=== PATIENT | male | born 1945 | race Two or more races ===

== ENCOUNTER 2019-02-18 21:07 | Emergency (ER) | payer SELFPAY ==
[~2019-02-18] VITALS: Ht 154.9 cm; Wt 66.7 kg
[2019-02-18 21:37] VITALS: BP 146/98
[2019-02-18] MEDS ORDERED: predniSONE 20 MG TABLET ONE (21:54)
[2019-02-18] MEDS ORDERED: IPRATRPIUM/ALBUTEROL 0.5/2.5MG 3 ML NEBU. NEB ONE (22:00)
[2019-02-18] MEDS ORDERED: predniSONE 20 MG TABLET PO ONE (22:00)
--- NOTE | 2019-02-18 22:01 | PHYS DOC ---
Past Medical History Past Medical History: COPD Past Surgical History: Other Additional Past Surgical Histo: AORTIC VALVE REPLACEMENT Alcohol Use: None Drug Use: None Adult General Chief Complaint Chief Complaint: SORE THROAT HPI HPI Patient is a 74 year old male with history of COPD stopped smoking over 20 years ago who presents to the ED today complaining of productive cough, sore throat, shortness of breath, symptoms began today. Patient states he has tried using his inhaler with no relief. Family state patient typically has to get steroids to reduce symptoms. Family also state they recently moved from [place] and do not have a PCP in town. Patient is Persian speaking and interpretation is provided by family. Review of Systems Review of Systems Constitutional: Denies fever or chills [] Eyes: Denies change in visual acuity, redness, or eye pain [] HENT: Reports sore throat. Denies nasal congestion Respiratory: Reports cough and shortness of breath [] Cardiovascular: No additional information not addressed in HPI [] GI: Denies abdominal pain, nausea, vomiting, bloody stools or diarrhea [] : Denies dysuria or hematuria [] Musculoskeletal: Denies back pain or joint pain [] Integument: Denies rash or skin lesions [] Neurologic: Denies headache, focal weakness or sensory changes [] All other systems were reviewed and found to be within normal limits, except as documented in this note. Current Medications Current Medications Current Medications Medications (Trade) Dose Ordered Sig/Marino Start Time Stop Time Status Last Admin Dose Admin Albuterol/ Ipratropium (Duoneb) 3 ml 1X ONCE 02/18/19 22:00 02/18/19 22:02 DC 02/18/19 22:46 3 ML Prednisone (Prednisone) 20 mg STK-MED ONCE 02/18/19 21:54 02/18/19 21:55 DC Allergies Allergies Allergies Coded Allergies Type Severity Reaction Last Updated Verified No Known Drug Allergies 02/18/19 No Physical Exam Physical Exam Constitutional: Well developed, well nourished, no acute distress, non-toxic appearance. [] HENT: Normocephalic, atraumatic, bilateral external ears normal, oropharynx moist, no oral exudates, nose normal. [] Eyes: PERRLA, EOMI, conjunctiva normal, no discharge. [] Neck: Normal range of motion, no tenderness, supple, no stridor. [] Cardiovascular:Heart rate regular rhythm, no murmur [] Lungs & Thorax: Diffuse wheezing noted throughout the lung bases. Abdomen: Bowel sounds normal, soft, no tenderness, no masses, no pulsatile masses. [] Skin: Warm, dry, no erythema, no rash. [] Back: No tenderness, no CVA tenderness. [] Extremities: No tenderness, no cyanosis, no clubbing, ROM intact, no edema. [] Neurologic: Alert and oriented X 3, normal motor function, normal sensory function, no focal deficits noted. [] Psychologic: Affect normal, judgement normal, mood normal. [] Current Patient Data Vital Signs Vital Signs Date Time Temp Pulse Resp B/P (MAP) Pulse Ox O2 Delivery O2 Flow Rate FiO2 02/18/19 22:46 Room Air 02/18/19 21:37 98.4 109 16 146/98 (114) 94 98.4 EKG EKG [] Radiology/Procedures Radiology/Procedures []PROCEDURE: CHEST PA & LATERAL PA and lateral chest. HISTORY: Cough, short of breath, chest sore throat PA and lateral views were taken of the chest. The heart is normal in size without evidence of prior aortic valve surgery. There is no effusion. There is a possible pulmonary nodule or granuloma on the right correlation with an old study would be of benefit. There are no confluent infiltrates. IMPRESSION: 1. Nodule or granuloma on the right correlation with old studies of be of benefit. 2. Previous aortic valve surgery. 3. No confluent infiltrates. Electronically signed by: Ramón Varela MD (02/18/2019 10:26 PM) [facility] DICTATED and SIGNED BY: RAMÓN VARELA MD DATE: 02/18/192225 Course & Med Decision Making Course & Med Decision Making Pertinent Labs and Imaging studies reviewed. (See chart for details) This is a 74-year-old male patient presented to the ED today with cough, shortness of breath and a sore throat, symptoms began today. History of COPD. Patient wheezing on arrival to the ED. vitals on arrival temperature 98.4 heart rate 109, respiration 16 and O2 sats 94% on room air blood pressure 146/98. Negative rapid strep. Chest x-ray interpreted by radiologist was negative for any acute findings. Patient was given a DuoNeb treatment and prednisone. Feeling better, breathing back to baseline. Patient was discharged to home. Provided in his as well as prednisone. Provided a primary care doctor's list for follow-up. Antwon Disclaimer Dragon Disclaimer This electronic medical record was generated, in whole or in part, using a voice recognition dictation system. Departure Departure Impression: Primary Impression: COPD exacerbation Additional Impression: Acute viral pharyngitis Disposition: HOME, SELF-CARE Condition: STABLE Referrals: NO PCP (PCP) Follow-up with a doctor from the list with provided you Patient Instructions: Chronic Obstructive Pulmonary Disease Exacerbation, Viral Pharyngitis Additional Instructions: You were seen in the emergency room for pharyngitis and COPD exacerbation. Use the prescribed medications as ordered. Establish care with a primary care doctor from the list provided and follow-up. Scripts Prednisone (PREDNISONE) 50 Mg Tablet 1 TAB PO DAILY, #4 TAB Prov: RODRIGUEZ DICKERSON APRN 02/18/19 Albuterol Sulfate (VENTOLIN HFA INHALER) 18 Gm Hfa.aer.ad 2 PUFF INH Q4HRS for FOR ASTHMA, #1 INHALER 0 Refills Prov: RODRIGUEZ DICKERSON APRN 02/18/19 Problem Qualifiers RODRIGUEZ DICKERSON APRN Feb 18, 2019 22:01
--- NOTE | 2019-02-18 22:29 | RAD ---
PA and lateral chest. HISTORY: Cough, short of breath, chest sore throat PA and lateral views were taken of the chest. The heart is normal in size without evidence of prior aortic valve surgery. There is no effusion. There is a possible pulmonary nodule or granuloma on the right correlation with an old study would be of benefit. There are no confluent infiltrates. IMPRESSION: 1. Nodule or granuloma on the right correlation with old studies of be of benefit. 2. Previous aortic valve surgery. 3. No confluent infiltrates. Electronically signed by: Ramón Martins MD (02/18/2019 10:26 PM) [facility]
[2019-02-18] MEDS ORDERED: PRED50TA PO (23:14)
[2019-02-18] MEDS ORDERED: VENTOLIN HFA18 GM INH (23:14)
== END 2019-02-18 23:20 | disposition home or self-care (01) ==
LOC: ER 21:07
DX: J44.1 Chronic obstructive pulmonary disease with (acute) exacerbation (principal); J02.8 Acute pharyngitis due to other specified organisms; B97.89 Other viral agents as the cause of diseases classified elsewhere
CPT/HCPCS: 71046; 87070; 87880; 94640; 99285; J7512; J7620

== ENCOUNTER 2019-06-06 13:13 | Inpatient (IN) | payer OTHER ==
[~2019-06-06] VITALS: Ht 147.3 cm; Wt 64.9 kg
[~2019-06-06 13:13] MED LIST: PRED50TA PO; VENTOLIN HFA18 GM INH
--- NOTE | 2019-06-06 13:50 | PHYS DOC ---
Past Medical History Past Medical History: COPD Past Surgical History: Other Additional Past Surgical Histo: AORTIC VALVE REPLACEMENT Alcohol Use: None Drug Use: None Adult General Chief Complaint Chief Complaint: CHEST PAIN HPI HPI Patient is a 74-year-old male who presents with complaint of shortness of breath over the last several days and some ongoing chest discomfort that is intermittent for over a month now. Patient states that pain presents with he is exerting himself. He also indicates that shortness of breath is worsened with exertion. Patient reportedly has had no vomiting or diarrhea. Currently patient denies any chest pain.[] Review of Systems Review of Systems Constitutional: Denies fever or chills [] Respiratory: Complains of shortness of breath [] Cardiovascular: No additional information not addressed in HPI [] GI: Denies abdominal pain, nausea, vomiting or diarrhea [] Integument: Denies rash or skin lesions [] Neurologic: Denies headache, focal weakness or sensory changes [] All other systems were reviewed and found to be within normal limits, except as documented in this note. Current Medications Current Medications Current Medications Medications (Trade) Dose Ordered Sig/Marino Start Time Stop Time Status Last Admin Dose Admin Aspirin (Children'S Aspirin) 324 mg 1X ONCE 06/06/19 14:00 06/06/19 14:01 DC 06/06/19 13:58 324 MG Allergies Allergies Allergies Coded Allergies Type Severity Reaction Last Updated Verified No Known Drug Allergies 02/18/19 No Physical Exam Physical Exam Constitutional: Well developed, well nourished, no acute distress, non-toxic appearance. [] HENT: Normocephalic, atraumatic, bilateral external ears normal, oropharynx moist, no oral exudates, nose normal. [] Eyes: PERRLA, EOMI, conjunctiva normal, no discharge. [] Neck: Normal range of motion, no tenderness, supple, no stridor. [] Cardiovascular: Regular rate and rhythm. 4/6 systolic ejection murmur is noted greatest over tricuspid region[] Lungs & Thorax: Fine rhonchi are noted in bilateral lung bases to auscultation [] Abdomen: Bowel sounds normal, soft, no tenderness. [] Skin: Warm, dry, no erythema, no rash. [] Extremities: No tenderness, no cyanosis, no clubbing, ROM intact. [] Neurologic: Alert and oriented X 3, no focal deficits noted. [] Current Patient Data Vital Signs Vital Signs Date Time Temp Pulse Resp B/P (MAP) Pulse Ox O2 Delivery O2 Flow Rate FiO2 06/06/19 13:15 98.1 98 26 148/97 (114) 90 Room Air 98.1 Lab Values Laboratory Tests Test 06/06/19 13:35 White Blood Count 3.5 x10^3/uL (4.0-11.0) L Red Blood Count 4.84 x10^6/uL (4.30-5.70) Hemoglobin 13.7 g/dL (13.0-17.5) Hematocrit 41.0 % (39.0-53.0) Mean Corpuscular Volume 85 fL (79-100) Mean Corpuscular Hemoglobin 28 pg (25-35) Mean Corpuscular Hemoglobin Concent 33 g/dL (31-37) Red Cell Distribution Width 18.5 % (11.5-14.5) H Platelet Count 158 x10^3/uL (140-400) Neutrophils (%) (Auto) 63 % (31-73) Lymphocytes (%) (Auto) 23 % (24-48) L Monocytes (%) (Auto) 8 % (0-9) Eosinophils (%) (Auto) 5 % (0-3) H Basophils (%) (Auto) 1 % (0-3) Neutrophils # (Auto) 2.2 x10^3/uL (1.8-7.7) Lymphocytes # (Auto) 0.8 x10^3/uL (1.0-4.8) L Monocytes # (Auto) 0.3 x10^3/uL (0.0-1.1) Eosinophils # (Auto) 0.2 x10^3/uL (0.0-0.7) Basophils # (Auto) 0.0 x10^3/uL (0.0-0.2) Prothrombin Time 13.4 SEC (11.7-14.0) Prothrombin Time INR 1.1 (0.8-1.1) D-Dimer (Carmella) 0.56 ug/mlFEU (0.00-0.50) H Sodium Level 144 mmol/L (136-145) Potassium Level 3.6 mmol/L (3.5-5.1) Chloride Level 106 mmol/L (98-107) Carbon Dioxide Level 32 mmol/L (21-32) Anion Gap 6 (6-14) Blood Urea Nitrogen 21 mg/dL (8-26) Creatinine 1.4 mg/dL (0.7-1.3) H Estimated GFR (Cockcroft-Gault) 49.3 BUN/Creatinine Ratio 15 (6-20) Glucose Level 154 mg/dL (70-99) H Calcium Level 8.9 mg/dL (8.5-10.1) Magnesium Level 2.3 mg/dL (1.8-2.4) Total Bilirubin 0.7 mg/dL (0.2-1.0) Aspartate Amino Transferase (AST) 23 U/L (15-37) Alanine Aminotransferase (ALT) 18 U/L (16-63) Alkaline Phosphatase 77 U/L (46-116) Troponin I Quantitative < 0.017 ng/mL (0.000-0.055) JC-Ocf-B-Type Natriuretic Peptide 326 pg/mL (0-449) Total Protein 8.4 g/dL (6.4-8.2) H Albumin 4.0 g/dL (3.4-5.0) Albumin/Globulin Ratio 0.9 (1.0-1.7) L Lipase 344 U/L (73-393) Laboratory Tests 06/06/19 13:35 Laboratory Tests 06/06/19 13:35 EKG EKG [] Interpretation Time: EKG demonstrates normal sinus rhythm with rate of 96. Radiology/Procedures Radiology/Procedures [] Impressions: PROCEDURE: PORTABLE CHEST 1V EXAM: Chest, single view. HISTORY: Dyspnea on exertion. COMPARISON: None. FINDINGS: A frontal view of the chest is obtained. There is no infiltrate, pleural effusion or pneumothorax. There is stable elevation of the right hemidiaphragm. There is a stable prominent cardiac silhouette. IMPRESSION: No acute pulmonary finding. Electronically signed by: Ani Gabriel MD (06/06/2019 2:46 PM) [facility] Course & Med Decision Making Course & Med Decision Making Pertinent Labs and Imaging studies reviewed. (See chart for details) [] Dragon Disclaimer Dragon Disclaimer This electronic medical record was generated, in whole or in part, using a voice recognition dictation system. Departure Departure Impression: Primary Impression: Community acquired pneumonia Additional Impression: Chest pain Disposition: 09 ADMITTED INPATIENT Admitting Physician: RUPERTO (Dr. Thurston) Condition: GOOD Referrals: NO PCP (PCP) Problem Qualifiers Primary Impression: Community acquired pneumonia Laterality: unspecified laterality Qualified Codes: J18.9 - Pneumonia, unspecified organism Additional Impression: Chest pain Chest pain type: unspecified Qualified Codes: R07.9 - Chest pain, unspecified CHET PRICE Jr. DO Jun 06, 2019 13:50
[2019-06-06 13:51] LABS: BASO % 1 % (0-3); EOS # 0.2 x10^3/uL (0.0-0.7); EOS % 5 % (0-3); HEMOGLOBIN 13.7 g/dL (13.0-17.5); LYMPH # 0.8 x10^3/uL (1.0-4.8); LYMPH % 23 % (24-48); MEAN CORPUSCULAR HEMOGLOBIN 28 pg (25-35); MEAN CORPUSCULAR HGB CONC 33 g/dL (31-37); MEAN CORPUSCULAR VOLUME 85 fL (79-100); MONO # 0.3 x10^3/uL (0.0-1.1); MONO % 8 % (0-9); NEUT # 2.2 x10^3/uL (1.8-7.7); NEUT % 63 % (31-73); PLATELET COUNT 158 x10^3/uL (140-400); RED BLOOD COUNT 4.84 x10^6/uL (4.30-5.70); RED CELL DISTRIBUTION WIDTH 18.5 % (11.5-14.5); WHITE BLOOD COUNT 3.5 x10^3/uL (4.0-11.0)
--- NOTE | 2019-06-06 13:51 | RAD ---
EXAM: Chest, single view. HISTORY: Shortness of breath. Chest pain. COMPARISON: 02/18/2019. FINDINGS: A frontal view of the chest obtained. There has been interval increase in diffuse interstitial opacity. There is superimposed focal opacity overlying the right lower lobe which may artifactual or due to consolidated infiltrate. There is no consolidation, pleural effusion or pneumothorax. There is a stable cardiac silhouette and evidence of prior mediastinal surgery. IMPRESSION: Mild increased opacity suggesting interstitial infiltrate. There is superimposed lateral right lower lobe opacity which may be due to artifact or consolidated infiltrate. Follow-up to confirm resolution. Electronically signed by: Ani Gabriel MD (06/06/2019 1:48 PM) [facility]
[2019-06-06 13:57] LABS: CALCIUM 8.9 mg/dL (8.5-10.1); CREATININE 1.4 mg/dL (0.7-1.3); GFR 49.3; POTASSIUM 3.6 mmol/L (3.5-5.1)
[2019-06-06] MEDS ORDERED: ASPIRIN CHEWABLE 81 MG TABLET. PO ONE (14:00)
[2019-06-06 14:03] LABS: ALBUMIN/GLOBULIN RATIO 0.9 (1.0-1.7); MAGNESIUM 2.3 mg/dL (1.8-2.4); TOTAL BILIRUBIN 0.7 mg/dL (0.2-1.0); TOTAL PROTEIN 8.4 g/dL (6.4-8.2)
[2019-06-06 14:04] LABS: PROTHROMBIN TIME PATIENT 13.4 SEC (11.7-14.0)
[2019-06-06 14:08] LABS: D-DIMER 0.56 ug/mlFEU (0.00-0.50)
--- NOTE | 2019-06-06 15:21 | PDOC1 ---
History and Physical Date of Admission Date of Admission DATE: 06/06/19 TIME: 13:21 Identification/Chief Complaint Chief Complaint presented to er with SOB, COUGH, CXR C/W PNEUMONIA 74-year-old male /// complaint of shortness of breath over the last several days and some ongoing chest discomfort that is intermittent for over a month Patient states that pain presents with he is exerting himself. He also indicates that shortness of breath is worsened with exertion. reportedly has had no vomiting or diarrhea. Currently patient denies any chest pain. SEEN WITH SON IN ER V/Q PENDING Past Medical History Past Medical History Past Medical History Past Medical History Past Medical History: COPD Past Surgical History: Other Additional Past Surgical Histo: AORTIC VALVE REPLACEMENT Alcohol Use: None Drug Use: None fhx copd Pulmonary: COPD Musculoskeletal: Osteoarthritis Family History Family History: Hypertension Social History Smoke: Quit ALCOHOL: occassional Drugs: None Current Problem List Problem List Problems Medical Problems: (1) Chest pain Status: Acute (2) Community acquired pneumonia Status: Acute Current Medications Current Medications Current Medications Aspirin (Children'S Aspirin) 324 mg 1X ONCE PO Last administered on 06/06/19at 13:58; Start 06/06/19 at 14:00; Stop 06/06/19 at 14:01; Status DC Ceftriaxone Sodium (Rocephin) 1 gm 1X ONCE IVP ; Start 06/06/19 at 15:45; Stop 06/06/19 at 15:46 Azithromycin (Zithromax) 500 mg 1X ONCE PO ; Start 06/06/19 at 15:45; Stop 06/06/19 at 15:46 Active Scripts Active Prednisone 50 Mg Tablet 1 Tab PO DAILY Ventolin Hfa Inhaler (Albuterol Sulfate) 18 Gm Hfa.aer.ad 2 Puff INH Q4HRS Allergies Allergies: Coded Allergies: No Known Drug Allergies (Unverified , 02/18/19) ROS Review of System Review of Systems Review of Systems Constitutional: Denies fever or chills [] Respiratory: Complains of shortness of breath [] Cardiovascular: No additional information not addressed in HPI [] GI: Denies abdominal pain, nausea, vomiting or diarrhea [] Integument: Denies rash or skin lesions [] Neurologic: Denies headache, focal weakness or sensory changes [] 14 PT systems were reviewed and found to be within normal limits, except as documented General: YES: Fatigue PSYCHOLOGICAL ROS: No: Anxiety, Behavioral Disorder, Concentration difficultie, Decreased libido, Depression, Disorientation, Hallucinations, Hostility, Irritablity, Memory difficulties, Mood Swings, Obsessive thoughts, Physical abuse, Sexual abuse, Sleep disturbances, Suicidal ideation, Other HEENT: No: Heacaches, Visual Changes, Hearing change, Nasal congestion, Nasal discharge, Oral lesions, Sinus pain, Sore Throat, Epistaxis, Sneezing, Snoring, Tinnitus, Vertigo, Vocal changes, Other ALLERGY AND IMMUNOLOGY: No: Hives, Insect Bite Sensitivity, Itchy/Watery Eyes, Nasal Congestion, Post Nasal Drip, Seasonal Allergies, Other Hematological and Lymphatic: No: Bleeding Problems, Blood Clots, Blood Transfusions, Brusing, Night Sweats, Pallor, Swollen Lymph Nodes, Other Respiratory: YES: Cough, Shortness of breath, SOB with excertion Gastrointestinal: Yes Nausea Musculoskeletal: No Gait Disturbance, No Joint Pain, No Joint Stiffness, No Joint Swelling, No Muscle Pain, No Muscular Weakness, No Pain In:, No Swelling I n:, No Other Neurological: No Behavorial Changes, No Bowel/Bladder ControlChng, No Confusion, No Dizziness, No Gait Disturbance, No Headaches, No Impaired Coord/balance, No Memory Loss, No Numbness/Tingling, No Seizures, No Speech Pro blems, No Tremors, No Visual Changes, No Weakness, No Other Physical Exam Physical Exam Physical Exam Physical Exam Constitutional: Well developed, well nourished, no acute distress, non-toxic appearance. [] HENT: Normocephalic, atraumatic, bilateral external ears normal, oropharynx moist, no oral exudates, nose normal. [] Eyes: PERRLA, EOMI, conjunctiva normal, no discharge. [] Neck: Normal range of motion, no tenderness, supple, no stridor. [] Cardiovascular: Regular rate and rhythm. 4/6 systolic ejection murmur is noted greatest over tricuspid region[] Lungs & Thorax: Fine rhonchi are noted in bilateral lung bases to auscultation [] Abdomen: Bowel sounds normal, soft, no tenderness. [] Skin: Warm, dry, no erythema, no rash. [] Extremities: No tenderness, no cyanosis, no clubbing, ROM intact. [] Neurologic: Alert and oriented X 3, no focal deficits noted. [] General: Alert, Oriented X3, Cooperative, No acute distress HEENT: Mucous membr. moist/pink Heart: RRR, other (GR 2/ 6 LASHON) Abdomen: Normal bowel sounds, Soft Rectal Exam: not examined PELVIC: Examination not indicated Extremities: No cyanosis Neuro: Normal speech, Cranial nerves 3-12 NL Psych/Mental Status: Mental status NL, Mood NL Vitals Vitals Vital Signs Date Time Temp Pulse Resp B/P (MAP) Pulse Ox O2 Delivery O2 Flow Rate FiO2 06/06/19 13:15 98.1 98 26 148/97 (114) 90 Room Air 98.1 Labs Labs Laboratory Tests Test 06/06/19 13:35 White Blood Count 3.5 x10^3/uL (4.0-11.0) Red Blood Count 4.84 x10^6/uL (4.30-5.70) Hemoglobin 13.7 g/dL (13.0-17.5) Hematocrit 41.0 % (39.0-53.0) Mean Corpuscular Volume 85 fL (79-100) Mean Corpuscular Hemoglobin 28 pg (25-35) Mean Corpuscular Hemoglobin Concent 33 g/dL (31-37) Red Cell Distribution Width 18.5 % (11.5-14.5) Platelet Count 158 x10^3/uL (140-400) Neutrophils (%) (Auto) 63 % (31-73) Lymphocytes (%) (Auto) 23 % (24-48) Monocytes (%) (Auto) 8 % (0-9) Eosinophils (%) (Auto) 5 % (0-3) Basophils (%) (Auto) 1 % (0-3) Neutrophils # (Auto) 2.2 x10^3/uL (1.8-7.7) Lymphocytes # (Auto) 0.8 x10^3/uL (1.0-4.8) Monocytes # (Auto) 0.3 x10^3/uL (0.0-1.1) Eosinophils # (Auto) 0.2 x10^3/uL (0.0-0.7) Basophils # (Auto) 0.0 x10^3/uL (0.0-0.2) Prothrombin Time 13.4 SEC (11.7-14.0) Prothromb Time International Ratio 1.1 (0.8-1.1) D-Dimer (Carmella) 0.56 ug/mlFEU (0.00-0.50) Sodium Level 144 mmol/L (136-145) Potassium Level 3.6 mmol/L (3.5-5.1) Chloride Level 106 mmol/L (98-107) Carbon Dioxide Level 32 mmol/L (21-32) Anion Gap 6 (6-14) Blood Urea Nitrogen 21 mg/dL (8-26) Creatinine 1.4 mg/dL (0.7-1.3) Estimated GFR (Cockcroft-Gault) 49.3 BUN/Creatinine Ratio 15 (6-20) Glucose Level 154 mg/dL (70-99) Calcium Level 8.9 mg/dL (8.5-10.1) Magnesium Level 2.3 mg/dL (1.8-2.4) Total Bilirubin 0.7 mg/dL (0.2-1.0) Aspartate Amino Transf (AST/SGOT) 23 U/L (15-37) Alanine Aminotransferase (ALT/SGPT) 18 U/L (16-63) Alkaline Phosphatase 77 U/L (46-116) Troponin I Quantitative < 0.017 ng/mL (0.000-0.055) RS-Fki-N-Type Natriuretic Peptide 326 pg/mL (0-449) Total Protein 8.4 g/dL (6.4-8.2) Albumin 4.0 g/dL (3.4-5.0) Albumin/Globulin Ratio 0.9 (1.0-1.7) Lipase 344 U/L (73-393) Laboratory Tests Test 06/06/19 13:35 White Blood Count 3.5 x10^3/uL (4.0-11.0) Red Blood Count 4.84 x10^6/uL (4.30-5.70) Hemoglobin 13.7 g/dL (13.0-17.5) Hematocrit 41.0 % (39.0-53.0) Mean Corpuscular Volume 85 fL (79-100) Mean Corpuscular Hemoglobin 28 pg (25-35) Mean Corpuscular Hemoglobin Concent 33 g/dL (31-37) Red Cell Distribution Width 18.5 % (11.5-14.5) Platelet Count 158 x10^3/uL (140-400) Neutrophils (%) (Auto) 63 % (31-73) Lymphocytes (%) (Auto) 23 % (24-48) Monocytes (%) (Auto) 8 % (0-9) Eosinophils (%) (Auto) 5 % (0-3) Basophils (%) (Auto) 1 % (0-3) Neutrophils # (Auto) 2.2 x10^3/uL (1.8-7.7) Lymphocytes # (Auto) 0.8 x10^3/uL (1.0-4.8) Monocytes # (Auto) 0.3 x10^3/uL (0.0-1.1) Eosinophils # (Auto) 0.2 x10^3/uL (0.0-0.7) Basophils # (Auto) 0.0 x10^3/uL (0.0-0.2) Prothrombin Time 13.4 SEC (11.7-14.0) Prothromb Time International Ratio 1.1 (0.8-1.1) D-Dimer (Carmella) 0.56 ug/mlFEU (0.00-0.50) Sodium Level 144 mmol/L (136-145) Potassium Level 3.6 mmol/L (3.5-5.1) Chloride Level 106 mmol/L (98-107) Carbon Dioxide Level 32 mmol/L (21-32) Anion Gap 6 (6-14) Blood Urea Nitrogen 21 mg/dL (8-26) Creatinine 1.4 mg/dL (0.7-1.3) Estimated GFR (Cockcroft-Gault) 49.3 BUN/Creatinine Ratio 15 (6-20) Glucose Level 154 mg/dL (70-99) Calcium Level 8.9 mg/dL (8.5-10.1) Magnesium Level 2.3 mg/dL (1.8-2.4) Total Bilirubin 0.7 mg/dL (0.2-1.0) Aspartate Amino Transf (AST/SGOT) 23 U/L (15-37) Alanine Aminotransferase (ALT/SGPT) 18 U/L (16-63) Alkaline Phosphatase 77 U/L (46-116) Troponin I Quantitative < 0.017 ng/mL (0.000-0.055) YG-Qpt-R-Type Natriuretic Peptide 326 pg/mL (0-449) Total Protein 8.4 g/dL (6.4-8.2) Albumin 4.0 g/dL (3.4-5.0) Albumin/Globulin Ratio 0.9 (1.0-1.7) Lipase 344 U/L (73-393) Images Images EXAM: Chest, single view. HISTORY: Shortness of breath. Chest pain. COMPARISON: 02/18/2019. FINDINGS: A frontal view of the chest obtained. There has been interval increase in diffuse interstitial opacity. There is superimposed focal opacity overlying the right lower lobe which may artifactual or due to consolidated infiltrate. There is no consolidation, pleural effusion or pneumothorax. There is a stable cardiac silhouette and evidence of prior mediastinal surgery. IMPRESSION: Mild increased opacity suggesting interstitial infiltrate. There is superimposed lateral right lower lobe opacity which may be due to artifact or consolidated infiltrate. Follow-up to confirm resolution. Electronically signed by: Ani Gabriel MD (06/06/2019 1:48 PM) [place] [id number] DICTATED and SIGNED BY: ANI GABRIEL MD DATE: 06/06/19 1348 VTE Prophylaxis Ordered VTE Prophylaxis Devices: Yes VTE Pharmacological Prophylaxi: Yes Assessment/Plan Assessment/Plan IMPRESSION CHEST DISCOMFORT DYSPNEA Increased opacity suggesting interstitial infiltrate. superimposed lateral right lower lobe opacity which may be due to artifact or consolidated infiltrate REMOTE TOBACCO ABUSE 20 YRS AGO ELEVATED D-DIMER PLAN ADMIT IV ANTIBIOTICS DUONEBS ID CONSULT SPUTUM CULTURE DVT PROPHYLAXIS V/Q SCAN PING 54 MIN PT EXAM, CHART REVIEW, > 50% OF TIME SPENT WITH EXAM, CHART REVIEW, PT CARE COORDINATION RADHA PINA MD Jun 06, 2019 15:21
--- NOTE | 2019-06-06 15:23 | EKG ---
[facility] [address] [place] [address] Test Date: 2019-06-06 Test Time: 13:31:39 Pat Name: CAROLIN COLES Department: Room: Gender: M Public Information Coordinator: : 1945 Requested By: CHET PRICE Order Number: [id number] Reading MD: Jason Roman MD Measurements Intervals [place] Rate: 95 P: 48 ND: 146 QRS: 26 QRSD: 96 T: 62 QT: 366 QTc: 463 Interpretive Statements SINUS RHYTHM Electronically Signed On 06-24-2019 8:18:38 KELLY MACHINE OPERATOR by Jason Roman MD
[2019-06-06] MEDS ORDERED: ONDANSETRON PF 4 MG/2 ML VIAL. IV PRN ×2 (15:30→16:00)
[2019-06-06] MEDS ORDERED: ACETAMINOPHEN 325 MG TABLET. PO PRN (15:30)
[2019-06-06] MEDS ORDERED: MORPHINE SULFATE 2 MG/ML VIAL. IV PRN (15:30)
[2019-06-06] MEDS ORDERED: cefTRIAXone IV Push 1 GM VIAL. IVP ONE (15:45)
[2019-06-06] MEDS ORDERED: AZITHROMYCIN 250 MG TABLET. PO ONE (15:45)
[2019-06-06] MEDS: IPRATRPIUM/ALBUTEROL 0.5/2.5MG 3 ML NEBU. NEB SCH ×2 (15:47→20:00)
[2019-06-06] MEDS ORDERED: DOCUSATE SODIUM 100 MG CAPSULE. PO PRN (16:00)
[2019-06-06] MEDS ORDERED: cloNIDine HCL 0.1 MG TABLET PO PRN (16:00)
[2019-06-06] MEDS ORDERED: 0.9 % SODIUM CHLORIDE 10 ML DISP.SYRIN. IV PRN (16:00)
[2019-06-06] MEDS ORDERED: PIPERACILLIN/TAZOBACTAM 3.375 GM in IV NORMAL SALINE 50ML 50 ML IV ONE (16:30)
--- NOTE | 2019-06-06 19:24 | RAD ---
Lung scan 06/06/2019 CLINICAL HISTORY: Shortness of breath for 3 days. Elevated d-dimer. TECHNIQUE: After the administration of 7 mCi of Xenon-133 gas, ventilation images of both lungs were obtained using the gamma camera. After the intravenous administration of 5.8 mCi Technetium 99m MAA, perfusion images of both lungs were obtained using the gamma camera. FINDINGS: Comparison is made to a portable chest radiograph performed earlier the same day. This demonstrates mild cardiomegaly. No acute pulmonary infiltrate is seen. Slightly heterogeneous ventilation and perfusion to both lungs is seen. No unmatched perfusion defect is noted. These findings consistent with a low probability study for pulmonary embolism. IMPRESSION: Low probability study. Electronically signed by: Terrence Funez MD (06/06/2019 7:21 PM) [facility]
[2019-06-06 19:52] VITALS: BP 131/75
[2019-06-06] MEDS ORDERED: FURO-68 PO (19:57)
[2019-06-06] MEDS ORDERED: PANT20TA2 PO (19:57)
[2019-06-06] MEDS ORDERED: SENN-37 PO (19:57)
[2019-06-06] MEDS ORDERED: ASPI81TA50 PO (19:57)
[2019-06-06] MEDS ORDERED: FINA5TAB4 PO (19:57)
[2019-06-06] MEDS ORDERED: BUDE10.22 IH (19:57)
[2019-06-06] MEDS ORDERED: FURO-69 PO (19:57)
[2019-06-06] MEDS ORDERED: METO-239 PO (19:57)
[2019-06-06] MEDS ORDERED: HYDR12.575 PO (19:57)
[2019-06-06] MEDS ORDERED: CETI10TA16 PO (20:39)
[2019-06-06] MEDS ORDERED: POTA20TA4 PO (20:39)
[2019-06-06] MEDS ORDERED: FERR325T14 PO (20:39)
[2019-06-06] MEDS: SENNOSIDES/DOCUSATE 8.6/50MG TABLET. PO SCH (21:22)
[2019-06-06] MEDS: METOPROLOL SUCC 24HR ER 25 MG TAB.ER.24H. PO SCH (21:22)
[2019-06-06] MEDS ORDERED: IPRATRPIUM/ALBUTEROL 0.5/2.5MG 3 ML NEBU. NEB SCH (22:00)
[2019-06-06 23:00] VITALS: BP 112/66
[2019-06-06] MEDS ORDERED: ALBUTEROL SULFATE 2.5 MG/3 ML NEBU. NEB PRN (23:15)
[2019-06-06] MEDS: PIPERACILLIN/TAZOBACTAM 3.375 GM in IV NORMAL SALINE 50ML 50 ML IV SCH (23:59)
[2019-06-07] MEDS ORDERED: ALBUTEROL SULFATE 2.5 MG/3 ML NEBU. NEB SCH
[2019-06-07 03:22] VITALS: BP 134/81
[2019-06-07] MEDS: PIPERACILLIN/TAZOBACTAM 3.375 GM in IV NORMAL SALINE 50ML 50 ML IV SCH (05:20)
--- NOTE | 2019-06-07 06:35 | NUR ---
Patient arrived at 1850 via wheelchair. Patient is alert and orientated x4 and only speaks Aubree but understands Venezuelan. Medications reviewed and restarted per Dr. Thurston.
--- NOTE | 2019-06-07 06:36 | NUR ---
Reviewed Admit orders and patient transferred to room 670. Report given to nurse and reviewed orders.
[2019-06-07 07:00] VITALS: BP 120/77
[2019-06-07] MEDS: BUDESONIDE 0.5 MG/2 ML NEBU. NEB SCH ×2 (07:31→19:54)
[2019-06-07] MEDS: IPRATRPIUM/ALBUTEROL 0.5/2.5MG 3 ML NEBU. NEB SCH ×4 (07:32→19:54)
[2019-06-07] MEDS ORDERED: FUROSEMIDE 20 MG TABLET PO SCH (09:00)
[2019-06-07] MEDS ORDERED: FUROSEMIDE 40 MG TABLET. PO SCH (09:00)
[2019-06-07] MEDS: SENNOSIDES/DOCUSATE 8.6/50MG TABLET. PO SCH ×3 (10:09→21:24)
[2019-06-07] MEDS: ASPIRIN ENTERIC COATED 81 MG TABLET.DR. PO SCH (10:09)
[2019-06-07] MEDS: METOPROLOL SUCC 24HR ER 25 MG TAB.ER.24H. PO SCH (10:09)
[2019-06-07] MEDS: hydroCHLOROthiazide 12.5 MG CAPSULE PO SCH (10:09)
[2019-06-07] MEDS: FERROUS SULFATE 325 MG TABLET. PO SCH (10:09)
[2019-06-07] MEDS: FINASTERIDE 5 MG TABLET. PO SCH (10:09)
[2019-06-07] MEDS: POTASSIUM CHLORIDE 20 MEQ TABLET.ER. PO SCH (10:10)
[2019-06-07] MEDS: ENOXAPARIN 40 MG/0.4 ML SYRINGE. SQ SCH (10:10)
[2019-06-07] MEDS: CETIRIZINE HCL 10 MG TABLET. PO SCH (10:10)
[2019-06-07] MEDS: PANTOPRAZOLE 40 MG TABLET.DR. PO SCH (10:18)
--- NOTE | 2019-06-07 10:30 | PDOC2 ---
CONSULT Date of Consult Date of Consult DATE: 06/07/19 TIME: 10:24 Reason for Consult Reason for Consult: Chest pain Referring Physician Referring Physician: Dr. Thurston Identification/Chief Complaint Chief Complaint Chest pain and shortness of breath Source Source: Chart review, Patient History of Present Illness Reason for Visit: 74-year-old [place] male presented complaining of shortness of breath, cough and retrosternal chest pain not related to exertion or food intake since few days. He was diagnosed with pneumonia and admitted for further management. Cardiology has been consulted for his chest pain. He denied any orthopnea/PND, palpitations or syncope. He has history of bioprosthetic aortic valve replacement in 2013 and mitral valve clip procedure in 2018, both the procedures were apparently done in [place]. Past Medical History Past Medical History s/p bioprosthetic AVR Mitral valve clip procedure COPD Hypertension Pulmonary: COPD Musculoskeletal: Osteoarthritis Past Surgical History Past Surgical History Bioprosthetic AVR Family History Family History not contributory Family History: Hypertension Social History Quit ALCOHOL: occassional Drugs: None Current Problem List Problem List Problems Medical Problems: (1) Chest pain Status: Acute (2) Community acquired pneumonia Status: Acute Current Medications Current Medications Current Medications Aspirin (Children'S Aspirin) 324 mg 1X ONCE PO Last administered on 06/06/19at 13:58; Start 06/06/19 at 14:00; Stop 06/06/19 at 14:01; Status DC Ceftriaxone Sodium (Rocephin) 1 gm 1X ONCE IVP Last administered on 06/06/19at 15:54; Start 06/06/19 at 15:45; Stop 06/06/19 at 15:46; Status DC Azithromycin (Zithromax) 500 mg 1X ONCE PO Last administered on 06/06/19at 15:53; Start 06/06/19 at 15:45; Stop 06/06/19 at 15:46; Status DC Ondansetron HCl (Zofran) 4 mg PRN Q8HRS PRN IV NAUSEA/VOMITING; Start 06/06/19 at 15:30; Stop 06/06/19 at 20:55; Status DC Morphine Sulfate (Morphine Sulfate) 2 mg PRN Q2HR PRN IV PAIN; Start 06/06/19 at 15:30; Stop 06/07/19 at 15:29 Acetaminophen (Tylenol) 650 mg PRN Q4HRS PRN PO FEVER; Start 06/06/19 at 15:30; Stop 06/06/19 at 20:54; Status DC Albuterol/ Ipratropium (Duoneb) 3 ml RTQID NEB Last administered on 06/06/19at 15:47; Start 06/06/19 at 16:00; Stop 06/06/19 at 23:13; Status DC Piperacillin Sod/ Tazobactam Sod 3.375 gm/Sodium Chloride 50 ml @ 100 mls/hr Q6HRS IV Last administered on 06/07/19at 05:20; Start 06/07/19 at 00:00 Sodium Chloride (Normal Saline Flush) 3 ml QSHIFT PRN IV AFTER MEDS AND BLOOD DRAWS; Start 06/06/19 at 16:00 Ondansetron HCl (Zofran) 4 mg PRN Q4HRS PRN IV NAUSEA/VOMITING; Start 06/06/19 at 16:00 Acetaminophen (Tylenol) 650 mg PRN Q4HRS PRN PO TEMP OVER 100.4F OR MILD PAIN; Start 06/06/19 at 16:00 Clonidine HCl (Catapres) 0.1 mg PRN Q6HRS PRN PO SBP>160 OR DBP>90; Start 06/06/19 at 16:00 Docusate Sodium (Colace) 100 mg PRN BID PRN PO CONSTIPATION; Start 06/06/19 at 16:00 Enoxaparin Sodium (Lovenox 40mg Syringe) 40 mg DAILY SQ Last administered on 06/07/19at 10:10; Start 06/07/19 at 09:00 Piperacillin Sod/ Tazobactam Sod 3.375 gm/Sodium Chloride 50 ml @ 100 mls/hr 1X ONCE IV Last administered on 06/06/19at 16:40; Start 06/06/19 at 16:30; Stop 06/06/19 at 16:59; Status DC Aspirin (Ecotrin) 81 mg DAILY PO Last administered on 06/07/19at 10:09; Start 06/07/19 at 09:00 Cetirizine HCl (ZyrTEC) 10 mg DAILY PO Last administered on 06/07/19at 10:10; Start 06/07/19 at 09:00 Ferrous Sulfate (Feosol) 325 mg DAILY PO Last administered on 06/07/19 10:09; Start 06/07/19 at 09:00 Finasteride (Proscar) 5 mg DAILY PO Last administered on 06/07/19 10:09; Start 06/07/19 at 09:00 Furosemide (Lasix) 20 mg DAILY PO Last administered on 06/07/19at 10:09; Start 06/07/19 at 09:00 Furosemide (Lasix) 40 mg DAILY PO ; Start 06/07/19 at 09:00; Status UNV Hydrochlorothiazide (Microzide) 12.5 mg DAILY PO Last administered on 06/07/19 10:09; Start 06/07/19 at 09:00 Metoprolol Succinate (Toprol Xl) 25 mg BID PO Last administered on 06/07/19 10:09; Start 06/06/19 at 21:00 Potassium Chloride (Klor-Con) 20 meq DAILY PO Last administered on 06/07/19 10:10; Start 06/07/19 at 09:00 Senna/Docusate Sodium (Senna Plus) 2 tab BID PO Last administered on 06/07/19at 10:09; Start 06/06/19 at 21:00 Albuterol Sulfate (Ventolin Neb Soln) 2.5 mg Q4HRS NEB ; Start 06/07/19 at 00:00; Stop 06/06/19 at 23:13; Status DC Budesonide (Pulmicort) 0.5 mg RTBID NEB Last administered on 06/07/19at 07:31; Start 06/06/19 at 22:00 Pantoprazole Sodium (Protonix) 40 mg DAILYAC PO Last administered on 06/07/19at 10:18; Start 06/07/19 at 07:30 Albuterol/ Ipratropium (Duoneb) 3 ml RTQID NEB ; Start 06/06/19 at 22:00; Stop 06/06/19 at 23:13; Status DC Albuterol Sulfate (Ventolin Neb Soln) 2.5 mg PRN Q4HRS PRN NEB SOA; Start 06/06/19 at 23:15 Albuterol/ Ipratropium (Duoneb) 3 ml RTQID NEB Last administered on 06/07/19at 07:32; Start 06/07/19 at 08:00 Active Scripts Active Prednisone 50 Mg Tablet 1 Tab PO DAILY Ventolin Hfa Inhaler (Albuterol Sulfate) 18 Gm Hfa.aer.ad 2 Puff INH Q4HRS Reported Klor-Con M20 (Potassium Chloride) 20 Meq Tab.er.prt 20 Meq PO DAILY Cetirizine Hcl 10 Mg Tablet 10 Mg PO DAILY Ferrous Sulfate 325 Mg Tablet 325 Mg PO DAILY Symbicort 80-4.5 Mcg Inhaler (Budesonide/Formoterol Fumarate) 10.2 Gm Hfa.aer.ad 2 Puff IH BID Protonix (Pantoprazole Sodium) 20 Mg Tablet.dr 1 Tab PO DAILY Hydrochlorothiazide Capsule (Hydrochlorothiazide) 12.5 Mg Capsule 12.5 Mg PO DAILY Senokot-S Tablet (Sennosides/Docusate Sodium) 1 Each Tablet 2 Tab PO BID 30 Days Finasteride 5 Mg Tablet 1 Tab PO DAILY Metoprolol Succinate ( Xl ) (Metoprolol Succinate) 25 Mg Tab.er.24h 1 Tab PO BID Aspir-Low (Aspirin) 81 Mg Tablet.dr 1 Tab PO DAILY Lasix (Furosemide) 20 Mg Tablet 1 Tab PO DAILY 30 Days Allergies Allergies: Coded Allergies: No Known Drug Allergies (Unverified , 02/18/19) ROS PSYCHOLOGICAL ROS: No: Hallucinations Eyes: No Loss of vision Respiratory: YES: Cough, Shortness of breath Cardiovascular: yes Chest Pain Gastrointestinal: No Vomiting Genitourinary: No Hematuria Neurological: No Seizures Skin: No Rash Physical Exam General: Alert, No acute distress HEENT: Atraumatic Lungs: Other (scattered crepitations bilaterally) Heart: Regular rate, Other (ejection systolic murmur 2/6 aortic area) Abdomen: Soft, No tenderness Extremities: No edema Psych/Mental Status: Mood NL Vitals VITALS Vital Signs Date Time Temp Pulse Resp B/P (MAP) Pulse Ox O2 Delivery O2 Flow Rate FiO2 06/07/19 10:09 82 120/77 06/07/19 07:32 Room Air 06/07/19 07:00 98.2 16 91 98.2 06/07/19 03:22 2.0 Labs Labs Laboratory Tests Test 06/06/19 13:35 06/06/19 19:30 06/06/19 22:30 White Blood Count 3.5 x10^3/uL (4.0-11.0) Red Blood Count 4.84 x10^6/uL (4.30-5.70) Hemoglobin 13.7 g/dL (13.0-17.5) Hematocrit 41.0 % (39.0-53.0) Mean Corpuscular Volume 85 fL (79-100) Mean Corpuscular Hemoglobin 28 pg (25-35) Mean Corpuscular Hemoglobin Concent 33 g/dL (31-37) Red Cell Distribution Width 18.5 % (11.5-14.5) Platelet Count 158 x10^3/uL (140-400) Neutrophils (%) (Auto) 63 % (31-73) Lymphocytes (%) (Auto) 23 % (24-48) Monocytes (%) (Auto) 8 % (0-9) Eosinophils (%) (Auto) 5 % (0-3) Basophils (%) (Auto) 1 % (0-3) Neutrophils # (Auto) 2.2 x10^3/uL (1.8-7.7) Lymphocytes # (Auto) 0.8 x10^3/uL (1.0-4.8) Monocytes # (Auto) 0.3 x10^3/uL (0.0-1.1) Eosinophils # (Auto) 0.2 x10^3/uL (0.0-0.7) Basophils # (Auto) 0.0 x10^3/uL (0.0-0.2) Prothrombin Time 13.4 SEC (11.7-14.0) Prothromb Time International Ratio 1.1 (0.8-1.1) D-Dimer (Carmella) 0.56 ug/mlFEU (0.00-0.50) Sodium Level 144 mmol/L (136-145) Potassium Level 3.6 mmol/L (3.5-5.1) Chloride Level 106 mmol/L (98-107) Carbon Dioxide Level 32 mmol/L (21-32) Anion Gap 6 (6-14) Blood Urea Nitrogen 21 mg/dL (8-26) Creatinine 1.4 mg/dL (0.7-1.3) Estimated GFR (Cockcroft-Gault) 49.3 BUN/Creatinine Ratio 15 (6-20) Glucose Level 154 mg/dL (70-99) Calcium Level 8.9 mg/dL (8.5-10.1) Magnesium Level 2.3 mg/dL (1.8-2.4) Total Bilirubin 0.7 mg/dL (0.2-1.0) Aspartate Amino Transf (AST/SGOT) 23 U/L (15-37) Alanine Aminotransferase (ALT/SGPT) 18 U/L (16-63) Alkaline Phosphatase 77 U/L (46-116) Troponin I Quantitative < 0.017 ng/mL (0.000-0.055) < 0.017 ng/mL (0.000-0.055) < 0.017 ng/mL (0.000-0.055) CD-Pqp-Y-Type Natriuretic Peptide 326 pg/mL (0-449) Total Protein 8.4 g/dL (6.4-8.2) Albumin 4.0 g/dL (3.4-5.0) Albumin/Globulin Ratio 0.9 (1.0-1.7) Lipase 344 U/L (73-393) Laboratory Tests Test 06/06/19 13:35 06/06/19 19:30 06/06/19 22:30 White Blood Count 3.5 x10^3/uL (4.0-11.0) Red Blood Count 4.84 x10^6/uL (4.30-5.70) Hemoglobin 13.7 g/dL (13.0-17.5) Hematocrit 41.0 % (39.0-53.0) Mean Corpuscular Volume 85 fL (79-100) Mean Corpuscular Hemoglobin 28 pg (25-35) Mean Corpuscular Hemoglobin Concent 33 g/dL (31-37) Red Cell Distribution Width 18.5 % (11.5-14.5) Platelet Count 158 x10^3/uL (140-400) Neutrophils (%) (Auto) 63 % (31-73) Lymphocytes (%) (Auto) 23 % (24-48) Monocytes (%) (Auto) 8 % (0-9) Eosinophils (%) (Auto) 5 % (0-3) Basophils (%) (Auto) 1 % (0-3) Neutrophils # (Auto) 2.2 x10^3/uL (1.8-7.7) Lymphocytes # (Auto) 0.8 x10^3/uL (1.0-4.8) Monocytes # (Auto) 0.3 x10^3/uL (0.0-1.1) Eosinophils # (Auto) 0.2 x10^3/uL (0.0-0.7) Basophils # (Auto) 0.0 x10^3/uL (0.0-0.2) Prothrombin Time 13.4 SEC (11.7-14.0) Prothromb Time International Ratio 1.1 (0.8-1.1) D-Dimer (Carmella) 0.56 ug/mlFEU (0.00-0.50) Sodium Level 144 mmol/L (136-145) Potassium Level 3.6 mmol/L (3.5-5.1) Chloride Level 106 mmol/L (98-107) Carbon Dioxide Level 32 mmol/L (21-32) Anion Gap 6 (6-14) Blood Urea Nitrogen 21 mg/dL (8-26) Creatinine 1.4 mg/dL (0.7-1.3) Estimated GFR (Cockcroft-Gault) 49.3 BUN/Creatinine Ratio 15 (6-20) Glucose Level 154 mg/dL (70-99) Calcium Level 8.9 mg/dL (8.5-10.1) Magnesium Level 2.3 mg/dL (1.8-2.4) Total Bilirubin 0.7 mg/dL (0.2-1.0) Aspartate Amino Transf (AST/SGOT) 23 U/L (15-37) Alanine Aminotransferase (ALT/SGPT) 18 U/L (16-63) Alkaline Phosphatase 77 U/L (46-116) Troponin I Quantitative < 0.017 ng/mL (0.000-0.055) < 0.017 ng/mL (0.000-0.055) < 0.017 ng/mL (0.000-0.055) CL-Vwl-I-Type Natriuretic Peptide 326 pg/mL (0-449) Total Protein 8.4 g/dL (6.4-8.2) Albumin 4.0 g/dL (3.4-5.0) Albumin/Globulin Ratio 0.9 (1.0-1.7) Lipase 344 U/L (73-393) Assessment/Plan Assessment/Plan 1. Chest pain with atypical features and most probably musculoskeletal secondary to his cough. Myocardial infarction has been ruled out. Check 2-D echo to assess LV function and rule out wall motion abnormalities. Ischemic workup in the formal stress test could be considered as an outpatient. 2. Pneumonia, COPD: Treat per IM 3. 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 Check echo for AV/MV function. We will obtain prior records 4. Hypertension: Controlled Thank you for your consultation JAVIER HUGHES MD Jun 07, 2019 10:30
--- NOTE | 2019-06-07 10:33 | NUR ---
SS following for discharge planning. SS reviewed pt chart. Pt is from home with spouse and is currently on room air. SS will continue to follow for discharge planning.
--- NOTE | 2019-06-07 10:34 | PDOC ---
[employer] PROGRESS NOTE Chief Complaint Chief Complaint Chest discomfort Dyspnea Possible pneumonia Elevated D-Dimer History of Present Illness History of Present Illness 06/07/2019 Pt was seen an examined. Has difficulty speaking Algerian but continues to report chest discomfort. Nurse reports the pt told her he has a past valve replacement and clip. Vitals/I&O Vitals/I&O: Vital Signs Date Time Temp Pulse Resp B/P (MAP) Pulse Ox O2 Delivery O2 Flow Rate FiO2 06/07/19 10:09 82 120/77 06/07/19 07:32 Room Air 06/07/19 07:00 98.2 16 91 98.2 06/07/19 03:22 2.0 I & O 06/06/19 06/06/19 06/07/19 15:00 23:00 07:00 Intake Total 400 ml Output Total 175 ml Balance 225 ml Physical Exam General: Alert, No acute distress Heart: Regular rate, Other (ejection systolic murmur 2/6 aortic area) Lungs: Clear Abdomen: Soft, No tenderness Extremities: No edema Skin: No rashes Labs Labs: Laboratory Tests Test 06/06/19 13:35 06/06/19 19:30 06/06/19 22:30 White Blood Count 3.5 x10^3/uL (4.0-11.0) Red Blood Count 4.84 x10^6/uL (4.30-5.70) Hemoglobin 13.7 g/dL (13.0-17.5) Hematocrit 41.0 % (39.0-53.0) Mean Corpuscular Volume 85 fL (79-100) Mean Corpuscular Hemoglobin 28 pg (25-35) Mean Corpuscular Hemoglobin Concent 33 g/dL (31-37) Red Cell Distribution Width 18.5 % (11.5-14.5) Platelet Count 158 x10^3/uL (140-400) Neutrophils (%) (Auto) 63 % (31-73) Lymphocytes (%) (Auto) 23 % (24-48) Monocytes (%) (Auto) 8 % (0-9) Eosinophils (%) (Auto) 5 % (0-3) Basophils (%) (Auto) 1 % (0-3) Neutrophils # (Auto) 2.2 x10^3/uL (1.8-7.7) Lymphocytes # (Auto) 0.8 x10^3/uL (1.0-4.8) Monocytes # (Auto) 0.3 x10^3/uL (0.0-1.1) Eosinophils # (Auto) 0.2 x10^3/uL (0.0-0.7) Basophils # (Auto) 0.0 x10^3/uL (0.0-0.2) Prothrombin Time 13.4 SEC (11.7-14.0) Prothromb Time International Ratio 1.1 (0.8-1.1) D-Dimer (Carmella) 0.56 ug/mlFEU (0.00-0.50) Sodium Level 144 mmol/L (136-145) Potassium Level 3.6 mmol/L (3.5-5.1) Chloride Level 106 mmol/L (98-107) Carbon Dioxide Level 32 mmol/L (21-32) Anion Gap 6 (6-14) Blood Urea Nitrogen 21 mg/dL (8-26) Creatinine 1.4 mg/dL (0.7-1.3) Estimated GFR (Cockcroft-Gault) 49.3 BUN/Creatinine Ratio 15 (6-20) Glucose Level 154 mg/dL (70-99) Calcium Level 8.9 mg/dL (8.5-10.1) Magnesium Level 2.3 mg/dL (1.8-2.4) Total Bilirubin 0.7 mg/dL (0.2-1.0) Aspartate Amino Transf (AST/SGOT) 23 U/L (15-37) Alanine Aminotransferase (ALT/SGPT) 18 U/L (16-63) Alkaline Phosphatase 77 U/L (46-116) Troponin I Quantitative < 0.017 ng/mL (0.000-0.055) < 0.017 ng/mL (0.000-0.055) < 0.017 ng/mL (0.000-0.055) MD-Muo-I-Type Natriuretic Peptide 326 pg/mL (0-449) Total Protein 8.4 g/dL (6.4-8.2) Albumin 4.0 g/dL (3.4-5.0) Albumin/Globulin Ratio 0.9 (1.0-1.7) Lipase 344 U/L (73-393) Review of Systems Review of Systems: Admits Chest pain No reported N/V/D No reported SOB Assessment and Plan Assessmemt and Plan Problems Medical Problems: (1) Chest pain Status: Acute (2) Community acquired pneumonia Status: Acute Chest discomfort Dyspnea Possible pneumonia Elevated D-Dimer Plan: 1) Continue abx 2) Continue Duoneb treatments prn 3) Prn O2 4) Consult Pulmonary 5) Full code 6) DVT prophylaxis 7) PT/OT 8) Restart home meds 9) Possible D/C tomorrow depending on patient disposition. Comment Review of Relevant I have reviewed the following items luis (where applicable) has been applied. Medications: Current Medications Medications (Trade) Dose Ordered Sig/Marino Route PRN Reason Start Time Stop Time Status Last Admin Dose Admin Aspirin (Children'S Aspirin) 324 mg 1X ONCE PO 06/06/19 14:00 06/06/19 14:01 DC 06/06/19 13:58 Ceftriaxone Sodium (Rocephin) 1 gm 1X ONCE IVP 06/06/19 15:45 06/06/19 15:46 DC 06/06/19 15:54 Azithromycin (Zithromax) 500 mg 1X ONCE PO 06/06/19 15:45 06/06/19 15:46 DC 06/06/19 15:53 Albuterol/ Ipratropium (Duoneb) 3 ml RTQID NEB 06/06/19 16:00 06/06/19 23:13 DC 06/06/19 15:47 Piperacillin Sod/ Tazobactam Sod 3.375 gm/Sodium Chloride 50 ml @ 100 mls/hr Q6HRS IV 06/07/19 00:00 06/07/19 05:20 Enoxaparin Sodium (Lovenox 40mg Syringe) 40 mg DAILY SQ 06/07/19 09:00 06/07/19 10:10 Piperacillin Sod/ Tazobactam Sod 3.375 gm/Sodium Chloride 50 ml @ 100 mls/hr 1X ONCE IV 06/06/19 16:30 06/06/19 16:59 DC 06/06/19 16:40 Aspirin (Ecotrin) 81 mg DAILY PO 06/07/19 09:00 06/07/19 10:09 Cetirizine HCl (ZyrTEC) 10 mg DAILY PO 06/07/19 09:00 06/07/19 10:10 Ferrous Sulfate (Feosol) 325 mg DAILY PO 06/07/19 09:00 06/07/19 10:09 Finasteride (Proscar) 5 mg DAILY PO 06/07/19 09:00 06/07/19 10:09 Furosemide (Lasix) 20 mg DAILY PO 06/07/19 09:00 06/07/19 10:09 Hydrochlorothiazide (Microzide) 12.5 mg DAILY PO 06/07/19 09:00 06/07/19 10:09 Metoprolol Succinate (Toprol Xl) 25 mg BID PO 06/06/19 21:00 06/07/19 10:09 Potassium Chloride (Klor-Con) 20 meq DAILY PO 06/07/19 09:00 06/07/19 10:10 Senna/Docusate Sodium (Senna Plus) 2 tab BID PO 06/06/19 21:00 06/07/19 10:09 Budesonide (Pulmicort) 0.5 mg RTBID NEB 06/06/19 22:00 06/07/19 07:31 Pantoprazole Sodium (Protonix) 40 mg DAILYAC PO 06/07/19 07:30 06/07/19 10:18 Albuterol/ Ipratropium (Duoneb) 3 ml RTQID NEB 06/07/19 08:00 06/07/19 07:32 MONICA OTERO III DO Jun 07, 2019 10:34
[2019-06-07] MEDS ORDERED: METO25TA4 PO (10:54)
[2019-06-07 11:00] VITALS: BP 155/80
--- NOTE | 2019-06-07 11:27 | PDOC ---
Infectious Disease Note Vital Signs: Vital Signs Vital Signs Date Time Temp Pulse Resp B/P (MAP) Pulse Ox O2 Delivery O2 Flow Rate FiO2 06/07/19 10:09 82 120/77 06/07/19 08:00 Nasal Cannula 2.0 06/07/19 07:00 98.2 16 91 98.2 Medications: Inpatient Meds: Current Medications Medications (Trade) Dose Ordered Sig/Marino Start Time Stop Time Status Last Admin Dose Admin Acetaminophen (Tylenol) 650 mg PRN Q4HRS PRN 06/06/19 16:00 Albuterol Sulfate (Ventolin Neb Soln) 2.5 mg PRN Q4HRS PRN 06/06/19 23:15 Albuterol/ Ipratropium (Duoneb) 3 ml RTQID 06/07/19 08:00 06/07/19 11:11 3 ML Aspirin (Children'S Aspirin) 324 mg 1X ONCE 06/06/19 14:00 06/06/19 14:01 DC 06/06/19 13:58 324 MG Aspirin (Ecotrin) 81 mg DAILY 06/07/19 09:00 06/07/19 10:09 81 MG Azithromycin (Zithromax) 500 mg 1X ONCE 06/06/19 15:45 06/06/19 15:46 DC 06/06/19 15:53 500 MG Budesonide (Pulmicort) 0.5 mg RTBID 06/06/19 22:00 06/07/19 07:31 0.5 MG Ceftriaxone Sodium (Rocephin) 1 gm 1X ONCE 06/06/19 15:45 06/06/19 15:46 DC 06/06/19 15:54 1 GM Cetirizine HCl (ZyrTEC) 10 mg DAILY 06/07/19 09:00 06/07/19 10:10 10 MG Clonidine HCl (Catapres) 0.1 mg PRN Q6HRS PRN 06/06/19 16:00 Docusate Sodium (Colace) 100 mg PRN BID PRN 06/06/19 16:00 Enoxaparin Sodium (Lovenox 40mg Syringe) 40 mg DAILY 06/07/19 09:00 06/07/19 10:10 40 MG Ferrous Sulfate (Feosol) 325 mg DAILY 06/07/19 09:00 06/07/19 10:09 325 MG Finasteride (Proscar) 5 mg DAILY 06/07/19 09:00 06/07/19 10:09 5 MG Furosemide (Lasix) 40 mg DAILY 06/07/19 09:00 UNV Hydrochlorothiazide (Microzide) 12.5 mg DAILY 06/07/19 09:00 06/07/19 10:09 12.5 MG Metoprolol Succinate (Toprol Xl) 25 mg BID 06/06/19 21:00 06/07/19 10:55 DC 06/07/19 10:09 25 MG Metoprolol Tartrate (Lopressor) 25 mg BID 06/07/19 21:00 Morphine Sulfate (Morphine Sulfate) 2 mg PRN Q2HR PRN 06/06/19 15:30 06/07/19 15:29 Ondansetron HCl (Zofran) 4 mg PRN Q4HRS PRN 06/06/19 16:00 Pantoprazole Sodium (Protonix) 40 mg DAILYAC 06/07/19 07:30 06/07/19 10:18 40 MG Piperacillin Sod/ Tazobactam Sod 3.375 gm/Sodium Chloride 50 ml @ 100 mls/hr 1X ONCE 06/06/19 16:30 06/06/19 16:59 DC 06/06/19 16:40 100 MLS/HR Potassium Chloride (Klor-Con) 20 meq DAILY 06/07/19 09:00 06/07/19 10:10 20 MEQ Senna/Docusate Sodium (Senna Plus) 2 tab BID 06/06/19 21:00 06/07/19 10:09 2 TAB Sodium Chloride (Normal Saline Flush) 3 ml QSHIFT PRN 06/06/19 16:00 Labs: Lab Laboratory Tests Test 06/06/19 13:35 06/06/19 19:30 06/06/19 22:30 White Blood Count 3.5 x10^3/uL (4.0-11.0) Red Blood Count 4.84 x10^6/uL (4.30-5.70) Hemoglobin 13.7 g/dL (13.0-17.5) Hematocrit 41.0 % (39.0-53.0) Mean Corpuscular Volume 85 fL (79-100) Mean Corpuscular Hemoglobin 28 pg (25-35) Mean Corpuscular Hemoglobin Concent 33 g/dL (31-37) Red Cell Distribution Width 18.5 % (11.5-14.5) Platelet Count 158 x10^3/uL (140-400) Neutrophils (%) (Auto) 63 % (31-73) Lymphocytes (%) (Auto) 23 % (24-48) Monocytes (%) (Auto) 8 % (0-9) Eosinophils (%) (Auto) 5 % (0-3) Basophils (%) (Auto) 1 % (0-3) Neutrophils # (Auto) 2.2 x10^3/uL (1.8-7.7) Lymphocytes # (Auto) 0.8 x10^3/uL (1.0-4.8) Monocytes # (Auto) 0.3 x10^3/uL (0.0-1.1) Eosinophils # (Auto) 0.2 x10^3/uL (0.0-0.7) Basophils # (Auto) 0.0 x10^3/uL (0.0-0.2) Prothrombin Time 13.4 SEC (11.7-14.0) Prothromb Time International Ratio 1.1 (0.8-1.1) D-Dimer (Carmella) 0.56 ug/mlFEU (0.00-0.50) Sodium Level 144 mmol/L (136-145) Potassium Level 3.6 mmol/L (3.5-5.1) Chloride Level 106 mmol/L (98-107) Carbon Dioxide Level 32 mmol/L (21-32) Anion Gap 6 (6-14) Blood Urea Nitrogen 21 mg/dL (8-26) Creatinine 1.4 mg/dL (0.7-1.3) Estimated GFR (Cockcroft-Gault) 49.3 BUN/Creatinine Ratio 15 (6-20) Glucose Level 154 mg/dL (70-99) Calcium Level 8.9 mg/dL (8.5-10.1) Magnesium Level 2.3 mg/dL (1.8-2.4) Total Bilirubin 0.7 mg/dL (0.2-1.0) Aspartate Amino Transf (AST/SGOT) 23 U/L (15-37) Alanine Aminotransferase (ALT/SGPT) 18 U/L (16-63) Alkaline Phosphatase 77 U/L (46-116) Troponin I Quantitative < 0.017 ng/mL (0.000-0.055) < 0.017 ng/mL (0.000-0.055) < 0.017 ng/mL (0.000-0.055) LJ-Gjz-F-Type Natriuretic Peptide 326 pg/mL (0-449) Total Protein 8.4 g/dL (6.4-8.2) Albumin 4.0 g/dL (3.4-5.0) Albumin/Globulin Ratio 0.9 (1.0-1.7) Lipase 344 U/L (73-393) Objective: Assessment: Pt seen and examined IMP: Febrile illness Pneumonia possible secondary infection with likely viral pneumonitis Chestpain NV ruled out S/P AVR/MV surgery COPD Plan: Plan of Care DC Zosyn ceftriaxone and doxycycline influenza screen mycoplasma igm f/u labs and cults KIERSTEN GARZA MD Jun 07, 2019 11:27
--- NOTE | 2019-06-07 11:51 | CARD ---
MR#: [id number] Date of Study: 06/07/2019 Ordering Physician: RADHA PINA, Referring Physician: RADHA PINA Tech: Latasha Rice RAVEN APPROVED REPORT EXAM: Two-dimensional and M-mode echocardiogram with Doppler and color Doppler. Other Information Quality : Technically LimitedHR: 75bpm Rhythm : NSRTechnically limited study due to COPD. INDICATION Chest Pain 2D DIMENSIONS RVDd2.8 (2.9-3.5cm)Left Atrium(2D)4.2 (1.6-4.0cm) IVSd1.5 (0.7-1.1cm)Aortic Root(2D)2.8 (2.0-3.7cm) LVDd3.4 (3.9-5.9cm)LVOT Diameter1.8 (1.8-2.4cm) PWd1.2 (0.7-1.1cm)LVDs2.3 (2.5-4.0cm) FS (%) 30.3 %SV26.9 ml LVEF(%)58.8 (>50%) Aortic Valve AoV Peak Shoaib.299.2cm/sAoV VTI50.6cm AO Peak GR.35.8mmHgLVOT Peak Shoaib.85.0cm/s AO Mean GR.20mmHgAVA (VMAX)0.71cm2 SHELIA (VTI)0.80cm2 Mitral Valve MV E Ojbyrywo554.8cm/sMV E Peak Gr.120mmHg MV DECEL [id number] A Tytbzunj633.7cm/s MV E Mean Gr.5mmHgE/A Ratio1.2 Pulmonary Valve PV Peak Sfvailst63.9cm/s Tricuspid Valve TR P. Spxjjczz111uo/sRAP [id number] TR Peak Gr.59acVwNKDH22yzWh LEFT VENTRICLE The left ventricle is normal size. There is mild concentric left ventricular hypertrophy. The left ve ntricular systolic function is normal and the ejection fraction is within normal range. The Ejection Fraction is 55-60%. There is normal LV segmental wall motion. Transmitral Doppler flow pattern is abn ormal. RIGHT VENTRICLE The right ventricle is normal size. There is normal right ventricular wall thickness. The right ventr icular systolic function is normal. ATRIA The left atrium is mildly dilated. The right atrium is mildly dilated. The interatrial septum is inta ct with no evidence for an atrial septal defect or patent foramen ovale as noted on 2-D or Doppler im aging. AORTIC VALVE Doppler and Color Flow revealed trace to mild aortic regurgitation. There is a bioprosthetic aortic v alve prosthesis with a maximum pressure gradient of 36 mmHg and mean pressure gradient of 20 mmHg. Th ere is a bioprosthetic aortic valve prosthesis that appears well seated. Bioprosthesis leaflets are n ot well visualized. MITRAL VALVE History of MV clip surgery. The mitral valve is calcified and displays decreased opening. There is no evidence of mitral valve prolapse. There is mild mitral valve stenosis. Calculated mitral valve area is 1.2 cm2 with maximum pressure gradient of 11 mmHg and mean pressure gradient of 5 mmHg. Doppler a nd Color-flow revealed eccentric moderate to moderately severe mitral regurgitation. TRICUSPID VALVE The tricuspid valve is normal in structure and function. Doppler and Color Flow revealed mild tricusp id regurgitation. The PA pressure was estimated at 33 mmHg. There is no tricuspid valve prolapse or v egetation. There is no tricuspid valve stenosis. PULMONIC VALVE The pulmonic valve is not well visualized. GREAT VESSELS The aortic root is normal in size. The ascending aorta is normal in size. The IVC is normal in size a nd collapses >50% with inspiration. PERICARDIAL EFFUSION There is no evidence of significant pericardial effusion. Critical Notification Critical Value: No <Conclusion> The left ventricle is normal size. The left ventricular systolic function is normal and the ejection fraction is within normal range. The Ejection Fraction is 55-60%. There is mild concentric left ventricular hypertrophy. There is a bioprosthetic aortic valve prosthesis that appears well seated. The bioprosthetic aortic valve prosthesis has a maximum pressure gradient of 36 mmHg and mean pressur e gradient of 20 mmHg. Doppler and Color Flow revealed trace to mild aortic regurgitation. History of MV clip surgery. There is mild mitral valve stenosis. Calculated mitral valve area is 1.2 cm2 with maximum pressure gradient of 11 mmHg and mean pressure g radient of 5 mmHg. Doppler and Color-flow revealed eccentric moderate to moderately severe mitral regurgitation. Doppler and Color Flow revealed mild tricuspid regurgitation. The PA pressure was estimated at 33 mmHg. Signed by : Juan Steward MD Electronically Approved : 06/07/2019 11:50:43
[2019-06-07] MEDS: DOXYCYCLINE HYCLATE 100 MG TABLET PO SCH ×2 (13:05→21:23)
[2019-06-07] MEDS: cefTRIAXone IV Push 2 GM VIAL. IVP SCH (13:05)
[2019-06-07 13:52] LABS: MYCOPLASMA PATIENT POSITIVE (NEGATIVE)
--- NOTE | 2019-06-07 13:59 | PDOC ---
PULMONARY PROGRESS NOTES Vitals Vital Signs Date Time Temp Pulse Resp B/P (MAP) Pulse Ox O2 Delivery O2 Flow Rate FiO2 06/07/19 11:00 98.2 92 16 155/80 (105) 94 Room Air 98.2 06/07/19 08:00 2.0 Lungs: Clear Labs Laboratory Tests Test 06/06/19 13:35 06/06/19 19:30 06/06/19 22:30 06/07/19 11:45 White Blood Count 3.5 x10^3/uL (4.0-11.0) Red Blood Count 4.84 x10^6/uL (4.30-5.70) Hemoglobin 13.7 g/dL (13.0-17.5) Hematocrit 41.0 % (39.0-53.0) Mean Corpuscular Volume 85 fL (79-100) Mean Corpuscular Hemoglobin 28 pg (25-35) Mean Corpuscular Hemoglobin Concent 33 g/dL (31-37) Red Cell Distribution Width 18.5 % (11.5-14.5) Platelet Count 158 x10^3/uL (140-400) Neutrophils (%) (Auto) 63 % (31-73) Lymphocytes (%) (Auto) 23 % (24-48) Monocytes (%) (Auto) 8 % (0-9) Eosinophils (%) (Auto) 5 % (0-3) Basophils (%) (Auto) 1 % (0-3) Neutrophils # (Auto) 2.2 x10^3/uL (1.8-7.7) Lymphocytes # (Auto) 0.8 x10^3/uL (1.0-4.8) Monocytes # (Auto) 0.3 x10^3/uL (0.0-1.1) Eosinophils # (Auto) 0.2 x10^3/uL (0.0-0.7) Basophils # (Auto) 0.0 x10^3/uL (0.0-0.2) Prothrombin Time 13.4 SEC (11.7-14.0) Prothromb Time International Ratio 1.1 (0.8-1.1) D-Dimer (Carmella) 0.56 ug/mlFEU (0.00-0.50) Sodium Level 144 mmol/L (136-145) Potassium Level 3.6 mmol/L (3.5-5.1) Chloride Level 106 mmol/L (98-107) Carbon Dioxide Level 32 mmol/L (21-32) Anion Gap 6 (6-14) Blood Urea Nitrogen 21 mg/dL (8-26) Creatinine 1.4 mg/dL (0.7-1.3) Estimated GFR (Cockcroft-Gault) 49.3 BUN/Creatinine Ratio 15 (6-20) Glucose Level 154 mg/dL (70-99) Calcium Level 8.9 mg/dL (8.5-10.1) Magnesium Level 2.3 mg/dL (1.8-2.4) Total Bilirubin 0.7 mg/dL (0.2-1.0) Aspartate Amino Transf (AST/SGOT) 23 U/L (15-37) Alanine Aminotransferase (ALT/SGPT) 18 U/L (16-63) Alkaline Phosphatase 77 U/L (46-116) Troponin I Quantitative < 0.017 ng/mL (0.000-0.055) < 0.017 ng/mL (0.000-0.055) < 0.017 ng/mL (0.000-0.055) AY-Hvo-W-Type Natriuretic Peptide 326 pg/mL (0-449) Total Protein 8.4 g/dL (6.4-8.2) Albumin 4.0 g/dL (3.4-5.0) Albumin/Globulin Ratio 0.9 (1.0-1.7) Lipase 344 U/L (73-393) Mycoplasma Serology (LAB) Positive (NEGATIVE) Laboratory Tests Test 06/06/19 19:30 06/06/19 22:30 06/07/19 11:45 Troponin I Quantitative < 0.017 ng/mL (0.000-0.055) < 0.017 ng/mL (0.000-0.055) Mycoplasma Serology (LAB) Positive (NEGATIVE) Medications Active Scripts Medications Dose Route/Sig Max Daily Dose Days Date Category Metoprolol Tartrate 25 Mg Tablet 25 Mg PO BID 06/07/19 Reported Klor-Con M20 (Potassium Chloride) 20 Meq Tab.er.prt 20 Meq PO DAILY 06/06/19 Reported Cetirizine Hcl 10 Mg Tablet 10 Mg PO DAILY 06/06/19 Reported Ferrous Sulfate 325 Mg Tablet 325 Mg PO DAILY 06/06/19 Reported Symbicort 80-4.5 Mcg Inhaler (Budesonide/Formoterol Fumarate) 10.2 Gm Hfa.aer.ad 2 Puff IH BID 06/06/19 Reported Protonix (Pantoprazole Sodium) 20 Mg Tablet.dr 1 Tab PO DAILY 06/06/19 Reported Hydrochlorothiazide Capsule (Hydrochlorothiazide) 12.5 Mg Capsule 12.5 Mg PO DAILY 06/06/19 Reported Senokot-S Tablet (Sennosides/Docusate Sodium) 1 Each Tablet 2 Tab PO BID 30 06/06/19 Reported Finasteride 5 Mg Tablet 1 Tab PO DAILY 06/06/19 Reported Aspir-Low (Aspirin) 81 Mg Tablet.dr 1 Tab PO DAILY 06/06/19 Reported Lasix (Furosemide) 20 Mg Tablet 1 Tab PO DAILY 30 06/06/19 Reported Prednisone 50 Mg Tablet 1 Tab PO DAILY 02/18/19 Rx Ventolin Hfa Inhaler (Albuterol Sulfate) 18 Gm Hfa.aer.ad 2 Puff INH Q4HRS 02/18/19 Rx Impression . note dictated see orders agree with current tx resp failure sec to pneumonia/chf and aecopd RYAN CHANG MD Jun 07, 2019 13:59
[2019-06-07] MEDS: methylPREDNISolone SOD SUCC PF 125 MG/2 ML VIAL. IV SCH ×2 (14:00→21:23)
[2019-06-07 15:00] VITALS: BP 111/77
[2019-06-07] MEDS: LACTOBACILLUS RHAMNOSUS GG 1 CAPSULE. PO SCH (21:24)
[2019-06-07] MEDS: METOPROLOL TART IMMED RELEASE 25 MG TABLET. PO SCH (21:25)
--- NOTE | 2019-06-07 22:16 | CONS ---
DATE OF CONSULTATION: 06/07/2019 REFERRING PHYSICIAN: Dr. Lavelle Thurston. REASON FOR CONSULTATION: Pneumonia. HISTORY OF PRESENT ILLNESS: A 74-year-old [place] male presented to the ER on 06/06/2019 with complaints of worsening shortness of breath, which started last Monday. He initially had fever, which was high-grade. His son thought that he may have seasonal allergies with viral illness as little kids at home were sick with URI. He was given Tylenol. The fever subsided, but then came back with him having worsening cough, shortness of breath. He also had a mucopurulent sputum production along with chest pain. He went to see his primary care physician yesterday who directed him to the ER for further evaluation and treatment of the chest pain. The patient upon arrival, his temperature was 98.1. He was hypoxic, requiring 2 liters of O2. White count was 3.5, creatinine of 1.4. He underwent x-ray, which showed mild increased opacities suggesting interstitial infiltrate and superimposed lateral right lower lobe opacity, which may be due to artifact or consolidated infiltrate. He underwent a perfusion scan, which showed low probability study. He was started on Zosyn. He received one-time dose of azithromycin and ceftriaxone in the ER. Today, the patient feels a little better, still has a lot of wheezing, chest pain has improved. AR has been ruled out. He has been evaluated by Cardiology. Echo is done, which is pending at this time. Blood cultures were done, which are pending. The patient denies any headache, soreness in mouth, oral lesions, nausea, vomiting, diarrhea, abdominal pain, symptoms. He does have a lot of pain from coughing. Son at bedside who was a information assurance manager. PAST MEDICAL HISTORY: Aortic valve replacement in 2013, mitral valve, TIPS procedure in 2018 at [place], COPD, history of chronic bronchitis, pneumonia a couple of times a year, seasonal allergies and DJD. SOCIAL HISTORY: Quit smoking. EtOH occasional. No drugs. Lives with son and they moved from [place] about 3 months ago. FAMILY HISTORY: As per HPI. CURRENT MEDICATION: IV Zosyn, also received a dose of ceftriaxone and azithromycin yesterday. Other medication as per chart. ALLERGIES: No known drug allergies. REVIEW OF SYSTEMS: Negative except for above in HPI. PHYSICAL EXAMINATION: VITAL SIGNS: Temperature 98.2, pulse 82, respiratory rate 120/77, oxygen saturation 91% on 2 liters by nasal cannula. GENERAL: Alert and oriented x 3 male lying in bed comfortably, in no acute distress, pleasant, cooperative. HEENT: Normocephalic, atraumatic. Poor dentition. No oropharyngeal exudate, no thrush. LUNGS: Decreased breath sounds at the bases, right greater than the left with scattered rhonchi. HEART: S1, S2. Systolic murmur at the aortic area. Midline sternal scar well healed. ABDOMEN: Soft, nontender. No hepatomegaly, nontender, nondistended. EXTREMITIES: No edema, no cyanosis. DERMATOLOGIC: Warm and dry. No generalized rash. PSYCHIATRIC: Cooperative, appropriate mood and affect. LABORATORY DATA: WBC 3.5, hemoglobin 13.7, hematocrit 41.0 and platelets 158. Sodium 144, potassium 3.6, chloride 106, bicarbonate 32, BUN 21, creatinine 1.4, glucose 154, calcium 8.9, total bilirubin 0.7, AST 23, ALT 18, alkaline phosphatase 77, total protein 8.4, albumin 4.0 and lipase 344. Troponin negative and proBNP 326. IMAGING: Chest x-ray as above. Pulmonary perfusion imaging as above. IMPRESSION: 1. Febrile illness present before admission, likely viral with superimposed right lower lobe pneumonia. 2. Pulmonary infiltrate with right lower lobe pneumonia. 3. Chest pain, myocardial infarction ruled out. 4. Leukopenia, unknown baseline. 5. History of chronic obstructive pulmonary disease. 6. History of aortic valve replacement and mitral valve clipping. 7. Degenerative joint disease. RECOMMENDATIONS: 1. Discontinue Zosyn. 2. Start empiric ceftriaxone. 3. We will add empiric doxycycline. 4. Obtain sputum for cultures. 5. Follow up cultures and lab. 6. Send mycoplasma serologies. 7. RVP is not available at this center at this time. 8. Continue supportive care. 9. Discussed with son at bedside. 10. Discussed with RN. Thank you, Dr. Thurston, for consulting Infectious Disease to participate in this patient's care. If you have any questions, do not hesitate to contact us. KIERSTEN GARZA MD DR: DONNY/nts JOB#: [id number] / [id number]
[2019-06-07 23:59] VITALS: BP 138/83
--- NOTE | 2019-06-08 00:34 | CONS ---
DATE OF CONSULTATION: 06/07/2019 ATTENDING PHYSICIAN: Lavelle Thurston MD REASON FOR CONSULTATION: The patient seen in pulmonary consultation at the request of Dr. Thurston for abnormal chest x-ray, abnormal V/Q scan, increasing shortness of air. HISTORY OF PRESENT ILLNESS: The patient is a 74-year-old who has been running a fever over a 100 at home for the past 2-3 days. He became increasingly more short of breath, coughing up some mucus intermittent chest pain. He was seen in the Emergency Room, I was asked to see him in consultation for further evaluation and management. He underwent a chest x-ray, which reveals bilateral pulmonary infiltrates interstitial in nature with the right lower lobe opacity. The patient also had a V/Q scan, which I reviewed there was no significant matched perfusion defects. The patient denies any acute onset of shortness of breath associated with syncope or near syncopal episodes. His mycoplasma serology was positive. Electrolytes were noted. White count was low. He has been seen in consultation by the Infectious Disease Services currently on ceftriaxone and doxycycline. PAST MEDICAL HISTORY: Remarkable for previous history of aortic valve replacement in 2012. He also had a mitral valve clip procedure. He is underlying tobacco dependence in remission with underlying COPD, hypertension and osteoarthritis. PAST SURGICAL HISTORY: Bioprosthetic AVR. FAMILY HISTORY: No family history of early lung disorders. SOCIAL HISTORY: He quit tobacco several years ago. Occasional use of alcohol. REVIEW OF SYSTEMS: As indicated above, otherwise, a 10-point system was reviewed and negative. CONSTITUTIONAL: Fever. EYES: No change in visual acuity. HEENT: No nasal congestion, no sore throat. PULMONARY: As indicated above. CARDIOVASCULAR: As indicated above. GASTROINTESTINAL: No nausea, vomiting, diarrhea. GENITOURINARY: No dysuria or frequency. MUSCULOSKELETAL: No localized muscle aches or joint pains. SKIN: No new skin rashes. PHYSICAL EXAMINATION: GENERAL: The patient was currently on 2 liters of oxygen supplementation, in no respiratory distress. VITAL SIGNS: Stable. O2 saturation greater than 92%. HEENT: Eyes, the sclerae were nonicteric. NECK: Jugular venous distention was not elevated. No lymphadenopathy. CHEST: Full expansion. LUNGS: Crackles bilaterally with expiratory wheeze. CARDIOVASCULAR: Regular rate and rhythm with S1, S2, no S3. ABDOMEN: Soft, nontender, nondistended. EXTREMITIES: No clubbing, cyanosis or pitting edema. LABORATORY DATA: Reviewed. IMPRESSION: 1. Acute hypoxemic respiratory failure. 2. Acute pneumonia, positive serology for mycoplasma. 3. Abnormal x-ray compatible with pneumonia as indicated above. 4. Acute exacerbation with chronic obstructive pulmonary disease. 5. Acute on chronic diastolic heart failure. 6. Significant comorbidities, status post aortic valve replacement and mitral valve replacement. 7. Chest pain secondary to all of the above. 8. Hypertension. PLAN: The patient required inpatient as a consequence of his multiple comorbidities, abnormal chest x-ray and increasing shortness of air and hypoxemia. Initially, he was significantly dyspneic and O2 sat was low. He is now adequately being treated for both pneumonia, I think his x-rays compatible with both pneumonitis and cardiogenic pulmonary edema. For now, we will continue antibiotics. Nebulized treatment. DVT and GI prophylaxis. IV Lasix. I do appreciate the privilege in sharing in the patient's care. RYAN CHANG MD DR: EDUARDO/antolin JOB#: [id number] / [id number]
[2019-06-08 05:18] VITALS: BP 140/89
[2019-06-08 07:00] VITALS: BP 140/94
[2019-06-08] MEDS: IPRATRPIUM/ALBUTEROL 0.5/2.5MG 3 ML NEBU. NEB SCH ×4 (07:37→20:31)
[2019-06-08] MEDS: BUDESONIDE 0.5 MG/2 ML NEBU. NEB SCH ×2 (07:37→20:31)
--- NOTE | 2019-06-08 08:18 | PDOC ---
PULMONARY PROGRESS NOTES Subjective sob cough better, no pain Vitals Vital Signs Date Time Temp Pulse Resp B/P (MAP) Pulse Ox O2 Delivery O2 Flow Rate FiO2 06/08/19 07:39 90 Room Air 06/08/19 05:18 97.6 87 20 140/89 (106) 97.6 06/07/19 08:00 2.0 ROS: No Nausea General: Alert HEENT: Other (nc at perrl) Lungs: Wheezing Cardiovascular: S1, S2 Abdomen: Soft, Non-tender Neuro Exam: Alert Skin: Warm Labs Laboratory Tests Test 06/06/19 13:35 06/06/19 19:30 06/06/19 22:30 06/07/19 11:45 White Blood Count 3.5 x10^3/uL (4.0-11.0) Red Blood Count 4.84 x10^6/uL (4.30-5.70) Hemoglobin 13.7 g/dL (13.0-17.5) Hematocrit 41.0 % (39.0-53.0) Mean Corpuscular Volume 85 fL (79-100) Mean Corpuscular Hemoglobin 28 pg (25-35) Mean Corpuscular Hemoglobin Concent 33 g/dL (31-37) Red Cell Distribution Width 18.5 % (11.5-14.5) Platelet Count 158 x10^3/uL (140-400) Neutrophils (%) (Auto) 63 % (31-73) Lymphocytes (%) (Auto) 23 % (24-48) Monocytes (%) (Auto) 8 % (0-9) Eosinophils (%) (Auto) 5 % (0-3) Basophils (%) (Auto) 1 % (0-3) Neutrophils # (Auto) 2.2 x10^3/uL (1.8-7.7) Lymphocytes # (Auto) 0.8 x10^3/uL (1.0-4.8) Monocytes # (Auto) 0.3 x10^3/uL (0.0-1.1) Eosinophils # (Auto) 0.2 x10^3/uL (0.0-0.7) Basophils # (Auto) 0.0 x10^3/uL (0.0-0.2) Prothrombin Time 13.4 SEC (11.7-14.0) Prothromb Time International Ratio 1.1 (0.8-1.1) D-Dimer (Carmella) 0.56 ug/mlFEU (0.00-0.50) Sodium Level 144 mmol/L (136-145) Potassium Level 3.6 mmol/L (3.5-5.1) Chloride Level 106 mmol/L (98-107) Carbon Dioxide Level 32 mmol/L (21-32) Anion Gap 6 (6-14) Blood Urea Nitrogen 21 mg/dL (8-26) Creatinine 1.4 mg/dL (0.7-1.3) Estimated GFR (Cockcroft-Gault) 49.3 BUN/Creatinine Ratio 15 (6-20) Glucose Level 154 mg/dL (70-99) Calcium Level 8.9 mg/dL (8.5-10.1) Magnesium Level 2.3 mg/dL (1.8-2.4) Total Bilirubin 0.7 mg/dL (0.2-1.0) Aspartate Amino Transf (AST/SGOT) 23 U/L (15-37) Alanine Aminotransferase (ALT/SGPT) 18 U/L (16-63) Alkaline Phosphatase 77 U/L (46-116) Troponin I Quantitative < 0.017 ng/mL (0.000-0.055) < 0.017 ng/mL (0.000-0.055) < 0.017 ng/mL (0.000-0.055) JE-Aqn-J-Type Natriuretic Peptide 326 pg/mL (0-449) Total Protein 8.4 g/dL (6.4-8.2) Albumin 4.0 g/dL (3.4-5.0) Albumin/Globulin Ratio 0.9 (1.0-1.7) Lipase 344 U/L (73-393) Mycoplasma Serology (LAB) Positive (NEGATIVE) Laboratory Tests Test 06/07/19 11:45 Mycoplasma Serology (LAB) Positive (NEGATIVE) Medications Active Scripts Medications Dose Route/Sig Max Daily Dose Days Date Category Metoprolol Tartrate 25 Mg Tablet 25 Mg PO BID 06/07/19 Reported Klor-Con M20 (Potassium Chloride) 20 Meq Tab.er.prt 20 Meq PO DAILY 06/06/19 Reported Cetirizine Hcl 10 Mg Tablet 10 Mg PO DAILY 06/06/19 Reported Ferrous Sulfate 325 Mg Tablet 325 Mg PO DAILY 06/06/19 Reported Symbicort 80-4.5 Mcg Inhaler (Budesonide/Formoterol Fumarate) 10.2 Gm Hfa.aer.ad 2 Puff IH BID 06/06/19 Reported Protonix (Pantoprazole Sodium) 20 Mg Tablet.dr 1 Tab PO DAILY 06/06/19 Reported Hydrochlorothiazide Capsule (Hydrochlorothiazide) 12.5 Mg Capsule 12.5 Mg PO DAILY 06/06/19 Reported Senokot-S Tablet (Sennosides/Docusate Sodium) 1 Each Tablet 2 Tab PO BID 30 06/06/19 Reported Finasteride 5 Mg Tablet 1 Tab PO DAILY 06/06/19 Reported Aspir-Low (Aspirin) 81 Mg Tablet.dr 1 Tab PO DAILY 06/06/19 Reported Lasix (Furosemide) 20 Mg Tablet 1 Tab PO DAILY 30 06/06/19 Reported Prednisone 50 Mg Tablet 1 Tab PO DAILY 02/18/19 Rx Ventolin Hfa Inhaler (Albuterol Sulfate) 18 Gm Hfa.aer.ad 2 Puff INH Q4HRS 02/18/19 Rx Impression . IMPRESSION: 1. Acute hypoxemic respiratory failure. 2. Acute pneumonia, positive serology for mycoplasma. 3. Abnormal x-ray compatible with pneumonia as indicated above. 4. Acute exacerbation with chronic obstructive pulmonary disease. 5. Acute on chronic diastolic heart failure. 6. Significant comorbidities, status post aortic valve replacement and mitral valve replacement. 7. Chest pain secondary to all of the above. 8. Hypertension. Plan . PLAN: 02 titration x-rays compatible with both pneumonitis and cardiogenic pulmonary edema. continue antibiotics. cont Nebulized treatment. cont ICS DVT and GI prophylaxis. Lasix. monitor k, cr cont solumedrol 60 bid, no dose change, still wheezing. discussed w pt LLUVIA RODRIGES MD Jun 08, 2019 08:18
[2019-06-08 08:26] LABS: BASO % 0 % (0-3); EOS % 0 % (0-3); HEMATOCRIT 41.2 % (39.0-53.0); HEMOGLOBIN 13.6 g/dL (13.0-17.5); LYMPH # 0.5 x10^3/uL (1.0-4.8); LYMPH % 14 % (24-48); MEAN CORPUSCULAR HEMOGLOBIN 28 pg (25-35); MEAN CORPUSCULAR HGB CONC 33 g/dL (31-37); MEAN CORPUSCULAR VOLUME 84 fL (79-100); MONO % 1 % (0-9); NEUT # 2.9 x10^3/uL (1.8-7.7); NEUT % 85 % (31-73); PLATELET COUNT 169 x10^3/uL (140-400); RED BLOOD COUNT 4.89 x10^6/uL (4.30-5.70); RED CELL DISTRIBUTION WIDTH 18.5 % (11.5-14.5); WHITE BLOOD COUNT 3.4 x10^3/uL (4.0-11.0)
[2019-06-08] MEDS: LACTOBACILLUS RHAMNOSUS GG 1 CAPSULE. PO SCH ×2 (08:56→20:22)
[2019-06-08 08:58] LABS: ALBUMIN 3.8 g/dL (3.4-5.0); ALBUMIN/GLOBULIN RATIO 0.7 (1.0-1.7); CALCIUM 9.2 mg/dL (8.5-10.1); CREATININE 1.4 mg/dL (0.7-1.3); GFR 49.3; POTASSIUM 4.6 mmol/L (3.5-5.1); TOTAL BILIRUBIN 0.4 mg/dL (0.2-1.0); TOTAL PROTEIN 9.3 g/dL (6.4-8.2)
[2019-06-08] MEDS: POTASSIUM CHLORIDE 20 MEQ TABLET.ER. PO SCH (08:58)
[2019-06-08] MEDS: PANTOPRAZOLE 40 MG TABLET.DR. PO SCH (08:59)
[2019-06-08] MEDS: CETIRIZINE HCL 10 MG TABLET. PO SCH (08:59)
[2019-06-08] MEDS: SENNOSIDES/DOCUSATE 8.6/50MG TABLET. PO SCH ×2 (09:00→20:22)
[2019-06-08] MEDS: DOXYCYCLINE HYCLATE 100 MG TABLET PO SCH ×2 (09:00→20:22)
[2019-06-08] MEDS: FERROUS SULFATE 325 MG TABLET. PO SCH (09:01)
[2019-06-08] MEDS: ASPIRIN ENTERIC COATED 81 MG TABLET.DR. PO SCH (09:03)
[2019-06-08] MEDS: hydroCHLOROthiazide 12.5 MG CAPSULE PO SCH (09:04)
[2019-06-08] MEDS: METOPROLOL TART IMMED RELEASE 25 MG TABLET. PO SCH ×2 (09:05→20:23)
[2019-06-08] MEDS: methylPREDNISolone SOD SUCC PF 125 MG/2 ML VIAL. IV SCH ×2 (09:07→20:22)
[2019-06-08] MEDS: ENOXAPARIN 40 MG/0.4 ML SYRINGE. SQ SCH (09:08)
[2019-06-08] MEDS: FUROSEMIDE 20 MG/2 ML VIAL. IVP SCH (09:12)
[2019-06-08] MEDS: FINASTERIDE 5 MG TABLET. PO SCH (09:22)
--- NOTE | 2019-06-08 10:34 | PDOC ---
[facility] PROGRESS NOTE Chief Complaint Chief Complaint Chest discomfort Dyspnea Possible pneumonia Elevated D-Dimer History of Present Illness History of Present Illness 06/08/19 Pt seen and examined DW RN VSShawna Still SOA and weak 06/07/2019 Pt was seen an examined. Has difficulty speaking Maori but continues to report chest discomfort. Nurse reports the pt told her he has a past valve replacement and clip. Vitals/I&O Vitals/I&O: Vital Signs Date Time Temp Pulse Resp B/P (MAP) Pulse Ox O2 Delivery O2 Flow Rate FiO2 06/08/19 09:05 90 140/94 06/08/19 08:00 Room Air 2.0 06/08/19 07:39 90 06/08/19 07:00 97.9 20 97.9 Physical Exam General: Alert, No acute distress Heart: Regular rate, Other (ejection systolic murmur 2/6 aortic area) Lungs: Wheezing Abdomen: Soft, No tenderness Extremities: No edema Skin: No rashes Labs Labs: Laboratory Tests Test 06/07/19 11:45 06/08/19 07:45 Mycoplasma Serology (LAB) Positive (NEGATIVE) White Blood Count 3.4 x10^3/uL (4.0-11.0) Red Blood Count 4.89 x10^6/uL (4.30-5.70) Hemoglobin 13.6 g/dL (13.0-17.5) Hematocrit 41.2 % (39.0-53.0) Mean Corpuscular Volume 84 fL (79-100) Mean Corpuscular Hemoglobin 28 pg (25-35) Mean Corpuscular Hemoglobin Concent 33 g/dL (31-37) Red Cell Distribution Width 18.5 % (11.5-14.5) Platelet Count 169 x10^3/uL (140-400) Neutrophils (%) (Auto) 85 % (31-73) Lymphocytes (%) (Auto) 14 % (24-48) Monocytes (%) (Auto) 1 % (0-9) Eosinophils (%) (Auto) 0 % (0-3) Basophils (%) (Auto) 0 % (0-3) Neutrophils # (Auto) 2.9 x10^3/uL (1.8-7.7) Lymphocytes # (Auto) 0.5 x10^3/uL (1.0-4.8) Monocytes # (Auto) 0.0 x10^3/uL (0.0-1.1) Eosinophils # (Auto) 0.0 x10^3/uL (0.0-0.7) Basophils # (Auto) 0.0 x10^3/uL (0.0-0.2) Sodium Level 141 mmol/L (136-145) Potassium Level 4.6 mmol/L (3.5-5.1) Chloride Level 105 mmol/L (98-107) Carbon Dioxide Level 25 mmol/L (21-32) Anion Gap 11 (6-14) Blood Urea Nitrogen 14 mg/dL (8-26) Creatinine 1.4 mg/dL (0.7-1.3) Estimated GFR (Cockcroft-Gault) 49.3 BUN/Creatinine Ratio 10 (6-20) Glucose Level 140 mg/dL (70-99) Calcium Level 9.2 mg/dL (8.5-10.1) Total Bilirubin 0.4 mg/dL (0.2-1.0) Aspartate Amino Transf (AST/SGOT) 20 U/L (15-37) Alanine Aminotransferase (ALT/SGPT) 18 U/L (16-63) Alkaline Phosphatase 73 U/L (46-116) Total Protein 9.3 g/dL (6.4-8.2) Albumin 3.8 g/dL (3.4-5.0) Albumin/Globulin Ratio 0.7 (1.0-1.7) Review of Systems Review of Systems: Complains of cough and weakness Assessment and Plan Assessmemt and Plan Problems Medical Problems: (1) Chest pain Status: Acute (2) Community acquired pneumonia Status: Acute Pneumonia Chest discomfort Dyspnea Elevated D-Dimer Plan: 1) IV antibiotics per infectious disease and pulmonary 2) Continue Duoneb treatments prn 3) Prn O2 4) Consult Pulmonary 5) Full code 6) DVT prophylaxis 7) PT/OT 8) Restart home meds 9) Possible D/C tomorrow depending on patient disposition. Comment Review of Relevant I have reviewed the following items luis (where applicable) has been applied. Medications: Current Medications Medications (Trade) Dose Ordered Sig/Marino Route PRN Reason Start Time Stop Time Status Last Admin Dose Admin Metoprolol Tartrate (Lopressor) 25 mg BID PO 06/07/19 21:00 06/08/19 09:05 Ceftriaxone Sodium (Rocephin) 2 gm Q24H IVP 06/07/19 12:00 06/07/19 13:05 Doxycycline Hyclate (Vibra-Tab) 100 mg BID PO 06/07/19 12:00 06/08/19 09:00 Lactobacillus Rhamnosus (Culturelle) 1 cap BID PO 06/07/19 21:00 06/08/19 08:56 Furosemide (Lasix) 20 mg DAILY IVP 06/08/19 09:00 06/08/19 09:12 Methylprednisolone Sodium Succinate (SOLU-Medrol 125MG VIAL) 60 mg Q12HR IV 06/07/19 14:00 06/08/19 09:07 MONICA OTERO III DO Jun 08, 2019 10:34
[2019-06-08 11:00] VITALS: BP 130/85
--- NOTE | 2019-06-08 11:49 | PDOC ---
PROGRESS NOTES Subjective Subjective Feeling better today. Objective Objective Vital Signs Date Time Temp Pulse Resp B/P (MAP) Pulse Ox O2 Delivery O2 Flow Rate FiO2 06/08/19 11:03 96 Room Air 06/08/19 11:00 97.8 99 18 130/85 (100) 97.8 06/08/19 08:00 2.0 Intake and Output 06/08/19 07:00 # Voids 6 Physical Exam Abdomen: Soft, No tenderness Heart: Regular rate, Other (ejection systolic murmur 2/6 aortic area) Extremities: No edema General: Alert, No acute distress HEENT: Atraumatic Lungs: Other (scattered crepitations bilaterally) Neuro: Normal speech, Cranial nerves 3-12 NL Psych/Mental Status: Mood NL Skin: No rashes Assessment Assessment 1. Chest pain with atypical features and most probably musculoskeletal secondary to his cough. Myocardial infarction has been ruled out. 2-D echo showed normal LV function without any wall motion abnormalities. Ischemic workup in the form of stress test could be considered as an outpatient. 2. Pneumonia, COPD: Treat per IM 3. 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 2-D echo showed well-seated and normally functioning bioprosthetic aortic valve. Mitral valve clip noted with mean gradient 5 mmHg and moderate to severe mitral regurgitation. He is clinically well compensated. We will follow-up as outpatient. 4. Hypertension: Controlled Plan Plan of Care Problems Medical Problems: (1) Chest pain Status: Acute (2) Community acquired pneumonia Status: Acute Comment Review of Relevant I have reviewed the following items luis (where applicable) has been applied. Labs Laboratory Tests Test 06/08/19 07:45 White Blood Count 3.4 x10^3/uL (4.0-11.0) Red Blood Count 4.89 x10^6/uL (4.30-5.70) Hemoglobin 13.6 g/dL (13.0-17.5) Hematocrit 41.2 % (39.0-53.0) Mean Corpuscular Volume 84 fL (79-100) Mean Corpuscular Hemoglobin 28 pg (25-35) Mean Corpuscular Hemoglobin Concent 33 g/dL (31-37) Red Cell Distribution Width 18.5 % (11.5-14.5) Platelet Count 169 x10^3/uL (140-400) Neutrophils (%) (Auto) 85 % (31-73) Lymphocytes (%) (Auto) 14 % (24-48) Monocytes (%) (Auto) 1 % (0-9) Eosinophils (%) (Auto) 0 % (0-3) Basophils (%) (Auto) 0 % (0-3) Neutrophils # (Auto) 2.9 x10^3/uL (1.8-7.7) Lymphocytes # (Auto) 0.5 x10^3/uL (1.0-4.8) Monocytes # (Auto) 0.0 x10^3/uL (0.0-1.1) Eosinophils # (Auto) 0.0 x10^3/uL (0.0-0.7) Basophils # (Auto) 0.0 x10^3/uL (0.0-0.2) Sodium Level 141 mmol/L (136-145) Potassium Level 4.6 mmol/L (3.5-5.1) Chloride Level 105 mmol/L (98-107) Carbon Dioxide Level 25 mmol/L (21-32) Anion Gap 11 (6-14) Blood Urea Nitrogen 14 mg/dL (8-26) Creatinine 1.4 mg/dL (0.7-1.3) Estimated GFR (Cockcroft-Gault) 49.3 BUN/Creatinine Ratio 10 (6-20) Glucose Level 140 mg/dL (70-99) Calcium Level 9.2 mg/dL (8.5-10.1) Total Bilirubin 0.4 mg/dL (0.2-1.0) Aspartate Amino Transf (AST/SGOT) 20 U/L (15-37) Alanine Aminotransferase (ALT/SGPT) 18 U/L (16-63) Alkaline Phosphatase 73 U/L (46-116) Total Protein 9.3 g/dL (6.4-8.2) Albumin 3.8 g/dL (3.4-5.0) Albumin/Globulin Ratio 0.7 (1.0-1.7) Microbiology 06/06/19 Blood Culture - Preliminary, Resulted NO GROWTH AFTER 1 DAY Medications Current Medications Ceftriaxone Sodium (Rocephin) 2 gm Q24H IVP Last administered on 06/07/19at 13:05; Start 06/07/19 at 12:00 Doxycycline Hyclate (Vibra-Tab) 100 mg BID PO Last administered on 06/08/19 09:00; Start 06/07/19 at 12:00 Furosemide (Lasix) 20 mg DAILY IVP Last administered on 06/08/19at 09:12; Start 06/08/19 at 09:00 Lactobacillus Rhamnosus (Culturelle) 1 cap BID PO Last administered on 06/08/19at 08:56; Start 06/07/19 at 21:00 Methylprednisolone Sodium Succinate (SOLU-Medrol 125MG VIAL) 60 mg Q12HR IV Last administered on 06/08/19at 09:07; Start 06/07/19 at 14:00 Metoprolol Tartrate (Lopressor) 25 mg BID PO Last administered on 06/08/19 09:05; Start 06/07/19 at 21:00 Vitals/I & O Vital Sign - Last 24 Hours 06/07/19 06/07/19 06/07/19 06/07/19 15:00 15:35 19:55 20:00 Temp 98.2 98.2 Pulse 98 Resp 16 B/P (MAP) 111/77 (88) Pulse Ox 92 94 O2 Delivery Room Air Room Air Room Air 06/07/19 06/07/19 06/08/19 06/08/19 21:25 23:59 05:18 07:00 Temp 97.6 97.6 97.9 97.6 97.6 97.9 Pulse 98 90 87 90 Resp 20 20 20 B/P (MAP) 111/77 138/83 (101) 140/89 (106) 140/94 (109) Pulse Ox 93 90 O2 Delivery Room Air Room Air Room Air 06/08/19 06/08/19 06/08/19 06/08/19 07:39 08:00 09:05 11:00 Temp 97.8 97.8 Pulse 90 99 Resp 18 B/P (MAP) 140/94 130/85 (100) Pulse Ox 90 100 O2 Delivery Room Air Room Air Room Air O2 Flow Rate 2.0 06/08/19 11:03 Pulse Ox 96 O2 Delivery Room Air JAVIER HUGHES MD Jun 08, 2019 11:49
[2019-06-08] MEDS: cefTRIAXone IV Push 2 GM VIAL. IVP SCH (12:02)
[2019-06-08 15:00] VITALS: BP 129/89
--- NOTE | 2019-06-08 15:53 | PDOC ---
Infectious Disease Note Subjective Subjective Doing alright No fevers last 24 hours Denies SOA/N/V ROS ROS per HPI Vital Sign Vital Signs Vital Signs Date Time Temp Pulse Resp B/P (MAP) Pulse Ox O2 Delivery O2 Flow Rate FiO2 06/08/19 11:03 96 Room Air 06/08/19 11:00 97.8 99 18 130/85 (100) 97.8 06/08/19 08:00 2.0 Physical Exam PHYSICAL EXAM GENERAL: Sitting upright in bed, alert, smiling HEENT: Oropharynx pink, moist LUNGS: Decreased breath sounds at the bases HEART: S1, S2. Systolic murmur at the aortic area. ABDOMEN: Soft, nontender. EXTREMITIES: No edema, no cyanosis. DERMATOLOGIC: Warm and dry. No generalized rash. Labs Lab Laboratory Tests Test 06/08/19 07:45 White Blood Count 3.4 x10^3/uL (4.0-11.0) Red Blood Count 4.89 x10^6/uL (4.30-5.70) Hemoglobin 13.6 g/dL (13.0-17.5) Hematocrit 41.2 % (39.0-53.0) Mean Corpuscular Volume 84 fL (79-100) Mean Corpuscular Hemoglobin 28 pg (25-35) Mean Corpuscular Hemoglobin Concent 33 g/dL (31-37) Red Cell Distribution Width 18.5 % (11.5-14.5) Platelet Count 169 x10^3/uL (140-400) Neutrophils (%) (Auto) 85 % (31-73) Lymphocytes (%) (Auto) 14 % (24-48) Monocytes (%) (Auto) 1 % (0-9) Eosinophils (%) (Auto) 0 % (0-3) Basophils (%) (Auto) 0 % (0-3) Neutrophils # (Auto) 2.9 x10^3/uL (1.8-7.7) Lymphocytes # (Auto) 0.5 x10^3/uL (1.0-4.8) Monocytes # (Auto) 0.0 x10^3/uL (0.0-1.1) Eosinophils # (Auto) 0.0 x10^3/uL (0.0-0.7) Basophils # (Auto) 0.0 x10^3/uL (0.0-0.2) Sodium Level 141 mmol/L (136-145) Potassium Level 4.6 mmol/L (3.5-5.1) Chloride Level 105 mmol/L (98-107) Carbon Dioxide Level 25 mmol/L (21-32) Anion Gap 11 (6-14) Blood Urea Nitrogen 14 mg/dL (8-26) Creatinine 1.4 mg/dL (0.7-1.3) Estimated GFR (Cockcroft-Gault) 49.3 BUN/Creatinine Ratio 10 (6-20) Glucose Level 140 mg/dL (70-99) Calcium Level 9.2 mg/dL (8.5-10.1) Total Bilirubin 0.4 mg/dL (0.2-1.0) Aspartate Amino Transf (AST/SGOT) 20 U/L (15-37) Alanine Aminotransferase (ALT/SGPT) 18 U/L (16-63) Alkaline Phosphatase 73 U/L (46-116) Total Protein 9.3 g/dL (6.4-8.2) Albumin 3.8 g/dL (3.4-5.0) Albumin/Globulin Ratio 0.7 (1.0-1.7) Micro Microbiology 06/06/19 Blood Culture - Preliminary, Resulted NO GROWTH AFTER 1 DAY Objective Assessment Febrile illness - improving Pneumonia possible secondary infection with likely viral pneumonitis.+ mycoplasma Chest pain CO ruled out h/o bioprosthetic AVR in 2012; and MV surgery COPD Plan Plan of Care ceftriaxone and doxycycline Influenza screen pending Sputum cx pending HUSSAIN FERNANDES APRN Jun 08, 2019 15:53
[2019-06-08] MEDS: BENZOCAINE/MENTHOL LOZENGE. PO PRN ×2 (17:30→20:23)
[2019-06-08 19:58] VITALS: BP 134/78
[2019-06-08 23:15] VITALS: BP 115/71
[2019-06-09] VITALS (7 sets, daily range): BP systolic 115–145; BP diastolic 64–93
[2019-06-09 05:19] LABS: BASO % 0 % (0-3); EOS % 0 % (0-3); HEMATOCRIT 40.3 % (39.0-53.0); HEMOGLOBIN 13.4 g/dL (13.0-17.5); LYMPH # 0.4 x10^3/uL (1.0-4.8); LYMPH % 4 % (24-48); MEAN CORPUSCULAR HEMOGLOBIN 28 pg (25-35); MEAN CORPUSCULAR HGB CONC 33 g/dL (31-37); MEAN CORPUSCULAR VOLUME 85 fL (79-100); MONO # 0.3 x10^3/uL (0.0-1.1); MONO % 3 % (0-9); NEUT % 94 % (31-73); PLATELET COUNT 189 x10^3/uL (140-400); RED BLOOD COUNT 4.75 x10^6/uL (4.30-5.70); RED CELL DISTRIBUTION WIDTH 18.8 % (11.5-14.5); WHITE BLOOD COUNT 12.8 x10^3/uL (4.0-11.0)
[2019-06-09 05:53] LABS: ALBUMIN 3.9 g/dL (3.4-5.0); ALBUMIN/GLOBULIN RATIO 0.7 (1.0-1.7); CALCIUM 9.4 mg/dL (8.5-10.1); CREATININE 1.5 mg/dL (0.7-1.3); GFR 45.5; POTASSIUM 4.1 mmol/L (3.5-5.1); TOTAL BILIRUBIN 0.3 mg/dL (0.2-1.0); TOTAL PROTEIN 9.3 g/dL (6.4-8.2)
[2019-06-09] MEDS: BUDESONIDE 0.5 MG/2 ML NEBU. NEB SCH ×2 (06:56→19:43)
[2019-06-09] MEDS: IPRATRPIUM/ALBUTEROL 0.5/2.5MG 3 ML NEBU. NEB SCH ×4 (06:57→19:43)
[2019-06-09 07:21] LABS: % BANDS 1 % (0-9); % LYMPHS 4 % (24-48); % MONOS 4 % (0-10); % SEGS 91 % (35-66); PLT ESTIMATE ADEQUATE (ADEQUATE)
[2019-06-09] MEDS: BENZOCAINE/MENTHOL LOZENGE. PO PRN (07:40)
[2019-06-09] MEDS: ACETAMINOPHEN 325 MG TABLET. PO PRN ×2 (07:41→22:49)
--- NOTE | 2019-06-09 08:30 | PDOC ---
PULMONARY PROGRESS NOTES Subjective sob cough better, no pain Vitals Vital Signs Date Time Temp Pulse Resp B/P (MAP) Pulse Ox O2 Delivery O2 Flow Rate FiO2 06/09/19 07:00 98.0 117 18 145/93 (110) 93 Room Air 98.0 06/08/19 08:00 2.0 ROS: No Nausea General: Alert HEENT: Other (nc at perrl) Lungs: Clear Cardiovascular: S1, S2 Abdomen: Soft, Non-tender Neuro Exam: Alert Skin: Warm Labs Laboratory Tests Test 06/07/19 11:45 06/08/19 07:45 06/09/19 04:10 06/09/19 04:45 Mycoplasma Serology (LAB) Positive (NEGATIVE) White Blood Count 3.4 x10^3/uL (4.0-11.0) 12.8 x10^3/uL (4.0-11.0) Red Blood Count 4.89 x10^6/uL (4.30-5.70) 4.75 x10^6/uL (4.30-5.70) Hemoglobin 13.6 g/dL (13.0-17.5) 13.4 g/dL (13.0-17.5) Hematocrit 41.2 % (39.0-53.0) 40.3 % (39.0-53.0) Mean Corpuscular Volume 84 fL (79-100) 85 fL (79-100) Mean Corpuscular Hemoglobin 28 pg (25-35) 28 pg (25-35) Mean Corpuscular Hemoglobin Concent 33 g/dL (31-37) 33 g/dL (31-37) Red Cell Distribution Width 18.5 % (11.5-14.5) 18.8 % (11.5-14.5) Platelet Count 169 x10^3/uL (140-400) 189 x10^3/uL (140-400) Neutrophils (%) (Auto) 85 % (31-73) 94 % (31-73) Lymphocytes (%) (Auto) 14 % (24-48) 4 % (24-48) Monocytes (%) (Auto) 1 % (0-9) 3 % (0-9) Eosinophils (%) (Auto) 0 % (0-3) 0 % (0-3) Basophils (%) (Auto) 0 % (0-3) 0 % (0-3) Neutrophils # (Auto) 2.9 x10^3/uL (1.8-7.7) 12.0 x10^3/uL (1.8-7.7) Lymphocytes # (Auto) 0.5 x10^3/uL (1.0-4.8) 0.4 x10^3/uL (1.0-4.8) Monocytes # (Auto) 0.0 x10^3/uL (0.0-1.1) 0.3 x10^3/uL (0.0-1.1) Eosinophils # (Auto) 0.0 x10^3/uL (0.0-0.7) 0.0 x10^3/uL (0.0-0.7) Basophils # (Auto) 0.0 x10^3/uL (0.0-0.2) 0.0 x10^3/uL (0.0-0.2) Sodium Level 141 mmol/L (136-145) 144 mmol/L (136-145) Potassium Level 4.6 mmol/L (3.5-5.1) 4.1 mmol/L (3.5-5.1) Chloride Level 105 mmol/L (98-107) 107 mmol/L (98-107) Carbon Dioxide Level 25 mmol/L (21-32) 25 mmol/L (21-32) Anion Gap 11 (6-14) 12 (6-14) Blood Urea Nitrogen 14 mg/dL (8-26) 19 mg/dL (8-26) Creatinine 1.4 mg/dL (0.7-1.3) 1.5 mg/dL (0.7-1.3) Estimated GFR (Cockcroft-Gault) 49.3 45.5 BUN/Creatinine Ratio 10 (6-20) 13 (6-20) Glucose Level 140 mg/dL (70-99) 153 mg/dL (70-99) Calcium Level 9.2 mg/dL (8.5-10.1) 9.4 mg/dL (8.5-10.1) Total Bilirubin 0.4 mg/dL (0.2-1.0) 0.3 mg/dL (0.2-1.0) Aspartate Amino Transf (AST/SGOT) 20 U/L (15-37) 21 U/L (15-37) Alanine Aminotransferase (ALT/SGPT) 18 U/L (16-63) 17 U/L (16-63) Alkaline Phosphatase 73 U/L (46-116) 80 U/L (46-116) Total Protein 9.3 g/dL (6.4-8.2) 9.3 g/dL (6.4-8.2) Albumin 3.8 g/dL (3.4-5.0) 3.9 g/dL (3.4-5.0) Albumin/Globulin Ratio 0.7 (1.0-1.7) 0.7 (1.0-1.7) Segmented Neutrophils % 91 % (35-66) Band Neutrophils % 1 % (0-9) Lymphocytes % 4 % (24-48) Monocytes % 4 % (0-10) Platelet Estimate Adequate (ADEQUATE) Laboratory Tests Test 06/09/19 04:10 06/09/19 04:45 White Blood Count 12.8 x10^3/uL (4.0-11.0) Red Blood Count 4.75 x10^6/uL (4.30-5.70) Hemoglobin 13.4 g/dL (13.0-17.5) Hematocrit 40.3 % (39.0-53.0) Mean Corpuscular Volume 85 fL (79-100) Mean Corpuscular Hemoglobin 28 pg (25-35) Mean Corpuscular Hemoglobin Concent 33 g/dL (31-37) Red Cell Distribution Width 18.8 % (11.5-14.5) Platelet Count 189 x10^3/uL (140-400) Neutrophils (%) (Auto) 94 % (31-73) Lymphocytes (%) (Auto) 4 % (24-48) Monocytes (%) (Auto) 3 % (0-9) Eosinophils (%) (Auto) 0 % (0-3) Basophils (%) (Auto) 0 % (0-3) Neutrophils # (Auto) 12.0 x10^3/uL (1.8-7.7) Lymphocytes # (Auto) 0.4 x10^3/uL (1.0-4.8) Monocytes # (Auto) 0.3 x10^3/uL (0.0-1.1) Eosinophils # (Auto) 0.0 x10^3/uL (0.0-0.7) Basophils # (Auto) 0.0 x10^3/uL (0.0-0.2) Segmented Neutrophils % 91 % (35-66) Band Neutrophils % 1 % (0-9) Lymphocytes % 4 % (24-48) Monocytes % 4 % (0-10) Platelet Estimate Adequate (ADEQUATE) Sodium Level 144 mmol/L (136-145) Potassium Level 4.1 mmol/L (3.5-5.1) Chloride Level 107 mmol/L (98-107) Carbon Dioxide Level 25 mmol/L (21-32) Anion Gap 12 (6-14) Blood Urea Nitrogen 19 mg/dL (8-26) Creatinine 1.5 mg/dL (0.7-1.3) Estimated GFR (Cockcroft-Gault) 45.5 BUN/Creatinine Ratio 13 (6-20) Glucose Level 153 mg/dL (70-99) Calcium Level 9.4 mg/dL (8.5-10.1) Total Bilirubin 0.3 mg/dL (0.2-1.0) Aspartate Amino Transf (AST/SGOT) 21 U/L (15-37) Alanine Aminotransferase (ALT/SGPT) 17 U/L (16-63) Alkaline Phosphatase 80 U/L (46-116) Total Protein 9.3 g/dL (6.4-8.2) Albumin 3.9 g/dL (3.4-5.0) Albumin/Globulin Ratio 0.7 (1.0-1.7) Medications Active Scripts Medications Dose Route/Sig Max Daily Dose Days Date Category Metoprolol Tartrate 25 Mg Tablet 25 Mg PO BID 06/07/19 Reported Klor-Con M20 (Potassium Chloride) 20 Meq Tab.er.prt 20 Meq PO DAILY 06/06/19 Reported Cetirizine Hcl 10 Mg Tablet 10 Mg PO DAILY 06/06/19 Reported Ferrous Sulfate 325 Mg Tablet 325 Mg PO DAILY 06/06/19 Reported Symbicort 80-4.5 Mcg Inhaler (Budesonide/Formoterol Fumarate) 10.2 Gm Hfa.aer.ad 2 Puff IH BID 06/06/19 Reported Protonix (Pantoprazole Sodium) 20 Mg Tablet.dr 1 Tab PO DAILY 06/06/19 Reported Hydrochlorothiazide Capsule (Hydrochlorothiazide) 12.5 Mg Capsule 12.5 Mg PO DAILY 06/06/19 Reported Senokot-S Tablet (Sennosides/Docusate Sodium) 1 Each Tablet 2 Tab PO BID 30 06/06/19 Reported Finasteride 5 Mg Tablet 1 Tab PO DAILY 06/06/19 Reported Aspir-Low (Aspirin) 81 Mg Tablet.dr 1 Tab PO DAILY 06/06/19 Reported Lasix (Furosemide) 20 Mg Tablet 1 Tab PO DAILY 30 06/06/19 Reported Prednisone 50 Mg Tablet 1 Tab PO DAILY 02/18/19 Rx Ventolin Hfa Inhaler (Albuterol Sulfate) 18 Gm Hfa.aer.ad 2 Puff INH Q4HRS 02/18/19 Rx Impression . IMPRESSION: 1. Acute hypoxemic respiratory failure. 2. Acute pneumonia, positive serology for mycoplasma. 3. Abnormal x-ray compatible with pneumonia as indicated above. 4. Acute exacerbation with chronic obstructive pulmonary disease. 5. Acute on chronic diastolic heart failure. 6. Significant comorbidities, s/p bioprosthetic aVR in 2012 and mitral valve clip procedure in 2018. 7. Chest pain secondary to all of the above. 8. Hypertension. Plan . PLAN: 02 titration, on RA antibiotics, per id cont Nebulized treatment. cont ICS DVT and GI prophylaxis. Lasix. monitor k, cr. . will change solumedrol to prednisone 40 mg daily w taper by 10 mg q 3d discussed w pt LLUVIA RODRIGES MD Jun 09, 2019 08:30
[2019-06-09] MEDS: FUROSEMIDE 20 MG/2 ML VIAL. IVP SCH (09:54)
[2019-06-09] MEDS: predniSONE 20 MG TABLET PO SCH (09:54)
[2019-06-09] MEDS: ASPIRIN ENTERIC COATED 81 MG TABLET.DR. PO SCH (09:55)
[2019-06-09] MEDS: METOPROLOL TART IMMED RELEASE 25 MG TABLET. PO SCH ×2 (09:55→20:28)
[2019-06-09] MEDS: FINASTERIDE 5 MG TABLET. PO SCH (09:56)
[2019-06-09] MEDS: FERROUS SULFATE 325 MG TABLET. PO SCH (09:56)
[2019-06-09] MEDS: SENNOSIDES/DOCUSATE 8.6/50MG TABLET. PO SCH ×2 (09:56→20:29)
[2019-06-09] MEDS: PANTOPRAZOLE 40 MG TABLET.DR. PO SCH (09:56)
[2019-06-09] MEDS: CETIRIZINE HCL 10 MG TABLET. PO SCH (09:56)
[2019-06-09] MEDS: POTASSIUM CHLORIDE 20 MEQ TABLET.ER. PO SCH (09:56)
[2019-06-09] MEDS: LACTOBACILLUS RHAMNOSUS GG 1 CAPSULE. PO SCH ×2 (09:56→20:28)
[2019-06-09] MEDS: hydroCHLOROthiazide 12.5 MG CAPSULE PO SCH (09:57)
[2019-06-09] MEDS: ENOXAPARIN 40 MG/0.4 ML SYRINGE. SQ SCH (09:57)
[2019-06-09] MEDS: DOXYCYCLINE HYCLATE 100 MG TABLET PO SCH ×2 (10:07→20:28)
--- NOTE | 2019-06-09 10:31 | PDOC ---
Infectious Disease Note Subjective Subjective Comfortable Hoping to go home soon No fevers last 24 hours + cough Denies SOA/N/V/D ROS ROS per HPI Vital Sign Vital Signs Vital Signs Date Time Temp Pulse Resp B/P (MAP) Pulse Ox O2 Delivery O2 Flow Rate FiO2 06/09/19 09:55 117 145/93 06/09/19 07:00 98.0 18 93 Room Air 98.0 06/08/19 08:00 2.0 Physical Exam PHYSICAL EXAM GENERAL: Sitting upright in bed, alert, smiling HEENT: Oropharynx pink, moist LUNGS: Decreased breath sounds at the bases HEART: S1, S2. Systolic murmur at the aortic area. ABDOMEN: Soft, nontender. EXTREMITIES: No edema, no cyanosis. DERMATOLOGIC: Warm and dry. No generalized rash. Labs Lab Laboratory Tests Test 06/09/19 04:10 06/09/19 04:45 White Blood Count 12.8 x10^3/uL (4.0-11.0) Red Blood Count 4.75 x10^6/uL (4.30-5.70) Hemoglobin 13.4 g/dL (13.0-17.5) Hematocrit 40.3 % (39.0-53.0) Mean Corpuscular Volume 85 fL (79-100) Mean Corpuscular Hemoglobin 28 pg (25-35) Mean Corpuscular Hemoglobin Concent 33 g/dL (31-37) Red Cell Distribution Width 18.8 % (11.5-14.5) Platelet Count 189 x10^3/uL (140-400) Neutrophils (%) (Auto) 94 % (31-73) Lymphocytes (%) (Auto) 4 % (24-48) Monocytes (%) (Auto) 3 % (0-9) Eosinophils (%) (Auto) 0 % (0-3) Basophils (%) (Auto) 0 % (0-3) Neutrophils # (Auto) 12.0 x10^3/uL (1.8-7.7) Lymphocytes # (Auto) 0.4 x10^3/uL (1.0-4.8) Monocytes # (Auto) 0.3 x10^3/uL (0.0-1.1) Eosinophils # (Auto) 0.0 x10^3/uL (0.0-0.7) Basophils # (Auto) 0.0 x10^3/uL (0.0-0.2) Segmented Neutrophils % 91 % (35-66) Band Neutrophils % 1 % (0-9) Lymphocytes % 4 % (24-48) Monocytes % 4 % (0-10) Platelet Estimate Adequate (ADEQUATE) Sodium Level 144 mmol/L (136-145) Potassium Level 4.1 mmol/L (3.5-5.1) Chloride Level 107 mmol/L (98-107) Carbon Dioxide Level 25 mmol/L (21-32) Anion Gap 12 (6-14) Blood Urea Nitrogen 19 mg/dL (8-26) Creatinine 1.5 mg/dL (0.7-1.3) Estimated GFR (Cockcroft-Gault) 45.5 BUN/Creatinine Ratio 13 (6-20) Glucose Level 153 mg/dL (70-99) Calcium Level 9.4 mg/dL (8.5-10.1) Total Bilirubin 0.3 mg/dL (0.2-1.0) Aspartate Amino Transf (AST/SGOT) 21 U/L (15-37) Alanine Aminotransferase (ALT/SGPT) 17 U/L (16-63) Alkaline Phosphatase 80 U/L (46-116) Total Protein 9.3 g/dL (6.4-8.2) Albumin 3.9 g/dL (3.4-5.0) Albumin/Globulin Ratio 0.7 (1.0-1.7) Micro Microbiology 06/06/19 Blood Culture - Preliminary, Resulted NO GROWTH AFTER 2 DAY Objective Assessment Febrile illness - improving Pneumonia possible secondary infection with likely viral pneumonitis.+ mycoplasma Chest pain NM ruled out h/o bioprosthetic AVR in 2012; and MV surgery COPD Leukocytosis, likely reactive steriods Plan Plan of Care ceftriaxone and doxycycline Influenza screen pending Sputum cx pending Patient seen and examined. Chart reviewed in detail. Case discussed with MA[employer]. Agree with above plan HUSSAIN FERNANDES APRN Jun 09, 2019 10:31 DEBBIE EVANGELISTA MD Jun 09, 2019 19:08
--- NOTE | 2019-06-09 11:34 | PDOC ---
[employer] PROGRESS NOTE Chief Complaint Chief Complaint Chest discomfort Dyspnea Possible pneumonia Elevated D-Dimer History of Present Illness History of Present Illness 06/09/2019 Pt was seen and examined. On exam pt was eating food brought from home and appeared to be comfortable. No complaints of chest pain today, family was asking about possible D/C today. 06/08/19 Pt seen and examined DW VIELKA CARR Still SOA and weak 06/07/2019 Pt was seen an examined. Has difficulty speaking Latvian but continues to report chest discomfort. Nurse reports the pt told her he has a past valve replacement and clip. Vitals/I&O Vitals/I&O: Vital Signs Date Time Temp Pulse Resp B/P (MAP) Pulse Ox O2 Delivery O2 Flow Rate FiO2 06/09/19 09:55 117 145/93 06/09/19 07:00 98.0 18 93 Room Air 98.0 06/08/19 08:00 2.0 I & O 06/08/19 06/08/19 06/09/19 15:00 23:00 07:00 Intake Total 250 ml 100 ml Balance 250 ml 100 ml Physical Exam Physical Exam: GENERAL: Sitting upright in bed, alert, smiling HEENT: Oropharynx pink, moist LUNGS: Decreased breath sounds at the bases HEART: S1, S2. Systolic murmur at the aortic area. ABDOMEN: Soft, nontender. EXTREMITIES: No edema, no cyanosis. DERMATOLOGIC: Warm and dry. No generalized rash. General: Alert, No acute distress Heart: Regular rate, Other (ejection systolic murmur 2/6 aortic area) Lungs: Clear Abdomen: Normal bowel sounds, Soft, No tenderness Extremities: No clubbing, No edema Skin: No rashes Labs Labs: Laboratory Tests Test 06/09/19 04:10 06/09/19 04:45 White Blood Count 12.8 x10^3/uL (4.0-11.0) Red Blood Count 4.75 x10^6/uL (4.30-5.70) Hemoglobin 13.4 g/dL (13.0-17.5) Hematocrit 40.3 % (39.0-53.0) Mean Corpuscular Volume 85 fL (79-100) Mean Corpuscular Hemoglobin 28 pg (25-35) Mean Corpuscular Hemoglobin Concent 33 g/dL (31-37) Red Cell Distribution Width 18.8 % (11.5-14.5) Platelet Count 189 x10^3/uL (140-400) Neutrophils (%) (Auto) 94 % (31-73) Lymphocytes (%) (Auto) 4 % (24-48) Monocytes (%) (Auto) 3 % (0-9) Eosinophils (%) (Auto) 0 % (0-3) Basophils (%) (Auto) 0 % (0-3) Neutrophils # (Auto) 12.0 x10^3/uL (1.8-7.7) Lymphocytes # (Auto) 0.4 x10^3/uL (1.0-4.8) Monocytes # (Auto) 0.3 x10^3/uL (0.0-1.1) Eosinophils # (Auto) 0.0 x10^3/uL (0.0-0.7) Basophils # (Auto) 0.0 x10^3/uL (0.0-0.2) Segmented Neutrophils % 91 % (35-66) Band Neutrophils % 1 % (0-9) Lymphocytes % 4 % (24-48) Monocytes % 4 % (0-10) Platelet Estimate Adequate (ADEQUATE) Sodium Level 144 mmol/L (136-145) Potassium Level 4.1 mmol/L (3.5-5.1) Chloride Level 107 mmol/L (98-107) Carbon Dioxide Level 25 mmol/L (21-32) Anion Gap 12 (6-14) Blood Urea Nitrogen 19 mg/dL (8-26) Creatinine 1.5 mg/dL (0.7-1.3) Estimated GFR (Cockcroft-Gault) 45.5 BUN/Creatinine Ratio 13 (6-20) Glucose Level 153 mg/dL (70-99) Calcium Level 9.4 mg/dL (8.5-10.1) Total Bilirubin 0.3 mg/dL (0.2-1.0) Aspartate Amino Transf (AST/SGOT) 21 U/L (15-37) Alanine Aminotransferase (ALT/SGPT) 17 U/L (16-63) Alkaline Phosphatase 80 U/L (46-116) Total Protein 9.3 g/dL (6.4-8.2) Albumin 3.9 g/dL (3.4-5.0) Albumin/Globulin Ratio 0.7 (1.0-1.7) Review of Systems Review of Systems: Denies CP, SOB, N/V/D Assessment and Plan Assessmemt and Plan Problems Medical Problems: (1) Chest pain Status: Acute (2) Community acquired pneumonia Status: Acute Chest discomfort Dyspnea Possible pneumonia Elevated D-Dimer Plan: 1) Continue current ABX (Doxycycline and Ceftriaxone) 2) Nebulizer treatments prn 3) Continue Pulmonology, Cardiology, and Infectious Disease recommendations. Appreciate input to care. 4) D/C disposition pending recommendations from Pulmonology, infectious disease, and cardiology. 5) Cardiac monitoring 6) Full code 7) DVT prophylaxis 8) PT/OT Comment Review of Relevant I have reviewed the following items luis (where applicable) has been applied. Medications: Current Medications Medications (Trade) Dose Ordered Sig/Marino Route PRN Reason Start Time Stop Time Status Last Admin Dose Admin Throat Lozenges (Cepacol Sore Throat Lozenge) 1 carmencita PRN Q2HRS PRN PO SORE THROAT 06/08/19 17:15 06/09/19 07:40 Prednisone (Prednisone) 40 mg DAILY PO 06/09/19 09:00 06/09/19 09:54 MONICA OTERO III DO Jun 09, 2019 11:34
--- NOTE | 2019-06-09 12:23 | PDOC ---
PROGRESS NOTES Subjective Subjective dyspnea improved Objective Objective Vital Signs Date Time Temp Pulse Resp B/P (MAP) Pulse Ox O2 Delivery O2 Flow Rate FiO2 06/09/19 11:53 96 Nasal Cannula 1.0 06/09/19 09:55 117 145/93 06/09/19 07:00 98.0 18 98.0 Intake and Output 06/09/19 07:00 Intake Total 350 ml Balance 350 ml Intake Oral 350 ml Physical Exam Abdomen: Normal bowel sounds, Soft, No tenderness Heart: Regular rate, Other (ejection systolic murmur 2/6 aortic area) Extremities: No clubbing, No edema General: Alert, No acute distress HEENT: Atraumatic Lungs: Other (scattered crepitations bilaterally) Neuro: Normal speech, Cranial nerves 3-12 NL Psych/Mental Status: Mood NL Skin: No rashes Assessment Assessment 1. Chest pain with atypical features and most probably musculoskeletal secondary to his cough. Myocardial infarction has been ruled out. 2-D echo showed normal LV function without any wall motion abnormalities. Ischemic workup in the form of stress test could be considered as an outpatient. 2. Pneumonia, COPD: Treat per IM 3. 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 2-D echo showed well-seated and normally functioning bioprosthetic aortic valve. Mitral valve clip noted with mean gradient 5 mmHg and moderate to severe mitral regurgitation. He is clinically well compensated. We will follow-up as outpatient. 4. Hypertension: Controlled Plan Plan of Care Problems Medical Problems: (1) Chest pain Status: Acute (2) Community acquired pneumonia Status: Acute Comment Review of Relevant I have reviewed the following items luis (where applicable) has been applied. Labs Laboratory Tests Test 06/09/19 04:10 06/09/19 04:45 White Blood Count 12.8 x10^3/uL (4.0-11.0) Red Blood Count 4.75 x10^6/uL (4.30-5.70) Hemoglobin 13.4 g/dL (13.0-17.5) Hematocrit 40.3 % (39.0-53.0) Mean Corpuscular Volume 85 fL (79-100) Mean Corpuscular Hemoglobin 28 pg (25-35) Mean Corpuscular Hemoglobin Concent 33 g/dL (31-37) Red Cell Distribution Width 18.8 % (11.5-14.5) Platelet Count 189 x10^3/uL (140-400) Neutrophils (%) (Auto) 94 % (31-73) Lymphocytes (%) (Auto) 4 % (24-48) Monocytes (%) (Auto) 3 % (0-9) Eosinophils (%) (Auto) 0 % (0-3) Basophils (%) (Auto) 0 % (0-3) Neutrophils # (Auto) 12.0 x10^3/uL (1.8-7.7) Lymphocytes # (Auto) 0.4 x10^3/uL (1.0-4.8) Monocytes # (Auto) 0.3 x10^3/uL (0.0-1.1) Eosinophils # (Auto) 0.0 x10^3/uL (0.0-0.7) Basophils # (Auto) 0.0 x10^3/uL (0.0-0.2) Segmented Neutrophils % 91 % (35-66) Band Neutrophils % 1 % (0-9) Lymphocytes % 4 % (24-48) Monocytes % 4 % (0-10) Platelet Estimate Adequate (ADEQUATE) Sodium Level 144 mmol/L (136-145) Potassium Level 4.1 mmol/L (3.5-5.1) Chloride Level 107 mmol/L (98-107) Carbon Dioxide Level 25 mmol/L (21-32) Anion Gap 12 (6-14) Blood Urea Nitrogen 19 mg/dL (8-26) Creatinine 1.5 mg/dL (0.7-1.3) Estimated GFR (Cockcroft-Gault) 45.5 BUN/Creatinine Ratio 13 (6-20) Glucose Level 153 mg/dL (70-99) Calcium Level 9.4 mg/dL (8.5-10.1) Total Bilirubin 0.3 mg/dL (0.2-1.0) Aspartate Amino Transf (AST/SGOT) 21 U/L (15-37) Alanine Aminotransferase (ALT/SGPT) 17 U/L (16-63) Alkaline Phosphatase 80 U/L (46-116) Total Protein 9.3 g/dL (6.4-8.2) Albumin 3.9 g/dL (3.4-5.0) Albumin/Globulin Ratio 0.7 (1.0-1.7) Microbiology 06/06/19 Blood Culture - Preliminary, Resulted NO GROWTH AFTER 2 DAYS Medications Current Medications Prednisone (Prednisone) 40 mg DAILY PO Last administered on 06/09/19at 09:54; Start 06/09/19 at 09:00 Throat Lozenges (Cepacol Sore Throat Lozenge) 1 carmencita PRN Q2HRS PRN PO SORE THROAT Last administered on 06/09/19at 07:40; Start 06/08/19 at 17:15 Vitals/I & O Vital Sign - Last 24 Hours 06/08/19 06/08/19 06/08/19 06/08/19 15:00 16:49 19:58 20:00 Temp 98.1 97.7 98.1 97.7 Pulse 99 111 Resp 20 20 B/P (MAP) 129/89 (102) 134/78 (96) Pulse Ox 90 93 93 O2 Delivery Room Air Room Air Room Air Room Air 06/08/19 06/08/19 06/08/19 06/09/19 20:20 20:23 23:15 03:21 Temp 98.1 98.4 98.1 98.4 Pulse 111 120 105 Resp 20 18 B/P (MAP) 134/78 115/71 (86) 118/64 (82) Pulse Ox 96 93 93 O2 Delivery Room Air Room Air Room Air 06/09/19 06/09/19 06/09/19 06/09/19 06:58 07:00 09:55 11:53 Temp 98.0 98.0 Pulse 117 117 Resp 18 B/P (MAP) 145/93 (110) 145/93 Pulse Ox 98 93 96 O2 Delivery Room Air Room Air Nasal Cannula O2 Flow Rate 1.0 Intake and Output 06/08/19 06/08/19 06/09/19 15:00 23:00 07:00 Intake Total 250 ml 100 ml Balance 250 ml 100 ml JAVIER HUGHES MD Jun 09, 2019 12:23
[2019-06-09] MEDS: cefTRIAXone IV Push 2 GM VIAL. IVP SCH (13:07)
[2019-06-10] MEDS ORDERED: HYDROcodone/APAP 5/325MG 1 TAB TABLET PO PRN (00:15)
[2019-06-10 03:30] VITALS: BP 142/87
[2019-06-10 06:31] LABS: BASO % 0 % (0-3); EOS % 0 % (0-3); HEMATOCRIT 39.8 % (39.0-53.0); HEMOGLOBIN 12.9 g/dL (13.0-17.5); LYMPH # 0.9 x10^3/uL (1.0-4.8); LYMPH % 8 % (24-48); MEAN CORPUSCULAR HEMOGLOBIN 27 pg (25-35); MEAN CORPUSCULAR HGB CONC 32 g/dL (31-37); MEAN CORPUSCULAR VOLUME 85 fL (79-100); MONO # 0.5 x10^3/uL (0.0-1.1); MONO % 4 % (0-9); NEUT # 9.8 x10^3/uL (1.8-7.7); NEUT % 87 % (31-73); PLATELET COUNT 162 x10^3/uL (140-400); RED BLOOD COUNT 4.69 x10^6/uL (4.30-5.70); RED CELL DISTRIBUTION WIDTH 19.4 % (11.5-14.5); WHITE BLOOD COUNT 11.2 x10^3/uL (4.0-11.0)
[2019-06-10 06:55] LABS: ALBUMIN 3.6 g/dL (3.4-5.0); ALBUMIN/GLOBULIN RATIO 0.7 (1.0-1.7); CALCIUM 9.4 mg/dL (8.5-10.1); CREATININE 1.5 mg/dL (0.7-1.3); GFR 45.5; POTASSIUM 3.6 mmol/L (3.5-5.1); TOTAL BILIRUBIN 0.3 mg/dL (0.2-1.0); TOTAL PROTEIN 8.5 g/dL (6.4-8.2)
[2019-06-10] MEDS: BUDESONIDE 0.5 MG/2 ML NEBU. NEB SCH (07:22)
[2019-06-10] MEDS: IPRATRPIUM/ALBUTEROL 0.5/2.5MG 3 ML NEBU. NEB SCH ×2 (07:23→11:20)
[2019-06-10 07:33] VITALS: BP 143/85
--- NOTE | 2019-06-10 09:24 | PDOC ---
PULMONARY PROGRESS NOTES Subjective sob cough better, no pain Vitals Vital Signs Date Time Temp Pulse Resp B/P (MAP) Pulse Ox O2 Delivery O2 Flow Rate FiO2 06/10/19 07:33 98.2 84 20 143/85 (104) 96 Room Air 98.2 06/09/19 15:00 1.0 ROS: No Nausea General: Alert HEENT: Other (nc at perrl) Lungs: Clear Cardiovascular: S1, S2 Abdomen: Soft, Non-tender Neuro Exam: Alert Skin: Warm Labs Laboratory Tests Test 06/09/19 04:10 06/09/19 04:45 06/10/19 06:07 White Blood Count 12.8 x10^3/uL (4.0-11.0) 11.2 x10^3/uL (4.0-11.0) Red Blood Count 4.75 x10^6/uL (4.30-5.70) 4.69 x10^6/uL (4.30-5.70) Hemoglobin 13.4 g/dL (13.0-17.5) 12.9 g/dL (13.0-17.5) Hematocrit 40.3 % (39.0-53.0) 39.8 % (39.0-53.0) Mean Corpuscular Volume 85 fL (79-100) 85 fL (79-100) Mean Corpuscular Hemoglobin 28 pg (25-35) 27 pg (25-35) Mean Corpuscular Hemoglobin Concent 33 g/dL (31-37) 32 g/dL (31-37) Red Cell Distribution Width 18.8 % (11.5-14.5) 19.4 % (11.5-14.5) Platelet Count 189 x10^3/uL (140-400) 162 x10^3/uL (140-400) Neutrophils (%) (Auto) 94 % (31-73) 87 % (31-73) Lymphocytes (%) (Auto) 4 % (24-48) 8 % (24-48) Monocytes (%) (Auto) 3 % (0-9) 4 % (0-9) Eosinophils (%) (Auto) 0 % (0-3) 0 % (0-3) Basophils (%) (Auto) 0 % (0-3) 0 % (0-3) Neutrophils # (Auto) 12.0 x10^3/uL (1.8-7.7) 9.8 x10^3/uL (1.8-7.7) Lymphocytes # (Auto) 0.4 x10^3/uL (1.0-4.8) 0.9 x10^3/uL (1.0-4.8) Monocytes # (Auto) 0.3 x10^3/uL (0.0-1.1) 0.5 x10^3/uL (0.0-1.1) Eosinophils # (Auto) 0.0 x10^3/uL (0.0-0.7) 0.0 x10^3/uL (0.0-0.7) Basophils # (Auto) 0.0 x10^3/uL (0.0-0.2) 0.0 x10^3/uL (0.0-0.2) Segmented Neutrophils % 91 % (35-66) Band Neutrophils % 1 % (0-9) Lymphocytes % 4 % (24-48) Monocytes % 4 % (0-10) Platelet Estimate Adequate (ADEQUATE) Sodium Level 144 mmol/L (136-145) 145 mmol/L (136-145) Potassium Level 4.1 mmol/L (3.5-5.1) 3.6 mmol/L (3.5-5.1) Chloride Level 107 mmol/L (98-107) 107 mmol/L (98-107) Carbon Dioxide Level 25 mmol/L (21-32) 27 mmol/L (21-32) Anion Gap 12 (6-14) 11 (6-14) Blood Urea Nitrogen 19 mg/dL (8-26) 28 mg/dL (8-26) Creatinine 1.5 mg/dL (0.7-1.3) 1.5 mg/dL (0.7-1.3) Estimated GFR (Cockcroft-Gault) 45.5 45.5 BUN/Creatinine Ratio 13 (6-20) 19 (6-20) Glucose Level 153 mg/dL (70-99) 89 mg/dL (70-99) Calcium Level 9.4 mg/dL (8.5-10.1) 9.4 mg/dL (8.5-10.1) Total Bilirubin 0.3 mg/dL (0.2-1.0) 0.3 mg/dL (0.2-1.0) Aspartate Amino Transf (AST/SGOT) 21 U/L (15-37) 25 U/L (15-37) Alanine Aminotransferase (ALT/SGPT) 17 U/L (16-63) 23 U/L (16-63) Alkaline Phosphatase 80 U/L (46-116) 69 U/L (46-116) Total Protein 9.3 g/dL (6.4-8.2) 8.5 g/dL (6.4-8.2) Albumin 3.9 g/dL (3.4-5.0) 3.6 g/dL (3.4-5.0) Albumin/Globulin Ratio 0.7 (1.0-1.7) 0.7 (1.0-1.7) Laboratory Tests Test 06/10/19 06:07 White Blood Count 11.2 x10^3/uL (4.0-11.0) Red Blood Count 4.69 x10^6/uL (4.30-5.70) Hemoglobin 12.9 g/dL (13.0-17.5) Hematocrit 39.8 % (39.0-53.0) Mean Corpuscular Volume 85 fL (79-100) Mean Corpuscular Hemoglobin 27 pg (25-35) Mean Corpuscular Hemoglobin Concent 32 g/dL (31-37) Red Cell Distribution Width 19.4 % (11.5-14.5) Platelet Count 162 x10^3/uL (140-400) Neutrophils (%) (Auto) 87 % (31-73) Lymphocytes (%) (Auto) 8 % (24-48) Monocytes (%) (Auto) 4 % (0-9) Eosinophils (%) (Auto) 0 % (0-3) Basophils (%) (Auto) 0 % (0-3) Neutrophils # (Auto) 9.8 x10^3/uL (1.8-7.7) Lymphocytes # (Auto) 0.9 x10^3/uL (1.0-4.8) Monocytes # (Auto) 0.5 x10^3/uL (0.0-1.1) Eosinophils # (Auto) 0.0 x10^3/uL (0.0-0.7) Basophils # (Auto) 0.0 x10^3/uL (0.0-0.2) Sodium Level 145 mmol/L (136-145) Potassium Level 3.6 mmol/L (3.5-5.1) Chloride Level 107 mmol/L (98-107) Carbon Dioxide Level 27 mmol/L (21-32) Anion Gap 11 (6-14) Blood Urea Nitrogen 28 mg/dL (8-26) Creatinine 1.5 mg/dL (0.7-1.3) Estimated GFR (Cockcroft-Gault) 45.5 BUN/Creatinine Ratio 19 (6-20) Glucose Level 89 mg/dL (70-99) Calcium Level 9.4 mg/dL (8.5-10.1) Total Bilirubin 0.3 mg/dL (0.2-1.0) Aspartate Amino Transf (AST/SGOT) 25 U/L (15-37) Alanine Aminotransferase (ALT/SGPT) 23 U/L (16-63) Alkaline Phosphatase 69 U/L (46-116) Total Protein 8.5 g/dL (6.4-8.2) Albumin 3.6 g/dL (3.4-5.0) Albumin/Globulin Ratio 0.7 (1.0-1.7) Medications Active Scripts Medications Dose Route/Sig Max Daily Dose Days Date Category Metoprolol Tartrate 25 Mg Tablet 25 Mg PO BID 06/07/19 Reported Klor-Con M20 (Potassium Chloride) 20 Meq Tab.er.prt 20 Meq PO DAILY 06/06/19 Reported Cetirizine Hcl 10 Mg Tablet 10 Mg PO DAILY 06/06/19 Reported Ferrous Sulfate 325 Mg Tablet 325 Mg PO DAILY 06/06/19 Reported Symbicort 80-4.5 Mcg Inhaler (Budesonide/Formoterol Fumarate) 10.2 Gm Hfa.aer.ad 2 Puff IH BID 06/06/19 Reported Protonix (Pantoprazole Sodium) 20 Mg Tablet.dr 1 Tab PO DAILY 06/06/19 Reported Hydrochlorothiazide Capsule (Hydrochlorothiazide) 12.5 Mg Capsule 12.5 Mg PO DAILY 06/06/19 Reported Senokot-S Tablet (Sennosides/Docusate Sodium) 1 Each Tablet 2 Tab PO BID 30 06/06/19 Reported Finasteride 5 Mg Tablet 1 Tab PO DAILY 06/06/19 Reported Aspir-Low (Aspirin) 81 Mg Tablet.dr 1 Tab PO DAILY 06/06/19 Reported Lasix (Furosemide) 20 Mg Tablet 1 Tab PO DAILY 30 06/06/19 Reported Prednisone 50 Mg Tablet 1 Tab PO DAILY 02/18/19 Rx Ventolin Hfa Inhaler (Albuterol Sulfate) 18 Gm Hfa.aer.ad 2 Puff INH Q4HRS 02/18/19 Rx Impression . IMPRESSION: 1. Acute hypoxemic respiratory failure. 2. Acute pneumonia, positive serology for mycoplasma. 3. Abnormal x-ray compatible with pneumonia as indicated above. 4. Acute exacerbation with chronic obstructive pulmonary disease. 5. Acute on chronic diastolic heart failure. 6. Significant comorbidities, s/p bioprosthetic aVR in 2012 and mitral valve clip procedure in 2018. 7. Chest pain secondary to all of the above. 8. Hypertension. Plan . PLAN: 02 titration, on RA antibiotics, per id cont Nebulized treatment. cont ICS DVT and GI prophylaxis. Lasix. monitor k, cr. . will change solumedrol to prednisone 40 mg daily w taper by 10 mg q 3d discussed w pt RYAN CHANG MD Jun 10, 2019 09:24
[2019-06-10] MEDS: DOXYCYCLINE HYCLATE 100 MG TABLET PO SCH (09:33)
[2019-06-10] MEDS: predniSONE 20 MG TABLET PO SCH (09:33)
[2019-06-10] MEDS: PANTOPRAZOLE 40 MG TABLET.DR. PO SCH (09:33)
[2019-06-10] MEDS: FERROUS SULFATE 325 MG TABLET. PO SCH (09:33)
[2019-06-10] MEDS: CETIRIZINE HCL 10 MG TABLET. PO SCH (09:33)
[2019-06-10] MEDS: LACTOBACILLUS RHAMNOSUS GG 1 CAPSULE. PO SCH (09:33)
[2019-06-10] MEDS: ASPIRIN ENTERIC COATED 81 MG TABLET.DR. PO SCH (09:33)
[2019-06-10] MEDS: SENNOSIDES/DOCUSATE 8.6/50MG TABLET. PO SCH (09:34)
[2019-06-10] MEDS: hydroCHLOROthiazide 12.5 MG CAPSULE PO SCH (09:34)
[2019-06-10] MEDS: FINASTERIDE 5 MG TABLET. PO SCH (09:34)
[2019-06-10] MEDS: FUROSEMIDE 20 MG/2 ML VIAL. IVP SCH (09:35)
[2019-06-10] MEDS: POTASSIUM CHLORIDE 20 MEQ TABLET.ER. PO SCH (09:35)
[2019-06-10] MEDS: METOPROLOL TART IMMED RELEASE 25 MG TABLET. PO SCH (09:36)
[2019-06-10] MEDS: ENOXAPARIN 40 MG/0.4 ML SYRINGE. SQ SCH (09:38)
[2019-06-10] MEDS ORDERED: IV NORMAL SALINE 1000ML BAG 1,000 ML IV SCH (10:15)
--- NOTE | 2019-06-10 10:16 | PDOC ---
[employer] PROGRESS NOTE Chief Complaint Chief Complaint Chest discomfort Dyspnea Possible pneumonia Elevated D-Dimer Pre-Renal Azotemia History of Present Illness History of Present Illness 06/10/2019 Pt was seen and examined. On examination he was resting comfortably with no acute complaints. Today he has no complaints of pain, reports symptomatic improvement and is asking for discharge. 06/09/2019 Pt was seen and examined. On exam pt was eating food brought from home and appeared to be comfortable. No complaints of chest pain today, family was asking about possible D/C today. 06/08/19 Pt seen and examined DW RN VSS Still SOA and weak 06/07/2019 Pt was seen an examined. Has difficulty speaking [place] but continues to report chest discomfort. Nurse reports the pt told her he has a past valve replacement and clip. Vitals/I&O Vitals/I&O: Vital Signs Date Time Temp Pulse Resp B/P (MAP) Pulse Ox O2 Delivery O2 Flow Rate FiO2 06/10/19 09:36 84 143/85 06/10/19 07:33 98.2 20 96 Room Air 98.2 06/09/19 15:00 1.0 I & O 06/09/19 06/09/19 06/10/19 15:00 23:00 07:00 Intake Total 720 ml 630 ml 650 ml Output Total 400 ml Balance 720 ml 230 ml 650 ml Physical Exam Physical Exam: GENERAL: Sitting upright in bed, alert, smiling HEENT: Oropharynx pink, moist LUNGS: Decreased breath sounds at the bases HEART: S1, S2. Systolic murmur at the aortic area. ABDOMEN: Soft, nontender. EXTREMITIES: No edema, no cyanosis. DERMATOLOGIC: Warm and dry. No generalized rash. General: Alert, Oriented X3, Cooperative, No acute distress Heart: Regular rate, Other (ejection systolic murmur 2/6 aortic area) Lungs: Clear Abdomen: Normal bowel sounds, Soft, No tenderness Extremities: No clubbing, No edema Skin: No rashes Labs Labs: Laboratory Tests Test 06/10/19 06:07 White Blood Count 11.2 x10^3/uL (4.0-11.0) Red Blood Count 4.69 x10^6/uL (4.30-5.70) Hemoglobin 12.9 g/dL (13.0-17.5) Hematocrit 39.8 % (39.0-53.0) Mean Corpuscular Volume 85 fL (79-100) Mean Corpuscular Hemoglobin 27 pg (25-35) Mean Corpuscular Hemoglobin Concent 32 g/dL (31-37) Red Cell Distribution Width 19.4 % (11.5-14.5) Platelet Count 162 x10^3/uL (140-400) Neutrophils (%) (Auto) 87 % (31-73) Lymphocytes (%) (Auto) 8 % (24-48) Monocytes (%) (Auto) 4 % (0-9) Eosinophils (%) (Auto) 0 % (0-3) Basophils (%) (Auto) 0 % (0-3) Neutrophils # (Auto) 9.8 x10^3/uL (1.8-7.7) Lymphocytes # (Auto) 0.9 x10^3/uL (1.0-4.8) Monocytes # (Auto) 0.5 x10^3/uL (0.0-1.1) Eosinophils # (Auto) 0.0 x10^3/uL (0.0-0.7) Basophils # (Auto) 0.0 x10^3/uL (0.0-0.2) Sodium Level 145 mmol/L (136-145) Potassium Level 3.6 mmol/L (3.5-5.1) Chloride Level 107 mmol/L (98-107) Carbon Dioxide Level 27 mmol/L (21-32) Anion Gap 11 (6-14) Blood Urea Nitrogen 28 mg/dL (8-26) Creatinine 1.5 mg/dL (0.7-1.3) Estimated GFR (Cockcroft-Gault) 45.5 BUN/Creatinine Ratio 19 (6-20) Glucose Level 89 mg/dL (70-99) Calcium Level 9.4 mg/dL (8.5-10.1) Total Bilirubin 0.3 mg/dL (0.2-1.0) Aspartate Amino Transf (AST/SGOT) 25 U/L (15-37) Alanine Aminotransferase (ALT/SGPT) 23 U/L (16-63) Alkaline Phosphatase 69 U/L (46-116) Total Protein 8.5 g/dL (6.4-8.2) Albumin 3.6 g/dL (3.4-5.0) Albumin/Globulin Ratio 0.7 (1.0-1.7) Review of Systems Review of Systems: No SOB No CP No N/V/D Assessment and Plan Assessmemt and Plan Problems Medical Problems: (1) Chest pain Status: Acute (2) Community acquired pneumonia Status: Acute Chest discomfort Dyspnea Possible pneumonia Elevated D-Dimer Pre-Renal Azotemia Plan: 1) Plan for D/C today if consults are agreeable 2) IVFs run at 75/hr 3) Continue Pulm, ID, and Cardiology recommendations 4) Continue IV Abx 5) DVT prophylaxis 6) PT/OT 7) Full Code Comment Review of Relevant I have reviewed the following items luis (where applicable) has been applied. Medications: Current Medications Medications (Trade) Dose Ordered Sig/Marino Route PRN Reason Start Time Stop Time Status Last Admin Dose Admin Acetaminophen/ Hydrocodone Bitart (Lortab 5/325) 1 tab PRN Q6HRS PRN PO MODERATE PAIN 4-6 06/10/19 00:15 06/10/19 00:31 MONICA OTERO III DO Jun 10, 2019 10:15
[2019-06-10 11:06] VITALS: BP 138/88
[2019-06-10 12:12] LABS: INFLUENZA A PATIENT NEGATIVE (NEGATIVE); INFLUENZA B PATIENT NEGATIVE (NEGATIVE)
--- NOTE | 2019-06-10 12:14 | PDOC ---
Infectious Disease Note Subjective Subjective Hoping to go home No fevers last 24 hours + cough occ Denies SOA/N/V/D ROS ROS o/w neg Vital Sign Vital Signs Vital Signs Date Time Temp Pulse Resp B/P (MAP) Pulse Ox O2 Delivery O2 Flow Rate FiO2 06/10/19 11:20 94 Room Air 06/10/19 11:06 98.2 88 18 138/88 (105) 98.2 06/09/19 15:00 1.0 Physical Exam PHYSICAL EXAM GENERAL: Sitting upright in bed, alert -smiling HEENT: Oropharynx pink, moist LUNGS: Decreased breath sounds at the bases HEART: S1, S2. Systolic murmur at the aortic area. ABDOMEN: Soft, nontender. EXTREMITIES: No edema, no cyanosis.Fistula - clean DERMATOLOGIC: Warm and dry. No generalized rash. Labs Lab Laboratory Tests Test 06/10/19 06:07 White Blood Count 11.2 x10^3/uL (4.0-11.0) Red Blood Count 4.69 x10^6/uL (4.30-5.70) Hemoglobin 12.9 g/dL (13.0-17.5) Hematocrit 39.8 % (39.0-53.0) Mean Corpuscular Volume 85 fL (79-100) Mean Corpuscular Hemoglobin 27 pg (25-35) Mean Corpuscular Hemoglobin Concent 32 g/dL (31-37) Red Cell Distribution Width 19.4 % (11.5-14.5) Platelet Count 162 x10^3/uL (140-400) Neutrophils (%) (Auto) 87 % (31-73) Lymphocytes (%) (Auto) 8 % (24-48) Monocytes (%) (Auto) 4 % (0-9) Eosinophils (%) (Auto) 0 % (0-3) Basophils (%) (Auto) 0 % (0-3) Neutrophils # (Auto) 9.8 x10^3/uL (1.8-7.7) Lymphocytes # (Auto) 0.9 x10^3/uL (1.0-4.8) Monocytes # (Auto) 0.5 x10^3/uL (0.0-1.1) Eosinophils # (Auto) 0.0 x10^3/uL (0.0-0.7) Basophils # (Auto) 0.0 x10^3/uL (0.0-0.2) Sodium Level 145 mmol/L (136-145) Potassium Level 3.6 mmol/L (3.5-5.1) Chloride Level 107 mmol/L (98-107) Carbon Dioxide Level 27 mmol/L (21-32) Anion Gap 11 (6-14) Blood Urea Nitrogen 28 mg/dL (8-26) Creatinine 1.5 mg/dL (0.7-1.3) Estimated GFR (Cockcroft-Gault) 45.5 BUN/Creatinine Ratio 19 (6-20) Glucose Level 89 mg/dL (70-99) Calcium Level 9.4 mg/dL (8.5-10.1) Total Bilirubin 0.3 mg/dL (0.2-1.0) Aspartate Amino Transf (AST/SGOT) 25 U/L (15-37) Alanine Aminotransferase (ALT/SGPT) 23 U/L (16-63) Alkaline Phosphatase 69 U/L (46-116) Total Protein 8.5 g/dL (6.4-8.2) Albumin 3.6 g/dL (3.4-5.0) Albumin/Globulin Ratio 0.7 (1.0-1.7) Micro Microbiology 06/08/19 - Final, Resulted 06/08/19 - Final, Resulted 06/08/19 - Final, Resulted 06/08/19 - Final, Resulted 06/08/19 - Preliminary, Resulted 06/08/19 - Preliminary, Resulted 06/08/19 Gram Stain Evaluation - Final, Resulted 06/08/19 Sputum Culture, Resulted Pending 06/06/19 Blood Culture - Preliminary, Resulted NO GROWTH AFTER 3 DAYS Objective Assessment Febrile illness - improving Pneumonia possible secondary infection with likely viral pneumonitis.+ mycoplasma 06/07 - Chest pain WA ruled out h/o bioprosthetic AVR in 2012; and MV surgery COPD Leukocytosis, likely reactive steriods -better Plan Plan of Care ceftriaxone and doxycycline home with doxy and cefdinir fro 5 days Sputum cx pending - GNR on gram stain d/w micro - nothing new. Likely be nml daphne with + mycoplasma Can f/u one week with primary or in ID office if necessary D/w nursing ERLINDA CURRAN MD Jun 10, 2019 12:14
[2019-06-10] MEDS: cefTRIAXone IV Push 2 GM VIAL. IVP SCH (12:50)
--- NOTE | 2019-06-10 13:03 | PDOC ---
AMY VILLANUEVA LASER SYSTEMS ENGINEER 06/10/19 1303: CARDIO Progress Notes Date and Time Date of Service 06/10/19 Time of Evaluation 1302 Subjective Subjective: No Chest Pain, No shortness of breath Vitals Vitals Vital Signs Date Time Temp Pulse Resp B/P (MAP) Pulse Ox O2 Delivery O2 Flow Rate FiO2 06/10/19 11:20 94 Room Air 06/10/19 11:06 98.2 88 18 138/88 (105) 98.2 06/09/19 15:00 1.0 Weight Weight [ ] Input and Output Intake and Output Intake and Output 06/10/19 07:00 Intake Total 2000 ml Output Total 400 ml Balance 1600 ml Intake Oral 2000 ml Output Urine Total 400 ml # Voids 2 Laboratory Labs Laboratory Tests Test 06/10/19 06:07 06/10/19 09:45 White Blood Count 11.2 x10^3/uL (4.0-11.0) Red Blood Count 4.69 x10^6/uL (4.30-5.70) Hemoglobin 12.9 g/dL (13.0-17.5) Hematocrit 39.8 % (39.0-53.0) Mean Corpuscular Volume 85 fL (79-100) Mean Corpuscular Hemoglobin 27 pg (25-35) Mean Corpuscular Hemoglobin Concent 32 g/dL (31-37) Red Cell Distribution Width 19.4 % (11.5-14.5) Platelet Count 162 x10^3/uL (140-400) Neutrophils (%) (Auto) 87 % (31-73) Lymphocytes (%) (Auto) 8 % (24-48) Monocytes (%) (Auto) 4 % (0-9) Eosinophils (%) (Auto) 0 % (0-3) Basophils (%) (Auto) 0 % (0-3) Neutrophils # (Auto) 9.8 x10^3/uL (1.8-7.7) Lymphocytes # (Auto) 0.9 x10^3/uL (1.0-4.8) Monocytes # (Auto) 0.5 x10^3/uL (0.0-1.1) Eosinophils # (Auto) 0.0 x10^3/uL (0.0-0.7) Basophils # (Auto) 0.0 x10^3/uL (0.0-0.2) Sodium Level 145 mmol/L (136-145) Potassium Level 3.6 mmol/L (3.5-5.1) Chloride Level 107 mmol/L (98-107) Carbon Dioxide Level 27 mmol/L (21-32) Anion Gap 11 (6-14) Blood Urea Nitrogen 28 mg/dL (8-26) Creatinine 1.5 mg/dL (0.7-1.3) Estimated GFR (Cockcroft-Gault) 45.5 BUN/Creatinine Ratio 19 (6-20) Glucose Level 89 mg/dL (70-99) Calcium Level 9.4 mg/dL (8.5-10.1) Total Bilirubin 0.3 mg/dL (0.2-1.0) Aspartate Amino Transf (AST/SGOT) 25 U/L (15-37) Alanine Aminotransferase (ALT/SGPT) 23 U/L (16-63) Alkaline Phosphatase 69 U/L (46-116) Total Protein 8.5 g/dL (6.4-8.2) Albumin 3.6 g/dL (3.4-5.0) Albumin/Globulin Ratio 0.7 (1.0-1.7) Influenza Type A Antigen Negative (NEGATIVE) Influenza Type B Antigen Negative (NEGATIVE) Microbiology Micro Microbiology 06/08/19 - Final, Resulted 06/08/19 - Final, Resulted 06/08/19 - Final, Resulted 06/08/19 - Final, Resulted 06/08/19 - Preliminary, Resulted 06/08/19 - Preliminary, Resulted 06/08/19 Gram Stain Evaluation - Final, Resulted 06/08/19 Sputum Culture, Resulted Pending 06/06/19 Blood Culture - Preliminary, Resulted NO GROWTH AFTER 3 DAYS Physical Exam HEENT: Neck Supple W Full Motion Chest: Symmetric LUNGS: Clear to Auscultation Heart: RRR, other (GR 2/ 6 LASHON) Abdomen: Soft N/T Extremities: No Edema Neurology: alert, oriented, follow commands Assessment Assessment 1. Chest pain with atypical features and most probably musculoskeletal secondary to his cough. Myocardial infarction has been ruled out. 2-D echo showed normal LV function without any wall motion abnormalities. Ischemic workup in the form of stress test could be considered as an outpatient. 2. Pneumonia, COPD: Treat per IM 3. 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 2-D echo showed well-seated and normally functioning bioprosthetic aortic valve. Mitral valve clip noted with mean gradient 5 mmHg and moderate to severe mitral regurgitation. He is clinically well compensated. We will follow-up as o utpatient. 4. Hypertension: Controlled JAVIER HUGHES MD 06/10/19 1521: CARDIO Progress Notes Assessment Assessment Patient seen and examined. Agree with DRY TRANSFER WORKER's assessment and plan. Pneumonia improving. 2-D echo results noted above. Plan ischemic evaluation as an outpatient. AMY VILLANUEVA APRN Jun 10, 2019 13:03 JAVIER HUGHES MD Jun 10, 2019 15:21
--- NOTE | 2019-06-10 13:08 | NUR ---
SS following up with discharge planning. PT recommending home with assistance at discharge. SS will continue to follow for discharge planning.
--- NOTE | 2019-06-10 15:58 | NUR ---
Discharge Note: [facility] Discharge instructions and discharge home medications reviewed the patient's son and a copy given. All questions have been answered and understanding verbalized. The following instructions and handouts were given: Take Doxycycline 100 mg tab, 1 tablet 2 x a day for 5 days, Cefdinir 300 mg tab, 1 tab 2 x a day for 5 days and Prednisone 20mg/tab, 1 tablet daily for 5 days and discontinue. Prescriptions called to [facility] To ff up with PCP in a week. Watch out for worsening of symptoms. Discontinued lines and drains: peripheral IV intact, patient tolerated removal, no complications noted. Patient discharged to home via wheelchair accompanied by the patient's son at 1440.
[2019-06-10] MEDS ORDERED: CEFDINIR 300 MG CAPSULE PO SCH (21:00)
--- NOTE | 2019-06-11 13:11 | DS ---
DATE OF DISCHARGE: 06/10/2019 ADMISSION DIAGNOSIS: Pneumonia. DISCHARGE DIAGNOSES: Resolving pneumonia, prerenal azotemia, history of chronic obstructive pulmonary disease, aortic valve replacement. CONSULTS: Cardiology, Infectious Disease, and Pulmonary. PROCEDURES: None. HOSPITAL COURSE: The patient is a pleasant middle-aged male from [facility]. He basically presented with pneumonia. We gave the patient IV antibiotics. His serology came back positive for mycoplasma. We gave him breathing treatments and oxygen, physical therapy, occupational therapy, and p.r.n. O2. Chest x-ray also showed some pulmonary edema, so we did consult Cardiology. I believe he got some IV Lasix. Basically over the next few days, he returned to his baseline, will be discharged home with close outpatient followup. DISPOSITION: Home. ACTIVITY: As tolerated. DIET: Low sodium. MEDICATIONS: Please see MRAD. TOTAL TIME: 31 minutes. KRISTINEL Shar OTERO DO DR: LATANYA/antolin JOB#: [id number] / [id number]
== END 2019-06-10 14:40 | disposition home or self-care (01) | DRG 871 ==
LOC: ER 13:13 → ED HOLD 15:19 → 2 SOUTH 19:00 → 6 SOUTH 06-07 06:20
PROVIDERS: ADMIT Family Medicine; ATTEND Family Medicine
DX: A41.9 Sepsis, unspecified organism (principal); J15.7 Pneumonia due to Mycoplasma pneumoniae; I50.33 Acute on chronic diastolic (congestive) heart failure; J96.01 Acute respiratory failure with hypoxia; J44.1 Chronic obstructive pulmonary disease with (acute) exacerbation; J44.0 Chronic obstructive pulmonary disease with (acute) lower respiratory infection; M19.90 Unspecified osteoarthritis, unspecified site; I34.0 Nonrheumatic mitral (valve) insufficiency; D72.819 Decreased white blood cell count, unspecified; I11.0 Hypertensive heart disease with heart failure; Z87.891 Personal history of nicotine dependence; Z95.3 Presence of xenogenic heart valve; Z82.5 Family history of asthma and other chronic lower respiratory diseases; Z82.49 Family history of ischemic heart disease and other diseases of the circulatory system; B96.0 Mycoplasma pneumoniae [M. pneumoniae] as the cause of diseases classified elsewhere
CPT/HCPCS: 36415; 71045; 78582; 80053; 83690; 83735; 83880; 84484; 85007; 85025; 85379; 85610; 86738; 87040; 87070; 87205; 87804; 93005; 93306; 94640; 94760; 96365; 96374; 96375; A9540; A9558; J0696; J1650; J1940; J2543; J2930; J7512; J7620; J7626; Q0144; 97110; 97116; 97530; 99285-25; G0378

== ENCOUNTER 2019-10-14 09:54 | Emergency (ER) | payer OTHER ==
[~2019-10-14] VITALS: Ht 147.3 cm; Wt 64.5 kg
[~2019-10-14 09:54] MED LIST changes: +ASPI81TA50 PO; +BUDE10.22 IH; +CETI10TA16 PO; +FERR325T14 PO; +FINA5TAB4 PO; +FURO-68 PO; +FURO-69 PO; +HYDR12.575 PO; +METO-239 PO; +METO25TA4 PO; +PANT20TA2 PO; +POTA20TA4 PO; +SENN-37 PO
[2019-10-14] MEDS ORDERED: IV NORMAL SALINE 1000ML BAG 1,000 ML IV SCH (10:49)
--- NOTE | 2019-10-14 10:52 | PHYS DOC ---
Past Medical History Past Medical History: CHF, COPD, Hypertension Additional Past Medical Histor: prostatism Past Surgical History: Other Additional Past Surgical Histo: AORTIC VALVE REPLACEMENT Smoking Status: Former Smoker Alcohol Use: None Drug Use: None Adult General Chief Complaint Chief Complaint: PAIN ON URINATION HPI HPI patient is a 74 old male who presents to the emergency department for evaluation. He states that about 3 AM, he developed flank pain, bilaterally, along with hematuria, dysuria, urinary frequency and urgency. He also reports a pressure in his suprapubic area. He has passed some blood clots. He has not had any chest pain, shortness of breath, nausea, vomiting, or diarrhea. There are no alleviating or exacerbating factors to his symptoms. Review of Systems Review of Systems Constitutional: Denies fever or chills [] Eyes: Denies change in visual acuity, redness, or eye pain [] HENT: Denies nasal congestion or sore throat [] Respiratory: Denies cough or shortness of breath [] Cardiovascular: The patient denies any shortness of breath, chest pain, palpitations, or orthopnea[] GI: Denies nausea, vomiting, bloody stools or diarrhea [] : Reports dysuria, hematuria, urinary frequency and hesitancy[] Musculoskeletal: Denies back pain or joint pain [] Integument: Denies rash or skin lesions [] Neurologic: Denies headache, focal weakness or sensory changes [] Endocrine: Denies polyuria or polydipsia [] All other systems were reviewed and found to be within normal limits, except as documented in this note. Current Medications Current Medications Current Medications Medications (Trade) Dose Ordered Sig/Marion Start Time Stop Time Status Last Admin Dose Admin Sodium Chloride 1,000 ml @ 1,000 mls/hr Q1H 10/14/19 10:49 10/14/19 11:48 DC 10/14/19 11:52 1,000 MLS/HR Allergies Allergies Allergies Coded Allergies Type Severity Reaction Last Updated Verified No Known Drug Allergies 02/18/19 No Physical Exam Physical Exam PHYSICAL EXAM: CONSTITUTIONAL: Well developed, well nourished HEAD: normocephalic, atraumatic EENT: PERRL, EOMI. Conjunctivae normal color, sclerae non-icteric; moist mucous membranes. NECK: Supple, non-tender; no meningismus. LUNGS: Lungs CTA, breathing even and unlabored. Normal air movement. HEART: Regular rate and rhythm, no murmur CHEST: No deformity; non-tender ABDOMEN: The abdomen is soft, there isdiffuse tenderness to palpation of the lower abdomen, without rebound or guarding, the remainder of the upper abdomen is relatively soft and non-tender, no masses or bruits. EXTREM: Normal ROM; no deformity, no calf tenderness. Normal pulses palpable in all extremities. There is no pedal edema. SKIN: No rash; no diaphoresis NEURO: Alert; normal speech and cognition; CN's grossly intact; strength grossly intact without focal deficit. BACK: There is mild bilateral CVA TTP. Current Patient Data Vital Signs Vital Signs Date Time Temp Pulse Resp B/P (MAP) Pulse Ox O2 Delivery O2 Flow Rate FiO2 10/14/19 10:26 96.7 77 20 130/95 (107) 94 Room Air 96.7 Lab Values Laboratory Tests Test 10/14/19 10:03 10/14/19 11:15 Urine Collection Type Unknown Urine Color Yellow Urine Clarity Clear Urine pH 5.0 Urine Specific [place] 1.010 Urine Protein Negative mg/dL (NEG-TRACE) Urine Glucose (UA) Negative mg/dL (NEG) Urine Ketones (Stick) Negative mg/dL (NEG) Urine Blood Small (NEG) Urine Nitrite Negative (NEG) Urine Bilirubin Negative (NEG) Urine Urobilinogen Dipstick 0.2 mg/dL (0.2 mg/dL) Urine Leukocyte Esterase Negative (NEG) Urine RBC 1-2 /HPF (0-2) Urine WBC 0 /HPF (0-4) Urine Squamous Epithelial Cells Few /LPF Urine Bacteria 0 /HPF (0-FEW) White Blood Count 5.1 x10^3/uL (4.0-11.0) Red Blood Count 4.74 x10^6/uL (4.30-5.70) Hemoglobin 14.8 g/dL (13.0-17.5) Hematocrit 42.9 % (39.0-53.0) Mean Corpuscular Volume 90 fL (79-100) Mean Corpuscular Hemoglobin 31 pg (25-35) Mean Corpuscular Hemoglobin Concent 35 g/dL (31-37) Red Cell Distribution Width 13.3 % (11.5-14.5) Platelet Count 116 x10^3/uL (140-400) L Neutrophils (%) (Auto) 64 % (31-73) Lymphocytes (%) (Auto) 26 % (24-48) Monocytes (%) (Auto) 7 % (0-9) Eosinophils (%) (Auto) 3 % (0-3) Basophils (%) (Auto) 1 % (0-3) Neutrophils # (Auto) 3.3 x10^3/uL (1.8-7.7) Lymphocytes # (Auto) 1.3 x10^3/uL (1.0-4.8) Monocytes # (Auto) 0.3 x10^3/uL (0.0-1.1) Eosinophils # (Auto) 0.2 x10^3/uL (0.0-0.7) Basophils # (Auto) 0.0 x10^3/uL (0.0-0.2) Prothrombin Time 13.1 SEC (11.7-14.0) Prothrombin Time INR 1.0 (0.8-1.1) Activated Partial Thromboplast Time 34 SEC (24-38) Sodium Level 142 mmol/L (136-145) Potassium Level 3.7 mmol/L (3.5-5.1) Chloride Level 105 mmol/L (98-107) Carbon Dioxide Level 28 mmol/L (21-32) Anion Gap 9 (6-14) Blood Urea Nitrogen 24 mg/dL (8-26) Creatinine 1.4 mg/dL (0.7-1.3) H Estimated GFR (Cockcroft-Gault) 49.3 BUN/Creatinine Ratio 17 (6-20) Glucose Level 117 mg/dL (70-99) H Calcium Level 9.1 mg/dL (8.5-10.1) Total Bilirubin 1.2 mg/dL (0.2-1.0) H Aspartate Amino Transferase (AST) 21 U/L (15-37) Alanine Aminotransferase (ALT) 17 U/L (16-63) Alkaline Phosphatase 71 U/L (46-116) Total Protein 8.1 g/dL (6.4-8.2) Albumin 3.8 g/dL (3.4-5.0) Albumin/Globulin Ratio 0.9 (1.0-1.7) L Lipase 388 U/L (73-393) Laboratory Tests 10/14/19 11:15 Laboratory Tests 10/14/19 11:15 EKG EKG [] Radiology/Procedures Radiology/Procedures PROCEDURE: CT ABDOMEN PELVIS WO CONTRAST EXAM: CT Abdomen and Pelvis without IV contrast INDICATION: Flank pain and hematuria. TECHNIQUE: Multi-detector row CT images were acquired from the lung bases through the abdomen and pelvis without the use of IV contrast. Sagittal and coronal images were acquired from the transaxial data. All CT scans performed at this facility utilize dose optimization techniques as appropriate to the exam, including the following: Automated exposure control and adjustment of the mA and/or KV according to patient size (this includes techniques or standardized protocols for targeted exams where dose is indication/reason for exam). ORAL CONTRAST: None COMPARISON: None FINDINGS: The absence of IV contrast limits evaluation of soft tissue pathology. LOWER CHEST: Prosthetic aortic and mitral valves. Hypoventilatory lungs. LIVER: Unremarkable BILIARY SYSTEM: Gallbladder is unremarkable. Bile ducts are not dilated. PANCREAS: Unremarkable SPLEEN: Unremarkable ADRENALS: Unremarkable KIDNEYS & URETERS: Unremarkable BLADDER: Unremarkable REPRODUCTIVE ORGANS: Mildly enlarged prostate measuring 4.5 cm transverse diameter. GASTROINTESTINAL: The stomach, small bowel, and colon are unremarkable. The appendix is normal. MESENTERY/PERITONEUM/RETROPERITONEUM: Unremarkable VASCULAR: Unremarkable LYMPH NODES: No adenopathy OSSEOUS & SOFT TISSUES: Unremarkable IMPRESSION: Unremarkable noncontrast CT of the abdomen and pelvis. No evidence of urinary tract stones or obstructive uropathy and no masses identified without IV contrast.. [] Course & Med Decision Making Course & Med Decision Making Pertinent Labs and Imaging studies reviewed. (See chart for details) []1:20 PM: The patient's condition remains stable. His urinalysis results are somewhat questionable, as his urine is grossly bloody. His renal function is at baseline. I did review his CT scan and there is some higher density material at the base of his bladder, in the dependent portion, possibly consistent with layering blood products. I did discuss with the patient and his son the importance of close outpatient urology follow-up and return precautions in detail. The patient will be placed on empiric antibiotics at this time. Dragon Disclaimer Dragon Disclaimer This electronic medical record was generated, in whole or in part, using a voice recognition dictation system. Departure Departure Impression: Primary Impression: Hematuria Disposition: 01 HOME, SELF-CARE Condition: STABLE Referrals: NO PCP (PCP) Patient Instructions: Dysuria, Hematuria, Adult Additional Instructions: Follow-up with [facility], for further evaluation. Please call to schedule an appointment. Scripts Sulfamethoxazole/Trimethoprim (BACTRIM DS TABLET) 1 Each Tablet 1 TAB PO BID, #14 TAB Prov: TEJAL VALLECILLO MD 10/14/19 TEJAL VALLECILLO MD Oct 14, 2019 10:52
--- NOTE | 2019-10-14 11:29 | RAD ---
EXAM: CT Abdomen and Pelvis without IV contrast INDICATION: Flank pain and hematuria. TECHNIQUE: Multi-detector row CT images were acquired from the lung bases through the abdomen and pelvis without the use of IV contrast. Sagittal and coronal images were acquired from the transaxial data. All CT scans performed at this facility utilize dose optimization techniques as appropriate to the exam, including the following: Automated exposure control and adjustment of the mA and/or KV according to patient size (this includes techniques or standardized protocols for targeted exams where dose is indication/reason for exam). ORAL CONTRAST: None COMPARISON: None FINDINGS: The absence of IV contrast limits evaluation of soft tissue pathology. LOWER CHEST: Prosthetic aortic and mitral valves. Hypoventilatory lungs. LIVER: Unremarkable BILIARY SYSTEM: Gallbladder is unremarkable. Bile ducts are not dilated. PANCREAS: Unremarkable SPLEEN: Unremarkable ADRENALS: Unremarkable KIDNEYS & URETERS: Unremarkable BLADDER: Unremarkable REPRODUCTIVE ORGANS: Mildly enlarged prostate measuring 4.5 cm transverse diameter. GASTROINTESTINAL: The stomach, small bowel, and colon are unremarkable. The appendix is normal. MESENTERY/PERITONEUM/RETROPERITONEUM: Unremarkable VASCULAR: Unremarkable LYMPH NODES: No adenopathy OSSEOUS & SOFT TISSUES: Unremarkable IMPRESSION: Unremarkable noncontrast CT of the abdomen and pelvis. No evidence of urinary tract stones or obstructive uropathy and no masses identified without IV contrast.. Electronically signed by: Marisa Diallo MD (10/14/2019 11:26 AM) [facility]
[2019-10-14 11:43] LABS: ALBUMIN 3.8 g/dL (3.4-5.0); ALBUMIN/GLOBULIN RATIO 0.9 (1.0-1.7); CALCIUM 9.1 mg/dL (8.5-10.1); CREATININE 1.4 mg/dL (0.7-1.3); GFR 49.3; POTASSIUM 3.7 mmol/L (3.5-5.1); TOTAL BILIRUBIN 1.2 mg/dL (0.2-1.0); TOTAL PROTEIN 8.1 g/dL (6.4-8.2)
[2019-10-14 11:45] LABS: BASO % 1 % (0-3); EOS # 0.2 x10^3/uL (0.0-0.7); EOS % 3 % (0-3); HEMATOCRIT 42.9 % (39.0-53.0); HEMOGLOBIN 14.8 g/dL (13.0-17.5); LYMPH # 1.3 x10^3/uL (1.0-4.8); LYMPH % 26 % (24-48); MEAN CORPUSCULAR HEMOGLOBIN 31 pg (25-35); MEAN CORPUSCULAR HGB CONC 35 g/dL (31-37); MEAN CORPUSCULAR VOLUME 90 fL (79-100); MONO # 0.3 x10^3/uL (0.0-1.1); MONO % 7 % (0-9); NEUT # 3.3 x10^3/uL (1.8-7.7); NEUT % 64 % (31-73); PLATELET COUNT 116 x10^3/uL (140-400); RED BLOOD COUNT 4.74 x10^6/uL (4.30-5.70); RED CELL DISTRIBUTION WIDTH 13.3 % (11.5-14.5); WHITE BLOOD COUNT 5.1 x10^3/uL (4.0-11.0)
[2019-10-14 11:54] LABS: BILIRUBIN,URINE NEGATIVE (NEG); CLARITY,URINE CLEAR; COLOR,URINE YELLOW; NITRITE,URINE NEGATIVE (NEG); PROTEIN,URINE NEGATIVE (NEG-TRACE); UROBILINOGEN,URINE 0.2 mg/dL (0.2 mg/dL)
[2019-10-14 11:56] LABS: PROTHROMBIN TIME PATIENT 13.1 SEC (11.7-14.0)
[2019-10-14 12:07] LABS: BACTERIA,URINE 0 /HPF (0-FEW); SQUAMOUS EPITHELIAL CELL,UR FEW /LPF; WBC,URINE 0 /HPF (0-4)
[2019-10-14 13:14] VITALS: BP 131/84
[2019-10-14] MEDS ORDERED: SULF1TAB24 PO (13:29)
[2019-10-14] MEDS ORDERED: OXYB5TAB33 PO (13:31)
== END 2019-10-14 13:40 | disposition home or self-care (01) ==
LOC: ER 09:54
DX: R31.9 Hematuria, unspecified (principal); R30.0 Dysuria; R35.0 Frequency of micturition; R39.15 Urgency of urination; R39.11 Hesitancy of micturition; R10.30 Lower abdominal pain, unspecified; I11.0 Hypertensive heart disease with heart failure; I50.9 Heart failure, unspecified; J44.9 Chronic obstructive pulmonary disease, unspecified; Z87.891 Personal history of nicotine dependence
CPT/HCPCS: 36415; 74176; 80053; 81001; 83690; 85025; 85610; 85730; 99285; J7030

== ENCOUNTER 2020-06-05 10:12 | Emergency (ER) | payer OTHER ==
[~2020-06-05] VITALS: Ht 142.2 cm; Wt 65.4 kg
[~2020-06-05 10:12] MED LIST changes: +OXYB5TAB33 PO; +SULF1TAB24 PO
[2020-06-05 10:24] VITALS: BP 150/95
--- NOTE | 2020-06-05 10:51 | PHYS DOC ---
Past Medical History Past Medical History: CHF, COPD, GERD, Hypertension Additional Past Medical Histor: prostatism Past Surgical History: Other Additional Past Surgical Histo: AORTIC VALVE REPLACEMENT Smoking Status: Former Smoker Alcohol Use: None Drug Use: None General Adult EDM: Chief Complaint: OTHER COMPLAINTS HPI: HPI: 75 yo M presenting to the ED after feeling that something is stuck in his throat for the past 2 days. He has been able to swallow water but is having trouble eating solids. He ends up vomiting if he tries to swallow solids. He denies any slurred speech or facial drooping. He denies any numbness or weakness in his arms or legs. Review of systems is negative for chest pain shortness of breath vomiting fevers chills. He denies abdominal pain diarrhea. All other review of systems negative. ED course: 75-year-old male having trouble swallowing. Patient is well-appearin g here in the emergency department. He was able to drink water and was able to swallow food in the emergency department without any difficulty. We will discharge the patient to follow-up with outpatient GI in 3 to 5 days. The patient has been examined and was not found to have an emergency medical condition. The patient was then discharged home in stable condition to follow up with their primary care physician over the next 1-2 days. They were to return if their symptoms worsened or if they were concerned for any reason. They were also instructed to return to the emergency department if they were unable to get the recommended and appropriate follow-up. [id number] discharge instructions and return precautions were given. Patient's questions were answered to their satisfaction. Patient is comfortable with plan. Heart Score: Risk Factors: Risk Factors: DM, Current or recent (<one month) smoker, HTN, HLP, family history of CAD, obesity. Risk Scores: Score 0 - 3: 2.5% MACE over next 6 weeks - Discharge Home Score 4 - 6: 20.3% MACE over next 6 weeks - Admit for Clinical Observation Score 7 - 10: 72.7% MACE over next 6 weeks - Early Invasive Strategies Allergies: Allergies: Allergies Coded Allergies Type Severity Reaction Last Updated Verified Iodinated Contrast Media Allergy Unknown 06/05/20 Yes Physical Exam: PE: Constitutional: Well developed, well nourished, no acute distress, non-toxic appearance. [] HENT: Normocephalic, atraumatic, bilateral external ears normal, oropharynx moist, no oral exudates, nose normal. [] Oropharyngeal exam shows a clear pharynx without any swelling. Patient is able to swallow his secretions without difficulty. Tongue is not swollen. His anterior cervical lymph nodes are normal to palpation. Trachea is midline. No palpable crepitus to palpation. Eyes: PERRLA, EOMI, conjunctiva normal, no discharge. [] Neck: Normal range of motion, no tenderness, supple, no stridor. [] Cardiovascular:Heart rate regular rhythm, no murmur [] Lungs & Thorax: Bilateral breath sounds clear to auscultation [] Abdomen: Bowel sounds normal, soft, no tenderness, no masses, no pulsatile masses. [] Skin: Warm, dry, no erythema, no rash. [] Back: No tenderness, no CVA tenderness. [] Extremities: No tenderness, no cyanosis, no clubbing, ROM intact, no edema. [] Neurologic: Alert and oriented X 3, normal motor function, normal sensory function, no focal deficits noted. [] Psychologic: Affect normal, judgement normal, mood normal. [] Current Patient Data: Vital Signs: Vital Signs Date Time Temp Pulse Resp B/P (MAP) Pulse Ox O2 Delivery O2 Flow Rate FiO2 06/05/20 10:24 97.3 82 18 150/95 (113) 94 Room Air 97.3 EKG: EKG: [] Radiology/Procedures: Radiology/Procedures: [] Course & Med Decision Making: Course & Med Decision Making Pertinent Labs and Imaging studies reviewed. (See chart for details) [] Dragon Disclaimer: Dragon Disclaimer: This electronic medical record was generated, in whole or in part, using a voice recognition dictation system. Departure Departure Impression: Primary Impression: Encounter for medical screening examination Disposition: 01 DC HOME SELF CARE/HOMELESS Condition: STABLE Referrals: NO PCP (PCP) SHELLEY TOSCANO MD in 1-2 days Additional Instructions: follow up with your primary physician in 1 to 2 days and GI in 1-2 days. Return to the emergency department if you have any new or concerning findings. JOE RUFFIN MD Jun 05, 2020 10:51
== END 2020-06-05 12:48 | disposition home or self-care (01) ==
LOC: ER 10:12
DX: R11.10 Vomiting, unspecified (principal); I11.0 Hypertensive heart disease with heart failure; I50.9 Heart failure, unspecified; J44.9 Chronic obstructive pulmonary disease, unspecified; K21.9 Gastro-esophageal reflux disease without esophagitis; Z98.890 Other specified postprocedural states; Z87.891 Personal history of nicotine dependence; Z91.041 Radiographic dye allergy status
CPT/HCPCS: 99281

== ENCOUNTER 2020-09-08 13:44 | Inpatient (IN) | payer OTHER ==
[~2020-09-08] VITALS: Ht 162.6 cm; Wt 67.0 kg
[2020-09-08] MEDS ORDERED: IV NORMAL SALINE 1000ML BAG 1,000 ML IV SCH (14:00)
[2020-09-08] MEDS ORDERED: MORPHINE SULFATE 4 MG/ML VIAL. IV/SQ PRN (14:00)
--- NOTE | 2020-09-08 14:05 | ED.ADGEN ---
Past Medical History Past Medical History: Cancer, CHF, COPD, GERD, Hypertension Additional Past Medical Histor: prostatism Past Surgical History: Other Additional Past Surgical Histo: AORTIC VALVE REPLACEMENT Smoking Status: Former Smoker Alcohol Use: None Drug Use: None General Adult EDM: Chief Complaint: SHORTNESS OF BREATH HPI: HPI: Patient is a 75 year old male who arrives with his son to the emergency department complaining of a seizure this morning as well as progressive shortness of air. The patient was reportedly discharged from yesterday whereby he was evaluated for ongoing pain of his lower extremity. The patient's son does speak Armenian however the patient himself speaks only Yoruba. The patient son alludes to the patient likely having multiple myeloma however he is not had any follow-up. Patient also reports the patient does have a seizure history however he is not taking medication for his seizures. The patient does wear supplemental oxygen and had oxygen saturations in the mid to high 80s at home and has saturations in the high 80s and low 90s here. Despite this, the patient is not had any fevers. He further denies any chest pain according to his son. Additionally he is following commands however he does appear to be uncomfortable. He is awake, alert and nontoxic-appearing. Review of Systems: Review of Systems: Constitutional: Denies fever or chills. [] Eyes: Denies change in visual acuity. [] HENT: Denies nasal congestion or sore throat. [] Respiratory: Reports to shortness of breath. [] Cardiovascular: Denies chest pain or edema. [] GI: Denies abdominal pain, nausea, vomiting, bloody stools or diarrhea. [] : Denies dysuria. [] Musculoskeletal: Reports lower extremity pain. Denies back pain or joint pain. [] Integument: Denies rash. [] Neurologic: Reports seizure. Denies headache, focal weakness or sensory changes. [] Endocrine: Denies polyuria or polydipsia. [] Lymphatic: Denies swollen glands. [] Psychiatric: Denies depression or anxiety. [] Current Medications: Current Medications Medications (Trade) Dose Ordered Sig/Marino Start Time Stop Time Status Last Admin Dose Admin Levofloxacin/ Dextrose 150 ml @ 100 mls/hr 1X ONCE 09/08/20 15:00 09/08/20 16:29 09/08/20 15:12 100 MLS/HR Morphine Sulfate (Morphine Sulfate) 4 mg PRN Q15MIN PRN 09/08/20 14:00 09/09/20 13:59 Sodium Chloride 1,000 ml @ 1,000 mls/hr 1X ONCE 09/08/20 15:45 09/08/20 16:44 Allergies: Allergies: Allergies Coded Allergies Type Severity Reaction Last Updated Verified Iodinated Contrast Media Allergy Unknown 06/05/20 Yes Physical Exam: PE: Constitutional: Uncomfortable appearing. Well developed, well nourished, non- toxic appearance. [] HENT: Normocephalic, atraumatic, bilateral external ears normal, oropharynx moist, no oral exudates, nose normal. [] Eyes: PERRLA, EOMI, conjunctiva normal, no discharge. [] Neck: Normal range of motion, no tenderness, supple, no stridor. [] Cardiovascular: Tachycardia. no murmur [] Lungs & Thorax: Diminished breath sounds bilaterally. [] Abdomen: Bowel sounds normal, soft, no tenderness, no masses, no pulsatile masses. [] Skin: Warm, dry, no erythema, no rash. [] Back: No tenderness, no CVA tenderness. [] Extremities: Patient has tenderness to his left posterior thigh. No tenderness, no cyanosis, no clubbing, ROM intact, no edema. [] Neurologic: Alert and oriented X 3, normal motor function, normal sensory function, no focal deficits noted. [] Psychologic: Affect normal, judgement normal, mood normal. [] Current Patient Data: Labs: Laboratory Tests Test 09/08/20 14:05 09/08/20 15:00 White Blood Count 10.4 x10^3/uL (4.0-11.0) Red Blood Count 4.50 x10^6/uL (4.30-5.70) Hemoglobin 11.3 g/dL (13.0-17.5) L Hematocrit 35.3 % (39.0-53.0) L Mean Corpuscular Volume 78 fL (79-100) L Mean Corpuscular Hemoglobin 25 pg (25-35) Mean Corpuscular Hemoglobin Concent 32 g/dL (31-37) Red Cell Distribution Width 15.4 % (11.5-14.5) H Platelet Count 125 x10^3/uL (140-400) L Neutrophils (%) (Auto) 93 % (31-73) H Lymphocytes (%) (Auto) 4 % (24-48) L Monocytes (%) (Auto) 3 % (0-9) Eosinophils (%) (Auto) 0 % (0-3) Basophils (%) (Auto) 0 % (0-3) Neutrophils # (Auto) 9.6 x10^3/uL (1.8-7.7) H Lymphocytes # (Auto) 0.4 x10^3/uL (1.0-4.8) L Monocytes # (Auto) 0.3 x10^3/uL (0.0-1.1) Eosinophils # (Auto) 0.0 x10^3/uL (0.0-0.7) Basophils # (Auto) 0.0 x10^3/uL (0.0-0.2) Segmented Neutrophils % 69 % (35-66) H Band Neutrophils % 23 % (0-9) H Lymphocytes % 5 % (24-48) L Monocytes % 3 % (0-10) Platelet Estimate Adequate (ADEQUATE) Large Platelets Present Sodium Level 136 mmol/L (136-145) Potassium Level 4.5 mmol/L (3.5-5.1) Chloride Level 101 mmol/L (98-107) Carbon Dioxide Level 25 mmol/L (21-32) Anion Gap 10 (6-14) Blood Urea Nitrogen 23 mg/dL (8-26) Creatinine 1.9 mg/dL (0.7-1.3) H Estimated GFR (Cockcroft-Gault) 34.5 BUN/Creatinine Ratio 12 (6-20) Glucose Level 159 mg/dL (70-99) H Lactic Acid Level 2.6 mmol/L (0.4-2.0) H Calcium Level 8.9 mg/dL (8.5-10.1) Total Bilirubin 1.3 mg/dL (0.2-1.0) H Aspartate Amino Transferase (AST) 61 U/L (15-37) H Alanine Aminotransferase (ALT) 50 U/L (16-63) Alkaline Phosphatase 74 U/L (46-116) Troponin I Quantitative < 0.017 ng/mL (0.000-0.055) RY-Xyz-A-Type Natriuretic Peptide 673 pg/mL (0-449) H Total Protein 8.0 g/dL (6.4-8.2) Albumin 3.7 g/dL (3.4-5.0) Albumin/Globulin Ratio 0.9 (1.0-1.7) L Influenza Type A Antigen Negative (NEGATIVE) Influenza Type B Antigen Negative (NEGATIVE) Laboratory Tests 09/08/20 14:05 Laboratory Tests 09/08/20 14:05 Vital Signs: Vital Signs Date Time Temp Pulse Resp B/P (MAP) Pulse Ox O2 Delivery O2 Flow Rate FiO2 09/08/20 14:24 98.1 110 24 83/51 (62) 95 Nasal Cannula 3.0 98.1 EKG: EKG: EKG was obtained at 1407 hrs. and revealed a sinus tachycardia with a ventricular rate of 104 bpm. There are no acute ST/T wave changes to denote isc hemia. Intervals do appear to be normal. There is no ectopy present. [] Heart Score: Risk Factors: Risk Factors: DM, Current or recent (<one month) smoker, HTN, HLP, family history of CAD, obesity. Risk Scores: Score 0 - 3: 2.5% MACE over next 6 weeks - Discharge Home Score 4 - 6: 20.3% MACE over next 6 weeks - Admit for Clinical Observation Score 7 - 10: 72.7% MACE over next 6 weeks - Early Invasive Strategies Radiology/Procedures: Radiology/Procedures: [] Impression: [facility] [address] [place] [address] IMAGING REPORT Signed PATIENT: CAROLIN COLES ACCOUNT: [id number] : 1945 LOCATION: ER AGE: 75 SEX: M EXAM STATUS: REG ER ORD. PHYSICIAN: EVE CROOKS DO REASON: Shortness of air PROCEDURE: PORTABLE CHEST 1V XR CHEST 1V History: Reason: Shortness of air / Spl. Instructions: / History: Comparison: June 06, 2019 Findings: Multifocal ill-defined opacities bilaterally predominantly within the right lower lung. No pleural effusion. No pneumothorax. Normal heart size. Prior median sternotomy. Impression: 1. Focal ill-defined opacities, may represent infection including viral pneumonia. Electronically signed by: Meng Herman DO (09/08/2020 2:52 PM) [id number] DICTATED and SIGNED BY: MENG HERMAN DO DATE: 09/08/20 [id number] Course & Med Decision Making: Course & Med Decision Making Pertinent Labs and Imaging studies reviewed. (See chart for details) The patient remains awake and alert and at rest he does not demonstrate any kind of outward respiratory distress. Nonetheless the patient brings with him multiple comorbidities with the newest diagnosis being multiple myeloma. Given his presentation, I do believe he warrants admission to the hospital and has been admitted to Dr. Thurston service. I have ordered a VQ scan to assess for the potential of a pulmonary embolus given the patient is allergic to contrast media. I spoke with his son with respect to the need for admission and he has agreed to this course of action as well. The patient is awaiting transport to the floor and is without pain at this time. Dragon Disclaimer: Dragon Disclaimer: This electronic medical record was generated, in whole or in part, using a voice recognition dictation system. Departure Departure Impression: Primary Impression: Healthcare-associated pneumonia Additional Impressions: Hypoxemia Renal insufficiency History of seizure History of multiple myeloma Sepsis Disposition: ADMITTED INPT THIS HOSP Admitting Physician: HIMShawna Condition: GUARDED Referrals: FLORENCIA SIMON (PCP) Problem Qualifiers EVE CROOKS DO Sep 08, 2020 14:05
[2020-09-08 14:19] LABS: BASO % 0 % (0-3); EOS % 0 % (0-3); HEMATOCRIT 35.3 % (39.0-53.0); HEMOGLOBIN 11.3 g/dL (13.0-17.5); LYMPH # 0.4 x10^3/uL (1.0-4.8); LYMPH % 4 % (24-48); MEAN CORPUSCULAR HEMOGLOBIN 25 pg (25-35); MEAN CORPUSCULAR HGB CONC 32 g/dL (31-37); MEAN CORPUSCULAR VOLUME 78 fL (79-100); MONO # 0.3 x10^3/uL (0.0-1.1); MONO % 3 % (0-9); NEUT # 9.6 x10^3/uL (1.8-7.7); NEUT % 93 % (31-73); PLATELET COUNT 125 x10^3/uL (140-400); RED CELL DISTRIBUTION WIDTH 15.4 % (11.5-14.5); WHITE BLOOD COUNT 10.4 x10^3/uL (4.0-11.0)
--- NOTE | 2020-09-08 14:55 | RAD ---
XR CHEST 1V History: Reason: Shortness of air / Spl. Instructions: / History: Comparison: June 06, 2019 Findings: Multifocal ill-defined opacities bilaterally predominantly within the right lower lung. No pleural ef fusion. No pneumothorax. Normal heart size. Prior median sternotomy. Impression: 1. Focal ill-defined opacities, may represent infection including viral pneumonia. Electronically signed by: Meng Herman DO (09/08/2020 2:52 PM) [id number]
[2020-09-08 15:03] LABS: % BANDS 23 % (0-9); % LYMPHS 5 % (24-48); % MONOS 3 % (0-10); % SEGS 69 % (35-66)
[2020-09-08 15:04] LABS: PLT ESTIMATE ADEQUATE (ADEQUATE)
[2020-09-08 15:07] LABS: CALCIUM 8.9 mg/dL (8.5-10.1); CREATININE 1.9 mg/dL (0.7-1.3); GFR 34.5; POTASSIUM 4.5 mmol/L (3.5-5.1)
[2020-09-08 15:13] LABS: ALBUMIN 3.7 g/dL (3.4-5.0); ALBUMIN/GLOBULIN RATIO 0.9 (1.0-1.7); TOTAL BILIRUBIN 1.3 mg/dL (0.2-1.0)
--- NOTE | 2020-09-08 15:15 | PDOC1 ---
History and Physical Date of Admission Date of Admission DATE: 09/08/20 TIME: 15:15 Past Medical History Past Medical History Past Medical History Past Medical History Past Medical History: CHF, COPD, GERD, Hypertension Additional Past Medical Histor: prostatism Past Surgical History: Other Additional Past Surgical Histo: AORTIC VALVE REPLACEMENT Smoking Status: Former Smoker Alcohol Use: None Drug Use: None FHX COPD Pulmonary: COPD Musculoskeletal: Osteoarthritis Family History Family History: Hypertension Social History ALCOHOL: occassional Drugs: None Current Problem List Problem List Problems Medical Problems: (1) Healthcare-associated pneumonia Status: Acute (2) History of multiple myeloma Status: Acute (3) History of seizure Status: Acute (4) Hypoxemia Status: Acute (5) Renal insufficiency Status: Acute Current Medications Current Medications Current Medications Sodium Chloride 1,000 ml @ 1,000 mls/hr Q1H IV Last administered on 09/08/20at 14:20; Start 09/08/20 at 14:00; Stop 09/08/20 at 14:59; Status DC Morphine Sulfate (Morphine Sulfate) 4 mg PRN Q15MIN PRN IV/SQ PAIN GREATER THAN 3/10; Start 09/08/20 at 14:00; Stop 09/09/20 at 13:59 Levofloxacin/ Dextrose 150 ml @ 100 mls/hr 1X ONCE IV Last administered on 09/08/20at 15:12; Start 09/08/20 at 15:00; Stop 09/08/20 at 16:29 Active Scripts Active Ditropan Xl (Oxybutynin Chloride) 5 Mg Tab.er.24 1 Tab PO DAILY Bactrim Ds Tablet (Sulfamethoxazole/Trimethoprim) 1 Each Tablet 1 Tab PO BID Prednisone 50 Mg Tablet 1 Tab PO DAILY Ventolin Hfa Inhaler (Albuterol Sulfate) 18 Gm Hfa.aer.ad 2 Puff INH Q4HRS Reported Metoprolol Tartrate 25 Mg Tablet 25 Mg PO BID Klor-Con M20 (Potassium Chloride) 20 Meq Tab.er.prt 20 Meq PO DAILY Cetirizine Hcl 10 Mg Tablet 10 Mg PO DAILY Ferrous Sulfate 325 Mg Tablet 325 Mg PO DAILY Symbicort 80-4.5 Mcg Inhaler (Budesonide/Formoterol Fumarate) 10.2 Gm Hfa.aer.ad 2 Puff IH BID Protonix (Pantoprazole Sodium) 20 Mg Tablet.dr 1 Tab PO DAILY Hydrochlorothiazide Capsule (Hydrochlorothiazide) 12.5 Mg Capsule 12.5 Mg PO DAILY Senokot-S Tablet (Sennosides/Docusate Sodium) 1 Each Tablet 2 Tab PO BID 30 Days Finasteride 5 Mg Tablet 1 Tab PO DAILY Aspir-Low (Aspirin) 81 Mg Tablet.dr 1 Tab PO DAILY Lasix (Furosemide) 20 Mg Tablet 1 Tab PO DAILY 30 Days Allergies Allergies: Coded Allergies: Iodinated Contrast Media (Verified Allergy, Unknown, 06/05/20) Vitals Vitals Vital Signs Date Time Temp Pulse Resp B/P (MAP) Pulse Ox O2 Delivery O2 Flow Rate FiO2 09/08/20 14:24 98.1 110 24 83/51 (62) 95 Nasal Cannula 3.0 98.1 Labs Labs Laboratory Tests Test 09/08/20 14:05 White Blood Count 10.4 x10^3/uL (4.0-11.0) Red Blood Count 4.50 x10^6/uL (4.30-5.70) Hemoglobin 11.3 g/dL (13.0-17.5) Hematocrit 35.3 % (39.0-53.0) Mean Corpuscular Volume 78 fL (79-100) Mean Corpuscular Hemoglobin 25 pg (25-35) Mean Corpuscular Hemoglobin Concent 32 g/dL (31-37) Red Cell Distribution Width 15.4 % (11.5-14.5) Platelet Count 125 x10^3/uL (140-400) Neutrophils (%) (Auto) 93 % (31-73) Lymphocytes (%) (Auto) 4 % (24-48) Monocytes (%) (Auto) 3 % (0-9) Eosinophils (%) (Auto) 0 % (0-3) Basophils (%) (Auto) 0 % (0-3) Neutrophils # (Auto) 9.6 x10^3/uL (1.8-7.7) Lymphocytes # (Auto) 0.4 x10^3/uL (1.0-4.8) Monocytes # (Auto) 0.3 x10^3/uL (0.0-1.1) Eosinophils # (Auto) 0.0 x10^3/uL (0.0-0.7) Basophils # (Auto) 0.0 x10^3/uL (0.0-0.2) Segmented Neutrophils % 69 % (35-66) Band Neutrophils % 23 % (0-9) Lymphocytes % 5 % (24-48) Monocytes % 3 % (0-10) Platelet Estimate Adequate (ADEQUATE) Large Platelets Present Sodium Level 136 mmol/L (136-145) Potassium Level 4.5 mmol/L (3.5-5.1) Chloride Level 101 mmol/L (98-107) Carbon Dioxide Level 25 mmol/L (21-32) Anion Gap 10 (6-14) Blood Urea Nitrogen 23 mg/dL (8-26) Creatinine 1.9 mg/dL (0.7-1.3) Estimated GFR (Cockcroft-Gault) 34.5 BUN/Creatinine Ratio 12 (6-20) Glucose Level 159 mg/dL (70-99) Calcium Level 8.9 mg/dL (8.5-10.1) Total Bilirubin 1.3 mg/dL (0.2-1.0) Aspartate Amino Transf (AST/SGOT) 61 U/L (15-37) Alanine Aminotransferase (ALT/SGPT) 50 U/L (16-63) Alkaline Phosphatase 74 U/L (46-116) Total Protein 8.0 g/dL (6.4-8.2) Albumin 3.7 g/dL (3.4-5.0) Albumin/Globulin Ratio 0.9 (1.0-1.7) Laboratory Tests Test 09/08/20 14:05 White Blood Count 10.4 x10^3/uL (4.0-11.0) Red Blood Count 4.50 x10^6/uL (4.30-5.70) Hemoglobin 11.3 g/dL (13.0-17.5) Hematocrit 35.3 % (39.0-53.0) Mean Corpuscular Volume 78 fL (79-100) Mean Corpuscular Hemoglobin 25 pg (25-35) Mean Corpuscular Hemoglobin Concent 32 g/dL (31-37) Red Cell Distribution Width 15.4 % (11.5-14.5) Platelet Count 125 x10^3/uL (140-400) Neutrophils (%) (Auto) 93 % (31-73) Lymphocytes (%) (Auto) 4 % (24-48) Monocytes (%) (Auto) 3 % (0-9) Eosinophils (%) (Auto) 0 % (0-3) Basophils (%) (Auto) 0 % (0-3) Neutrophils # (Auto) 9.6 x10^3/uL (1.8-7.7) Lymphocytes # (Auto) 0.4 x10^3/uL (1.0-4.8) Monocytes # (Auto) 0.3 x10^3/uL (0.0-1.1) Eosinophils # (Auto) 0.0 x10^3/uL (0.0-0.7) Basophils # (Auto) 0.0 x10^3/uL (0.0-0.2) Segmented Neutrophils % 69 % (35-66) Band Neutrophils % 23 % (0-9) Lymphocytes % 5 % (24-48) Monocytes % 3 % (0-10) Platelet Estimate Adequate (ADEQUATE) Large Platelets Present Sodium Level 136 mmol/L (136-145) Potassium Level 4.5 mmol/L (3.5-5.1) Chloride Level 101 mmol/L (98-107) Carbon Dioxide Level 25 mmol/L (21-32) Anion Gap 10 (6-14) Blood Urea Nitrogen 23 mg/dL (8-26) Creatinine 1.9 mg/dL (0.7-1.3) Estimated GFR (Cockcroft-Gault) 34.5 BUN/Creatinine Ratio 12 (6-20) Glucose Level 159 mg/dL (70-99) Calcium Level 8.9 mg/dL (8.5-10.1) Total Bilirubin 1.3 mg/dL (0.2-1.0) Aspartate Amino Transf (AST/SGOT) 61 U/L (15-37) Alanine Aminotransferase (ALT/SGPT) 50 U/L (16-63) Alkaline Phosphatase 74 U/L (46-116) Total Protein 8.0 g/dL (6.4-8.2) Albumin 3.7 g/dL (3.4-5.0) Albumin/Globulin Ratio 0.9 (1.0-1.7) Images Images XR CHEST 1V History: Reason: Shortness of air / Spl. Instructions: / History: Comparison: June 06, 2019 Findings: Multifocal ill-defined opacities bilaterally predominantly within the right lower lung. No pleural effusion. No pneumothorax. Normal heart size. Prior median sternotomy. Impression: 1. Focal ill-defined opacities, may represent infection including viral pneumonia. Electronically signed by: Aviva Quiros DO (09/08/2020 2:52 PM) [id number] DICTATED and SIGNED BY: AVIVA QUIROS DO DATE: 09/08/20 [id number] VTE Prophylaxis Ordered VTE Prophylaxis Devices: Yes VTE Pharmacological Prophylaxi: Yes Assessment/Plan Assessment/Plan DICTATED Justifications for Admission Other Justification RADHA PINA MD Sep 08, 2020 15:15
[2020-09-08 15:40] LABS: INFLUENZA A PATIENT NEGATIVE (NEGATIVE); INFLUENZA B PATIENT NEGATIVE (NEGATIVE)
[2020-09-08] MEDS ORDERED: IV NORMAL SALINE 1000ML BAG 1,000 ML IV ONE ×2 (15:45→16:30)
[2020-09-08] MEDS ORDERED: HYDROmorphone 2 MG/ML VIAL IVP PRN (16:15)
[2020-09-08] MEDS ORDERED: guaiFENesin ORAL 200 MG/10 ML LIQUID. PO PRN (16:15)
[2020-09-08] MEDS ORDERED: 0.9 % SODIUM CHLORIDE 10 ML DISP.SYRIN. IV PRN (16:15)
[2020-09-08] MEDS ORDERED: DOCUSATE SODIUM 100 MG CAPSULE. PO PRN (16:15)
[2020-09-08] MEDS ORDERED: MAG HYDROX/ALUMINUM HYD/SIMETH 30 ML ORAL.SUSP PO PRN (16:15)
[2020-09-08] MEDS ORDERED: ACETAMINOPHEN 325 MG TABLET. PO PRN ×2 (16:15→21:00)
[2020-09-08] MEDS ORDERED: ALBUTEROL SULFATE 2.5 MG/3 ML NEBU. NEB PRN (16:15)
[2020-09-08] MEDS ORDERED: SODIUM PHOSPHATES 19/7GM 133 ML ENEMA. PR PRN (16:15)
[2020-09-08] MEDS ORDERED: ONDANSETRON PF 4 MG/2 ML VIAL. IV PRN (16:15)
[2020-09-08] MEDS ORDERED: ACETAMINOPHEN 650 MG SUPP.RECT. PR PRN (16:15)
[2020-09-08] MEDS ORDERED: ENOXAPARIN 40 MG/0.4 ML SYRINGE. SQ SCH (16:15)
--- NOTE | 2020-09-08 16:17 | EKG ---
[facility] [address] [place] [address] Test Date: 2020-09-08 Test Time: 14:07:47 Pat Name: CAROLIN COLES Department: Room: Gender: M Olive [employer]ine Tester: : 1945 Requested By: EVE CROOKS Order Number: [id number] Reading MD: Measurements Intervals [place] Rate: 104 P: 41 TN: 152 QRS: 41 QRSD: 94 T: 33 QT: 332 QTc: 437 Interpretive Statements SINUS TACHYCARDIA QRS(T) CONTOUR ABNORMALITY CONSIDER ANTEROLATERAL MYOCARDIAL DAMAGE POSSIBLY ABNORMAL ECG RI6.01 No previous ECG available for comparison
--- NOTE | 2020-09-08 16:56 | RAD ---
Nuclear medicine perfusion scan: Reason for examination: Short of breath. Comparison is made to chest x-ray dated 09/08/2020 at 1412. 5.5 mCi of technetium 99m MAA was administered intravenously and standard 8 projections were obtained for the perfusion scan. The activity is somewhat heterogeneous throughout the lung george bilaterally especially in the right lower lobe. This corresponds with areas of patchy infiltrate seen on chest x-ray. A definite focal p erfusion defect is not identified. IMPRESSION: Heterogeneous activity in the lung george bilaterally however chest x-ray shows diffuse patchy infilt rates. Definite perfusion defect is not identified. The appearance would suggest intermediate probabi lity of pulmonary embolus. Electronically signed by: Kecia Edwards MD (09/08/2020 4:53 PM) MANUEL
--- NOTE | 2020-09-08 17:46 | RAD ---
Bilateral femur AP and lateral views: Reason for examination: Severe pain. No acute site of fracture is seen. The bone density is normal. No abnormal periosteal reaction is see n. The hip and knee joints bilaterally appear to be maintained. IMPRESSION: No acute bony abnormalities evident in the right or left femur. Electronically signed by: Kecia Edwards MD (09/08/2020 5:44 PM) MANUEL
--- NOTE | 2020-09-08 19:25 | RAD ---
Bilateral Lower Extremity Venous Doppler Ultrasound History: Reason: LEG PAIN / Spl. Instructions: / History: Comparison: None Procedure: Color flow, duplex, spectral analysis and 2D images are obtained with and without compress ion in the area of the common femoral vein, superficial femoral vein - femoral vein junction, main fe moral vein (superficial femoral vein) and popliteal vein. Veins of the proximal calf are also imaged. Findings: There is normal duplex flow, color flow and compressibility of all visualized vein segments. No evide nce of deep venous thrombus is present. Interrogation of the area of pain posterior left hip and proximal thigh was performed and shows no fo hanny abnormality. Impression: No evidence of DVT. Electronically signed by: Tan Lawson III, MD (09/08/2020 7:22 PM) OLGA
[2020-09-08] MEDS: IV NORMAL SALINE 1000ML BAG 1,000 ML IV SCH (19:28)
[2020-09-08] MEDS: CEFEPIME HCL IV Push 2 GM VIAL. IVP SCH (19:29)
--- NOTE | 2020-09-08 19:33 | HP ---
ADMIT DATE: 09/08/2020 CHIEF COMPLAINT: 1. Intractable left leg pain. 2. Shortness of air. 3. New onset seizure. 4. Gait instability. 5. Possible COVID. HISTORY OF PRESENT ILLNESS: This 75-year-old male presented with complaints of a seizure this morning and shortness of air. He was recently discharged from on the and was having on going pain issues with his left upper leg. The patient is seen with his son in the ER, he speaks French. The son states the patient is having workup for multiple myeloma, has not had followup, was dissatisfied with his care at [facility]. He presented with a seizure history, having a seizure today. Does not take any medications for the seizure and was found to be hypoxic in the Emergency Room and at home with high 80s and O2 saturation in low 90s here in the ER. The patient denies any fever or chest pain. He complains mainly of severe left upper intractable femur pain, unable to ambulate, unable to sit on the commode.he has failed out patient management PAST MEDICAL HISTORY: Significant for cancer, heart failure, COPD, esophageal reflux disease, hypertension and benign prostatic hypertrophy. He has had a previous aortic valve replacement. SOCIAL HISTORY: He is a former smoker, stopping 9 years ago, but was a heavy smoker prior to this. Denies alcohol or drug use. REVIEW OF SYSTEMS: A 14-point review of systems reveals shortness of breath, no chest pain. Denies abdominal pain or vomiting. No melena or hematochezia. Complains of left upper and lower extremity pain, but denies back pain. The pain is severe and unrelieved with outpatient narcotics. Denies rash. Reports a seizure. Denies focal weakness or sensory changes. No polyuria. Denies depression or anxiety. No fever or chills. Denies hearing or vision loss. Denies insomnia. Denies shortness of breath. A 14-point review of systems otherwise negative. PHYSICAL EXAMINATION: GENERAL: This is a pleasant male, reclining in bed in the ER. He is uncomfortable in [id number] distress, well-developed, well-nourished. HEENT: Throat and pharynx clear. External ears are normal. Uvula is midline. Tongue deviates to the left and right. Nose is normal. Muscles of mastication are symmetric bilaterally. Extraocular muscles intact. Conjunctivae are normal. No discharge. NECK: Shows normal range of motion. CARDIAC: The patient was tachycardic without murmur. LUNGS: Lung sounds are diminished bilaterally. ABDOMEN: Soft. No mass on palpation. No rebound tenderness. SKIN: Warm and dry without rashes. EXTREMITIES: There is no CVA tenderness. He has tenderness to light palpation of the left upper thigh without cyanosis or edema. Has normal range of motion. NEUROLOGIC: He is alert and oriented. Normal sensory function to touch and proprioception. No focal deficits. He has a normal mood. Cranial nerves 2-12 are grossly intact. VITAL SIGNS: Blood pressure 83/51, pulse 110, temperature 98.1 degrees Fahrenheit, he is on 3 liters of O2 nasal cannula with O2 sat 95%. CURRENT MEDICATIONS: Please see medication reconciliation. LABORATORY DATA: X-ray of the left upper and right upper femur pending. Laboratory value shows a white count 10.4, hemoglobin 11.3, hematocrit 35.3 and platelets 125,000. Sodium is 136, potassium 4.5, BUN 23, creatinine 1.9 and glucose 159. EKG shows a ventricular rate of 104 with sinus tachycardia, no evidence of ischemia. No ectopy. Chest x-ray shows possible viral pneumonitis changes with ill-defined opacities, no pneumothorax, normal heart size. Prior median sternotomy. ASSESSMENT: 1. Healthcare-associated pneumonia. 2. Acute hypoxic respiratory failure. 3. Acute kidney injury. 4. Seizure disorder with acute seizure versus pseudoseizure. 5. History of multiple myeloma. by hx 6. Sepsis. 7. Hypotension., suspect volume depleted 8. hyperglycemia PLAN: We will bolus with IV fluids. Blood and urine cultures. ID consult. HEME/ Oncology consult. Pulmonary consult. We will x-ray of both femurs and obtain records from [facility]. D-dimer is elevated, we will schedule a V/Q scan as well., neurology consult, seizure precautions emperic iv antibiotics, nephrology consult admit for observation, IV PAIN CONTROL RADHA PINA MD DR: ELA/antolin JOB#: [id number] / [id number] MTDD
[2020-09-08 19:45] VITALS: BP 93/57
[2020-09-08] MEDS ORDERED: DICL100G28 TP (20:51)
[2020-09-08] MEDS ORDERED: TAMS0.4C97 PO (20:51)
[2020-09-08] MEDS ORDERED: ACET325T21 PO (20:51)
[2020-09-08] MEDS ORDERED: HYDR453.3 TP (20:51)
[2020-09-08] MEDS ORDERED: FLUT1DIS IH (20:51)
[2020-09-08] MEDS ORDERED: HYDR-2759 PO (20:51)
[2020-09-08] MEDS ORDERED: CEFEPIME HCL IV Push 1 GM VIAL. IVP SCH (21:00)
[2020-09-08] MEDS ORDERED: ENOXAPARIN 30 MG/0.3 ML SYRINGE. SQ SCH (21:00)
[2020-09-08] MEDS ORDERED: NON FORMULARY ITEM (Budesonide/Formoterol Fumarate (Symbicort 80-4.5 Mcg Inhaler) 2 PUFF) IH SCH (21:00)
[2020-09-08] MEDS ORDERED: NON FORMULARY ITEM (Fluticasone/Salmeterol (Advair 100-50 Diskus) 1 PUFF) IH SCH (21:00)
[2020-09-08] MEDS: HYDROCORTISONE SOD SUCC/PF 100 MG/2 ML VIAL. IVP SCH (21:23)
[2020-09-08] MEDS: METOPROLOL TART IMMED RELEASE 25 MG TABLET. PO SCH (21:26)
[2020-09-08] MEDS: SENNOSIDES/DOCUSATE 8.6/50MG TABLET. PO SCH (21:29)
[2020-09-08] MEDS: HYDROCORTISONE 1% TOPICAL CREAM 30GM TUBE. TP SCH (21:30)
[2020-09-08] MEDS: DICLOFENAC SODIUM 1% TOPICAL GEL 100GM TUBE. TP PRN (21:34)
[2020-09-08 23:30] VITALS: BP 102/64
[2020-09-09] MEDS ORDERED: NON FORMULARY ITEM (Albuterol Sulfate (Ventolin Hfa Inhaler) 2 PUFF) INH SCH
[2020-09-09] MEDS: ALBUTEROL SULFATE 8GM INHALER. INH PRN ×3 (01:25→10:05)
[2020-09-09] MEDS: IV NORMAL SALINE 1000ML BAG 1,000 ML IV SCH ×2 (02:53→15:30)
[2020-09-09 03:05] VITALS: BP 106/70
[2020-09-09 05:31] LABS: BASO % 0 % (0-3); EOS % 0 % (0-3); HEMATOCRIT 31.3 % (39.0-53.0); HEMOGLOBIN 9.7 g/dL (13.0-17.5); LYMPH # 0.3 x10^3/uL (1.0-4.8); LYMPH % 3 % (24-48); MEAN CORPUSCULAR HEMOGLOBIN 25 pg (25-35); MEAN CORPUSCULAR HGB CONC 31 g/dL (31-37); MEAN CORPUSCULAR VOLUME 79 fL (79-100); MONO # 0.1 x10^3/uL (0.0-1.1); MONO % 1 % (0-9); NEUT # 11.9 x10^3/uL (1.8-7.7); NEUT % 97 % (31-73); PLATELET COUNT 110 x10^3/uL (140-400); RED BLOOD COUNT 3.95 x10^6/uL (4.30-5.70); RED CELL DISTRIBUTION WIDTH 15.7 % (11.5-14.5); WHITE BLOOD COUNT 12.3 x10^3/uL (4.0-11.0)
[2020-09-09 06:06] LABS: ALBUMIN/GLOBULIN RATIO 0.7 (1.0-1.7); CALCIUM 8.1 mg/dL (8.5-10.1); CREATININE 1.5 mg/dL (0.7-1.3); GFR 45.4; POTASSIUM 5.2 mmol/L (3.5-5.1); TOTAL BILIRUBIN 0.8 mg/dL (0.2-1.0); TOTAL PROTEIN 7.5 g/dL (6.4-8.2)
[2020-09-09 07:00] VITALS: BP 104/62
[2020-09-09] MEDS ORDERED: IPRATRPIUM/ALBUTEROL 0.5/2.5MG 3 ML NEBU. NEB SCH (08:00)
[2020-09-09] MEDS: BUDESONIDE 0.5 MG/2 ML NEBU. NEB SCH ×2 (08:00→19:06)
--- NOTE | 2020-09-09 08:37 | PDOC ---
Infectious Disease Note Vital Sign Vital Signs Vital Signs Date Time Temp Pulse Resp B/P (MAP) Pulse Ox O2 Delivery O2 Flow Rate FiO2 09/09/20 03:05 97.2 83 24 106/70 (82) 97 Nasal Cannula 3.0 97.2 Labs Lab Laboratory Tests Test 09/08/20 14:05 09/08/20 15:00 09/08/20 18:44 09/09/20 05:05 White Blood Count 10.4 x10^3/uL (4.0-11.0) 12.3 x10^3/uL (4.0-11.0) Red Blood Count 4.50 x10^6/uL (4.30-5.70) 3.95 x10^6/uL (4.30-5.70) Hemoglobin 11.3 g/dL (13.0-17.5) 9.7 g/dL (13.0-17.5) Hematocrit 35.3 % (39.0-53.0) 31.3 % (39.0-53.0) Mean Corpuscular Volume 78 fL (79-100) 79 fL (79-100) Mean Corpuscular Hemoglobin 25 pg (25-35) 25 pg (25-35) Mean Corpuscular Hemoglobin Concent 32 g/dL (31-37) 31 g/dL (31-37) Red Cell Distribution Width 15.4 % (11.5-14.5) 15.7 % (11.5-14.5) Platelet Count 125 x10^3/uL (140-400) 110 x10^3/uL (140-400) Neutrophils (%) (Auto) 93 % (31-73) 97 % (31-73) Lymphocytes (%) (Auto) 4 % (24-48) 3 % (24-48) Monocytes (%) (Auto) 3 % (0-9) 1 % (0-9) Eosinophils (%) (Auto) 0 % (0-3) 0 % (0-3) Basophils (%) (Auto) 0 % (0-3) 0 % (0-3) Neutrophils # (Auto) 9.6 x10^3/uL (1.8-7.7) 11.9 x10^3/uL (1.8-7.7) Lymphocytes # (Auto) 0.4 x10^3/uL (1.0-4.8) 0.3 x10^3/uL (1.0-4.8) Monocytes # (Auto) 0.3 x10^3/uL (0.0-1.1) 0.1 x10^3/uL (0.0-1.1) Eosinophils # (Auto) 0.0 x10^3/uL (0.0-0.7) 0.0 x10^3/uL (0.0-0.7) Basophils # (Auto) 0.0 x10^3/uL (0.0-0.2) 0.0 x10^3/uL (0.0-0.2) Segmented Neutrophils % 69 % (35-66) Band Neutrophils % 23 % (0-9) Lymphocytes % 5 % (24-48) Monocytes % 3 % (0-10) Platelet Estimate Adequate (ADEQUATE) Large Platelets Present Sodium Level 136 mmol/L (136-145) 138 mmol/L (136-145) Potassium Level 4.5 mmol/L (3.5-5.1) 5.2 mmol/L (3.5-5.1) Chloride Level 101 mmol/L (98-107) 106 mmol/L (98-107) Carbon Dioxide Level 25 mmol/L (21-32) 24 mmol/L (21-32) Anion Gap 10 (6-14) 8 (6-14) Blood Urea Nitrogen 23 mg/dL (8-26) 21 mg/dL (8-26) Creatinine 1.9 mg/dL (0.7-1.3) 1.5 mg/dL (0.7-1.3) Estimated GFR (Cockcroft-Gault) 34.5 45.4 BUN/Creatinine Ratio 12 (6-20) 14 (6-20) Glucose Level 159 mg/dL (70-99) 183 mg/dL (70-99) Lactic Acid Level 2.6 mmol/L (0.4-2.0) 0.8 mmol/L (0.4-2.0) Calcium Level 8.9 mg/dL (8.5-10.1) 8.1 mg/dL (8.5-10.1) Total Bilirubin 1.3 mg/dL (0.2-1.0) 0.8 mg/dL (0.2-1.0) Aspartate Amino Transf (AST/SGOT) 61 U/L (15-37) 35 U/L (15-37) Alanine Aminotransferase (ALT/SGPT) 50 U/L (16-63) 38 U/L (16-63) Alkaline Phosphatase 74 U/L (46-116) 65 U/L (46-116) Troponin I Quantitative < 0.017 ng/mL (0.000-0.055) C-Reactive Protein, Quantitative 28.0 mg/L (0-3.3) BV-Wik-C-Type Natriuretic Peptide 673 pg/mL (0-449) Total Protein 8.0 g/dL (6.4-8.2) 7.5 g/dL (6.4-8.2) Albumin 3.7 g/dL (3.4-5.0) 3.0 g/dL (3.4-5.0) Albumin/Globulin Ratio 0.9 (1.0-1.7) 0.7 (1.0-1.7) Procalcitonin 1.12 ng/mL (0.00-0.10) Influenza Type A Antigen Negative (NEGATIVE) Influenza Type B Antigen Negative (NEGATIVE) Objective Assessment pt seen, consult dictated Plan Plan of Care / RAHEL GARZA MD Sep 09, 2020 08:37
[2020-09-09] MEDS ORDERED: ANTI-COAG MONITOR BY PHARMACY. MC PRN (09:00)
--- NOTE | 2020-09-09 09:12 | CONS ---
DATE OF CONSULTATION: 09/09/2020 REQUESTING PHYSICIAN: Lavelle Thurston MD REASON FOR CONSULTATION: Pulmonary infiltrate, rule out COVID. HISTORY OF PRESENT ILLNESS: This is a 75-year-old Armenian gentleman who was discharged from this last 2 days ago on Monday for being in the hospital for 1 week for having a left leg and left hip pain. The patient had extensive investigation done and the patient was discharged to have followup, also is to working up for multiple myeloma. The patient started having shortness of breath, hence they went back to and where he is awaiting. It was too long, hence he decided to come in here. The patient has focal pulmonary infiltrate. Apparently, he had fever at home, but no fever here. He is on home oxygen from his COPD. His white cell count is 10,000, it went up to 12,000 and the patient is on antibiotics. He also had acute renal injury, which is improving. The patient denies any new complaints. Denies any nausea, vomiting, diarrhea, abdominal pain, urinary symptoms or bowel symptoms. PAST MEDICAL HISTORY: Positive for COPD, asthma, gastroesophageal reflux disease, aortic valve replacement, coronary artery bypass grafting, benign prostatic hypertrophy and workup is going on for multiple myeloma. SOCIAL HISTORY: Negative for smoking, alcohol, or illicit drug use. ALLERGIES: LISTED IODINATED CONTRAST MEDIA. REVIEW OF SYSTEMS: As in HPI. All other systems reviewed are negative. PHYSICAL EXAMINATION: GENERAL: Alert, oriented gentleman, not in distress. VITAL SIGNS: Stable, afebrile. HEENT: NAD. NECK: Supple, no JVP, no lymphadenopathy. LUNGS: Clear. HEART: S1, S2 regular. ABDOMEN: Benign. EXTREMITIES: No edema, cyanosis. SKIN: Unremarkable. NEUROLOGIC: The patient is alert, awake and appropriate. No focal neurologic deficit. LABORATORY DATA: White count is 12,000. BUN and creatinine is 21 and 1.5. His COVID-19 is pending. Chest x-ray, multifocal infiltrate. X-ray of the femur negative. Ultrasound of the lower extremity negative. Pulmonary perfusion scan was negative. IMPRESSION: 1. Pulmonary infiltrate, rule out COVID-19. 2. Chronic obstructive pulmonary disease. 3. Hypoxic respiratory failure. 4. Acute kidney injury. 5. History of seizure disorder. 6. Recent workup going on for multiple myeloma. 7. Left leg and hip pain. RECOMMENDATIONS: Continue cefepime, steroids. Check for the COVID, supportive care and hopefully soon to be able to scale down and discharge the patient and should have followup with [facility]. Thank you very much, Dr. Thurston, for giving me the opportunity to participate in this patient's care. RAHEL GARZA MD DR: JUDY/antolin JOB#: [id number] / [id number]
--- NOTE | 2020-09-09 09:21 | PDOC ---
[employer] PROGRESS NOTE Date of Service DOS: DATE: 09/09/20 TIME: 09:15 Chief Complaint Chief Complaint Intractable left leg pain Shortness of breath Possible Covid Healthcare-associated pneumonia Hypoxemia Multiple myeloma Seizure Renal insufficiency History of Present Illness History of Present Illness This 75-year-old male presented with complaints of a seizure this morning and shortness of air. He was recently discharged from on the and was having on going pain issues with his left upper leg. The patient is seen with his son in the ER, he speaks Belarusian. The son states the patient is having workup for multiple myeloma, has not had followup, was dissatisfied with his care at [facility]. He presented with a seizure history, having a seizure today. Does not take any medications for the seizure and was found to be hypoxic in the Emergency Room and at home with high 80s and O2 saturation in low 90s here in the ER. The patient denies any fever or chest pain. He complains mainly of severe left upper intractable femur pain, unable to ambulate, unable to sit on the commode.he has failed out patient management 09/09/2020 -Patient seen and examined with neurology. Communicated with son about patient -Dw RN -Neurology believes seizure was actually rigors from fever, based on description from son -Chart reviewed Vitals/I&O Vitals/I&O: Vital Signs Date Time Temp Pulse Resp B/P (MAP) Pulse Ox O2 Delivery O2 Flow Rate FiO2 09/09/20 03:05 97.2 83 24 106/70 (82) 97 Nasal Cannula 3.0 97.2 I & O 09/08/20 09/08/20 09/09/20 15:00 23:00 07:00 Intake Total 2150 ml 1350 ml Output Total 275 ml 280 ml Balance 1875 ml 1070 ml Physical Exam General: Alert Heart: Regular rate Lungs: Clear Abdomen: Soft, No tenderness Extremities: No clubbing, No cyanosis Skin: No rashes Labs Labs: Laboratory Tests Test 09/08/20 14:05 09/08/20 15:00 09/08/20 18:44 09/09/20 05:05 White Blood Count 10.4 x10^3/uL (4.0-11.0) 12.3 x10^3/uL (4.0-11.0) Red Blood Count 4.50 x10^6/uL (4.30-5.70) 3.95 x10^6/uL (4.30-5.70) Hemoglobin 11.3 g/dL (13.0-17.5) 9.7 g/dL (13.0-17.5) Hematocrit 35.3 % (39.0-53.0) 31.3 % (39.0-53.0) Mean Corpuscular Volume 78 fL (79-100) 79 fL (79-100) Mean Corpuscular Hemoglobin 25 pg (25-35) 25 pg (25-35) Mean Corpuscular Hemoglobin Concent 32 g/dL (31-37) 31 g/dL (31-37) Red Cell Distribution Width 15.4 % (11.5-14.5) 15.7 % (11.5-14.5) Platelet Count 125 x10^3/uL (140-400) 110 x10^3/uL (140-400) Neutrophils (%) (Auto) 93 % (31-73) 97 % (31-73) Lymphocytes (%) (Auto) 4 % (24-48) 3 % (24-48) Monocytes (%) (Auto) 3 % (0-9) 1 % (0-9) Eosinophils (%) (Auto) 0 % (0-3) 0 % (0-3) Basophils (%) (Auto) 0 % (0-3) 0 % (0-3) Neutrophils # (Auto) 9.6 x10^3/uL (1.8-7.7) 11.9 x10^3/uL (1.8-7.7) Lymphocytes # (Auto) 0.4 x10^3/uL (1.0-4.8) 0.3 x10^3/uL (1.0-4.8) Monocytes # (Auto) 0.3 x10^3/uL (0.0-1.1) 0.1 x10^3/uL (0.0-1.1) Eosinophils # (Auto) 0.0 x10^3/uL (0.0-0.7) 0.0 x10^3/uL (0.0-0.7) Basophils # (Auto) 0.0 x10^3/uL (0.0-0.2) 0.0 x10^3/uL (0.0-0.2) Segmented Neutrophils % 69 % (35-66) Band Neutrophils % 23 % (0-9) Lymphocytes % 5 % (24-48) Monocytes % 3 % (0-10) Platelet Estimate Adequate (ADEQUATE) Large Platelets Present Sodium Level 136 mmol/L (136-145) 138 mmol/L (136-145) Potassium Level 4.5 mmol/L (3.5-5.1) 5.2 mmol/L (3.5-5.1) Chloride Level 101 mmol/L (98-107) 106 mmol/L (98-107) Carbon Dioxide Level 25 mmol/L (21-32) 24 mmol/L (21-32) Anion Gap 10 (6-14) 8 (6-14) Blood Urea Nitrogen 23 mg/dL (8-26) 21 mg/dL (8-26) Creatinine 1.9 mg/dL (0.7-1.3) 1.5 mg/dL (0.7-1.3) Estimated GFR (Cockcroft-Gault) 34.5 45.4 BUN/Creatinine Ratio 12 (6-20) 14 (6-20) Glucose Level 159 mg/dL (70-99) 183 mg/dL (70-99) Lactic Acid Level 2.6 mmol/L (0.4-2.0) 0.8 mmol/L (0.4-2.0) Calcium Level 8.9 mg/dL (8.5-10.1) 8.1 mg/dL (8.5-10.1) Total Bilirubin 1.3 mg/dL (0.2-1.0) 0.8 mg/dL (0.2-1.0) Aspartate Amino Transf (AST/SGOT) 61 U/L (15-37) 35 U/L (15-37) Alanine Aminotransferase (ALT/SGPT) 50 U/L (16-63) 38 U/L (16-63) Alkaline Phosphatase 74 U/L (46-116) 65 U/L (46-116) Troponin I Quantitative < 0.017 ng/mL (0.000-0.055) C-Reactive Protein, Quantitative 28.0 mg/L (0-3.3) ID-Xmn-N-Type Natriuretic Peptide 673 pg/mL (0-449) Total Protein 8.0 g/dL (6.4-8.2) 7.5 g/dL (6.4-8.2) Albumin 3.7 g/dL (3.4-5.0) 3.0 g/dL (3.4-5.0) Albumin/Globulin Ratio 0.9 (1.0-1.7) 0.7 (1.0-1.7) Procalcitonin 1.12 ng/mL (0.00-0.10) Influenza Type A Antigen Negative (NEGATIVE) Influenza Type B Antigen Negative (NEGATIVE) Review of Systems Review of Systems: Denies CP. Denies headache. Assessment and Plan Assessmemt and Plan Problems Medical Problems: (1) Healthcare-associated pneumonia Status: Acute (2) History of multiple myeloma Status: Acute (3) History of seizure Status: Acute (4) Hypoxemia Status: Acute (5) Renal insufficiency Status: Acute (6) Sepsis Status: Acute Intractable left leg pain Shortness of breath Possible Covid Healthcare-associated pneumonia Hypoxemia Multiple myeloma Seizure Renal insufficiency 09/09/2020 Plan 1. Covid protocol, await official results 2. Cardiac monitoring 3. Appreciate subspecialist input 4. IV fluids 5. Full code 6. PT/OT 7. Trend labs 8. DVT prophylaxis 9. Home meds Comment Review of Relevant I have reviewed the following items luis (where applicable) has been applied. Medications: Current Medications Medications (Trade) Dose Ordered Sig/Marino Route PRN Reason Start Time Stop Time Status Last Admin Dose Admin Sodium Chloride 1,000 ml @ 1,000 mls/hr Q1H IV 09/08/20 14:00 09/08/20 14:59 DC 09/08/20 14:20 Levofloxacin/ Dextrose 150 ml @ 100 mls/hr 1X ONCE IV 09/08/20 15:00 09/08/20 16:29 DC 09/08/20 15:12 Sodium Chloride 1,000 ml @ 100 mls/hr Q10H IV 09/08/20 16:15 09/09/20 02:53 Acetaminophen (Tylenol) 650 mg PRN Q4HRS PRN PO TEMP OVER 100.4F OR MOD PAIN 09/08/20 16:15 09/08/20 21:23 Hydromorphone HCl (Dilaudid) 0.6 mg PRN Q3HRS PRN IVP SEVERE PAIN 7-10 09/08/20 16:15 09/08/20 21:12 Sodium Chloride 1,000 ml @ 1,000 mls/hr 1X ONCE IV 09/08/20 16:30 09/08/20 17:29 DC 09/08/20 16:34 Cefepime HCl (Maxipime) 2 gm Q24H IVP 09/08/20 18:00 09/08/20 19:29 Enoxaparin Sodium (Lovenox 80mg Syringe) 70 mg Q24H SQ 09/08/20 21:00 09/09/20 09:00 DC 09/08/20 21:34 Hydrocortisone Sodium Succinate (Solu-CORTEF) 100 mg Q12HR IVP 09/08/20 21:00 09/09/20 21:00 09/08/20 21:23 Diclofenac Sodium (Voltaren) 2 alfonso PRN QID PRN TP PAIN 09/08/20 21:00 09/08/20 21:34 Metoprolol Tartrate (Lopressor) 25 mg BID PO 09/08/20 21:15 09/08/20 21:26 Senna/Docusate Sodium (Senna Plus) 2 tab BID PO 09/08/20 21:15 09/08/20 21:29 Albuterol Sulfate (Ventolin Hfa) 1 puff PRN Q4HRS PRN INH SHORTNESS OF BREATH 09/09/20 00:15 09/09/20 05:09 Info (Anti-Coagulation Monitoring By Pharmacy) 1 each PRN DAILY PRN MC SEE COMMENTS 09/09/20 09:00 09/09/20 09:01 Justifications for Admission Other Justification MONICA OTERO III DO Sep 09, 2020 09:21
--- NOTE | 2020-09-09 09:55 | PDOC2 ---
AMY VILLANUEVA RN REHAB 09/09/20 0955: CARDIAC CONSULT DATE OF CONSULT Date of Consult DATE: 09/09/20 TIME: 09:16 REASON FOR CONSULT Reason for Consult: Hypotension H/o CHF , AVR REFERRING PHYSICIAN Referring Physician: Dr. Thurston SOURCE Source: Chart review, Patient HISTORY OF PRESENT ILLNESS HISTORY OF PRESENT ILLNESS This is a 75 yo male who presented secondary to seizure and shortness of breath. Does have a history of seizure, but has not be taking his medications. Was discharge from the day before arrival for evaluation and lower back and LLE pain. No acute findings were identified. Patient was discharged home on gabapentin and diclofenac. He denies any chest pain. Does report shortness of breath. No dizziness, diaphoresis, or nausea/vomiting. PAST MEDICAL HISTORY Cardiovascular: CHF, HTN, Aortic stenosis (s/p AVR), Other (mitral valve clip implantation) Pulmonary: COPD CENTRAL NERVOUS SYSTEM: Periperal neuropathy, Seizure GI: GERD Heme/Onc: Other (multiple myeloma ) Musculoskeletal: Osteoarthritis Renal/: Acute renal failure, Benign prostatic enlarg. (s/p TURP) PAST SURGICAL HISTORY Past Surgical History: Other (see PMH) FAMILY HISTORY Family History: Other (COPD) SOCIAL HISTORY Smoke: Quit ALCOHOL: none Drugs: None Lives: with Family CURRENT MEDICATIONS CURRENT MEDICATIONS Current Medications Medications (Trade) Dose Ordered Sig/Marino Route PRN Reason Start Time Stop Time Status Last Admin Dose Admin Sodium Chloride 1,000 ml @ 1,000 mls/hr Q1H IV 09/08/20 14:00 09/08/20 14:59 DC 09/08/20 14:20 Levofloxacin/ Dextrose 150 ml @ 100 mls/hr 1X ONCE IV 09/08/20 15:00 09/08/20 16:29 DC 09/08/20 15:12 Sodium Chloride 1,000 ml @ 100 mls/hr Q10H IV 09/08/20 16:15 09/09/20 02:53 Acetaminophen (Tylenol) 650 mg PRN Q4HRS PRN PO TEMP OVER 100.4F OR MOD PAIN 09/08/20 16:15 09/08/20 21:23 Hydromorphone HCl (Dilaudid) 0.6 mg PRN Q3HRS PRN IVP SEVERE PAIN 7-10 09/08/20 16:15 09/08/20 21:12 Sodium Chloride 1,000 ml @ 1,000 mls/hr 1X ONCE IV 09/08/20 16:30 09/08/20 17:29 DC 09/08/20 16:34 Cefepime HCl (Maxipime) 2 gm Q24H IVP 09/08/20 18:00 09/08/20 19:29 Enoxaparin Sodium (Lovenox 80mg Syringe) 70 mg Q24H SQ 09/08/20 21:00 09/09/20 09:00 DC 09/08/20 21:34 Hydrocortisone Sodium Succinate (Solu-CORTEF) 100 mg Q12HR IVP 09/08/20 21:00 09/09/20 21:00 09/08/20 21:23 Diclofenac Sodium (Voltaren) 2 alfonso PRN QID PRN TP PAIN 09/08/20 21:00 09/08/20 21:34 Metoprolol Tartrate (Lopressor) 25 mg BID PO 09/08/20 21:15 09/08/20 21:26 Senna/Docusate Sodium (Senna Plus) 2 tab BID PO 09/08/20 21:15 09/08/20 21:29 Albuterol Sulfate (Ventolin Hfa) 1 puff PRN Q4HRS PRN INH SHORTNESS OF BREATH 09/09/20 00:15 09/09/20 05:09 Info (Anti-Coagulation Monitoring By Pharmacy) 1 each PRN DAILY PRN MC SEE COMMENTS 09/09/20 09:00 09/09/20 09:01 ALLERGIES ALLERGIES: Coded Allergies: Iodinated Contrast Media (Verified Allergy, Unknown, 06/05/20) ROS Review of System 14 point ROS conducted with pertinent positives noted above in hPI PHYSICAL EXAM General: Alert, Oriented X3, Cooperative, mild distress HEENT: Atraumatic, Mucous membr. moist/pink Lungs: Other (on NC) Abdomen: Soft Extremities: No edema, Normal pulses Skin: No significant lesion Neuro: Normal speech, Sensation intact Psych/Mental Status: Mood NL MUSCULOSKELETAL: Osteoarthritic changes both hands VITALS/I&O VITALS/I&O: Vital Signs Date Time Temp Pulse Resp B/P (MAP) Pulse Ox O2 Delivery O2 Flow Rate FiO2 09/09/20 03:05 97.2 83 24 106/70 (82) 97 Nasal Cannula 3.0 97.2 I & O 09/08/20 09/08/20 09/09/20 15:00 23:00 07:00 Intake Total 2150 ml 1350 ml Output Total 275 ml 280 ml Balance 1875 ml 1070 ml LABS Lab: Laboratory Tests Test 09/08/20 14:05 09/08/20 15:00 09/08/20 18:44 09/09/20 05:05 White Blood Count 10.4 x10^3/uL (4.0-11.0) 12.3 x10^3/uL (4.0-11.0) H Red Blood Count 4.50 x10^6/uL (4.30-5.70) 3.95 x10^6/uL (4.30-5.70) L Hemoglobin 11.3 g/dL (13.0-17.5) L 9.7 g/dL (13.0-17.5) L Hematocrit 35.3 % (39.0-53.0) L 31.3 % (39.0-53.0) L Mean Corpuscular Volume 78 fL (79-100) L 79 fL (79-100) Mean Corpuscular Hemoglobin 25 pg (25-35) 25 pg (25-35) Mean Corpuscular Hemoglobin Concent 32 g/dL (31-37) 31 g/dL (31-37) Red Cell Distribution Width 15.4 % (11.5-14.5) H 15.7 % (11.5-14.5) H Platelet Count 125 x10^3/uL (140-400) L 110 x10^3/uL (140-400) L Neutrophils (%) (Auto) 93 % (31-73) H 97 % (31-73) H Lymphocytes (%) (Auto) 4 % (24-48) L 3 % (24-48) L Monocytes (%) (Auto) 3 % (0-9) 1 % (0-9) Eosinophils (%) (Auto) 0 % (0-3) 0 % (0-3) Basophils (%) (Auto) 0 % (0-3) 0 % (0-3) Neutrophils # (Auto) 9.6 x10^3/uL (1.8-7.7) H 11.9 x10^3/uL (1.8-7.7) H Lymphocytes # (Auto) 0.4 x10^3/uL (1.0-4.8) L 0.3 x10^3/uL (1.0-4.8) L Monocytes # (Auto) 0.3 x10^3/uL (0.0-1.1) 0.1 x10^3/uL (0.0-1.1) Eosinophils # (Auto) 0.0 x10^3/uL (0.0-0.7) 0.0 x10^3/uL (0.0-0.7) Basophils # (Auto) 0.0 x10^3/uL (0.0-0.2) 0.0 x10^3/uL (0.0-0.2) Segmented Neutrophils % 69 % (35-66) H Band Neutrophils % 23 % (0-9) H Lymphocytes % 5 % (24-48) L Monocytes % 3 % (0-10) Platelet Estimate Adequate (ADEQUATE) Large Platelets Present Sodium Level 136 mmol/L (136-145) 138 mmol/L (136-145) Potassium Level 4.5 mmol/L (3.5-5.1) 5.2 mmol/L (3.5-5.1) H Chloride Level 101 mmol/L (98-107) 106 mmol/L (98-107) Carbon Dioxide Level 25 mmol/L (21-32) 24 mmol/L (21-32) Anion Gap 10 (6-14) 8 (6-14) Blood Urea Nitrogen 23 mg/dL (8-26) 21 mg/dL (8-26) Creatinine 1.9 mg/dL (0.7-1.3) H 1.5 mg/dL (0.7-1.3) H Estimated GFR (Cockcroft-Gault) 34.5 45.4 BUN/Creatinine Ratio 12 (6-20) 14 (6-20) Glucose Level 159 mg/dL (70-99) H 183 mg/dL (70-99) H Lactic Acid Level 2.6 mmol/L (0.4-2.0) H 0.8 mmol/L (0.4-2.0) Calcium Level 8.9 mg/dL (8.5-10.1) 8.1 mg/dL (8.5-10.1) L Total Bilirubin 1.3 mg/dL (0.2-1.0) H 0.8 mg/dL (0.2-1.0) Aspartate Amino Transferase (AST) 61 U/L (15-37) H 35 U/L (15-37) Alanine Aminotransferase (ALT) 50 U/L (16-63) 38 U/L (16-63) Alkaline Phosphatase 74 U/L (46-116) 65 U/L (46-116) Troponin I Quantitative < 0.017 ng/mL (0.000-0.055) C-Reactive Protein, Quantitative 28.0 mg/L (0-3.3) H NK-Enm-Y-Type Natriuretic Peptide 673 pg/mL (0-449) H Total Protein 8.0 g/dL (6.4-8.2) 7.5 g/dL (6.4-8.2) Albumin 3.7 g/dL (3.4-5.0) 3.0 g/dL (3.4-5.0) L Albumin/Globulin Ratio 0.9 (1.0-1.7) L 0.7 (1.0-1.7) L Procalcitonin 1.12 ng/mL (0.00-0.10) H Influenza Type A Antigen Negative (NEGATIVE) Influenza Type B Antigen Negative (NEGATIVE) Laboratory Tests 09/08/20 14:05 09/09/20 05:05 Laboratory Tests 09/08/20 14:05 09/09/20 05:05 ECHOCARDIOGRAM ECHOCARDIOGRAM 09/19/19 - 2-D + DOPPLER ECHOCARDIOGRAM The left ventricle is normal in size and function, estimated ejection fraction is 60%. Moderate asymmetric basal septal hypertrophy The right ventricle is normal in size, mildly reduced function Severe left atrial enlargement. Right atrium is normal in size. Interatrial s eptal aneurysm noted. The mitral valve has been repaired with a MitraClip, there remains moderate to severe eccentric anteriorly directed mitral vegetation impinging atrial wall Mild to moderate tricuspid regurgitation There is a bioprosthetic valve in the aortic position, well-seated, size/type not provided. Mild central regurgitation. Mean gradient 18 mmHg, probably normal. Transesophageal echocardiogram may be helpful in evaluating MR if clinically indicated. No prior studies are available for comparison. HEART CATH HEART CATH His last coronary angiogram was in [place] on 11/2017 and showed no significant coronary artery disease ASSESSMENT/PLAN ASSESSMENT/PLAN 1. Acute respiratory failure with probable PNA, underlying COPD, and mild CHF 2. Leukocytosis, lactic acidosis. afebrile 3. Acute on chronic diastolic CHF; Echo 10/03 with preserved LV systolic function. Follows with Dr. Gene Pruitt with [facility] 4. Valvular disease; s/p bioprosthetic AVR and MitraClip done in 03/2018. Aortic valve well-seated per echo 10/03 as noted above. 5. H/o hypertension with present hypotension 6. MELISSA on CKD, hyperkalemia 7. ? H/o seizure disorder 8. Multiple Myeloma 9. BPH s/p TURP 10. PUI: COVID pending Recommendations Mild diuresis with monitoring of renal function Continue ASA, metoprolol Echo if COVID negative Ongoing lung optimization, treatment of PNA as per pulm and ID Supportive care JAVIER HUGHES MD 09/09/20 2210: CARDIAC CONSULT ASSESSMENT/PLAN ASSESSMENT/PLAN Patient seen and examined,. Agree with [employer]LECTION SYSTEMS WORKER's assessment and plan. Continue diuresis for ac on chr diastolic HF s/p bioprosthetic AVR and mitraclip procedure clinically stable Plan 2D echo to evaluate valvular function if covid negative Thank you for your consultation AMY VILLANUEVA APRN Sep 09, 2020 09:55 JAVIER HUGHES MD Sep 09, 2020 22:10
[2020-09-09] MEDS ORDERED: FUROSEMIDE 20 MG/2 ML VIAL. IVP ONE ×2 (10:00→12:15)
[2020-09-09] MEDS: SENNOSIDES/DOCUSATE 8.6/50MG TABLET. PO SCH ×2 (10:03→21:25)
[2020-09-09] MEDS: METOPROLOL TART IMMED RELEASE 25 MG TABLET. PO SCH ×2 (10:04→21:25)
[2020-09-09] MEDS: TAMSULOSIN 0.4 MG CAP.ER.24H. PO SCH (10:04)
[2020-09-09] MEDS: FINASTERIDE 5 MG TABLET. PO SCH (10:04)
[2020-09-09] MEDS: HYDROCORTISONE SOD SUCC/PF 100 MG/2 ML VIAL. IVP SCH ×2 (10:04→21:25)
[2020-09-09] MEDS: CETIRIZINE HCL 10 MG TABLET. PO SCH (10:04)
[2020-09-09] MEDS: ASPIRIN ENTERIC COATED 81 MG TABLET.DR. PO SCH (10:04)
[2020-09-09] MEDS: PANTOPRAZOLE 40 MG TABLET.DR. PO SCH (10:05)
[2020-09-09] MEDS: HYDROCORTISONE 1% TOPICAL CREAM 30GM TUBE. TP SCH ×2 (10:05→21:27)
[2020-09-09] MEDS: DICLOFENAC SODIUM 1% TOPICAL GEL 100GM TUBE. TP PRN (10:05)
[2020-09-09] MEDS: IPRATROPIUM/ALBUTEROL 20/100mcg/INH INHALER. INH SCH ×4 (10:05→21:26)
--- NOTE | 2020-09-09 10:08 | PDOC2 ---
NEUROLOGY CONSULT Date of Service DOS: DATE: 09/09/20 TIME: 09:53 Reason for Consult Reason for Consult: Possible seizure Referring Physician Referring Physician: Dr. Thurston Source Source: Caregiver (Son), Chart review, Patient History of Present Illness History of Present Illness The patient is a 75-year-old right-handed male brought to the emergency department with a possible seizure and dyspnea. He was just discharged from on 09/07 for back and right shoulder pain. With son's permission, I reviewed the chart online. He just saw the neurologist on 09/07. An EEG had shown some right central dysfunction, not clearly epileptic, MRI of the brain showed small vessel disease. Anticonvulsants were not started. He has multiple myeloma. He underwent MRI of the head and cervical spine, PET scan, and x-ray of the femur, showing no change in his multiple myeloma or new fracture. He received acetaminophen as needed, [place] as needed, Voltaren gel, gabapentin, and physical therapy. The son told staff that they want to switch care to [place]. On closer questioning, the son says the patient felt chills and fever and shook on both sides like a "fever seizure," which I would term rigors. He had some seiz ure activity in March during a fever as well, but I cannot find any records for any admission in March. Son denies any loss of consciousness with these episodes, nor is there tongue biting or incontinence. Patient was Covid positive, June 2020. Past Medical History Cardiovascular: CHF, HTN Pulmonary: COPD GI: GERD, Hemorrhoids Heme/Onc: Cancer (Multiple myeloma) Infectious disease: Other (Covid in June 2020) Renal/: Benign prostatic enlarg. Past Surgical History Past Surgical History: Other (Aortic valve replacement, mitral valve clipping) Family History Family History: Other (Negative for seizure) Social History Social History , ex-smoker, no alcohol Current Medications Current Medications Current Medications Sodium Chloride 1,000 ml @ 1,000 mls/hr Q1H IV Last administered on 09/08/20at 14:20; Start 09/08/20 at 14:00; Stop 09/08/20 at 14:59; Status DC Morphine Sulfate (Morphine Sulfate) 4 mg PRN Q15MIN PRN IV/SQ PAIN GREATER THAN 3/10; Start 09/08/20 at 14:00; Stop 09/09/20 at 13:59 Levofloxacin/ Dextrose 150 ml @ 100 mls/hr 1X ONCE IV Last administered on 09/08/20at 15:12; Start 09/08/20 at 15:00; Stop 09/08/20 at 16:29; Status DC Sodium Chloride 1,000 ml @ 1,000 mls/hr 1X ONCE IV ; Start 09/08/20 at 15:45; Stop 09/08/20 at 16:44; Status Cancel Sodium Chloride (Normal Saline Flush) 3 ml QSHIFT PRN IV AFTER MEDS AND BLOOD DRAWS; Start 09/08/20 at 16:15 Sodium Chloride 1,000 ml @ 100 mls/hr Q10H IV Last administered on 09/09/20at 02:53; Start 09/08/20 at 16:15 Ondansetron HCl (Zofran) 4 mg PRN Q4HRS PRN IV NAUSEA/VOMITING; Start 09/08/20 at 16:15 Acetaminophen (Tylenol) 650 mg PRN Q4HRS PRN PO TEMP OVER 100.4F OR MOD PAIN Last administered on 09/08/20at 21:23; Start 09/08/20 at 16:15 Acetaminophen (Tylenol Supp) 650 mg PRN Q4HRS PRN IL TEMP OVER 100.4F OR MILD PAIN; Start 09/08/20 at 16:15 Al Hydroxide/Mg Hydroxide (Mylanta Plus Xs) 30 ml PRN DAILY PRN PO HEARTBURN / GAS; Start 09/08/20 at 16:15 Sodium Monofluorophosphate (Fleet Adult) 133 ml PRN DAILY PRN IL CONSTIPATION; Start 09/08/20 at 16:15 Docusate Sodium (Colace) 100 mg PRN BID PRN PO HARD STOOLS; Start 09/08/20 at 16:15 Albuterol Sulfate (Ventolin Neb Soln) 2.5 mg PRN Q4HRS PRN NEB SHORTNESS OF BREATH; Start 09/08/20 at 16:15; Status Cancel Guaifenesin (Robitussin) 200 mg PRN Q4HRS PRN PO COUGH; Start 09/08/20 at 16:15 Enoxaparin Sodium (Lovenox 40mg Syringe) 40 mg Q24H SQ ; Start 09/08/20 at 16:15; Status UNV Levofloxacin/ Dextrose 100 ml @ 100 mls/hr Q24H IV ; Start 09/08/20 at 16:15; Status UNV Hydromorphone HCl (Dilaudid) 0.6 mg PRN Q3HRS PRN IVP SEVERE PAIN 7-10 Last administered on 09/08/20at 21:12; Start 09/08/20 at 16:15 Levofloxacin/ Dextrose 150 ml @ 100 mls/hr Q48H IV ; Start 09/10/20 at 15:00 Enoxaparin Sodium (Lovenox 30mg Syringe) 30 mg Q24H SQ ; Start 09/08/20 at 21:00; Stop 09/08/20 at 18:48; Status DC Sodium Chloride 1,000 ml @ 1,000 mls/hr 1X ONCE IV Last administered on 09/08/20at 16:34; Start 09/08/20 at 16:30; Stop 09/08/20 at 17:29; Status DC Cefepime HCl (Maxipime) 1 gm BID IVP ; Start 09/08/20 at 21:00; Status UNV Cefepime HCl (Maxipime) 2 gm Q24H IVP Last administered on 09/08/20at 19:29; Start 09/08/20 at 18:00 Lorazepam (Ativan Inj) 2 mg PRN Q4HRS PRN IVP SEIZURE ACTIVITY; Start 09/08/20 at 16:45 Enoxaparin Sodium (Lovenox 80mg Syringe) 70 mg Q24H SQ Last administered on 09/08/20at 21:34; Start 09/08/20 at 21:00; Stop 09/09/20 at 09:00; Status DC Hydrocortisone Sodium Succinate (Solu-CORTEF) 100 mg Q12HR IVP Last administered on 09/08/20at 21:23; Start 09/08/20 at 21:00; Stop 09/09/20 at 21:00 Acetaminophen (Tylenol) 325 mg PRN Q6HRS PRN PO MILD PAIN 1-3; Start 09/08/20 at 21:00 Aspirin (Ecotrin) 81 mg DAILYWBKFT PO ; Start 09/09/20 at 08:00 Cetirizine HCl (ZyrTEC) 10 mg DAILY PO ; Start 09/09/20 at 09:00 Diclofenac Sodium (Voltaren) 2 nawaf PRN QID PRN TP PAIN Last administered on 09/08/20at 21:34; Start 09/08/20 at 21:00 Finasteride (Proscar) 5 mg DAILY PO ; Start 09/09/20 at 09:00 Furosemide (Lasix) 20 mg QODAY PO ; Start 09/10/20 at 09:00 Acetaminophen/ Hydrocodone Bitart (Lortab 5/325) 1 tab PRN Q6HRS PRN PO SEVERE PAIN; Start 09/08/20 at 21:00 Metoprolol Tartrate (Lopressor) 25 mg BID PO Last administered on 09/08/20at 21:26; Start 09/08/20 at 21:15 Potassium Chloride (Klor-Con) 20 meq QODAY PO ; Start 09/10/20 at 09:00 Senna/Docusate Sodium (Senna Plus) 2 tab BID PO Last administered on 09/08/20at 21:29; Start 09/08/20 at 21:15 Tamsulosin HCl (Flomax) 0.4 mg DAILY PO ; Start 09/09/20 at 09:00 Non-Formulary Medication (Albuterol Sulfate (Ventolin Hfa Inhaler)) 2 puff Q4HRS INH ; Start 09/09/20 at 00:00; Status UNV Non-Formulary Medication (Budesonide/ Formoterol Fumarate (Symbicort 80-4.5 Mcg Inhaler)) 2 puff BID IH ; Start 09/08/20 at 21:00; Status UNV Non-Formulary Medication (Fluticasone/ Salmeterol (Advair 100-50 Diskus)) 1 puff BID IH ; Start 09/08/20 at 21:00; Status UNV Hydrocortisone (Cortaid) 1 nawaf BID TP ; Start 09/08/20 at 21:30 Pantoprazole Sodium (Protonix) 20 mg DAILYAC PO ; Start 09/09/20 at 07:30 Albuterol/ Ipratropium (Duoneb) 3 ml RTQID NEB ; Start 09/09/20 at 08:00; Status Cancel Budesonide (Pulmicort) 0.5 mg RTBID NEB ; Start 09/09/20 at 08:00 Albuterol/ Ipratropium (Combivent Respimat 20-100 Mcg) 1 puff RTQID INH ; Start 09/09/20 at 08:00 Albuterol Sulfate (Ventolin Hfa) 1 puff PRN Q4HRS PRN INH SHORTNESS OF BREATH Last administered on 09/09/20at 05:09; Start 09/09/20 at 00:15 Info (Anti-Coagulation Monitoring By Pharmacy) 1 each PRN DAILY PRN MC SEE COMMENTS Last administered on 09/09/20at 09:01; Start 09/09/20 at 09:00; Stop 09/09/20 at 09:32; Status DC Enoxaparin Sodium (Lovenox 80mg Syringe) 70 mg Q12HR SQ ; Start 09/09/20 at 10:00; Stop 09/09/20 at 09:32; Status DC Furosemide (Lasix) 20 mg 1X ONCE IVP ; Start 09/09/20 at 10:00; Stop 09/09/20 at 10:01 Enoxaparin Sodium (Lovenox 40mg Syringe) 40 mg DAILY SQ ; Start 09/10/20 at 09:00 Active Scripts Active Ventolin Hfa Inhaler (Albuterol Sulfate) 18 Gm Hfa.aer.ad 2 Puff INH Q4HRS Reported Flomax (Tamsulosin Hcl) 0.4 Mg Cap.er.24h 1 Cap PO DAILY Advair 100-50 Diskus (Fluticasone/Salmeterol) 1 Each Disk.w.dev 1 Puff IH BID Acetaminophen 325 Mg Tablet 1 Tab PO PRN Q6HRS PRN 24 Days Hydrocodone-Acetamin 5-325 mg (Hydrocodone/Acetaminophen) 1 Each Tablet 1 Tab PO PRN Q6HRS PRN Diclofenac Sodium 100 Gm Gel..gram. 2 Gm TP PRN QID PRN Hydrocortisone 453.6 Gm Cream..g. 1 Nawaf TP BID Metoprolol Tartrate 25 Mg Tablet 25 Mg PO BID Klor-Con M20 (Potassium Chloride) 20 Meq Tab.er.prt 20 Meq PO QODAY Cetirizine Hcl 10 Mg Tablet 10 Mg PO DAILY Symbicort 80-4.5 Mcg Inhaler (Budesonide/Formoterol Fumarate) 10.2 Gm Hfa.aer.ad 2 Puff IH BID Protonix (Pantoprazole Sodium) 20 Mg Tablet.dr 1 Tab PO DAILY Senokot-S Tablet (Sennosides/Docusate Sodium) 1 Each Tablet 2 Tab PO BID 30 Days Finasteride 5 Mg Tablet 1 Tab PO DAILY Aspir-Low (Aspirin) 81 Mg Tablet. 1 Tab PO DAILY Lasix (Furosemide) 20 Mg Tablet 1 Tab PO QODAY 30 Days Allergies Allergies: Coded Allergies: Iodinated Contrast Media (Verified Allergy, Unknown, 06/05/20) ROS Review of System Negative for weight loss, indigestion, hematochezia, melena. Positive for fevers, chills, chest pain, dyspnea, dysuria. Full 14-point review of systems is negative. Physical Exam Physical Examination General: Well-developed, well-nourished male in no acute distress HEENT: Normocephalic andatraumatic. Tympanic membranes clear.Temporal arteriespulsatile and nontender.Fundoscopic exam unremarkable Neck: Supple without bruit, no meningismus Musculoskeletal: Stability:see neurologic. Gait exam:see neurologic. Tone:see neurologic.Strength:see neurologic. Neurological: Mental Status: orientation, memory, attention span/concentration, language, fund of knowledge normal, does not speak German, but does follow a few German commands. Cranial Nerves:Pupils equal and reactive to light, extraocular movements areintact, visual george are full to confrontation. Facial sensation is normal. There is no facial asymmetry. Vestibulo-ocular reflex is intact. Palate elevates and tongue protrudes in midline. All other cranial related problems are negative except as mentioned before.Reflexes:1+ and symmetric with flexor plantar responses. Motor:4/5 strength with normal tone and bulk. Coordination:Finger-nose finger and lzao-ku-erwn testing are normal. Rapid alternating movements and fine finger movements are intact. Gait:Not tested. Sensory:Stocking loss. Vitals VITALS Vital Signs Date Time Temp Pulse Resp B/P (MAP) Pulse Ox O2 Delivery O2 Flow Rate FiO2 09/09/20 07:00 98.6 89 18 104/62 (76) 97 Nasal Cannula 3.0 98.6 Labs Labs Laboratory Tests Test 09/08/20 14:05 09/08/20 15:00 09/08/20 18:44 09/09/20 05:05 White Blood Count 10.4 x10^3/uL (4.0-11.0) 12.3 x10^3/uL (4.0-11.0) Red Blood Count 4.50 x10^6/uL (4.30-5.70) 3.95 x10^6/uL (4.30-5.70) Hemoglobin 11.3 g/dL (13.0-17.5) 9.7 g/dL (13.0-17.5) Hematocrit 35.3 % (39.0-53.0) 31.3 % (39.0-53.0) Mean Corpuscular Volume 78 fL (79-100) 79 fL (79-100) Mean Corpuscular Hemoglobin 25 pg (25-35) 25 pg (25-35) Mean Corpuscular Hemoglobin Concent 32 g/dL (31-37) 31 g/dL (31-37) Red Cell Distribution Width 15.4 % (11.5-14.5) 15.7 % (11.5-14.5) Platelet Count 125 x10^3/uL (140-400) 110 x10^3/uL (140-400) Neutrophils (%) (Auto) 93 % (31-73) 97 % (31-73) Lymphocytes (%) (Auto) 4 % (24-48) 3 % (24-48) Monocytes (%) (Auto) 3 % (0-9) 1 % (0-9) Eosinophils (%) (Auto) 0 % (0-3) 0 % (0-3) Basophils (%) (Auto) 0 % (0-3) 0 % (0-3) Neutrophils # (Auto) 9.6 x10^3/uL (1.8-7.7) 11.9 x10^3/uL (1.8-7.7) Lymphocytes # (Auto) 0.4 x10^3/uL (1.0-4.8) 0.3 x10^3/uL (1.0-4.8) Monocytes # (Auto) 0.3 x10^3/uL (0.0-1.1) 0.1 x10^3/uL (0.0-1.1) Eosinophils # (Auto) 0.0 x10^3/uL (0.0-0.7) 0.0 x10^3/uL (0.0-0.7) Basophils # (Auto) 0.0 x10^3/uL (0.0-0.2) 0.0 x10^3/uL (0.0-0.2) Segmented Neutrophils % 69 % (35-66) Band Neutrophils % 23 % (0-9) Lymphocytes % 5 % (24-48) Monocytes % 3 % (0-10) Platelet Estimate Adequate (ADEQUATE) Large Platelets Present Sodium Level 136 mmol/L (136-145) 138 mmol/L (136-145) Potassium Level 4.5 mmol/L (3.5-5.1) 5.2 mmol/L (3.5-5.1) Chloride Level 101 mmol/L (98-107) 106 mmol/L (98-107) Carbon Dioxide Level 25 mmol/L (21-32) 24 mmol/L (21-32) Anion Gap 10 (6-14) 8 (6-14) Blood Urea Nitrogen 23 mg/dL (8-26) 21 mg/dL (8-26) Creatinine 1.9 mg/dL (0.7-1.3) 1.5 mg/dL (0.7-1.3) Estimated GFR (Cockcroft-Gault) 34.5 45.4 BUN/Creatinine Ratio 12 (6-20) 14 (6-20) Glucose Level 159 mg/dL (70-99) 183 mg/dL (70-99) Lactic Acid Level 2.6 mmol/L (0.4-2.0) 0.8 mmol/L (0.4-2.0) Calcium Level 8.9 mg/dL (8.5-10.1) 8.1 mg/dL (8.5-10.1) Total Bilirubin 1.3 mg/dL (0.2-1.0) 0.8 mg/dL (0.2-1.0) Aspartate Amino Transf (AST/SGOT) 61 U/L (15-37) 35 U/L (15-37) Alanine Aminotransferase (ALT/SGPT) 50 U/L (16-63) 38 U/L (16-63) Alkaline Phosphatase 74 U/L (46-116) 65 U/L (46-116) Troponin I Quantitative < 0.017 ng/mL (0.000-0.055) C-Reactive Protein, Quantitative 28.0 mg/L (0-3.3) BU-Ego-Y-Type Natriuretic Peptide 673 pg/mL (0-449) Total Protein 8.0 g/dL (6.4-8.2) 7.5 g/dL (6.4-8.2) Albumin 3.7 g/dL (3.4-5.0) 3.0 g/dL (3.4-5.0) Albumin/Globulin Ratio 0.9 (1.0-1.7) 0.7 (1.0-1.7) Procalcitonin 1.12 ng/mL (0.00-0.10) Influenza Type A Antigen Negative (NEGATIVE) Influenza Type B Antigen Negative (NEGATIVE) Laboratory Tests Test 09/08/20 14:05 09/08/20 15:00 09/08/20 18:44 09/09/20 05:05 White Blood Count 10.4 x10^3/uL (4.0-11.0) 12.3 x10^3/uL (4.0-11.0) Red Blood Count 4.50 x10^6/uL (4.30-5.70) 3.95 x10^6/uL (4.30-5.70) Hemoglobin 11.3 g/dL (13.0-17.5) 9.7 g/dL (13.0-17.5) Hematocrit 35.3 % (39.0-53.0) 31.3 % (39.0-53.0) Mean Corpuscular Volume 78 fL (79-100) 79 fL (79-100) Mean Corpuscular Hemoglobin 25 pg (25-35) 25 pg (25-35) Mean Corpuscular Hemoglobin Concent 32 g/dL (31-37) 31 g/dL (31-37) Red Cell Distribution Width 15.4 % (11.5-14.5) 15.7 % (11.5-14.5) Platelet Count 125 x10^3/uL (140-400) 110 x10^3/uL (140-400) Neutrophils (%) (Auto) 93 % (31-73) 97 % (31-73) Lymphocytes (%) (Auto) 4 % (24-48) 3 % (24-48) Monocytes (%) (Auto) 3 % (0-9) 1 % (0-9) Eosinophils (%) (Auto) 0 % (0-3) 0 % (0-3) Basophils (%) (Auto) 0 % (0-3) 0 % (0-3) Neutrophils # (Auto) 9.6 x10^3/uL (1.8-7.7) 11.9 x10^3/uL (1.8-7.7) Lymphocytes # (Auto) 0.4 x10^3/uL (1.0-4.8) 0.3 x10^3/uL (1.0-4.8) Monocytes # (Auto) 0.3 x10^3/uL (0.0-1.1) 0.1 x10^3/uL (0.0-1.1) Eosinophils # (Auto) 0.0 x10^3/uL (0.0-0.7) 0.0 x10^3/uL (0.0-0.7) Basophils # (Auto) 0.0 x10^3/uL (0.0-0.2) 0.0 x10^3/uL (0.0-0.2) Segmented Neutrophils % 69 % (35-66) Band Neutrophils % 23 % (0-9) Lymphocytes % 5 % (24-48) Monocytes % 3 % (0-10) Platelet Estimate Adequate (ADEQUATE) Large Platelets Present Sodium Level 136 mmol/L (136-145) 138 mmol/L (136-145) Potassium Level 4.5 mmol/L (3.5-5.1) 5.2 mmol/L (3.5-5.1) Chloride Level 101 mmol/L (98-107) 106 mmol/L (98-107) Carbon Dioxide Level 25 mmol/L (21-32) 24 mmol/L (21-32) Anion Gap 10 (6-14) 8 (6-14) Blood Urea Nitrogen 23 mg/dL (8-26) 21 mg/dL (8-26) Creatinine 1.9 mg/dL (0.7-1.3) 1.5 mg/dL (0.7-1.3) Estimated GFR (Cockcroft-Gault) 34.5 45.4 BUN/Creatinine Ratio 12 (6-20) 14 (6-20) Glucose Level 159 mg/dL (70-99) 183 mg/dL (70-99) Lactic Acid Level 2.6 mmol/L (0.4-2.0) 0.8 mmol/L (0.4-2.0) Calcium Level 8.9 mg/dL (8.5-10.1) 8.1 mg/dL (8.5-10.1) Total Bilirubin 1.3 mg/dL (0.2-1.0) 0.8 mg/dL (0.2-1.0) Aspartate Amino Transf (AST/SGOT) 61 U/L (15-37) 35 U/L (15-37) Alanine Aminotransferase (ALT/SGPT) 50 U/L (16-63) 38 U/L (16-63) Alkaline Phosphatase 74 U/L (46-116) 65 U/L (46-116) Troponin I Quantitative < 0.017 ng/mL (0.000-0.055) C-Reactive Protein, Quantitative 28.0 mg/L (0-3.3) AJ-Bap-E-Type Natriuretic Peptide 673 pg/mL (0-449) Total Protein 8.0 g/dL (6.4-8.2) 7.5 g/dL (6.4-8.2) Albumin 3.7 g/dL (3.4-5.0) 3.0 g/dL (3.4-5.0) Albumin/Globulin Ratio 0.9 (1.0-1.7) 0.7 (1.0-1.7) Procalcitonin 1.12 ng/mL (0.00-0.10) Influenza Type A Antigen Negative (NEGATIVE) Influenza Type B Antigen Negative (NEGATIVE) Assessment/Plan Assessment/Plan Impression: These are not seizures, he has had some tremors, possible rigors with fever. Note that consciousness is preserved, there is no tongue biting or incontinence. Chronic pain related to multiple myeloma, no evidence of radiculopathy or myelopathy Peripheral neuropathy Recommendations: No need to repeat neurological work-up from Hold on anticonvulsants Reassured son that these are not seizures, but I have not talked to him since I reviewed the records. Treatment of medical diseases. Thank you for letting me help with the patient's care. FLORENCIA GUIDO MD Sep 09, 2020 10:08
--- NOTE | 2020-09-09 10:09 | CONS ---
DATE OF CONSULTATION: PULMONARY CONSULTATION ATTENDING PHYSICIAN: Dr. Thurston. REASON FOR CONSULTATION: Respiratory failure. HISTORY OF PRESENT ILLNESS: The patient is a 75-year-old male, who was brought into the Emergency Room after a suspected seizure. He was recently discharged from , where he was evaluated extensively. He does speak Argentine, but he is Georgian. There is questionable history of multiple myeloma. The patient has a history of seizure disorder. He denies any fever or chills. He does have some mild shortness of breath and mild cough. His saturations were 80% on arrival. He is currently on oxygen via nasal cannula at 3 liters. I reviewed the patient's chest x-ray and it shows bilateral interstitial infiltrates, more on the right than on the left. He also had a perfusion scan, which showed faint bilateral infiltrates throughout, which corresponds with the patchy infiltrates. They were all matched. I have been asked to see him for further evaluation. COVID test is pending. His procalcitonin was 1.1. PAST MEDICAL HISTORY: Significant for CHF, questionable COPD, GERD, hypertension, questionable multiple myeloma and history of seizure disorder. SURGERIES: No recent surgery. ALLERGIES: IV DYE. SOCIAL HISTORY: Former smoker, smoked minimally. MEDICATIONS: Reviewed as listed in the MRAD including antibiotic Levaquin. SYSTEM REVIEW: Limited, but pertinent positives were discussed in my present illness, otherwise noncontributory. PHYSICAL EXAMINATION: VITAL SIGNS: Reviewed. Blood pressure is on the low side, 104 systolic; pulse ox is 97% on 3 liters. GENERAL: Visual exam done due to COVID suspicion. No obvious respiratory distress. SKIN: No skin rash. EXTREMITIES: No leg edema. LABORATORIES: Reviewed. BUN 21, creatinine 1.5. White cell count 12.3. IMPRESSION: 1. Acute hypoxic respiratory failure with bilateral interstitial infiltrates. Differential diagnosis would include possible COVID pneumonia versus neurogenic edema related to seizure. Interstitial pneumonia would also be in the differential diagnosis. 2. Leukocytosis, likely secondary to steroids. 3. Mild acute kidney injury. 4. Minimal tobacco history. 5. Questionable history of multiple myeloma. 6. History of seizure disorder. RECOMMENDATIONS: 1. Continue present oxygen to keep saturation 92% and above. 2. Rule out COVID infection. 3. Mild diuresis and repeat chest x-ray. 4. Obtain proBNP. 5. Continue empiric antibiotics. 6. DuoNeb. 7. DVT prophylaxis. I would recommend changing the dose to 40 mg subcutaneous daily as there is no evidence of thromboembolic disease. The perfusion scan findings were matched with patchy infiltrates. 8. Discussed with RN. KIRSTIN SMALLWOOD MD DR: REMA/antolin JOB#: [id number] / [id number]
[2020-09-09] MEDS: HYDROcodone/APAP 5/325MG 1 TAB TABLET PO PRN ×2 (10:14→21:27)
[2020-09-09 11:00] VITALS: BP 122/71
--- NOTE | 2020-09-09 11:10 | NUR ---
SS following up with discharge planning. SS reviewed pt chart and discussed with pt RN. Pt is from home and is currently requiring oxygen via nasal canula. COVID19 pending. Pt has no home oxygen. Pt recently discharged from on 09/07/2020. Pt was home one day and having seizures and shortness of breath. Pt admitted to [facility] on 09/08/2020. Pt on IV Levaquin and IV Cefepime. SS will continue to follow up with discharge planning.
--- NOTE | 2020-09-09 13:18 | PDOC2 ---
CONSULT Date of Consult Date of Consult DATE: 09/09/20 TIME: 13:12 Reason for Consult Reason for Consult: MELISSA Referring Physician Referring Physician: SILVANA Identification/Chief Complaint Chief Complaint SOB Source Source: Chart review, Patient History of Present Illness Reason for Visit: THIS IS A 75 YR OLD WITH SOB AND SUSPECTED SEIZURE ACTIVITY. NOTED TO BE HYPOXIC. IMAGING OF CHEST SHOWED BILATERAL INFILTRATES. SUBSEQUENTLY POS FOR COVID 19 PNEUMONIA. ON SUPPLEMENTAL O2 NOW. APPEARS CONFUSED. HIS CR IS 1.9. BASELINE CR IS 1.5 WITH CKD STAGE 3 AT BASELINE. HE IS UNABLE TO GIVE ANY HX Past Medical History Cardiovascular: CHF, HTN Pulmonary: COPD CENTRAL NERVOUS SYSTEM: Periperal neuropathy, Seizure GI: GERD, Hemorrhoids Heme/Onc: Cancer (Multiple myeloma) Musculoskeletal: Osteoarthritis Infectious disease: Other (Covid in June 2020) Renal/: Chronic renal insuff, Benign prostatic enlarg. Past Surgical History Past Surgical History: Other (Aortic valve replacement, mitral valve clipping) Family History Family History: Hypertension Social History No ALCOHOL: occassional Drugs: None Lives: with Family Current Problem List Problem List Problems Medical Problems: (1) Healthcare-associated pneumonia Status: Acute (2) History of multiple myeloma Status: Acute (3) History of seizure Status: Acute (4) Hypoxemia Status: Acute (5) Renal insufficiency Status: Acute (6) Sepsis Status: Acute Current Medications Current Medications Current Medications Sodium Chloride 1,000 ml @ 1,000 mls/hr Q1H IV Last administered on 09/08/20at 14:20; Start 09/08/20 at 14:00; Stop 09/08/20 at 14:59; Status DC Morphine Sulfate (Morphine Sulfate) 4 mg PRN Q15MIN PRN IV/SQ PAIN GREATER THAN 3/10; Start 09/08/20 at 14:00; Stop 09/09/20 at 13:59 Levofloxacin/ Dextrose 150 ml @ 100 mls/hr 1X ONCE IV Last administered on 09/08/20at 15:12; Start 09/08/20 at 15:00; Stop 09/08/20 at 16:29; Status DC Sodium Chloride 1,000 ml @ 1,000 mls/hr 1X ONCE IV ; Start 09/08/20 at 15:45; Stop 09/08/20 at 16:44; Status Cancel Sodium Chloride (Normal Saline Flush) 3 ml QSHIFT PRN IV AFTER MEDS AND BLOOD DRAWS; Start 09/08/20 at 16:15 Sodium Chloride 1,000 ml @ 100 mls/hr Q10H IV Last administered on 09/09/20at 02:53; Start 09/08/20 at 16:15; Stop 09/09/20 at 12:12; Status DC Ondansetron HCl (Zofran) 4 mg PRN Q4HRS PRN IV NAUSEA/VOMITING; Start 09/08/20 at 16:15 Acetaminophen (Tylenol) 650 mg PRN Q4HRS PRN PO TEMP OVER 100.4F OR MOD PAIN Last administered on 09/08/20at 21:23; Start 09/08/20 at 16:15 Acetaminophen (Tylenol Supp) 650 mg PRN Q4HRS PRN NC TEMP OVER 100.4F OR MILD PAIN; Start 09/08/20 at 16:15 Al Hydroxide/Mg Hydroxide (Mylanta Plus Xs) 30 ml PRN DAILY PRN PO HEARTBURN / GAS; Start 09/08/20 at 16:15 Sodium Monofluorophosphate (Fleet Adult) 133 ml PRN DAILY PRN NC CONSTIPATION; Start 09/08/20 at 16:15 Docusate Sodium (Colace) 100 mg PRN BID PRN PO HARD STOOLS; Start 09/08/20 at 16:15 Albuterol Sulfate (Ventolin Neb Soln) 2.5 mg PRN Q4HRS PRN NEB SHORTNESS OF BREATH; Start 09/08/20 at 16:15; Status Cancel Guaifenesin (Robitussin) 200 mg PRN Q4HRS PRN PO COUGH; Start 09/08/20 at 16:15 Enoxaparin Sodium (Lovenox 40mg Syringe) 40 mg Q24H SQ ; Start 09/08/20 at 16:15; Status UNV Levofloxacin/ Dextrose 100 ml @ 100 mls/hr Q24H IV ; Start 09/08/20 at 16:15; Status UNV Hydromorphone HCl (Dilaudid) 0.6 mg PRN Q3HRS PRN IVP SEVERE PAIN 7-10 Last administered on 09/08/20at 21:12; Start 09/08/20 at 16:15 Levofloxacin/ Dextrose 150 ml @ 100 mls/hr Q48H IV ; Start 09/10/20 at 15:00 Enoxaparin Sodium (Lovenox 30mg Syringe) 30 mg Q24H SQ ; Start 09/08/20 at 21:00; Stop 09/08/20 at 18:48; Status DC Sodium Chloride 1,000 ml @ 1,000 mls/hr 1X ONCE IV Last administered on 09/08/20at 16:34; Start 09/08/20 at 16:30; Stop 09/08/20 at 17:29; Status DC Cefepime HCl (Maxipime) 1 gm BID IVP ; Start 09/08/20 at 21:00; Status UNV Cefepime HCl (Maxipime) 2 gm Q24H IVP Last administered on 09/08/20at 19:29; Start 09/08/20 at 18:00 Lorazepam (Ativan Inj) 2 mg PRN Q4HRS PRN IVP SEIZURE ACTIVITY; Start 09/08/20 at 16:45 Enoxaparin Sodium (Lovenox 80mg Syringe) 70 mg Q24H SQ Last administered on 09/08/20at 21:34; Start 09/08/20 at 21:00; Stop 09/09/20 at 09:00; Status DC Hydrocortisone Sodium Succinate (Solu-CORTEF) 100 mg Q12HR IVP Last administered on 09/09/20at 10:04; Start 09/08/20 at 21:00; Stop 09/09/20 at 21:00 Acetaminophen (Tylenol) 325 mg PRN Q6HRS PRN PO MILD PAIN 1-3; Start 09/08/20 at 21:00 Aspirin (Ecotrin) 81 mg DAILYWBKFT PO Last administered on 09/09/20at 10:04; Start 09/09/20 at 08:00 Cetirizine HCl (ZyrTEC) 10 mg DAILY PO Last administered on 09/09/20at 10:04; Start 09/09/20 at 09:00 Diclofenac Sodium (Voltaren) 2 nawaf PRN QID PRN TP PAIN Last administered on 09/09/20at 10:05; Start 09/08/20 at 21:00 Finasteride (Proscar) 5 mg DAILY PO Last administered on 09/09/20at 10:04; Start 09/09/20 at 09:00 Furosemide (Lasix) 20 mg QODAY PO ; Start 09/10/20 at 09:00 Acetaminophen/ Hydrocodone Bitart (Lortab 5/325) 1 tab PRN Q6HRS PRN PO SEVERE PAIN Last administered on 09/09/20at 10:14; Start 09/08/20 at 21:00 Metoprolol Tartrate (Lopressor) 25 mg BID PO Last administered on 09/09/20at 10:04; Start 09/08/20 at 21:15 Potassium Chloride (Klor-Con) 20 meq QODAY PO ; Start 09/10/20 at 09:00 Senna/Docusate Sodium (Senna Plus) 2 tab BID PO Last administered on 09/09/20at 10:03; Start 09/08/20 at 21:15 Tamsulosin HCl (Flomax) 0.4 mg DAILY PO Last administered on 09/09/20at 10:04; Start 09/09/20 at 09:00 Non-Formulary Medication (Albuterol Sulfate (Ventolin Hfa Inhaler)) 2 puff Q4HRS INH ; Start 09/09/20 at 00:00; Status UNV Non-Formulary Medication (Budesonide/ Formoterol Fumarate (Symbicort 80-4.5 Mcg Inhaler)) 2 puff BID IH ; Start 09/08/20 at 21:00; Status UNV Non-Formulary Medication (Fluticasone/ Salmeterol (Advair 100-50 Diskus)) 1 puff BID IH ; Start 09/08/20 at 21:00; Status UNV Hydrocortisone (Cortaid) 1 nawaf BID TP Last administered on 09/09/20at 10:05; Start 09/08/20 at 21:30 Pantoprazole Sodium (Protonix) 20 mg DAILYAC PO Last administered on 09/09/20at 10:05; Start 09/09/20 at 07:30 Albuterol/ Ipratropium (Duoneb) 3 ml RTQID NEB ; Start 09/09/20 at 08:00; Status Cancel Budesonide (Pulmicort) 0.5 mg RTBID NEB ; Start 09/09/20 at 08:00 Albuterol/ Ipratropium (Combivent Respimat 20-100 Mcg) 1 puff RTQID INH Last administered on 09/09/20at 12:53; Start 09/09/20 at 08:00 Albuterol Sulfate (Ventolin Hfa) 1 puff PRN Q4HRS PRN INH SHORTNESS OF BREATH Last administered on 09/09/20at 10:05; Start 09/09/20 at 00:15 Info (Anti-Coagulation Monitoring By Pharmacy) 1 each PRN DAILY PRN MC SEE COMMENTS Last administered on 09/09/20at 09:01; Start 09/09/20 at 09:00; Stop 09/09/20 at 09:32; Status DC Enoxaparin Sodium (Lovenox 80mg Syringe) 70 mg Q12HR SQ ; Start 09/09/20 at 10:00; Stop 09/09/20 at 09:32; Status DC Furosemide (Lasix) 20 mg 1X ONCE IVP Last administered on 09/09/20at 10:10; Start 09/09/20 at 10:00; Stop 09/09/20 at 10:01; Status DC Enoxaparin Sodium (Lovenox 40mg Syringe) 40 mg DAILY SQ ; Start 09/10/20 at 09:00 Furosemide (Lasix) 20 mg 1X ONCE IVP Last administered on 09/09/20at 12:54; Start 09/09/20 at 12:15; Stop 09/09/20 at 12:16; Status DC Active Scripts Active Ventolin Hfa Inhaler (Albuterol Sulfate) 18 Gm Hfa.aer.ad 2 Puff INH Q4HRS Reported Flomax (Tamsulosin Hcl) 0.4 Mg Cap.er.24h 1 Cap PO DAILY Advair 100-50 Diskus (Fluticasone/Salmeterol) 1 Each Disk.w.dev 1 Puff IH BID Acetaminophen 325 Mg Tablet 1 Tab PO PRN Q6HRS PRN 24 Days Hydrocodone-Acetamin 5-325 mg (Hydrocodone/Acetaminophen) 1 Each Tablet 1 Tab PO PRN Q6HRS PRN Diclofenac Sodium 100 Gm Gel..gram. 2 Gm TP PRN QID PRN Hydrocortisone 453.6 Gm Cream..g. 1 Nawaf TP BID Metoprolol Tartrate 25 Mg Tablet 25 Mg PO BID Klor-Con M20 (Potassium Chloride) 20 Meq Tab.er.prt 20 Meq PO QODAY Cetirizine Hcl 10 Mg Tablet 10 Mg PO DAILY Symbicort 80-4.5 Mcg Inhaler (Budesonide/Formoterol Fumarate) 10.2 Gm Hfa.aer.ad 2 Puff IH BID Protonix (Pantoprazole Sodium) 20 Mg Tablet.dr 1 Tab PO DAILY Senokot-S Tablet (Sennosides/Docusate Sodium) 1 Each Tablet 2 Tab PO BID 30 Days Finasteride 5 Mg Tablet 1 Tab PO DAILY Aspir-Low (Aspirin) 81 Mg Tablet.dr 1 Tab PO DAILY Lasix (Furosemide) 20 Mg Tablet 1 Tab PO QODAY 30 Days Allergies Allergies: Coded Allergies: Iodinated Contrast Media (Verified Allergy, Unknown, 06/05/20) ROS Review of System UNABLE TO OBTAIN Physical Exam General: Alert, Cooperative HEENT: Atraumatic, PERRLA Lungs: Clear to auscultation Heart: Regular rate Abdomen: Normal bowel sounds, Soft, No tenderness Extremities: No cyanosis Skin: No breakdown Neuro: Other (CONFUSED) Psych/Mental Status: Other (FLAT) MUSCULOSKELETAL: No joint tenderness, No deformity, No swelling Vitals VITALS Vital Signs Date Time Temp Pulse Resp B/P (MAP) Pulse Ox O2 Delivery O2 Flow Rate FiO2 09/09/20 11:14 24 95 Nasal Cannula 3.0 09/09/20 11:00 98.3 97 122/71 (88) 98.3 Labs Labs Laboratory Tests Test 09/08/20 14:05 09/08/20 15:00 09/08/20 18:44 09/09/20 05:05 White Blood Count 10.4 x10^3/uL (4.0-11.0) 12.3 x10^3/uL (4.0-11.0) Red Blood Count 4.50 x10^6/uL (4.30-5.70) 3.95 x10^6/uL (4.30-5.70) Hemoglobin 11.3 g/dL (13.0-17.5) 9.7 g/dL (13.0-17.5) Hematocrit 35.3 % (39.0-53.0) 31.3 % (39.0-53.0) Mean Corpuscular Volume 78 fL (79-100) 79 fL (79-100) Mean Corpuscular Hemoglobin 25 pg (25-35) 25 pg (25-35) Mean Corpuscular Hemoglobin Concent 32 g/dL (31-37) 31 g/dL (31-37) Red Cell Distribution Width 15.4 % (11.5-14.5) 15.7 % (11.5-14.5) Platelet Count 125 x10^3/uL (140-400) 110 x10^3/uL (140-400) Neutrophils (%) (Auto) 93 % (31-73) 97 % (31-73) Lymphocytes (%) (Auto) 4 % (24-48) 3 % (24-48) Monocytes (%) (Auto) 3 % (0-9) 1 % (0-9) Eosinophils (%) (Auto) 0 % (0-3) 0 % (0-3) Basophils (%) (Auto) 0 % (0-3) 0 % (0-3) Neutrophils # (Auto) 9.6 x10^3/uL (1.8-7.7) 11.9 x10^3/uL (1.8-7.7) Lymphocytes # (Auto) 0.4 x10^3/uL (1.0-4.8) 0.3 x10^3/uL (1.0-4.8) Monocytes # (Auto) 0.3 x10^3/uL (0.0-1.1) 0.1 x10^3/uL (0.0-1.1) Eosinophils # (Auto) 0.0 x10^3/uL (0.0-0.7) 0.0 x10^3/uL (0.0-0.7) Basophils # (Auto) 0.0 x10^3/uL (0.0-0.2) 0.0 x10^3/uL (0.0-0.2) Segmented Neutrophils % 69 % (35-66) Band Neutrophils % 23 % (0-9) Lymphocytes % 5 % (24-48) Monocytes % 3 % (0-10) Platelet Estimate Adequate (ADEQUATE) Large Platelets Present Sodium Level 136 mmol/L (136-145) 138 mmol/L (136-145) Potassium Level 4.5 mmol/L (3.5-5.1) 5.2 mmol/L (3.5-5.1) Chloride Level 101 mmol/L (98-107) 106 mmol/L (98-107) Carbon Dioxide Level 25 mmol/L (21-32) 24 mmol/L (21-32) Anion Gap 10 (6-14) 8 (6-14) Blood Urea Nitrogen 23 mg/dL (8-26) 21 mg/dL (8-26) Creatinine 1.9 mg/dL (0.7-1.3) 1.5 mg/dL (0.7-1.3) Estimated GFR (Cockcroft-Gault) 34.5 45.4 BUN/Creatinine Ratio 12 (6-20) 14 (6-20) Glucose Level 159 mg/dL (70-99) 183 mg/dL (70-99) Lactic Acid Level 2.6 mmol/L (0.4-2.0) 0.8 mmol/L (0.4-2.0) Calcium Level 8.9 mg/dL (8.5-10.1) 8.1 mg/dL (8.5-10.1) Total Bilirubin 1.3 mg/dL (0.2-1.0) 0.8 mg/dL (0.2-1.0) Aspartate Amino Transf (AST/SGOT) 61 U/L (15-37) 35 U/L (15-37) Alanine Aminotransferase (ALT/SGPT) 50 U/L (16-63) 38 U/L (16-63) Alkaline Phosphatase 74 U/L (46-116) 65 U/L (46-116) Troponin I Quantitative < 0.017 ng/mL (0.000-0.055) C-Reactive Protein, Quantitative 28.0 mg/L (0-3.3) NS-Zap-X-Type Natriuretic Peptide 673 pg/mL (0-449) 1203 pg/mL (0-449) Total Protein 8.0 g/dL (6.4-8.2) 7.5 g/dL (6.4-8.2) Albumin 3.7 g/dL (3.4-5.0) 3.0 g/dL (3.4-5.0) Albumin/Globulin Ratio 0.9 (1.0-1.7) 0.7 (1.0-1.7) Procalcitonin 1.12 ng/mL (0.00-0.10) Influenza Type A Antigen Negative (NEGATIVE) Influenza Type B Antigen Negative (NEGATIVE) Laboratory Tests Test 09/08/20 14:05 09/08/20 15:00 09/08/20 18:44 09/09/20 05:05 White Blood Count 10.4 x10^3/uL (4.0-11.0) 12.3 x10^3/uL (4.0-11.0) Red Blood Count 4.50 x10^6/uL (4.30-5.70) 3.95 x10^6/uL (4.30-5.70) Hemoglobin 11.3 g/dL (13.0-17.5) 9.7 g/dL (13.0-17.5) Hematocrit 35.3 % (39.0-53.0) 31.3 % (39.0-53.0) Mean Corpuscular Volume 78 fL (79-100) 79 fL (79-100) Mean Corpuscular Hemoglobin 25 pg (25-35) 25 pg (25-35) Mean Corpuscular Hemoglobin Concent 32 g/dL (31-37) 31 g/dL (31-37) Red Cell Distribution Width 15.4 % (11.5-14.5) 15.7 % (11.5-14.5) Platelet Count 125 x10^3/uL (140-400) 110 x10^3/uL (140-400) Neutrophils (%) (Auto) 93 % (31-73) 97 % (31-73) Lymphocytes (%) (Auto) 4 % (24-48) 3 % (24-48) Monocytes (%) (Auto) 3 % (0-9) 1 % (0-9) Eosinophils (%) (Auto) 0 % (0-3) 0 % (0-3) Basophils (%) (Auto) 0 % (0-3) 0 % (0-3) Neutrophils # (Auto) 9.6 x10^3/uL (1.8-7.7) 11.9 x10^3/uL (1.8-7.7) Lymphocytes # (Auto) 0.4 x10^3/uL (1.0-4.8) 0.3 x10^3/uL (1.0-4.8) Monocytes # (Auto) 0.3 x10^3/uL (0.0-1.1) 0.1 x10^3/uL (0.0-1.1) Eosinophils # (Auto) 0.0 x10^3/uL (0.0-0.7) 0.0 x10^3/uL (0.0-0.7) Basophils # (Auto) 0.0 x10^3/uL (0.0-0.2) 0.0 x10^3/uL (0.0-0.2) Segmented Neutrophils % 69 % (35-66) Band Neutrophils % 23 % (0-9) Lymphocytes % 5 % (24-48) Monocytes % 3 % (0-10) Platelet Estimate Adequate (ADEQUATE) Large Platelets Present Sodium Level 136 mmol/L (136-145) 138 mmol/L (136-145) Potassium Level 4.5 mmol/L (3.5-5.1) 5.2 mmol/L (3.5-5.1) Chloride Level 101 mmol/L (98-107) 106 mmol/L (98-107) Carbon Dioxide Level 25 mmol/L (21-32) 24 mmol/L (21-32) Anion Gap 10 (6-14) 8 (6-14) Blood Urea Nitrogen 23 mg/dL (8-26) 21 mg/dL (8-26) Creatinine 1.9 mg/dL (0.7-1.3) 1.5 mg/dL (0.7-1.3) Estimated GFR (Cockcroft-Gault) 34.5 45.4 BUN/Creatinine Ratio 12 (6-20) 14 (6-20) Glucose Level 159 mg/dL (70-99) 183 mg/dL (70-99) Lactic Acid Level 2.6 mmol/L (0.4-2.0) 0.8 mmol/L (0.4-2.0) Calcium Level 8.9 mg/dL (8.5-10.1) 8.1 mg/dL (8.5-10.1) Total Bilirubin 1.3 mg/dL (0.2-1.0) 0.8 mg/dL (0.2-1.0) Aspartate Amino Transf (AST/SGOT) 61 U/L (15-37) 35 U/L (15-37) Alanine Aminotransferase (ALT/SGPT) 50 U/L (16-63) 38 U/L (16-63) Alkaline Phosphatase 74 U/L (46-116) 65 U/L (46-116) Troponin I Quantitative < 0.017 ng/mL (0.000-0.055) C-Reactive Protein, Quantitative 28.0 mg/L (0-3.3) HV-Dut-P-Type Natriuretic Peptide 673 pg/mL (0-449) 1203 pg/mL (0-449) Total Protein 8.0 g/dL (6.4-8.2) 7.5 g/dL (6.4-8.2) Albumin 3.7 g/dL (3.4-5.0) 3.0 g/dL (3.4-5.0) Albumin/Globulin Ratio 0.9 (1.0-1.7) 0.7 (1.0-1.7) Procalcitonin 1.12 ng/mL (0.00-0.10) Influenza Type A Antigen Negative (NEGATIVE) Influenza Type B Antigen Negative (NEGATIVE) Assessment/Plan Assessment/Plan IMP MELISSA WITH CR OF 1.9 SUSPECT ECVD CKD STAGE 3 WITH CR OF 1.5 ACUTE HYPOXIC RESP FAILURE PROB COVID 19 PNEUMONIA HX OF HTN BPH - ON FLOMAX PLAN HYDRATION STOP HIS K LABS IN AM CHECK UA MARLENY CH MD Sep 09, 2020 13:18
--- NOTE | 2020-09-09 14:31 | PDOC2 ---
CONSULT Date of Consult Date of Consult DATE: 09/09/20 TIME: 14:23 Reason for Consult Reason for Consult: History of multiple myeloma Referring Physician Referring Physician: Dr. 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 Patient does not speak Hungarian and is Estonian speaking. History was obtained with the assistance of his son Roderick who functioned as a driller hand and also the source of history. Patient is known to Dr. Crump at [facility]. He was diagnosed with smoldering multiple myeloma in 2019 after a bone marrow biopsy in March 2020 showed 10% monoclonal lambda plasma cells. He was subsequently lost to follow-up. He was recently admitted to [facility] with low back pain and left hip/thigh pain and received an extensive evaluation during his hospital stay with CT of the abdomen and pelvis, x-ray of the left femur, MRI head, MRI C-spine and whole-body PET/CT. CT showed moderate lumbar spondylosis. PET/CT and MRI did not show any evidence of lytic lesions that would be indicative of multiple myeloma. Outpatient follow-up with hematology was recommended for consideration of repeat bone marrow biopsy and participation in a clinical trial for therapy of smoldering multiple myeloma. The patient and his son opted to bring the patient to [facility]. He continues to report pain in his lower back and his left leg. He denies any other concerns at this time. Past Medical History Cardiovascular: CHF, HTN Pulmonary: COPD CENTRAL NERVOUS SYSTEM: Periperal neuropathy, Seizure GI: GERD, Hemorrhoids Heme/Onc: Cancer (Multiple myeloma) Musculoskeletal: Osteoarthritis Infectious disease: Other (Covid in June 2020) Renal/: Chronic renal insuff, Benign prostatic enlarg. Past Surgical History Past Surgical History: Other (Aortic valve replacement, mitral valve clipping) Family History Family History: Other (COPD) Social History Quit ALCOHOL: none Drugs: None Lives: with Family Current Problem List Problem List Problems Medical Problems: (1) Healthcare-associated pneumonia Status: Acute (2) History of multiple myeloma Status: Acute (3) History of seizure Status: Acute (4) Hypoxemia Status: Acute (5) Renal insufficiency Status: Acute (6) Sepsis Status: Acute Current Medications Current Medications Current Medications Sodium Chloride 1,000 ml @ 1,000 mls/hr Q1H IV Last administered on 09/08/20at 14:20; Start 09/08/20 at 14:00; Stop 09/08/20 at 14:59; Status DC Morphine Sulfate (Morphine Sulfate) 4 mg PRN Q15MIN PRN IV/SQ PAIN GREATER THAN 3/10; Start 09/08/20 at 14:00; Stop 09/09/20 at 13:59; Status DC Levofloxacin/ Dextrose 150 ml @ 100 mls/hr 1X ONCE IV Last administered on 09/08/20at 15:12; Start 09/08/20 at 15:00; Stop 09/08/20 at 16:29; Status DC Sodium Chloride 1,000 ml @ 1,000 mls/hr 1X ONCE IV ; Start 09/08/20 at 15:45; Stop 09/08/20 at 16:44; Status Cancel Sodium Chloride (Normal Saline Flush) 3 ml QSHIFT PRN IV AFTER MEDS AND BLOOD DRAWS; Start 09/08/20 at 16:15 Sodium Chloride 1,000 ml @ 100 mls/hr Q10H IV Last administered on 09/09/20at 02:53; Start 09/08/20 at 16:15; Stop 09/09/20 at 12:12; Status DC Ondansetron HCl (Zofran) 4 mg PRN Q4HRS PRN IV NAUSEA/VOMITING; Start 09/08/20 at 16:15 Acetaminophen (Tylenol) 650 mg PRN Q4HRS PRN PO TEMP OVER 100.4F OR MOD PAIN Last administered on 09/08/20at 21:23; Start 09/08/20 at 16:15 Acetaminophen (Tylenol Supp) 650 mg PRN Q4HRS PRN ND TEMP OVER 100.4F OR MILD PAIN; Start 09/08/20 at 16:15 Al Hydroxide/Mg Hydroxide (Mylanta Plus Xs) 30 ml PRN DAILY PRN PO HEARTBURN / GAS; Start 09/08/20 at 16:15 Sodium Monofluorophosphate (Fleet Adult) 133 ml PRN DAILY PRN ND CONSTIPATION; Start 09/08/20 at 16:15 Docusate Sodium (Colace) 100 mg PRN BID PRN PO HARD STOOLS; Start 09/08/20 at 16:15 Albuterol Sulfate (Ventolin Neb Soln) 2.5 mg PRN Q4HRS PRN NEB SHORTNESS OF BREATH; Start 09/08/20 at 16:15; Status Cancel Guaifenesin (Robitussin) 200 mg PRN Q4HRS PRN PO COUGH; Start 09/08/20 at 16:15 Enoxaparin Sodium (Lovenox 40mg Syringe) 40 mg Q24H SQ ; Start 09/08/20 at 16:15; Status UNV Levofloxacin/ Dextrose 100 ml @ 100 mls/hr Q24H IV ; Start 09/08/20 at 16:15; Status UNV Hydromorphone HCl (Dilaudid) 0.6 mg PRN Q3HRS PRN IVP SEVERE PAIN 7-10 Last administered on 09/08/20at 21:12; Start 09/08/20 at 16:15 Levofloxacin/ Dextrose 150 ml @ 100 mls/hr Q48H IV ; Start 09/10/20 at 15:00 Enoxaparin Sodium (Lovenox 30mg Syringe) 30 mg Q24H SQ ; Start 09/08/20 at 21:00; Stop 09/08/20 at 18:48; Status DC Sodium Chloride 1,000 ml @ 1,000 mls/hr 1X ONCE IV Last administered on 09/08/20at 16:34; Start 09/08/20 at 16:30; Stop 09/08/20 at 17:29; Status DC Cefepime HCl (Maxipime) 1 gm BID IVP ; Start 09/08/20 at 21:00; Status UNV Cefepime HCl (Maxipime) 2 gm Q24H IVP Last administered on 09/08/20at 19:29; Start 09/08/20 at 18:00 Lorazepam (Ativan Inj) 2 mg PRN Q4HRS PRN IVP SEIZURE ACTIVITY; Start 09/08/20 at 16:45 Enoxaparin Sodium (Lovenox 80mg Syringe) 70 mg Q24H SQ Last administered on 09/08/20at 21:34; Start 09/08/20 at 21:00; Stop 09/09/20 at 09:00; Status DC Hydrocortisone Sodium Succinate (Solu-CORTEF) 100 mg Q12HR IVP Last administered on 09/09/20at 10:04; Start 09/08/20 at 21:00; Stop 09/09/20 at 21:00 Acetaminophen (Tylenol) 325 mg PRN Q6HRS PRN PO MILD PAIN 1-3; Start 09/08/20 at 21:00 Aspirin (Ecotrin) 81 mg DAILYWBKFT PO Last administered on 09/09/20at 10:04; Start 09/09/20 at 08:00 Cetirizine HCl (ZyrTEC) 10 mg DAILY PO Last administered on 09/09/20at 10:04; Start 09/09/20 at 09:00 Diclofenac Sodium (Voltaren) 2 nawaf PRN QID PRN TP PAIN Last administered on 09/09/20at 10:05; Start 09/08/20 at 21:00 Finasteride (Proscar) 5 mg DAILY PO Last administered on 09/09/20at 10:04; Start 09/09/20 at 09:00 Furosemide (Lasix) 20 mg QODAY PO ; Start 09/10/20 at 09:00 Acetaminophen/ Hydrocodone Bitart (Lortab 5/325) 1 tab PRN Q6HRS PRN PO SEVERE PAIN Last administered on 09/09/20at 10:14; Start 09/08/20 at 21:00 Metoprolol Tartrate (Lopressor) 25 mg BID PO Last administered on 09/09/20at 10:04; Start 09/08/20 at 21:15 Potassium Chloride (Klor-Con) 20 meq QODAY PO ; Start 09/10/20 at 09:00; Stop 09/09/20 at 13:20; Status DC Senna/Docusate Sodium (Senna Plus) 2 tab BID PO Last administered on 09/09/20at 10:03; Start 09/08/20 at 21:15 Tamsulosin HCl (Flomax) 0.4 mg DAILY PO Last administered on 09/09/20at 10:04; Start 09/09/20 at 09:00 Non-Formulary Medication (Albuterol Sulfate (Ventolin Hfa Inhaler)) 2 puff Q4HRS INH ; Start 09/09/20 at 00:00; Status UNV Non-Formulary Medication (Budesonide/ Formoterol Fumarate (Symbicort 80-4.5 Mcg Inhaler)) 2 puff BID IH ; Start 09/08/20 at 21:00; Status UNV Non-Formulary Medication (Fluticasone/ Salmeterol (Advair 100-50 Diskus)) 1 puff BID IH ; Start 09/08/20 at 21:00; Status UNV Hydrocortisone (Cortaid) 1 nawaf BID TP Last administered on 09/09/20at 10:05; Start 09/08/20 at 21:30 Pantoprazole Sodium (Protonix) 20 mg DAILYAC PO Last administered on 09/09/20at 10:05; Start 09/09/20 at 07:30 Albuterol/ Ipratropium (Duoneb) 3 ml RTQID NEB ; Start 09/09/20 at 08:00; Status Cancel Budesonide (Pulmicort) 0.5 mg RTBID NEB ; Start 09/09/20 at 08:00 Albuterol/ Ipratropium (Combivent Respimat 20-100 Mcg) 1 puff RTQID INH Last administered on 09/09/20at 12:53; Start 09/09/20 at 08:00 Albuterol Sulfate (Ventolin Hfa) 1 puff PRN Q4HRS PRN INH SHORTNESS OF BREATH Last administered on 09/09/20at 10:05; Start 09/09/20 at 00:15 Info (Anti-Coagulation Monitoring By Pharmacy) 1 each PRN DAILY PRN MC SEE COMMENTS Last administered on 09/09/20at 09:01; Start 09/09/20 at 09:00; Stop 09/09/20 at 09:32; Status DC Enoxaparin Sodium (Lovenox 80mg Syringe) 70 mg Q12HR SQ ; Start 09/09/20 at 10: 00; Stop 09/09/20 at 09:32; Status DC Furosemide (Lasix) 20 mg 1X ONCE IVP Last administered on 09/09/20at 10:10; Start 09/09/20 at 10:00; Stop 09/09/20 at 10:01; Status DC Enoxaparin Sodium (Lovenox 40mg Syringe) 40 mg DAILY SQ ; Start 09/10/20 at 09:0 0 Furosemide (Lasix) 20 mg 1X ONCE IVP Last administered on 09/09/20at 12:54; Start 09/09/20 at 12:15; Stop 09/09/20 at 12:16; Status DC Sodium Chloride 1,000 ml @ 60 mls/hr [id number] IV ; Start 09/09/20 at 13:30 Active Scripts Active Ventolin Hfa Inhaler (Albuterol Sulfate) 18 Gm Hfa.aer.ad 2 Puff INH Q4HRS Reported Flomax (Tamsulosin Hcl) 0.4 Mg Cap.er.24h 1 Cap PO DAILY Advair 100-50 Diskus (Fluticasone/Salmeterol) 1 Each Disk.w.dev 1 Puff IH BID Acetaminophen 325 Mg Tablet 1 Tab PO PRN Q6HRS PRN 24 Days Hydrocodone-Acetamin 5-325 mg (Hydrocodone/Acetaminophen) 1 Each Tablet 1 Tab PO PRN Q6HRS PRN Diclofenac Sodium 100 Gm Gel..gram. 2 Gm TP PRN QID PRN Hydrocortisone 453.6 Gm Cream..g. 1 Nawaf TP BID Metoprolol Tartrate 25 Mg Tablet 25 Mg PO BID Klor-Con M20 (Potassium Chloride) 20 Meq Tab.er.prt 20 Meq PO QODAY Cetirizine Hcl 10 Mg Tablet 10 Mg PO DAILY Symbicort 80-4.5 Mcg Inhaler (Budesonide/Formoterol Fumarate) 10.2 Gm Hfa.aer.ad 2 Puff IH BID Protonix (Pantoprazole Sodium) 20 Mg Tablet. 1 Tab PO DAILY Senokot-S Tablet (Sennosides/Docusate Sodium) 1 Each Tablet 2 Tab PO BID 30 Days Finasteride 5 Mg Tablet 1 Tab PO DAILY Aspir-Low (Aspirin) 81 Mg Tablet. 1 Tab PO DAILY Lasix (Furosemide) 20 Mg Tablet 1 Tab PO QODAY 30 Days Allergies Allergies: Coded Allergies: Iodinated Contrast Media (Verified Allergy, Severe, 09/10/20) ROS General: YES: Fatigue, Malaise HEENT: No: Heacaches ALLERGY AND IMMUNOLOGY: No: Hives Hematological and Lymphatic: No: Bleeding Problems Respiratory: No: Cough, Hemoptysis Cardiovascular: No Chest Pain, No Palpitations Gastrointestinal: No Nausea, No Vomiting Genitourinary: No Dysuria, No Frequency Musculoskeletal: Yes Joint Pain, Yes Pain In: (Left hip) Neurological: No Bowel/Bladder ControlChng Skin: No Dry Skin Physical Exam General: Alert, Oriented X3 HEENT: Atraumatic Lungs: Clear to auscultation Heart: Regular rate, Normal S1, Normal S2 Abdomen: Normal bowel sounds, Soft Extremities: No clubbing Skin: No rashes Neuro: Normal speech MUSCULOSKELETAL: No swelling Vitals VITALS Vital Signs Date Time Temp Pulse Resp B/P (MAP) Pulse Ox O2 Delivery O2 Flow Rate FiO2 09/09/20 11:14 24 95 Nasal Cannula 3.0 09/09/20 11:00 98.3 97 122/71 (88) 98.3 Labs Labs Laboratory Tests Test 09/08/20 14:05 09/08/20 15:00 09/08/20 18:44 09/09/20 05:05 White Blood Count 10.4 x10^3/uL (4.0-11.0) 12.3 x10^3/uL (4.0-11.0) Red Blood Count 4.50 x10^6/uL (4.30-5.70) 3.95 x10^6/uL (4.30-5.70) Hemoglobin 11.3 g/dL (13.0-17.5) 9.7 g/dL (13.0-17.5) Hematocrit 35.3 % (39.0-53.0) 31.3 % (39.0-53.0) Mean Corpuscular Volume 78 fL (79-100) 79 fL (79-100) Mean Corpuscular Hemoglobin 25 pg (25-35) 25 pg (25-35) Mean Corpuscular Hemoglobin Concent 32 g/dL (31-37) 31 g/dL (31-37) Red Cell Distribution Width 15.4 % (11.5-14.5) 15.7 % (11.5-14.5) Platelet Count 125 x10^3/uL (140-400) 110 x10^3/uL (140-400) Neutrophils (%) (Auto) 93 % (31-73) 97 % (31-73) Lymphocytes (%) (Auto) 4 % (24-48) 3 % (24-48) Monocytes (%) (Auto) 3 % (0-9) 1 % (0-9) Eosinophils (%) (Auto) 0 % (0-3) 0 % (0-3) Basophils (%) (Auto) 0 % (0-3) 0 % (0-3) Neutrophils # (Auto) 9.6 x10^3/uL (1.8-7.7) 11.9 x10^3/uL (1.8-7.7) Lymphocytes # (Auto) 0.4 x10^3/uL (1.0-4.8) 0.3 x10^3/uL (1.0-4.8) Monocytes # (Auto) 0.3 x10^3/uL (0.0-1.1) 0.1 x10^3/uL (0.0-1.1) Eosinophils # (Auto) 0.0 x10^3/uL (0.0-0.7) 0.0 x10^3/uL (0.0-0.7) Basophils # (Auto) 0.0 x10^3/uL (0.0-0.2) 0.0 x10^3/uL (0.0-0.2) Segmented Neutrophils % 69 % (35-66) Band Neutrophils % 23 % (0-9) Lymphocytes % 5 % (24-48) Monocytes % 3 % (0-10) Platelet Estimate Adequate (ADEQUATE) Large Platelets Present Sodium Level 136 mmol/L (136-145) 138 mmol/L (136-145) Potassium Level 4.5 mmol/L (3.5-5.1) 5.2 mmol/L (3.5-5.1) Chloride Level 101 mmol/L (98-107) 106 mmol/L (98-107) Carbon Dioxide Level 25 mmol/L (21-32) 24 mmol/L (21-32) Anion Gap 10 (6-14) 8 (6-14) Blood Urea Nitrogen 23 mg/dL (8-26) 21 mg/dL (8-26) Creatinine 1.9 mg/dL (0.7-1.3) 1.5 mg/dL (0.7-1.3) Estimated GFR (Cockcroft-Gault) 34.5 45.4 BUN/Creatinine Ratio 12 (6-20) 14 (6-20) Glucose Level 159 mg/dL (70-99) 183 mg/dL (70-99) Lactic Acid Level 2.6 mmol/L (0.4-2.0) 0.8 mmol/L (0.4-2.0) Calcium Level 8.9 mg/dL (8.5-10.1) 8.1 mg/dL (8.5-10.1) Total Bilirubin 1.3 mg/dL (0.2-1.0) 0.8 mg/dL (0.2-1.0) Aspartate Amino Transf (AST/SGOT) 61 U/L (15-37) 35 U/L (15-37) Alanine Aminotransferase (ALT/SGPT) 50 U/L (16-63) 38 U/L (16-63) Alkaline Phosphatase 74 U/L (46-116) 65 U/L (46-116) Troponin I Quantitative < 0.017 ng/mL (0.000-0.055) C-Reactive Protein, Quantitative 28.0 mg/L (0-3.3) BE-Pqt-I-Type Natriuretic Peptide 673 pg/mL (0-449) 1203 pg/mL (0-449) Total Protein 8.0 g/dL (6.4-8.2) 7.5 g/dL (6.4-8.2) Albumin 3.7 g/dL (3.4-5.0) 3.0 g/dL (3.4-5.0) Albumin/Globulin Ratio 0.9 (1.0-1.7) 0.7 (1.0-1.7) Procalcitonin 1.12 ng/mL (0.00-0.10) Influenza Type A Antigen Negative (NEGATIVE) Influenza Type B Antigen Negative (NEGATIVE) Laboratory Tests Test 09/08/20 15:00 09/08/20 18:44 09/09/20 05:05 Influenza Type A Antigen Negative (NEGATIVE) Influenza Type B Antigen Negative (NEGATIVE) Lactic Acid Level 0.8 mmol/L (0.4-2.0) White Blood Count 12.3 x10^3/uL (4.0-11.0) Red Blood Count 3.95 x10^6/uL (4.30-5.70) Hemoglobin 9.7 g/dL (13.0-17.5) Hematocrit 31.3 % (39.0-53.0) Mean Corpuscular Volume 79 fL (79-100) Mean Corpuscular Hemoglobin 25 pg (25-35) Mean Corpuscular Hemoglobin Concent 31 g/dL (31-37) Red Cell Distribution Width 15.7 % (11.5-14.5) Platelet Count 110 x10^3/uL (140-400) Neutrophils (%) (Auto) 97 % (31-73) Lymphocytes (%) (Auto) 3 % (24-48) Monocytes (%) (Auto) 1 % (0-9) Eosinophils (%) (Auto) 0 % (0-3) Basophils (%) (Auto) 0 % (0-3) Neutrophils # (Auto) 11.9 x10^3/uL (1.8-7.7) Lymphocytes # (Auto) 0.3 x10^3/uL (1.0-4.8) Monocytes # (Auto) 0.1 x10^3/uL (0.0-1.1) Eosinophils # (Auto) 0.0 x10^3/uL (0.0-0.7) Basophils # (Auto) 0.0 x10^3/uL (0.0-0.2) Sodium Level 138 mmol/L (136-145) Potassium Level 5.2 mmol/L (3.5-5.1) Chloride Level 106 mmol/L (98-107) Carbon Dioxide Level 24 mmol/L (21-32) Anion Gap 8 (6-14) Blood Urea Nitrogen 21 mg/dL (8-26) Creatinine 1.5 mg/dL (0.7-1.3) Estimated GFR (Cockcroft-Gault) 45.4 BUN/Creatinine Ratio 14 (6-20) Glucose Level 183 mg/dL (70-99) Calcium Level 8.1 mg/dL (8.5-10.1) Total Bilirubin 0.8 mg/dL (0.2-1.0) Aspartate Amino Transf (AST/SGOT) 35 U/L (15-37) Alanine Aminotransferase (ALT/SGPT) 38 U/L (16-63) Alkaline Phosphatase 65 U/L (46-116) GV-Izm-E-Type Natriuretic Peptide 1203 pg/mL (0-449) Total Protein 7.5 g/dL (6.4-8.2) Albumin 3.0 g/dL (3.4-5.0) Albumin/Globulin Ratio 0.7 (1.0-1.7) Assessment/Plan Assessment/Plan Assessment: Smoldering multiple myeloma with concern for progression to multiple myeloma Normocytic anemia Thrombocytopenia Left hip pain Chronic kidney disease, with baseline creatinine of 1.3 per outside records Acute hypoxic respiratory failure Recommendations: -Patient has known history of smoldering multiple myeloma based on bone marrow biopsy obtained at in March 2020 that showed 10% plasma cells. He recently received PET/CT at [facility] on 09/11/2020 which showed no evidence of lytic lesions. He does have gradually progressing anemia over the past 12 months based on review of records at [facility] -While paraprotein levels over the past 12 months have been stable, his bone marrow biopsy cytogenetics have previously shown t (11,14) which has been reported to be associated with lower levels of paraprotein -I discussed the evaluation and management of smoldering multiple myeloma with the patient. They have previously followed with Dr. Crump at [facility]. We discussed that both lenalidomide monotherapy and observation are reasonable options in the setting. They have previously explored clinical trial participation at and remain undecided on this option -Given recent anemia and persistent thrombocytopenia, would be concerned for progression of his disease to symptomatic multiple myeloma for which he would require systemic therapy. I recommended a bone marrow biopsy at this time and discussed this recommendation with the patient and his son -Continue evaluation of acute respiratory failure per pulmonology service -Rest per Dr. Vincent Alba MD Medical Oncology/Hematology Ph: [phone] TALISHA ALBA MD Sep 09, 2020 14:31
[2020-09-09 15:00] VITALS: BP 117/68
[2020-09-09] MEDS: CEFEPIME HCL IV Push 2 GM VIAL. IVP SCH (17:56)
[2020-09-09 19:27] VITALS: BP 110/65
[2020-09-09 22:11] VITALS: BP 108/78
[2020-09-10 02:52] VITALS: BP 117/77
[2020-09-10] MEDS: IV NORMAL SALINE 1000ML BAG 1,000 ML IV SCH (06:10)
[2020-09-10] MEDS: BENZOCAINE/MENTHOL LOZENGE. PO PRN ×2 (06:33→08:42)
[2020-09-10 07:00] VITALS: BP 134/68
[2020-09-10 07:34] LABS: BASO % 0 % (0-3); EOS % 0 % (0-3); HEMATOCRIT 28.7 % (39.0-53.0); LYMPH # 0.5 x10^3/uL (1.0-4.8); LYMPH % 4 % (24-48); MEAN CORPUSCULAR HEMOGLOBIN 24 pg (25-35); MEAN CORPUSCULAR HGB CONC 31 g/dL (31-37); MEAN CORPUSCULAR VOLUME 78 fL (79-100); MONO # 0.2 x10^3/uL (0.0-1.1); MONO % 2 % (0-9); NEUT # 10.4 x10^3/uL (1.8-7.7); NEUT % 94 % (31-73); PLATELET COUNT 104 x10^3/uL (140-400); RED BLOOD COUNT 3.67 x10^6/uL (4.30-5.70); RED CELL DISTRIBUTION WIDTH 15.7 % (11.5-14.5); WHITE BLOOD COUNT 11.2 x10^3/uL (4.0-11.0)
[2020-09-10 07:39] LABS: CALCIUM 8.7 mg/dL (8.5-10.1); CREATININE 1.3 mg/dL (0.7-1.3); GFR 53.5; POTASSIUM 3.6 mmol/L (3.5-5.1)
--- NOTE | 2020-09-10 08:19 | PDOC ---
Infectious Disease Note Subjective Subjective pt is cont to c/o hip pain, shoulder pain O2 down to 2 lit ROS ROS no n/v/d/fever Vital Sign Vital Signs Vital Signs Date Time Temp Pulse Resp B/P (MAP) Pulse Ox O2 Delivery O2 Flow Rate FiO2 09/10/20 02:52 97.8 91 22 117/77 (90) Nasal Cannula 3.0 97.8 09/09/20 22:27 96 Physical Exam PHYSICAL EXAM GENERAL: Alert, oriented gentleman, not in distress. VITAL SIGNS: Stable, afebrile. HEENT: NAD. NECK: Supple, no JVP, no lymphadenopathy. LUNGS: Clear. HEART: S1, S2 regular. ABDOMEN: Benign. EXTREMITIES: No edema, cyanosis. SKIN: Unremarkable. NEUROLOGIC: The patient is alert, awake and appropriate. No focal neurologic deficit. Labs Lab Laboratory Tests Test 09/10/20 07:02 White Blood Count 11.2 x10^3/uL (4.0-11.0) Red Blood Count 3.67 x10^6/uL (4.30-5.70) Hemoglobin 9.0 g/dL (13.0-17.5) Hematocrit 28.7 % (39.0-53.0) Mean Corpuscular Volume 78 fL (79-100) Mean Corpuscular Hemoglobin 24 pg (25-35) Mean Corpuscular Hemoglobin Concent 31 g/dL (31-37) Red Cell Distribution Width 15.7 % (11.5-14.5) Platelet Count 104 x10^3/uL (140-400) Neutrophils (%) (Auto) 94 % (31-73) Lymphocytes (%) (Auto) 4 % (24-48) Monocytes (%) (Auto) 2 % (0-9) Eosinophils (%) (Auto) 0 % (0-3) Basophils (%) (Auto) 0 % (0-3) Neutrophils # (Auto) 10.4 x10^3/uL (1.8-7.7) Lymphocytes # (Auto) 0.5 x10^3/uL (1.0-4.8) Monocytes # (Auto) 0.2 x10^3/uL (0.0-1.1) Eosinophils # (Auto) 0.0 x10^3/uL (0.0-0.7) Basophils # (Auto) 0.0 x10^3/uL (0.0-0.2) Sodium Level 145 mmol/L (136-145) Potassium Level 3.6 mmol/L (3.5-5.1) Chloride Level 111 mmol/L (98-107) Carbon Dioxide Level 25 mmol/L (21-32) Anion Gap 9 (6-14) Blood Urea Nitrogen 21 mg/dL (8-26) Creatinine 1.3 mg/dL (0.7-1.3) Estimated GFR (Cockcroft-Gault) 53.5 Glucose Level 115 mg/dL (70-99) Calcium Level 8.7 mg/dL (8.5-10.1) Micro Microbiology 09/08/20 Blood Culture - Preliminary, Resulted NO GROWTH AFTER 1 DAY Objective Assessment IMPRESSION: 1. Pulmonary infiltrate, COVID-19. neg 2. Chronic obstructive pulmonary disease. 3. Hypoxic respiratory failure. 4. Acute kidney injury. 5. History of seizure disorder. 6. Recent workup going on for multiple myeloma. 7. Left leg and hip pain. Plan Plan of Care d/c cefepime cont levaquin, po ok to d/c to have f/u with RAHEL QUINTANILLA MD Sep 10, 2020 08:19
[2020-09-10] MEDS: BUDESONIDE 0.5 MG/2 ML NEBU. NEB SCH (08:23)
[2020-09-10] MEDS: IPRATROPIUM/ALBUTEROL 20/100mcg/INH INHALER. INH SCH ×2 (08:41→12:27)
[2020-09-10] MEDS: ALBUTEROL SULFATE 8GM INHALER. INH PRN (08:41)
[2020-09-10] MEDS: ASPIRIN ENTERIC COATED 81 MG TABLET.DR. PO SCH (08:41)
[2020-09-10] MEDS: CETIRIZINE HCL 10 MG TABLET. PO SCH (08:42)
[2020-09-10] MEDS: SENNOSIDES/DOCUSATE 8.6/50MG TABLET. PO SCH (08:42)
[2020-09-10] MEDS: METOPROLOL TART IMMED RELEASE 25 MG TABLET. PO SCH (08:42)
[2020-09-10] MEDS: PANTOPRAZOLE 40 MG TABLET.DR. PO SCH (08:43)
[2020-09-10] MEDS: HYDROCORTISONE 1% TOPICAL CREAM 30GM TUBE. TP SCH (08:43)
[2020-09-10] MEDS: DICLOFENAC SODIUM 1% TOPICAL GEL 100GM TUBE. TP PRN (08:43)
[2020-09-10] MEDS: FINASTERIDE 5 MG TABLET. PO SCH (08:43)
[2020-09-10] MEDS: TAMSULOSIN 0.4 MG CAP.ER.24H. PO SCH (08:43)
[2020-09-10] MEDS ORDERED: POTASSIUM CHLORIDE 20 MEQ TABLET.ER. PO SCH (09:00)
[2020-09-10] MEDS ORDERED: ENOXAPARIN 40 MG/0.4 ML SYRINGE. SQ SCH (09:00)
[2020-09-10] MEDS ORDERED: FUROSEMIDE 20 MG TABLET PO SCH (09:00)
--- NOTE | 2020-09-10 10:30 | PDOC ---
PULMONARY PROGRESS NOTES DATE: 09/10/20 TIME: 10:27 Subjective Patient is resting comfortably on 2 L nasal cannula Afebrile No overnight concerns from nursing Vitals Vital Signs Date Time Temp Pulse Resp B/P (MAP) Pulse Ox O2 Delivery O2 Flow Rate FiO2 09/10/20 08:42 91 117/77 09/10/20 08:26 93 Nasal Cannula 3.0 09/10/20 07:00 96.5 20 96.5 ROS: No Nausea, No Chest Pain, No Abdominal Pain, No Increase Cough General: Alert, Oriented X4 HEENT: Other Lungs: Clear Cardiovascular: S1, S2 Abdomen: Soft, Non-tender Neuro Exam: Alert Extremities: No Edema Skin: Warm Labs Laboratory Tests Test 09/08/20 14:05 09/08/20 15:00 09/08/20 18:44 09/09/20 05:05 White Blood Count 10.4 x10^3/uL (4.0-11.0) 12.3 x10^3/uL (4.0-11.0) Red Blood Count 4.50 x10^6/uL (4.30-5.70) 3.95 x10^6/uL (4.30-5.70) Hemoglobin 11.3 g/dL (13.0-17.5) 9.7 g/dL (13.0-17.5) Hematocrit 35.3 % (39.0-53.0) 31.3 % (39.0-53.0) Mean Corpuscular Volume 78 fL (79-100) 79 fL (79-100) Mean Corpuscular Hemoglobin 25 pg (25-35) 25 pg (25-35) Mean Corpuscular Hemoglobin Concent 32 g/dL (31-37) 31 g/dL (31-37) Red Cell Distribution Width 15.4 % (11.5-14.5) 15.7 % (11.5-14.5) Platelet Count 125 x10^3/uL (140-400) 110 x10^3/uL (140-400) Neutrophils (%) (Auto) 93 % (31-73) 97 % (31-73) Lymphocytes (%) (Auto) 4 % (24-48) 3 % (24-48) Monocytes (%) (Auto) 3 % (0-9) 1 % (0-9) Eosinophils (%) (Auto) 0 % (0-3) 0 % (0-3) Basophils (%) (Auto) 0 % (0-3) 0 % (0-3) Neutrophils # (Auto) 9.6 x10^3/uL (1.8-7.7) 11.9 x10^3/uL (1.8-7.7) Lymphocytes # (Auto) 0.4 x10^3/uL (1.0-4.8) 0.3 x10^3/uL (1.0-4.8) Monocytes # (Auto) 0.3 x10^3/uL (0.0-1.1) 0.1 x10^3/uL (0.0-1.1) Eosinophils # (Auto) 0.0 x10^3/uL (0.0-0.7) 0.0 x10^3/uL (0.0-0.7) Basophils # (Auto) 0.0 x10^3/uL (0.0-0.2) 0.0 x10^3/uL (0.0-0.2) Segmented Neutrophils % 69 % (35-66) Band Neutrophils % 23 % (0-9) Lymphocytes % 5 % (24-48) Monocytes % 3 % (0-10) Platelet Estimate Adequate (ADEQUATE) Large Platelets Present Sodium Level 136 mmol/L (136-145) 138 mmol/L (136-145) Potassium Level 4.5 mmol/L (3.5-5.1) 5.2 mmol/L (3.5-5.1) Chloride Level 101 mmol/L (98-107) 106 mmol/L (98-107) Carbon Dioxide Level 25 mmol/L (21-32) 24 mmol/L (21-32) Anion Gap 10 (6-14) 8 (6-14) Blood Urea Nitrogen 23 mg/dL (8-26) 21 mg/dL (8-26) Creatinine 1.9 mg/dL (0.7-1.3) 1.5 mg/dL (0.7-1.3) Estimated GFR (Cockcroft-Gault) 34.5 45.4 BUN/Creatinine Ratio 12 (6-20) 14 (6-20) Glucose Level 159 mg/dL (70-99) 183 mg/dL (70-99) Lactic Acid Level 2.6 mmol/L (0.4-2.0) 0.8 mmol/L (0.4-2.0) Calcium Level 8.9 mg/dL (8.5-10.1) 8.1 mg/dL (8.5-10.1) Total Bilirubin 1.3 mg/dL (0.2-1.0) 0.8 mg/dL (0.2-1.0) Aspartate Amino Transf (AST/SGOT) 61 U/L (15-37) 35 U/L (15-37) Alanine Aminotransferase (ALT/SGPT) 50 U/L (16-63) 38 U/L (16-63) Alkaline Phosphatase 74 U/L (46-116) 65 U/L (46-116) Troponin I Quantitative < 0.017 ng/mL (0.000-0.055) C-Reactive Protein, Quantitative 28.0 mg/L (0-3.3) XG-Ywh-P-Type Natriuretic Peptide 673 pg/mL (0-449) 1203 pg/mL (0-449) Total Protein 8.0 g/dL (6.4-8.2) 7.5 g/dL (6.4-8.2) Albumin 3.7 g/dL (3.4-5.0) 3.0 g/dL (3.4-5.0) Albumin/Globulin Ratio 0.9 (1.0-1.7) 0.7 (1.0-1.7) Procalcitonin 1.12 ng/mL (0.00-0.10) Coronavirus (PCR) Not detected (Not Detected) Influenza Type A Antigen Negative (NEGATIVE) Influenza Type B Antigen Negative (NEGATIVE) Test 09/10/20 07:02 White Blood Count 11.2 x10^3/uL (4.0-11.0) Red Blood Count 3.67 x10^6/uL (4.30-5.70) Hemoglobin 9.0 g/dL (13.0-17.5) Hematocrit 28.7 % (39.0-53.0) Mean Corpuscular Volume 78 fL (79-100) Mean Corpuscular Hemoglobin 24 pg (25-35) Mean Corpuscular Hemoglobin Concent 31 g/dL (31-37) Red Cell Distribution Width 15.7 % (11.5-14.5) Platelet Count 104 x10^3/uL (140-400) Neutrophils (%) (Auto) 94 % (31-73) Lymphocytes (%) (Auto) 4 % (24-48) Monocytes (%) (Auto) 2 % (0-9) Eosinophils (%) (Auto) 0 % (0-3) Basophils (%) (Auto) 0 % (0-3) Neutrophils # (Auto) 10.4 x10^3/uL (1.8-7.7) Lymphocytes # (Auto) 0.5 x10^3/uL (1.0-4.8) Monocytes # (Auto) 0.2 x10^3/uL (0.0-1.1) Eosinophils # (Auto) 0.0 x10^3/uL (0.0-0.7) Basophils # (Auto) 0.0 x10^3/uL (0.0-0.2) Sodium Level 145 mmol/L (136-145) Potassium Level 3.6 mmol/L (3.5-5.1) Chloride Level 111 mmol/L (98-107) Carbon Dioxide Level 25 mmol/L (21-32) Anion Gap 9 (6-14) Blood Urea Nitrogen 21 mg/dL (8-26) Creatinine 1.3 mg/dL (0.7-1.3) Estimated GFR (Cockcroft-Gault) 53.5 Glucose Level 115 mg/dL (70-99) Calcium Level 8.7 mg/dL (8.5-10.1) Laboratory Tests Test 09/10/20 07:02 White Blood Count 11.2 x10^3/uL (4.0-11.0) Red Blood Count 3.67 x10^6/uL (4.30-5.70) Hemoglobin 9.0 g/dL (13.0-17.5) Hematocrit 28.7 % (39.0-53.0) Mean Corpuscular Volume 78 fL (79-100) Mean Corpuscular Hemoglobin 24 pg (25-35) Mean Corpuscular Hemoglobin Concent 31 g/dL (31-37) Red Cell Distribution Width 15.7 % (11.5-14.5) Platelet Count 104 x10^3/uL (140-400) Neutrophils (%) (Auto) 94 % (31-73) Lymphocytes (%) (Auto) 4 % (24-48) Monocytes (%) (Auto) 2 % (0-9) Eosinophils (%) (Auto) 0 % (0-3) Basophils (%) (Auto) 0 % (0-3) Neutrophils # (Auto) 10.4 x10^3/uL (1.8-7.7) Lymphocytes # (Auto) 0.5 x10^3/uL (1.0-4.8) Monocytes # (Auto) 0.2 x10^3/uL (0.0-1.1) Eosinophils # (Auto) 0.0 x10^3/uL (0.0-0.7) Basophils # (Auto) 0.0 x10^3/uL (0.0-0.2) Sodium Level 145 mmol/L (136-145) Potassium Level 3.6 mmol/L (3.5-5.1) Chloride Level 111 mmol/L (98-107) Carbon Dioxide Level 25 mmol/L (21-32) Anion Gap 9 (6-14) Blood Urea Nitrogen 21 mg/dL (8-26) Creatinine 1.3 mg/dL (0.7-1.3) Estimated GFR (Cockcroft-Gault) 53.5 Glucose Level 115 mg/dL (70-99) Calcium Level 8.7 mg/dL (8.5-10.1) Medications Active Scripts Medications Dose Route/Sig Max Daily Dose Days Date Category Flomax (Tamsulosin Hcl) 0.4 Mg Cap.er.24h 1 Cap PO DAILY 09/08/20 Reported Advair 100-50 Diskus (Fluticasone/Salmeterol) 1 Each Disk.w.dev 1 Puff IH BID 09/08/20 Reported Acetaminophen 325 Mg Tablet 1 Tab PO PRN Q6HRS PRN 24 09/08/20 Reported Hydrocodone-Acetamin 5-325 mg (Hydrocodone/Acetaminophen) 1 Each Tablet 1 Tab PO PRN Q6HRS PRN 09/08/20 Reported Diclofenac Sodium 100 Gm Gel..gram. 2 Gm TP PRN QID PRN 09/08/20 Reported Hydrocortisone 453.6 Gm Cream..g. 1 Nawaf TP BID 09/08/20 Reported Metoprolol Tartrate 25 Mg Tablet 25 Mg PO BID 06/07/19 Reported Klor-Con M20 (Potassium Chloride) 20 Meq Tab.er.prt 20 Meq PO QODAY 06/06/19 Reported Cetirizine Hcl 10 Mg Tablet 10 Mg PO DAILY 06/06/19 Reported Symbicort 80-4.5 Mcg Inhaler (Budesonide/Formoterol Fumarate) 10.2 Gm Hfa.aer.ad 2 Puff IH BID 06/06/19 Reported Protonix (Pantoprazole Sodium) 20 Mg Tablet.dr 1 Tab PO DAILY 06/06/19 Reported Senokot-S Tablet (Sennosides/Docusate Sodium) 1 Each Tablet 2 Tab PO BID 30 06/06/19 Reported Finasteride 5 Mg Tablet 1 Tab PO DAILY 06/06/19 Reported Aspir-Low (Aspirin) 81 Mg Tablet.dr 1 Tab PO DAILY 06/06/19 Reported Lasix (Furosemide) 20 Mg Tablet 1 Tab PO QODAY 30 06/06/19 Reported Ventolin Hfa Inhaler (Albuterol Sulfate) 18 Gm Hfa.aer.ad 2 Puff INH Q4HRS 02/18/19 Rx Impression . IMPRESSION: 1. Acute hypoxic respiratory failure with bilateral interstitial infiltrates. Differential diagnosis would include possible COVID pneumonia versus neurogenic edema related to seizure. Interstitial pneumonia would also be in the differential diagnosis. 2. Leukocytosis, likely secondary to steroids. 3. Mild acute kidney injury. 4. Minimal tobacco history. 5. Questionable history of multiple myeloma. 6. History of seizure disorder. Plan . RECOMMENDATIONS: Continue supplemental oxygen to keep oxygen saturations greater than 90%, currently at baseline oxygen requirement of 2 L nasal cannula COVID-19 negative "Dilators as needed Echocardiogram reviewed Continue antibiotics per infectious disease, currently on Levaquin p.o. Follow hematology oncology recommendations DVT/GI prophylaxis Okay to discharge home today from our standpoint if okay with other consults, patient to follow-up with the lung clinic and hematology oncology at [facility] KIRSTIN SR MD Sep 10, 2020 10:30
[2020-09-10 11:00] VITALS: BP 132/82
--- NOTE | 2020-09-10 11:23 | SNU/HH DC ---
DISCHARGE WITH HOME HEALTH DISCHARGE INFORMATION: Final Diagnosis: Problems Medical Problems: (1) Healthcare-associated pneumonia Status: Acute (2) History of multiple myeloma Status: Acute (3) History of seizure Status: Acute (4) Hypoxemia Status: Acute (5) Renal insufficiency Status: Acute (6) Sepsis Status: Acute Condition on Discharge: Stable CODE STATUS: Code Status: Full HOME HEALTH: Face to Face: I certify this patient is under my care and that I, or a nurse practitioner or physician's mailing machine assistant working with me, had a face to face encounter that meets the physician face to face encounter requirements with this patient on []. Medical Complications: Pneumonia Senior Care For: Assess & Educate Safety RN For Eval/Treatment: Yes Physical Therapy For: Evalulation/Treatment Occupational Therapy For: Evaluation/Treatment Home Health Aide For: Self-care PROCUREMENT PROFESSIONAL For: Community Resources Pt Meets Homebound Status: Fatigue w/ amb. POST DISCHARGE ORDERS: Activity Instructions for Disc: Activity as tolerated Weight Bearing Status after Di: As tolerated DIET AFTER DISCHARGE: Cardiac CHECKS AFTER DISCHARGE: Checks after discharge: Check blood press - daily, Check your Temp as needed TREATMENT/EQUIPMENT ORDERS: Adaptive Equipment Issued: None CERTIFICATION STATEMENT: Certification Statement: Certification Statement: Based on the above finding, I certify that this patient is confined to the home and needs intermittent detention care, physical therapy and/or speech therapy, or continues to need occupational therapy.~ This patient is under my care, and I have initiated the establishment of the plan of care.~ This patient will be followed by myself or a community physician who will periodically review the plan of care. Home Meds Active Scripts Albuterol Sulfate (VENTOLIN HFA INHALER) 18 Gm Hfa.aer.ad, 2 PUFF INH Q4HRS for FOR ASTHMA, #1 INHALER 0 Refills Prov:RODRIGUEZ DICKERSON FRONT DESK PERSON 02/18/19 Reported Medications Tamsulosin Hcl (FLOMAX) 0.4 Mg Cap.er.24h, 1 CAP PO DAILY for bph, #30 CAP 11 Refills 09/08/20 Fluticasone/Salmeterol (ADVAIR 100-50 DISKUS) 1 Each Disk.w.dev, 1 PUFF IH BID for shortness of air, #1 INHALER 5 Refills 09/08/20 Acetaminophen (ACETAMINOPHEN) 325 Mg Tablet, 1 TAB PO PRN Q6HRS PRN for PAIN for 24 Days, #100 TAB 0 Refills 09/08/20 Hydrocodone/Acetaminophen (Hydrocodone-Acetamin 5-325 mg) 1 Each Tablet, 1 TAB PO PRN Q6HRS PRN for PAIN 09/08/20 Diclofenac Sodium (Diclofenac Sodium) 100 Gm Gel..gram., 2 GM TP PRN QID PRN for PAIN 09/08/20 Hydrocortisone (HYDROCORTISONE) 453.6 Gm Cream..g., 1 NATALIA TP BID for pain 09/08/20 Metoprolol Tartrate (METOPROLOL TARTRATE) 25 Mg Tablet, 25 MG PO BID for FOR HYPERTENSION, #60 TAB 0 Refills 06/07/19 Potassium Chloride (KLOR-CON M20) 20 Meq Tab.er.prt, 20 MEQ PO QODAY for supplement 06/06/19 Cetirizine Hcl (CETIRIZINE HCL) 10 Mg Tablet, 10 MG PO DAILY for allergies 06/06/19 Budesonide/Formoterol Fumarate (SYMBICORT 80-4.5 MCG INHALER) 10.2 Gm H fa.aer.ad, 2 PUFF IH BID for COPD, #10.2 GM 5 Refills 06/06/19 Pantoprazole Sodium (PROTONIX) 20 Mg Tablet.dr, 1 TAB PO DAILY for GERD, #30 TAB 06/06/19 Sennosides/Docusate Sodium (SENOKOT-S TABLET) 1 Each Tablet, 2 TAB PO BID for constipation for 30 Days, #120 TAB 0 Refills 06/06/19 Finasteride (FINASTERIDE) 5 Mg Tablet, 1 TAB PO DAILY for Urinary retention, #30 TAB 11 Refills 06/06/19 Aspirin (ASPIR-LOW) 81 Mg Tablet.dr, 1 TAB PO DAILY for prophylaxis, #30 TAB 3 Refills 06/06/19 Furosemide (LASIX) 20 Mg Tablet, 1 TAB PO QODAY for CHF for 30 Days, #30 TAB 0 Refills 06/06/19 MONICA OTERO III DO Sep 10, 2020 11:23
--- NOTE | 2020-09-10 11:25 | PDOC ---
[employer] PROGRESS NOTE Date of Service DOS: DATE: 09/10/20 TIME: 11:19 Chief Complaint Chief Complaint Intractable left leg pain Shortness of breath Possible Covid Healthcare-associated pneumonia Hypoxemia Multiple myeloma Seizure Renal insufficiency History of Present Illness History of Present Illness This 75-year-old male presented with complaints of a seizure this morning and shortness of air. He was recently discharged from on the and was having on going pain issues with his left upper leg. The patient is seen with his son in the ER, he speaks Khmer. The son states the patient is having workup for multiple myeloma, has not had followup, was dissatisfied with his care at [facility]. He presented with a seizure history, having a seizure today. Does not take any medications for the seizure and was found to be hypoxic in the Emergency Room and at home with high 80s and O2 saturation in low 90s here in the ER. The patient denies any fever or chest pain. He complains mainly of severe left upper intractable femur pain, unable to ambulate, unable to sit on the commode.he has failed out patient management 09/09/2020 -Patient seen and examined with neurology. Communicated with son about patient -Joe RN -Neurology believes seizure was actually rigors from fever, based on description from son -Chart reviewed 09/10/2020 -Patient seen and examined. Communicated with son about patient. -Covid negative. Awaiting echo results -Patient's oxygen down to 2L -Joe RN. Joe case picker -Chart reviewed Vitals/I&O Vitals/I&O: Vital Signs Date Time Temp Pulse Resp B/P (MAP) Pulse Ox O2 Delivery O2 Flow Rate FiO2 09/10/20 08:42 91 117/77 09/10/20 08:26 93 Nasal Cannula 3.0 09/10/20 07:00 96.5 20 96.5 I & O 09/09/20 09/09/20 09/10/20 15:00 23:00 07:00 Intake Total 400 ml 620 ml 2020 ml Output Total 520 ml 1320 ml 300 ml Balance -120 ml -700 ml 1720 ml Physical Exam Physical Exam: GENERAL: Alert, oriented gentleman, not in distress. VITAL SIGNS: Stable, afebrile. HEENT: NAD. NECK: Supple, no JVP, no lymphadenopathy. LUNGS: Clear. HEART: S1, S2 regular. ABDOMEN: Benign. EXTREMITIES: No edema, cyanosis. SKIN: Unremarkable. NEUROLOGIC: The patient is alert, awake and appropriate. No focal neurologic deficit. General: Alert, Oriented X3 Heart: Regular rate, Normal S1, Normal S2 Lungs: Clear Abdomen: Normal bowel sounds, Soft Extremities: No clubbing Skin: No rashes Labs Labs: Laboratory Tests Test 09/10/20 07:02 White Blood Count 11.2 x10^3/uL (4.0-11.0) Red Blood Count 3.67 x10^6/uL (4.30-5.70) Hemoglobin 9.0 g/dL (13.0-17.5) Hematocrit 28.7 % (39.0-53.0) Mean Corpuscular Volume 78 fL (79-100) Mean Corpuscular Hemoglobin 24 pg (25-35) Mean Corpuscular Hemoglobin Concent 31 g/dL (31-37) Red Cell Distribution Width 15.7 % (11.5-14.5) Platelet Count 104 x10^3/uL (140-400) Neutrophils (%) (Auto) 94 % (31-73) Lymphocytes (%) (Auto) 4 % (24-48) Monocytes (%) (Auto) 2 % (0-9) Eosinophils (%) (Auto) 0 % (0-3) Basophils (%) (Auto) 0 % (0-3) Neutrophils # (Auto) 10.4 x10^3/uL (1.8-7.7) Lymphocytes # (Auto) 0.5 x10^3/uL (1.0-4.8) Monocytes # (Auto) 0.2 x10^3/uL (0.0-1.1) Eosinophils # (Auto) 0.0 x10^3/uL (0.0-0.7) Basophils # (Auto) 0.0 x10^3/uL (0.0-0.2) Sodium Level 145 mmol/L (136-145) Potassium Level 3.6 mmol/L (3.5-5.1) Chloride Level 111 mmol/L (98-107) Carbon Dioxide Level 25 mmol/L (21-32) Anion Gap 9 (6-14) Blood Urea Nitrogen 21 mg/dL (8-26) Creatinine 1.3 mg/dL (0.7-1.3) Estimated GFR (Cockcroft-Gault) 53.5 Glucose Level 115 mg/dL (70-99) Calcium Level 8.7 mg/dL (8.5-10.1) Review of Systems Review of Systems: Denies CP. Denies fever. Assessment and Plan Assessmemt and Plan Problems Medical Problems: (1) Healthcare-associated pneumonia Status: Acute (2) History of multiple myeloma Status: Acute (3) History of seizure Status: Acute (4) Hypoxemia Status: Acute (5) Renal insufficiency Status: Acute (6) Sepsis Status: Acute Intractable left leg pain Shortness of breath Possible Covid Healthcare-associated pneumonia Hypoxemia Multiple myeloma Seizure Renal insufficiency 09/10/2020 Plan 1 Probable d/c home today with son with po Levaquin and Medrol dose pack. If not, continue the following 2 Supplemental oxygen 3 Await echo results 4 Appreciate subspecialist input 5 Full code 6 Home meds 7 DVT prophylaxis Comment Review of Relevant I have reviewed the following items luis (where applicable) has been applied. Medications: Current Medications Medications (Trade) Dose Ordered Sig/Marino Route PRN Reason Start Time Stop Time Status Last Admin Dose Admin Enoxaparin Sodium (Lovenox 40mg Syringe) 40 mg DAILY SQ 09/10/20 09:00 09/10/20 08:43 Furosemide (Lasix) 20 mg 1X ONCE IVP 09/09/20 12:15 09/09/20 12:16 DC 09/09/20 12:54 Sodium Chloride 1,000 ml @ 60 mls/hr [id number] IV 09/09/20 13:30 09/09/20 15:30 Throat Lozenges (Cepacol Sore Throat Lozenge) 1 carmencita PRN Q2HRS PRN PO SORE THROAT 09/10/20 06:30 09/10/20 08:42 Justifications for Admission Other Justification MONICA OTERO III DO Sep 10, 2020 11:25
[2020-09-10] MEDS ORDERED: FUROSEMIDE 20 MG/2 ML VIAL. IVP ONE (12:00)
--- NOTE | 2020-09-10 12:00 | PDOC ---
Renal-Progress Notes Subjective Notes Notes NO NEW COMPLAINTS History of Present Illness Hx of present illness STABLE Vitals Vitals Vital Signs Date Time Temp Pulse Resp B/P (MAP) Pulse Ox O2 Delivery O2 Flow Rate FiO2 09/10/20 08:42 91 117/77 09/10/20 08:26 93 Nasal Cannula 3.0 09/10/20 07:00 96.5 20 96.5 Weight Weight [ ] I.O. Intake and Output Intake and Output 09/10/20 07:00 Intake Total 3040 ml Output Total 2140 ml Balance 900 ml Intake Oral 3040 ml Output Urine Total 2140 ml # Voids 1 # Bowel Movements 3 Labs Labs Laboratory Tests Test 09/10/20 07:02 White Blood Count 11.2 x10^3/uL (4.0-11.0) Red Blood Count 3.67 x10^6/uL (4.30-5.70) Hemoglobin 9.0 g/dL (13.0-17.5) Hematocrit 28.7 % (39.0-53.0) Mean Corpuscular Volume 78 fL (79-100) Mean Corpuscular Hemoglobin 24 pg (25-35) Mean Corpuscular Hemoglobin Concent 31 g/dL (31-37) Red Cell Distribution Width 15.7 % (11.5-14.5) Platelet Count 104 x10^3/uL (140-400) Neutrophils (%) (Auto) 94 % (31-73) Lymphocytes (%) (Auto) 4 % (24-48) Monocytes (%) (Auto) 2 % (0-9) Eosinophils (%) (Auto) 0 % (0-3) Basophils (%) (Auto) 0 % (0-3) Neutrophils # (Auto) 10.4 x10^3/uL (1.8-7.7) Lymphocytes # (Auto) 0.5 x10^3/uL (1.0-4.8) Monocytes # (Auto) 0.2 x10^3/uL (0.0-1.1) Eosinophils # (Auto) 0.0 x10^3/uL (0.0-0.7) Basophils # (Auto) 0.0 x10^3/uL (0.0-0.2) Sodium Level 145 mmol/L (136-145) Potassium Level 3.6 mmol/L (3.5-5.1) Chloride Level 111 mmol/L (98-107) Carbon Dioxide Level 25 mmol/L (21-32) Anion Gap 9 (6-14) Blood Urea Nitrogen 21 mg/dL (8-26) Creatinine 1.3 mg/dL (0.7-1.3) Estimated GFR (Cockcroft-Gault) 53.5 Glucose Level 115 mg/dL (70-99) Calcium Level 8.7 mg/dL (8.5-10.1) Micro Micro Microbiology 09/08/20 Blood Culture - Preliminary, Resulted NO GROWTH AFTER 1 DAY Review of Systems Constitutional: yes: alert Ears/Nose/Throat: Yes: no symptom reported Eyes: Yes: no symptom reported Pulmonary: Yes no symptom reported Cardiovascular: Yes no symptom reported Gastrointestional: Yes: no symptom reported Genitourinary: Yes: no symptom reported Musculoskeletal: Yes: no symptom reported Skin: Yes no symptom reported Psychiatric/Neurological: Yes: no symptom reported Endocrine: Yes: no symptom reported Physical Exam General Appearance: no apparent distress Skin: warm Respiratory: bilateral CTA Heart: S1S2 Abdomen: soft, bowel sounds present Genitourinary: bladder flat Extremities: pulses present Neurology: alert, oriented Musculoskeletal: Osteoarthritis Assessment Assessment IMP MELISSA ESSENTIALLY RESOLVED HYPERKALEMIA-RESOLVED SUSPECT ECVD CKD STAGE 3 WITH CR OF 1.5 ACUTE HYPOXIC RESP FAILURE PROB COVID 19 PNEUMONIA HX OF HTN BPH - ON FLOMAX PLAN RENAL FUNCTION STABLE WILL SIGN OFF MARLENY CH MD Sep 10, 2020 11:59
--- NOTE | 2020-09-10 12:09 | PDOC ---
AMY VILLANUEVA WE[employer] SERVICE DERRICK WORKER 09/10/20 1209: CARDIO Progress Notes Date and Time Date of Service 09/10/20 Time of Evaluation 1200 Subjective Subjective: No Chest Pain, No Palpitations, Other (SOA improved ) Vitals Vitals Vital Signs Date Time Temp Pulse Resp B/P (MAP) Pulse Ox O2 Delivery O2 Flow Rate FiO2 09/10/20 08:42 91 117/77 09/10/20 08:26 93 Nasal Cannula 3.0 09/10/20 07:00 96.5 20 96.5 Weight Weight [ ] Input and Output Intake and Output Intake and Output 09/10/20 07:00 Intake Total 3040 ml Output Total 2140 ml Balance 900 ml Intake Oral 3040 ml Output Urine Total 2140 ml # Voids 1 # Bowel Movements 3 Laboratory Labs Laboratory Tests Test 09/10/20 07:02 White Blood Count 11.2 x10^3/uL (4.0-11.0) Red Blood Count 3.67 x10^6/uL (4.30-5.70) Hemoglobin 9.0 g/dL (13.0-17.5) Hematocrit 28.7 % (39.0-53.0) Mean Corpuscular Volume 78 fL (79-100) Mean Corpuscular Hemoglobin 24 pg (25-35) Mean Corpuscular Hemoglobin Concent 31 g/dL (31-37) Red Cell Distribution Width 15.7 % (11.5-14.5) Platelet Count 104 x10^3/uL (140-400) Neutrophils (%) (Auto) 94 % (31-73) Lymphocytes (%) (Auto) 4 % (24-48) Monocytes (%) (Auto) 2 % (0-9) Eosinophils (%) (Auto) 0 % (0-3) Basophils (%) (Auto) 0 % (0-3) Neutrophils # (Auto) 10.4 x10^3/uL (1.8-7.7) Lymphocytes # (Auto) 0.5 x10^3/uL (1.0-4.8) Monocytes # (Auto) 0.2 x10^3/uL (0.0-1.1) Eosinophils # (Auto) 0.0 x10^3/uL (0.0-0.7) Basophils # (Auto) 0.0 x10^3/uL (0.0-0.2) Sodium Level 145 mmol/L (136-145) Potassium Level 3.6 mmol/L (3.5-5.1) Chloride Level 111 mmol/L (98-107) Carbon Dioxide Level 25 mmol/L (21-32) Anion Gap 9 (6-14) Blood Urea Nitrogen 21 mg/dL (8-26) Creatinine 1.3 mg/dL (0.7-1.3) Estimated GFR (Cockcroft-Gault) 53.5 Glucose Level 115 mg/dL (70-99) Calcium Level 8.7 mg/dL (8.5-10.1) Microbiology Micro Microbiology 09/08/20 Blood Culture - Preliminary, Resulted NO GROWTH AFTER 1 DAY Review of Systems Constitutional: yes: alert Ears/Nose/Throat: Yes: no symptom reported Eyes: Yes: no symptom reported Pulmonary: Yes no symptom reported Cardiovascular: Yes no symptom reported Gastrointestional: Yes: no symptom reported Genitourinary: Yes: no symptom reported Musculoskeletal: Yes: no symptom reported Skin: Yes no symptom reported Psychiatric/Neurological: Yes: no symptom reported Endocrine: Yes: no symptom reported Physical Exam HEENT: Neck Supple W Full Motion Chest: Symmetric LUNGS: Other (diminished bases ) Extremities: No Edema Neurology: alert, oriented, follow commands Assessment Assessment 1. Acute respiratory failure with probable PNA, underlying COPD, and mild CHF 2. Leukocytosis, lactic acidosis. afebrile 3. Acute on chronic diastolic CHF; Echo 10/03 with preserved LV systolic function. Follows with Dr. Gene Pruitt with [facility] 4. Valvular disease; s/p bioprosthetic AVR and MitraClip done in 03/2018. Aortic valve well-seated per echo 10/03 as noted above. 5. H/o hypertension with present hypotension 6. MELISSA on CKD, hyperkalemia 7. ? H/o seizure disorder 8. Multiple Myeloma 9. BPH s/p TURP 10. PUI: COVID negative Recommendations Mild diuresis with monitoring of renal function Continue ASA, metoprolol Echo pending Ongoing lung optimization, treatment of PNA as per pulm and ID Supportive care Follow up with primary warp hauler upon discharge Justicifation of Admission Dx: Justifications for Admission: Justification of Admission Dx: Yes Comments: Acute respiratory failure Acute on chronic diastolic CHF JAVIER HUGHES MD 09/10/202030: CARDIO Progress Notes Assessment Assessment Patient seen and examined,. Agree with DOORKEEPER's assessment and plan. Ac on chr diastolic HF better compensated s/p bioprosthetic AVR and mitraclip procedure with echo showing mod bioprosthetic and Mitraclip with mod to sev MR Follow up with primary warp hauler in 2-4 weeks for further evaluation AMY VILLANUEVA APRN Sep 10, 2020 12:09 JAVIER HUGHES MD Sep 10, 2020 20:31
--- NOTE | 2020-09-10 12:46 | CARD ---
MR#: [id number] Date of Study: 09/10/2020 Ordering Physician: ANGELITO ESCOBAR, Referring Physician: ANGELITO ESCOBAR, Tech: Chelsie Valiente RAVEN APPROVED REPORT EXAM: Two-dimensional and M-mode echocardiogram with Doppler and color Doppler. Other Information Quality : Good INDICATION COPD History: Mitral Clip Surgery Surgery/Intervention Status/Post Aortic Valve Replacement: Bioprosthetic 2D DIMENSIONS RVDd2.8 (2.9-3.5cm)Left Atrium(2D)4.8 (1.6-4.0cm) IVSd1.5 (0.7-1.1cm)Aortic Root(2D)2.6 (2.0-3.7cm) LVDd4.9 (3.9-5.9cm)LVOT Diameter1.9 (1.8-2.4cm) PWd1.2 (0.7-1.1cm)LVDs3.2 (2.5-4.0cm) FS (%) 35.3 %SV72.7 ml LVEF(%)60.0 (>50%) Aortic Valve AoV Peak Shoaib.413.9cm/sAoV VTI79.1cm AO Peak GR.68.5mmHgLVOT Peak Shoaib.161.9cm/s AO Mean GR.37mmHgAVA (VMAX)1.09cm2 SHELIA (VTI)1.13aj2YI P 1/2 [id number] Mitral Valve MV E Lnpkkxbd653.7cm/sMV E Peak Gr.24mmHg MV DECEL [id number] A Iupmedwd262.1cm/s MV E Mean Gr.9mmHgE/A Ratio1.3 Tricuspid Valve TR P. Csumrmvl876ql/sRAP [id number] TR Peak Gr.63zaLkUDPC09zhHe Pulmonary Vein S1 Weqgwkhl28.1cm/sD2 Zbevtnph26.2cm/s LEFT VENTRICLE The left ventricle is normal size. There is mild to moderate concentric left ventricular hypertrophy. The left ventricular systolic function is normal and the ejection fraction is within normal range. T he Ejection Fraction is 55-60%. There is normal LV segmental wall motion. Transmitral Doppler flow pa ttern is restrictive diastolic dysfunction. RIGHT VENTRICLE The right ventricle is normal size. The right ventricular systolic function is normal. ATRIA The left atrium is mildly dilated. The right atrium is mildly dilated. The interatrial septum is inta ct with no evidence for an atrial septal defect or patent foramen ovale as noted on 2-D or Doppler im aging. AORTIC VALVE The aortic valve is not well visualized. Doppler and Color Flow revealed mild aortic regurgitation. C alculated aortic valve area is 1.2 cm2 with maximum pressure gradient of 69 mmHg and mean pressure gr adient of 37 mmHg consistent with moderate aortic stenosis. There is a bioprosthetic aortic valve pro sthesis. MITRAL VALVE Mitral annular calcification is mild to moderate. The mitral valve is calcified but appears to open w ell. There is no evidence of mitral valve prolapse. Calculated mitral valve area is 2.3 cm2 with maxi mum pressure gradient of 25 mmHg and mean pressure gradient of 9 mmHg. Doppler and Color-flow reveale d moderately severe eccentric mitral regurgitation. There is a mitral clip visualized. TRICUSPID VALVE The tricuspid valve is normal in structure and function. Doppler and Color Flow revealed moderately s evere tricuspid regurgitation. The PA pressure was estimated at 57 mmHg. There is no tricuspid valve stenosis. PULMONIC VALVE The pulmonic valve is not well visualized. Doppler and Color Flow revealed mild to moderate pulmonic valvular regurgitation. There is no pulmonic valvular stenosis. GREAT VESSELS The aortic root is normal in size. The ascending aorta is not well seen. The IVC is normal in size an d collapses <50% with inspiration. PERICARDIAL EFFUSION There is no evidence of significant pericardial effusion. Critical Notification Critical Value: No <Conclusion> The left ventricle is normal size. The left ventricular systolic function is normal and the ejection fraction is within normal range. The Ejection Fraction is 55-60%. There is mild to moderate concentric left ventricular hypertrophy. There is a bioprosthetic aortic valve prosthesis. Calculated aortic valve area is 1.2 cm2 with maximum pressure gradient of 69 mmHg and mean pressure g radient of 37 mmHg consistent with moderate aortic stenosis. Doppler and Color Flow revealed mild aortic regurgitation. There is a mitral clip visualized. Doppler and Color-flow revealed moderately severe eccentric mitral regurgitation. Doppler and Color Flow revealed moderately severe tricuspid regurgitation. The PA pressure was estimated at 57 mmHg. Signed by : Juan Steward MD Electronically Approved : 09/10/2020 12:46:00
--- NOTE | 2020-09-10 13:37 | PDOC ---
PROGRESS NOTES Date of Service DATE: 09/10/20 TIME: 13:35 Assessment Problems Medical Problems: (1) Healthcare-associated pneumonia Status: Acute (2) History of multiple myeloma Status: Acute (3) History of seizure Status: Acute (4) Hypoxemia Status: Acute (5) Renal insufficiency Status: Acute (6) Sepsis Status: Acute These are not seizures, he has had some tremors, possible rigors with fever. Note that consciousness is preserved, there is no tongue biting or incontinence. 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 Neurology signs off Subjective No complaints, wants to go home Objective Vital Signs Date Time Temp Pulse Resp B/P (MAP) Pulse Ox O2 Delivery O2 Flow Rate FiO2 09/10/20 11:00 97.6 96 22 132/82 (99) 98 Nasal Cannula 4.0 97.6 Intake and Output 09/10/20 07:00 Intake Total 3040 ml Output Total 2140 ml Balance 900 ml Intake Oral 3040 ml Output Urine Total 2140 ml # Voids 1 # Bowel Movements 3 PHYSICAL EXAM Physical Exam: Alert. Oriented to time, place and person, son translates. PERRL. EOMI. CN: no focal findings. Muscle tone: normal. Muscle strength: 5/5 DTR: 1+ Plantar reflex: Flexor Gait: not examined in bed. Sensory exam: no abnormal findings. No cerebellar signs elicited. Review of Relevant I have reviewed the following items luis (where applicable) has been applied. Labs Laboratory Tests Test 09/08/20 14:05 09/08/20 15:00 09/08/20 18:44 09/09/20 05:05 White Blood Count 10.4 x10^3/uL (4.0-11.0) 12.3 x10^3/uL (4.0-11.0) Red Blood Count 4.50 x10^6/uL (4.30-5.70) 3.95 x10^6/uL (4.30-5.70) Hemoglobin 11.3 g/dL (13.0-17.5) 9.7 g/dL (13.0-17.5) Hematocrit 35.3 % (39.0-53.0) 31.3 % (39.0-53.0) Mean Corpuscular Volume 78 fL (79-100) 79 fL (79-100) Mean Corpuscular Hemoglobin 25 pg (25-35) 25 pg (25-35) Mean Corpuscular Hemoglobin Concent 32 g/dL (31-37) 31 g/dL (31-37) Red Cell Distribution Width 15.4 % (11.5-14.5) 15.7 % (11.5-14.5) Platelet Count 125 x10^3/uL (140-400) 110 x10^3/uL (140-400) Neutrophils (%) (Auto) 93 % (31-73) 97 % (31-73) Lymphocytes (%) (Auto) 4 % (24-48) 3 % (24-48) Monocytes (%) (Auto) 3 % (0-9) 1 % (0-9) Eosinophils (%) (Auto) 0 % (0-3) 0 % (0-3) Basophils (%) (Auto) 0 % (0-3) 0 % (0-3) Neutrophils # (Auto) 9.6 x10^3/uL (1.8-7.7) 11.9 x10^3/uL (1.8-7.7) Lymphocytes # (Auto) 0.4 x10^3/uL (1.0-4.8) 0.3 x10^3/uL (1.0-4.8) Monocytes # (Auto) 0.3 x10^3/uL (0.0-1.1) 0.1 x10^3/uL (0.0-1.1) Eosinophils # (Auto) 0.0 x10^3/uL (0.0-0.7) 0.0 x10^3/uL (0.0-0.7) Basophils # (Auto) 0.0 x10^3/uL (0.0-0.2) 0.0 x10^3/uL (0.0-0.2) Segmented Neutrophils % 69 % (35-66) Band Neutrophils % 23 % (0-9) Lymphocytes % 5 % (24-48) Monocytes % 3 % (0-10) Platelet Estimate Adequate (ADEQUATE) Large Platelets Present Sodium Level 136 mmol/L (136-145) 138 mmol/L (136-145) Potassium Level 4.5 mmol/L (3.5-5.1) 5.2 mmol/L (3.5-5.1) Chloride Level 101 mmol/L (98-107) 106 mmol/L (98-107) Carbon Dioxide Level 25 mmol/L (21-32) 24 mmol/L (21-32) Anion Gap 10 (6-14) 8 (6-14) Blood Urea Nitrogen 23 mg/dL (8-26) 21 mg/dL (8-26) Creatinine 1.9 mg/dL (0.7-1.3) 1.5 mg/dL (0.7-1.3) Estimated GFR (Cockcroft-Gault) 34.5 45.4 BUN/Creatinine Ratio 12 (6-20) 14 (6-20) Glucose Level 159 mg/dL (70-99) 183 mg/dL (70-99) Lactic Acid Level 2.6 mmol/L (0.4-2.0) 0.8 mmol/L (0.4-2.0) Calcium Level 8.9 mg/dL (8.5-10.1) 8.1 mg/dL (8.5-10.1) Total Bilirubin 1.3 mg/dL (0.2-1.0) 0.8 mg/dL (0.2-1.0) Aspartate Amino Transf (AST/SGOT) 61 U/L (15-37) 35 U/L (15-37) Alanine Aminotransferase (ALT/SGPT) 50 U/L (16-63) 38 U/L (16-63) Alkaline Phosphatase 74 U/L (46-116) 65 U/L (46-116) Troponin I Quantitative < 0.017 ng/mL (0.000-0.055) C-Reactive Protein, Quantitative 28.0 mg/L (0-3.3) PZ-Vzr-U-Type Natriuretic Peptide 673 pg/mL (0-449) 1203 pg/mL (0-449) Total Protein 8.0 g/dL (6.4-8.2) 7.5 g/dL (6.4-8.2) Albumin 3.7 g/dL (3.4-5.0) 3.0 g/dL (3.4-5.0) Albumin/Globulin Ratio 0.9 (1.0-1.7) 0.7 (1.0-1.7) Procalcitonin 1.12 ng/mL (0.00-0.10) Coronavirus (PCR) Not detected (Not Detected) Influenza Type A Antigen Negative (NEGATIVE) Influenza Type B Antigen Negative (NEGATIVE) Test 09/10/20 07:02 White Blood Count 11.2 x10^3/uL (4.0-11.0) Red Blood Count 3.67 x10^6/uL (4.30-5.70) Hemoglobin 9.0 g/dL (13.0-17.5) Hematocrit 28.7 % (39.0-53.0) Mean Corpuscular Volume 78 fL (79-100) Mean Corpuscular Hemoglobin 24 pg (25-35) Mean Corpuscular Hemoglobin Concent 31 g/dL (31-37) Red Cell Distribution Width 15.7 % (11.5-14.5) Platelet Count 104 x10^3/uL (140-400) Neutrophils (%) (Auto) 94 % (31-73) Lymphocytes (%) (Auto) 4 % (24-48) Monocytes (%) (Auto) 2 % (0-9) Eosinophils (%) (Auto) 0 % (0-3) Basophils (%) (Auto) 0 % (0-3) Neutrophils # (Auto) 10.4 x10^3/uL (1.8-7.7) Lymphocytes # (Auto) 0.5 x10^3/uL (1.0-4.8) Monocytes # (Auto) 0.2 x10^3/uL (0.0-1.1) Eosinophils # (Auto) 0.0 x10^3/uL (0.0-0.7) Basophils # (Auto) 0.0 x10^3/uL (0.0-0.2) Sodium Level 145 mmol/L (136-145) Potassium Level 3.6 mmol/L (3.5-5.1) Chloride Level 111 mmol/L (98-107) Carbon Dioxide Level 25 mmol/L (21-32) Anion Gap 9 (6-14) Blood Urea Nitrogen 21 mg/dL (8-26) Creatinine 1.3 mg/dL (0.7-1.3) Estimated GFR (Cockcroft-Gault) 53.5 Glucose Level 115 mg/dL (70-99) Calcium Level 8.7 mg/dL (8.5-10.1) Laboratory Tests Test 09/10/20 07:02 White Blood Count 11.2 x10^3/uL (4.0-11.0) Red Blood Count 3.67 x10^6/uL (4.30-5.70) Hemoglobin 9.0 g/dL (13.0-17.5) Hematocrit 28.7 % (39.0-53.0) Mean Corpuscular Volume 78 fL (79-100) Mean Corpuscular Hemoglobin 24 pg (25-35) Mean Corpuscular Hemoglobin Concent 31 g/dL (31-37) Red Cell Distribution Width 15.7 % (11.5-14.5) Platelet Count 104 x10^3/uL (140-400) Neutrophils (%) (Auto) 94 % (31-73) Lymphocytes (%) (Auto) 4 % (24-48) Monocytes (%) (Auto) 2 % (0-9) Eosinophils (%) (Auto) 0 % (0-3) Basophils (%) (Auto) 0 % (0-3) Neutrophils # (Auto) 10.4 x10^3/uL (1.8-7.7) Lymphocytes # (Auto) 0.5 x10^3/uL (1.0-4.8) Monocytes # (Auto) 0.2 x10^3/uL (0.0-1.1) Eosinophils # (Auto) 0.0 x10^3/uL (0.0-0.7) Basophils # (Auto) 0.0 x10^3/uL (0.0-0.2) Sodium Level 145 mmol/L (136-145) Potassium Level 3.6 mmol/L (3.5-5.1) Chloride Level 111 mmol/L (98-107) Carbon Dioxide Level 25 mmol/L (21-32) Anion Gap 9 (6-14) Blood Urea Nitrogen 21 mg/dL (8-26) Creatinine 1.3 mg/dL (0.7-1.3) Estimated GFR (Cockcroft-Gault) 53.5 Glucose Level 115 mg/dL (70-99) Calcium Level 8.7 mg/dL (8.5-10.1) Microbiology 09/08/20 Blood Culture - Preliminary, Resulted NO GROWTH AFTER 1 DAY Medications Current Medications Sodium Chloride 1,000 ml @ 1,000 mls/hr Q1H IV Last administered on 09/08/20at 14:20; Start 09/08/20 at 14:00; Stop 09/08/20 at 14:59; Status DC Morphine Sulfate (Morphine Sulfate) 4 mg PRN Q15MIN PRN IV/SQ PAIN GREATER THAN 3/10; Start 09/08/20 at 14:00; Stop 09/09/20 at 13:59; Status DC Levofloxacin/ Dextrose 150 ml @ 100 mls/hr 1X ONCE IV Last administered on 09/08/20at 15:12; Start 09/08/20 at 15:00; Stop 09/08/20 at 16:29; Status DC Sodium Chloride 1,000 ml @ 1,000 mls/hr 1X ONCE IV ; Start 09/08/20 at 15:45; Stop 09/08/20 at 16:44; Status Cancel Sodium Chloride (Normal Saline Flush) 3 ml QSHIFT PRN IV AFTER MEDS AND BLOOD DRAWS; Start 09/08/20 at 16:15 Sodium Chloride 1,000 ml @ 100 mls/hr Q10H IV Last administered on 09/09/20at 02:53; Start 09/08/20 at 16:15; Stop 09/09/20 at 12:12; Status DC Ondansetron HCl (Zofran) 4 mg PRN Q4HRS PRN IV NAUSEA/VOMITING; Start 09/08/20 at 16:15 Acetaminophen (Tylenol) 650 mg PRN Q4HRS PRN PO TEMP OVER 100.4F OR MOD PAIN Last administered on 09/08/20at 21:23; Start 09/08/20 at 16:15 Acetaminophen (Tylenol Supp) 650 mg PRN Q4HRS PRN [place] TEMP OVER 100.4F OR MILD PAIN; Start 09/08/20 at 16:15 Al Hydroxide/Mg Hydroxide (Mylanta Plus Xs) 30 ml PRN DAILY PRN PO HEARTBURN / GAS; Start 09/08/20 at 16:15 Sodium Monofluorophosphate (Fleet Adult) 133 ml PRN DAILY PRN IL CONSTIPATION; Start 09/08/20 at 16:15 Docusate Sodium (Colace) 100 mg PRN BID PRN PO HARD STOOLS; Start 09/08/20 at 16:15 Albuterol Sulfate (Ventolin Neb Soln) 2.5 mg PRN Q4HRS PRN NEB SHORTNESS OF BREATH; Start 09/08/20 at 16:15; Status Cancel Guaifenesin (Robitussin) 200 mg PRN Q4HRS PRN PO COUGH; Start 09/08/20 at 16:15 Enoxaparin Sodium (Lovenox 40mg Syringe) 40 mg Q24H SQ ; Start 09/08/20 at 16:15; Status UNV Levofloxacin/ Dextrose 100 ml @ 100 mls/hr Q24H IV ; Start 09/08/20 at 16:15; Status UNV Hydromorphone HCl (Dilaudid) 0.6 mg PRN Q3HRS PRN IVP SEVERE PAIN 7-10 Last administered on 09/08/20at 21:12; Start 09/08/20 at 16:15 Levofloxacin/ Dextrose 150 ml @ 100 mls/hr Q48H IV ; Start 09/10/20 at 15:00; Stop 09/10/20 at 08:21; Status DC Enoxaparin Sodium (Lovenox 30mg Syringe) 30 mg Q24H SQ ; Start 09/08/20 at 21:00; Stop 09/08/20 at 18:48; Status DC Sodium Chloride 1,000 ml @ 1,000 mls/hr 1X ONCE IV Last administered on 09/08/20at 16:34; Start 09/08/20 at 16:30; Stop 09/08/20 at 17:29; Status DC Cefepime HCl (Maxipime) 1 gm BID IVP ; Start 09/08/20 at 21:00; Status UNV Cefepime HCl (Maxipime) 2 gm Q24H IVP Last administered on 09/09/20at 17:56; Start 09/08/20 at 18:00; Stop 09/10/20 at 08:19; Status DC Lorazepam (Ativan Inj) 2 mg PRN Q4HRS PRN IVP SEIZURE ACTIVITY; Start 09/08/20 at 16:45 Enoxaparin Sodium (Lovenox 80mg Syringe) 70 mg Q24H SQ Last administered on 09/08/20at 21:34; Start 09/08/20 at 21:00; Stop 09/09/20 at 09:00; Status DC Hydrocortisone Sodium Succinate (Solu-CORTEF) 100 mg Q12HR IVP Last administered on 09/09/20at 21:25; Start 09/08/20 at 21:00; Stop 09/09/20 at 21:00; Status DC Acetaminophen (Tylenol) 325 mg PRN Q6HRS PRN PO MILD PAIN 1-3; Start 09/08/20 at 21:00 Aspirin (Ecotrin) 81 mg DAILYWBKFT PO Last administered on 09/10/20at 08:41; Start 09/09/20 at 08:00 Cetirizine HCl (ZyrTEC) 10 mg DAILY PO Last administered on 09/10/20at 08:42; Start 09/09/20 at 09:00 Diclofenac Sodium (Voltaren) 2 nawaf PRN QID PRN TP PAIN Last administered on 09/10/20at 08:43; Start 09/08/20 at 21:00 Finasteride (Proscar) 5 mg DAILY PO Last administered on 09/10/20at 08:43; Start 09/09/20 at 09:00 Furosemide (Lasix) 20 mg QODAY PO ; Start 09/10/20 at 09:00 Acetaminophen/ Hydrocodone Bitart (Lortab 5/325) 1 tab PRN Q6HRS PRN PO SEVERE PAIN Last administered on 09/09/20at 21:27; Start 09/08/20 at 21:00 Metoprolol Tartrate (Lopressor) 25 mg BID PO Last administered on 09/10/20at 08:42; Start 09/08/20 at 21:15 Potassium Chloride (Klor-Con) 20 meq QODAY PO ; Start 09/10/20 at 09:00; Stop 09/09/20 at 13:20; Status DC Senna/Docusate Sodium (Senna Plus) 2 tab BID PO Last administered on 09/10/20at 08:42; Start 09/08/20 at 21:15 Tamsulosin HCl (Flomax) 0.4 mg DAILY PO Last administered on 09/10/20at 08:43; Start 09/09/20 at 09:00 Non-Formulary Medication (Albuterol Sulfate (Ventolin Hfa Inhaler)) 2 puff Q4HRS INH ; Start 09/09/20 at 00:00; Status UNV Non-Formulary Medication (Budesonide/ Formoterol Fumarate (Symbicort 80-4.5 Mcg Inhaler)) 2 puff BID IH ; Start 09/08/20 at 21:00; Status UNV Non-Formulary Medication (Fluticasone/ Salmeterol (Advair 100-50 Diskus)) 1 puff BID IH ; Start 09/08/20 at 21:00; Status UNV Hydrocortisone (Cortaid) 1 nawaf BID TP Last administered on 09/10/20at 08:43; Start 09/08/20 at 21:30 Pantoprazole Sodium (Protonix) 20 mg DAILYAC PO Last administered on 09/10/20at 08:43; Start 09/09/20 at 07:30 Albuterol/ Ipratropium (Duoneb) 3 ml RTQID NEB ; Start 09/09/20 at 08:00; Status Cancel Budesonide (Pulmicort) 0.5 mg RTBID NEB Last administered on 09/10/20at 08:23; Start 09/09/20 at 08:00 Albuterol/ Ipratropium (Combivent Respimat 20-100 Mcg) 1 puff RTQID INH Last administered on 09/10/20at 12:27; Start 09/09/20 at 08:00 Albuterol Sulfate (Ventolin Hfa) 1 puff PRN Q4HRS PRN INH SHORTNESS OF BREATH Last administered on 09/10/20at 08:41; Start 09/09/20 at 00:15 Info (Anti-Coagulation Monitoring By Pharmacy) 1 each PRN DAILY PRN MC SEE COMMENTS Last administered on 09/09/20at 09:01; Start 09/09/20 at 09:00; Stop 09/09/20 at 09:32; Status DC Enoxaparin Sodium (Lovenox 80mg Syringe) 70 mg Q12HR SQ ; Start 09/09/20 at 10:00; Stop 09/09/20 at 09:32; Status DC Furosemide (Lasix) 20 mg 1X ONCE IVP Last administered on 09/09/20at 10:10; Start 09/09/20 at 10:00; Stop 09/09/20 at 10:01; Status DC Enoxaparin Sodium (Lovenox 40mg Syringe) 40 mg DAILY SQ Last administered on 09/10/20at 08:43; Start 09/10/20 at 09:00 Furosemide (Lasix) 20 mg 1X ONCE IVP Last administered on 09/09/20at 12:54; Start 09/09/20 at 12:15; Stop 09/09/20 at 12:16; Status DC Sodium Chloride 1,000 ml @ 60 mls/hr [id number] IV Last administered on 09/09/20at 15:30; Start 09/09/20 at 13:30 Throat Lozenges (Cepacol Sore Throat Lozenge) 1 carmencita PRN Q2HRS PRN PO SORE THROAT Last administered on 09/10/20at 08:42; Start 09/10/20 at 06:30 Levofloxacin (Levaquin) 500 mg DAILY06 PO ; Start 09/11/20 at 06:00 Furosemide (Lasix) 20 mg 1X ONCE IVP Last administered on 09/10/20at 12:25; S tart 09/10/20 at 12:00; Stop 09/10/20 at 12:04; Status DC Active Scripts Active Ventolin Hfa Inhaler (Albuterol Sulfate) 18 Gm Hfa.aer.ad 2 Puff INH Q4HRS Reported Flomax (Tamsulosin Hcl) 0.4 Mg Cap.er.24h 1 Cap PO DAILY Advair 100-50 Diskus (Fluticasone/Salmeterol) 1 Each Disk.w.dev 1 Puff IH BID Acetaminophen 325 Mg Tablet 1 Tab PO PRN Q6HRS PRN 24 Days Hydrocodone-Acetamin 5-325 mg (Hydrocodone/Acetaminophen) 1 Each Tablet 1 Tab PO PRN Q6HRS PRN Diclofenac Sodium 100 Gm Gel..gram. 2 Gm TP PRN QID PRN Hydrocortisone 453.6 Gm Cream..g. 1 Nawaf TP BID Metoprolol Tartrate 25 Mg Tablet 25 Mg PO BID Klor-Con M20 (Potassium Chloride) 20 Meq Tab.er.prt 20 Meq PO QODAY Cetirizine Hcl 10 Mg Tablet 10 Mg PO DAILY Symbicort 80-4.5 Mcg Inhaler (Budesonide/Formoterol Fumarate) 10.2 Gm Hfa.aer.ad 2 Puff IH BID Protonix (Pantoprazole Sodium) 20 Mg Tablet.dr 1 Tab PO DAILY Senokot-S Tablet (Sennosides/Docusate Sodium) 1 Each Tablet 2 Tab PO BID 30 Days Finasteride 5 Mg Tablet 1 Tab PO DAILY Aspir-Low (Aspirin) 81 Mg Tablet.dr 1 Tab PO DAILY Lasix (Furosemide) 20 Mg Tablet 1 Tab PO QODAY 30 Days Vitals/I & O Vital Sign - Last 24 Hours 09/09/20 09/09/20 09/09/20 09/09/20 15:00 19:27 20:00 21:25 Temp 97.8 98.0 97.8 98.0 Pulse 74 80 80 Resp 22 22 B/P (MAP) 117/68 (84) 110/65 (80) 110/65 Pulse Ox 95 96 O2 Delivery Nasal Cannula Nasal Cannula Nasal Cannula O2 Flow Rate 3.0 3.0 3.0 09/09/20 09/09/20 09/09/20 09/10/20 21:27 22:11 22:27 02:52 Temp 97.7 97.8 97.7 97.8 Pulse 77 91 Resp 20 22 B/P (MAP) 108/78 (88) 117/77 (90) Pulse Ox 96 96 96 O2 Delivery Nasal Cannula Nasal Cannula Nasal Cannula Nasal Cannula O2 Flow Rate 3.0 3.0 3.0 3.0 09/10/20 09/10/20 09/10/20 09/10/20 07:00 08:00 08:26 08:42 Temp 96.5 96.5 Pulse 88 91 Resp 20 B/P (MAP) 134/68 (90) 117/77 Pulse Ox 99 93 O2 Delivery Nasal Cannula Nasal Cannula Nasal Cannula O2 Flow Rate 4.0 2.0 3.0 09/10/20 11:00 Temp 97.6 97.6 Pulse 96 Resp 22 B/P (MAP) 132/82 (99) Pulse Ox 98 O2 Delivery Nasal Cannula O2 Flow Rate 4.0 Intake and Output 09/09/20 09/09/20 09/10/20 15:00 23:00 07:00 Intake Total 400 ml 620 ml 2020 ml Output Total 520 ml 1320 ml 300 ml Balance -120 ml -700 ml 1720 ml Justicifation of Admission Dx: Justifications for Admission: Justification of Admission Dx: N/A FLORENCIA GUIDO MD Sep 10, 2020 13:37
--- NOTE | 2020-09-10 13:45 | DS ---
DATE OF DISCHARGE: 09/10/2020 ADMISSION DIAGNOSES: 1. Pneumonia. 2. History of multiple myeloma. 3. History of seizures, possible recurrent seizures. 4. Hypoxemia. 5. Renal insufficiency. DISCHARGE DIAGNOSIS: Resolving pneumonia. CONSULTATIONS: Pulmonary Medicine, Nephrology, Hematology/Oncology, Neurology, Cardiology and Infectious Disease. PROCEDURES: None. HOSPITAL COURSE: The patient is a pleasant middle-aged male, who presented with a possible seizure. He had been at recently to be treated for possible COVID-19. He apparently had some left upper leg issues at as well. He has also been treated for multiple myeloma at . He had a witnessed seizure, so we admitted the patient and consult Neurology. Because of his multiple comorbidities, all the above consults were also obtained. We gave him IV antibiotics, breathing treatments, oxygen, trended his labs. Dr. Vines felt that he actually does not have acute seizures, but rather were some tremors, possibly rigors. Basically over the past couple of days, the patient has done well. I saw him and examined this morning. Heart tones are normal. Lungs are mostly clear. He is on oxygen, but he states that he has been put on oxygen at home when he left . I suspect he is probably approaching his baseline. We plan to discharge with close outpatient followup. DISPOSITION: Home. ACTIVITY: As tolerated. DIET: Low sodium. MEDICATIONS: Please see the MRAD. I did leave a prescription for Levaquin. TOTAL TIME: 31 minutes. KRISTINEL Shar OTERO DO DR: LATANYA/antolin JOB#: [id number] / [id number]
--- NOTE | 2020-09-10 13:51 | NUR ---
SS following up with discharge planning. SS reviewed pt chart and discussed with pt RN. Pt is currently requiring oxygen at four liters nasal canula. Pt has home oxygen that was arranged by [facility]. LESTER19 negative. PT/OT recommended half-way unit. Pt requesting to return to home with family. Discharge order for home with self care on the chart.
[2020-09-10] MEDS ORDERED: METH4TAB2 PO (14:03)
[2020-09-10] MEDS ORDERED: LEVO500T8 PO (14:06)
--- NOTE | 2020-09-10 15:14 | NUR ---
Discharge Note: [facility] Discharge instructions and discharge home medications reviewed with patient's son and patient and a copy given. Discussed need to keep all current follow up appointments al [facility]. Education on heart failure, cardiac diet, low sodium diet, pneumonia,and seizure give to patient and son. Discontinued iv line and catheter intact. Patient discharged to home with self-care; already has home oxygen which son brought alone to pick him up.
== END 2020-09-10 15:28 | disposition home or self-care (01) | DRG 871 ==
LOC: ER 13:44 → 6 SOUTH 15:10 → 2 SOUTH 19:23
PROVIDERS: ADMIT Family Medicine; ATTEND Family Medicine
DX: A41.9 Sepsis, unspecified organism (principal); I50.33 Acute on chronic diastolic (congestive) heart failure; J18.9 Pneumonia, unspecified organism; J96.01 Acute respiratory failure with hypoxia; N17.9 Acute kidney failure, unspecified; J44.0 Chronic obstructive pulmonary disease with (acute) lower respiratory infection; I13.0 Hypertensive heart and chronic kidney disease with heart failure and stage 1 through stage 4 chronic kidney disease, or unspecified chronic kidney disease; Z20.822 Contact with and (suspected) exposure to COVID-19; K21.9 Gastro-esophageal reflux disease without esophagitis; M19.90 Unspecified osteoarthritis, unspecified site; Y95 Nosocomial condition; G40.909 Epilepsy, unspecified, not intractable, without status epilepticus; N40.0 Benign prostatic hyperplasia without lower urinary tract symptoms; G89.3 Neoplasm related pain (acute) (chronic); M47.816 Spondylosis without myelopathy or radiculopathy, lumbar region; D69.6 Thrombocytopenia, unspecified; E87.5 Hyperkalemia; N18.30 Chronic kidney disease, stage 3 unspecified; T38.0X5A Adverse effect of glucocorticoids and synthetic analogues, initial encounter; Y92.89 Other specified places as the place of occurrence of the external cause; Z87.891 Personal history of nicotine dependence; Z91.041 Radiographic dye allergy status; Z99.81 Dependence on supplemental oxygen; Z95.3 Presence of xenogenic heart valve; Z95.1 Presence of aortocoronary bypass graft; Z90.79 Acquired absence of other genital organ(s); Z82.5 Family history of asthma and other chronic lower respiratory diseases; Z82.49 Family history of ischemic heart disease and other diseases of the circulatory system
CPT/HCPCS: 36415; 71045; 78580; 80048; 80053; 83605; 83880; 84145; 84484; 85007; 85025; 86140; 87040; 87804; 93005; 93306; 93970; 94640; 94760; 96361; 96365; 96366; 99285; A9540; J0692; J1170; J1650; J1720; J1940; J1956; J7030; U0003; 73552-50; 97110-GP; 97535-GO; G0378; J7626

== ENCOUNTER 2021-01-21 07:17 | Emergency (ER) | payer OTHER ==
[~2021-01-21] VITALS: Ht 152.4 cm; Wt 66.8 kg
[~2021-01-21 07:17] MED LIST changes: +ACET325T21 PO; +DICL100G28 TP; +FLUT1DIS IH; +HYDR-2759 PO; +HYDR453.3 TP; +LEVO500T8 PO; +METH4TAB2 PO; +TAMS0.4C97 PO
[2021-01-21] MEDS ORDERED: diphenhydrAMINE HCL 25 MG CAPSULE PO ONE ×2 (07:42→08:15)
[2021-01-21] MEDS ORDERED: FAMOTIDINE 20 MG TABLET. ONE (07:42)
[2021-01-21] MEDS ORDERED: FAMO-63 PO (07:42)
[2021-01-21] MEDS ORDERED: DIPH25CA58 PO (07:42)
[2021-01-21] MEDS ORDERED: PRED20TA PO (07:42)
--- NOTE | 2021-01-21 07:42 | PHYS DOC ---
Past Medical History Past Medical History: Cancer, CHF, COPD, GERD, Hypertension Additional Past Medical Histor: prostatism,MULTIPLE MYELOMA Past Surgical History: Other Additional Past Surgical Histo: AORTIC VALVE REPLACEMENT Smoking Status: Former Smoker Alcohol Use: None Drug Use: None General Adult EDM: Chief Complaint: ALLERGIES HPI: HPI: 75-year-old male presents with facial swelling and mild redness to forehead around eyes and onto cheeks. Patient reportedly was using some potting soil fertilizer yesterday and might of got some of it in his face. Denies any other rash or redness. Denies tongue swelling. Denies difficulty breathing. Patient had tried to rinse face with water last night and awoke today with similar issues and therefore presents to the ER for further evaluation. Of note patient was given 25 mg Benadryl at 0700 this morning at home prior to arrival.. Review of Systems: Review of Systems: Constitutional: Denies fever or chills Eyes: Denies eye pain or discharge HENT: Denies nasal congestion or sore throat; denies tongue swelling or difficulty swallowing Respiratory: Denies cough or shortness of breath Cardiovascular: Denies chest pain or palpitations GI: Denies abdominal pain, nausea, or vomiting : Denies dysuria or hematuria Musculoskeletal: Denies back pain or joint pain Integument: Reports pruritic rash and swelling to face Neurologic: Denies headache, focal weakness or sensory changes Complete systems were reviewed and found to be within normal limits, except as documented in this note. Heart Score: C/O Chest Pain: N/A Allergies: Allergies: Allergies Coded Allergies Type Severity Reaction Last Updated Verified Iodinated Contrast Media Allergy Severe 09/10/20 Yes Physical Exam: PE: Constitutional: Well developed, well nourished, no acute distress, non-toxic appearance HENT: Normocephalic, atraumatic, no tongue swelling Eyes: PERRL, EOMI, conjunctiva normal, no discharge Neck: Normal range of motion, supple, no stridor Lungs & Thorax: No respiratory distress, equal chest rise and fall Skin: Warm, dry, mild erythematous raised rash to forehead down to cheeks of face Extremities: No tenderness, ROM intact, no edema Neurologic: Alert and oriented X 3, no focal deficits noted Psychologic: Affect normal, judgment normal EKG: EKG: [] Radiology/Procedures: Radiology/Procedures: [] Course & Med Decision Making: Course & Med Decision Making Patient presents with facial erythematous pruritic rash with concern for allergen exposure from fertilizer. Patient had previously clean face with water without significant improvement. No airway compromise noted. No difficulty breathing reported. Sats stable. Symptomatic treatment provided with oral steroid, Benadryl, and Pepcid. Prescriptions given for continued treatment. Patient stable for discharge with outpatient follow-up with PCP. Discussed findings and plan with patient and family, who acknowledge understanding and a greement. Antwon Disclaimer: Antwon Disclaimer: This electronic medical record was generated, in whole or in part, using a voice recognition dictation system. Departure Departure Impression: Primary Impression: Allergic contact dermatitis Qualified Codes: L23.5 - Allergic contact dermatitis due to other chemical products Disposition: HOME / SELF CARE / HOMELESS Condition: STABLE Referrals: NO PCP (PCP) Patient Instructions: Contact Dermatitis, [id number]-Bxwe Scripts Diphenhydramine Hcl (BENADRYL) 25 Mg Capsule 25 MG PO Q6HRS PRN for RASH, #30 CAP Prov: FRANCISCO CONTRERAS DO 01/21/21 Famotidine (PEPCID) 20 Mg Tablet 20 MG PO BID for 5 Days, #10 TAB Prov: FRANCISCO CONTRERAS DO 01/21/21 Prednisone (PREDNISONE) 20 Mg Tablet 2 TAB PO DAILY for 4 Days, #8 TAB Start this prescription tomorrow, Monday01/22/21 Prov: FRANCISCO CONTRERAS DO 01/21/21 FRANCISCO CONTRERAS DO Jan 21, 2021 07:42
[2021-01-21 08:02] VITALS: BP 137/82
[2021-01-21] MEDS ORDERED: FAMOTIDINE 20 MG TABLET. PO ONE (08:15)
[2021-01-21] MEDS ORDERED: DEXAMETHASONE 4 MG TABLET PO ONE (08:15)
== END 2021-01-21 08:02 | disposition home or self-care (01) ==
LOC: ER 07:17
DX: L23.5 Allergic contact dermatitis due to other chemical products (principal); K21.9 Gastro-esophageal reflux disease without esophagitis; J44.9 Chronic obstructive pulmonary disease, unspecified; I11.0 Hypertensive heart disease with heart failure; I50.9 Heart failure, unspecified; Z87.891 Personal history of nicotine dependence; Z91.041 Radiographic dye allergy status
CPT/HCPCS: 99284; Q0163

== ENCOUNTER 2021-06-12 17:49 | Emergency (ER) | payer OTHER ==
[~2021-06-12] VITALS: Ht 152.4 cm; Wt 66.0 kg
[~2021-06-12 17:49] MED LIST changes: +DIPH25CA58 PO; +FAMO-63 PO; -LEVO500T8 PO; +LEVO500T9 PO; +POTA-121 PO; -POTA20TA4 PO; +PRED20TA PO
--- NOTE | 2021-06-12 19:09 | PHYS DOC ---
Past Medical History Past Medical History: Cancer, CHF, COPD, GERD, Hypertension Additional Past Medical Histor: prostatism,MULTIPLE MYELOMA (ERIC,BHARATI M [facility]) Past Surgical History: Other Additional Past Surgical Histo: AORTIC VALVE REPLACEMENT [facility] Smoking Status: Former Smoker Alcohol Use: None Drug Use: None ([facility]) General Adult EDM: Chief Complaint: SHORTNESS OF BREATH HPI: HPI: Patient is a 76 year old male who presents with shortness of breath that started this afternoon with coughing and dizziness. Patient son states that his father was very short of breath. Patient is coughing up yellow mucus. Patient dates he is feeling better and more like normal. History of CHF, COPD, multiple myeloma, hypertension, GERD, aortic valve replacement, former smoker, prostatism. His vital signs are within normal limits. Denies any pain, denies chest pain, headache, dizziness, headache, fever, abdominal pain, nausea, vomiting, diarrhea, focal weakness, numbness or tingling. ([facility] [place]) Review of Systems: Review of Systems: Constitutional: Denies fever or chills. [] Eyes: Denies change in visual acuity. [] HENT: Denies nasal congestion or sore throat. [] Respiratory: + cough or +shortness of breath. [] Cardiovascular: Denies chest pain or edema. [] GI: Denies abdominal pain, nausea, vomiting, bloody stools or diarrhea. [] : Denies dysuria. [] Musculoskeletal: Denies back pain or joint pain. [] Integument: Denies rash. [] Neurologic: Denies headache, focal weakness or sensory changes. + Dizziness [] Endocrine: Denies polyuria or polydipsia. [] Lymphatic: Denies swollen glands. [] Psychiatric: Denies depression or anxiety. [] ([employer] [facility],BHARATI [place] [facility]) Heart Score: C/O Chest Pain: No HEART Score for Chest Pain: HEART Score for Chest Pain Response (Comments) Value History Slighlty/Non-Suspicious 0 ECG Normal 0 Age > 65 2 Risk Factors 1 or 2 Risk Factors 1 Troponin < Normal Limit 0 Total 3 Risk Factors: Risk Factors: DM, Current or recent (<one month) smoker, HTN, HLP, family history of CAD, obesity. Risk Scores: Score 0 - 3: 2.5% MACE over next 6 weeks - Discharge Home Score 4 - 6: 20.3% MACE over next 6 weeks - Admit for Clinical Observation Score 7 - 10: 72.7% MACE over next 6 weeks - Early Invasive Strategies (BHARATI OLMOS APRN) Current Medications: Current Medications Medications (Trade) Dose Ordered Sig/Marino Start Time Stop Time Status Last Admin Dose Admin Albuterol/ Ipratropium (Duoneb) 3 ml 1X ONCE 06/12/21 19:15 06/12/21 19:16 Methylprednisolone Sodium Succinate (SOLU-Medrol 125MG VIAL) 80 mg 1X ONCE 06/12/21 19:15 06/12/21 19:16 (BHARATI OLMOS APRN) Allergies: Allergies: Allergies Coded Allergies Type Severity Reaction Last Updated Verified Iodinated Contrast Media Allergy Severe 09/10/20 Yes (BHARATI OLMOS APRN) Physical Exam: PE: Constitutional: Well developed, well nourished, no acute distress, non-toxic appearance. [] HENT: Normocephalic, atraumatic, bilateral external ears normal, oropharynx moist, no oral exudates, nose normal. [] Eyes: PERRLA, EOMI, conjunctiva normal, no discharge. [] Neck: Normal range of motion, no tenderness, supple, no stridor. [] Cardiovascular:Heart rate regular rhythm, no murmur [] Lungs & Thorax: Bilateral breath sounds inspiratory expiratory wheezing to auscultation [] Abdomen: Bowel sounds normal, soft, no tenderness, no masses, no pulsatile masses. [] Skin: Warm, dry, no erythema, no rash. [] Back: No tenderness, no CVA tenderness. [] Extremities: No tenderness, no cyanosis, no clubbing, ROM intact, no edema. [] Neurologic: Alert and oriented X 3, normal motor function, normal sensory function, no focal deficits noted. [] Psychologic: Affect normal, judgement normal, mood normal. [] (BHARATI OLMOS APRN) EKG: EK and read by Dr. Contreras is sinus rhythm but no STEMI (BHARATI OLMOS APRN) Radiology/Procedures: Radiology/Procedures: [] Impression: [address] [place] [address] IMAGING REPORT Signed PATIENT: CAROLIN COLES ACCOUNT: [id number] : 1945 LOCATION: ER AGE: 76 SEX: M EXAM STATUS: REG ER ORD. PHYSICIAN: BHARATI OLMOS APRN REASON: soa blood work 7:25 PROCEDURE: PORTABLE CHEST 1V EXAM: CHEST ONE VIEW. HISTORY: Shortness of breath. COMPARISON: 09/08/2020. FINDINGS: A frontal view of the chest is obtained. There are changes of coronary artery bypass grafting. Mild bibasilar interstitial infiltrates have improved since the prior study. There is no pneumothorax or pleural effusion. The heart is mildly enlarged. IMPRESSION: 1. Mild interstitial infiltrates are consistent with mild pulmonary edema or interstitial lung disease. Electronically signed by: Marjan Bentley MD (06/12/2021 9:14 PM) [facility] DICTATED and SIGNED BY: MICHELLE BENTLEY MD DATE: 06/12/21 [id number] (BHARATI OLMOS APRN) Course & Med Decision Making: Course & Med Decision Making Pertinent Labs and Imaging studies reviewed. (See chart for details) See HPI. Inspiratory expiratory lungs are wheezy throughout. Does not have a nebulizer at home. Skin pink warm and dry. Speaking in full clear sentences. No respiratory distress. Dr Contreras has read chest xray as some right sided of vascular congestion vs signs of atypical infection. Troponin normal. Covid swab pending. Vital signs stable and in no respiratory distress. BNP 328. Patient is resting comfortably and states he is feeling back to normal. There are no old x-rays to compare chest x-rays. After speaking with Dr. Contreras of patient exam and findings he states okay to go home but we will cover the patient with azithromycin and a Medrol Do sepak. Patient follow-up with his primary care this coming week. [] (BHARATI OLMOS APRN) Dragon Disclaimer: Dragon Disclaimer: This electronic medical record was generated, in whole or in part, using a voice recognition dictation system. (BHARATI OLMOS APRN) Departure Departure Impression: Primary Impression: Cough Additional Impression: Shortness of breath Disposition: HOME / SELF CARE / HOMELESS Condition: STABLE Referrals: NO PCP (PCP) Patient Instructions: Chronic Obstructive Pulmonary Disease Exacerbation, C ough, Adult Additional Instructions: Follow-up with primary care provider this coming week. Take medication as prescribed and with food. If you begin having severe shortness of breath or chest pain return to the emergency room. Scripts Albuterol Sulfate (PROAIR HFA INHALER) 8.5 Gm Hfa.aer.ad 1 PUFF INH PRN Q6HRS PRN for SHORTNESS OF BREATH, #1 EACH 0 Refills Prov: BHARATI OLMOS APRN 06/12/21 Methylprednisolone (MEDROL) 4 Mg Tab.ds.pk 1 PKG PO UD, #1 PKG Prov: BHARATI OLMOS APRN 06/12/21 Azithromycin (AZITHROMYCIN TABLET) 250 Mg Tablet 1 PKG PO UD for 5 Days, #6 TAB 0 Refills 2 the first day followed by 1 for days 2-5 Prov: BHARATI OLMOS APRN 06/12/21 Attending Signature Attending Signature I have reviewed the PA/ONCOLOGY RN's note and plan of care. I was available for consultation as needed during the patient's visit in the emergency department. I agree with the clinical impression, plan, and disposition. (FRANCISCO CONTRERAS DO) BHARATI OLMOS APRN Jun 12, 2021 19:09 FRANCISCO CONTRERAS DO Jun 13, 2021 02:47
[2021-06-12] MEDS ORDERED: methylPREDNISolone SOD SUCC PF 125 MG/2 ML VIAL. IV ONE (19:15)
[2021-06-12] MEDS ORDERED: IPRATRPIUM/ALBUTEROL 0.5/2.5MG 3 ML NEBU. NEB ONE (19:15)
[2021-06-12 19:34] LABS: BASO % 1 % (0-3); EOS # 0.2 x10^3/uL (0.0-0.7); EOS % 4 % (0-3); HEMATOCRIT 30.5 % (39.0-53.0); HEMOGLOBIN 9.5 g/dL (13.0-17.5); LYMPH # 1.1 x10^3/uL (1.0-4.8); LYMPH % 24 % (24-48); MEAN CORPUSCULAR HEMOGLOBIN 23 pg (25-35); MEAN CORPUSCULAR HGB CONC 31 g/dL (31-37); MEAN CORPUSCULAR VOLUME 73 fL (79-100); MONO # 0.4 x10^3/uL (0.0-1.1); MONO % 10 % (0-9); NEUT # 2.8 x10^3/uL (1.8-7.7); NEUT % 62 % (31-73); PLATELET COUNT 190 x10^3/uL (140-400); RED BLOOD COUNT 4.21 x10^6/uL (4.30-5.70); RED CELL DISTRIBUTION WIDTH 16.7 % (11.5-14.5); WHITE BLOOD COUNT 4.5 x10^3/uL (4.0-11.0)
[2021-06-12 19:42] LABS: CALCIUM 8.7 mg/dL (8.5-10.1); CREATININE 1.3 mg/dL (0.7-1.3); GFR 53.4; POTASSIUM 3.9 mmol/L (3.5-5.1)
[2021-06-12 19:47] LABS: ALBUMIN 3.8 g/dL (3.4-5.0); ALBUMIN/GLOBULIN RATIO 0.9 (1.0-1.7); TOTAL BILIRUBIN 0.6 mg/dL (0.2-1.0); TOTAL PROTEIN 8.1 g/dL (6.4-8.2)
[2021-06-12 19:57] LABS: ANISOCYTOSIS SLIGHT; HYPOCHROMIA MOD; MICROCYTOSIS SLIGHT; OVALOCYTES FEW; PLT ESTIMATE ADEQUATE (ADEQUATE); POIKILOCYTOSIS SLIGHT
[2021-06-12 20:43] VITALS: BP 132/77
[2021-06-12] MEDS ORDERED: METH4TAB2 PO (21:01)
[2021-06-12] MEDS ORDERED: AZIT250T6 PO (21:01)
[2021-06-12] MEDS ORDERED: ALBU2.5V8 INH (21:01)
--- NOTE | 2021-06-12 21:16 | RAD ---
EXAM: CHEST ONE VIEW. HISTORY: Shortness of breath. COMPARISON: 09/08/2020. FINDINGS: A frontal view of the chest is obtained. There are changes of coronary artery bypass grafti ng. Mild bibasilar interstitial infiltrates have improved since the prior study. There is no pneumothorax or pleural effusion. The heart is mildly enlarged. IMPRESSION: 1. Mild interstitial infiltrates are consistent with mild pulmonary edema or interstitial lung diseas e. Electronically signed by: Marjan Bentley MD (06/12/2021 9:14 PM) [facility]
--- NOTE | 2021-06-13 05:25 | EKG ---
[facility] [address] [place] [address] Test Date: 2021-06-12 Test Time: 19:08:32 Pat Name: CAROLIN COLES Department: Room: Gender: M Chef Assistant: : 1945 Requested By: BHARATI OLMOS Order Number: [id number] Reading MD: Facundo Calderon Measurements Intervals [place] Rate: 77 P: 27 [place]: 150 QRS: 2 QRSD: 92 T: 32 QT: 394 QTc: 448 Interpretive Statements SINUS RHYTHM QRS(T) CONTOUR ABNORMALITY CONSISTENT WITH INFERIOR INFARCT PROBABLY OLD ABNORMAL ECG Electronically Signed On 06-13-2021 13:05:31 CDT by Facundo Calderon
== END 2021-06-12 21:04 | disposition home or self-care (01) ==
LOC: ER 17:49
DX: R05.9 Cough, unspecified (principal); R06.02 Shortness of breath; R42 Dizziness and giddiness; I11.0 Hypertensive heart disease with heart failure; I50.9 Heart failure, unspecified; J44.9 Chronic obstructive pulmonary disease, unspecified; K21.9 Gastro-esophageal reflux disease without esophagitis; Z91.041 Radiographic dye allergy status
CPT/HCPCS: 36415; 71045; 80053; 83880; 84484; 85025; 93005; 94640; 96374; 99285; J2930

== ENCOUNTER 2021-11-07 18:58 | Emergency (ER) | payer OTHER ==
[~2021-11-07] VITALS: Ht 152.4 cm; Wt 64.4 kg
[~2021-11-07 18:58] MED LIST changes: +ALBU2.5V8 INH; +ASCO500C PO; +AZIT250T6 PO; +DOXY100C3 PO; +PRED-220 PO; +ZINC220C5 PO
--- NOTE | 2021-11-07 19:22 | PHYS DOC ---
Past Medical History Past Medical History: Cancer, CHF, COPD, GERD, Hypertension Additional Past Medical Histor: prostatism,MULTIPLE MYELOMA,BPH Past Surgical History: Other Additional Past Surgical Histo: AORTIC VALVE REPLACEMENT Smoking Status: Never Smoker Alcohol Use: None Drug Use: None General Adult EDM: Chief Complaint: SHORTNESS OF BREATH HPI: HPI: History obtained from patient and son. Son uses guidance consultant with patient and son's permission. Patient is a 76-year-old male with past medical history significant for nonoxygen dependent COPD, CHF, multimyeloma, pancytopenia who presents with chief complaint of shortness breath. Son states patient woke up early this morning with chills and increased fatigue from baseline. States he felt well yesterday. States approximately 3 to 4 hours prior to arrival he developed some shortness of breath. He does note some intermittent wheezing. He states this feels more like COPD versus CHF. Does take 20 mg of Lasix daily. Son reports appropriate urinary output. Patient denies chest pain. Does note a cough with a slight increase in sputum production. Denies fevers. Denies recent steroids or antibiotics. Does use inhalers at home. Has tried a rescue albuterol halo with some relief at home. Denies swelling or weight gain. Denies syncope. Denies any known sick contacts at home. Per chart review patient discharged in facility in August 2021. Admitted for acute hypoxic respiratory failure thought to be related to COPD. Known to be pancytopenic at that time. Ultimately discharged home with antibiotics and steroids. Review of Systems: Review of Systems: Constitutional: Positive for fatigue and chills Eyes: Denies change in visual acuity. [] HENT: Denies nasal congestion or sore throat. [] Respiratory: Positive for cough, shortness of breath, wheezing Cardiovascular: Denies chest pain or edema. [] GI: Denies abdominal pain, nausea, vomiting, bloody stools or diarrhea. [] : Denies dysuria. [] Musculoskeletal: Denies back pain or joint pain. [] Integument: Denies rash. [] Neurologic: Denies headache, focal weakness or sensory changes. [] Endocrine: Denies polyuria or polydipsia. [] Lymphatic: Denies swollen glands. [] Psychiatric: Denies depression or anxiety. [] Heart Score: C/O Chest Pain: No Risk Factors: Risk Factors: DM, Current or recent (<one month) smoker, HTN, HLP, family history of CAD, obesity. Risk Scores: Score 0 - 3: 2.5% MACE over next 6 weeks - Discharge Home Score 4 - 6: 20.3% MACE over next 6 weeks - Admit for Clinical Observation Score 7 - 10: 72.7% MACE over next 6 weeks - Early Invasive Strategies Current Medications: Current Medications Medications (Trade) Dose Ordered Sig/Marino Start Time Stop Time Status Last Admin Dose Admin Albuterol/ Ipratropium (Duoneb) 9 ml 1X ONCE 11/07/21 19:30 11/07/21 19:31 UNV Prednisone (Prednisone) 60 mg 1X ONCE 11/07/21 19:30 11/07/21 19:31 UNV Allergies: Allergies: Allergies Coded Allergies Type Severity Reaction Last Updated Verified Iodinated Contrast Media Allergy Severe 09/10/20 Yes Physical Exam: PE: Constitutional: Well developed, well nourished, no acute distress, non-toxic appearance. [] HENT: Normocephalic, atraumatic, bilateral external ears normal, oropharynx moist, no oral exudates, nose normal. [] Eyes: PERRLA, EOMI, conjunctiva normal, no discharge. [] Neck: Normal range of motion, no tenderness, supple, no stridor. [] Cardiovascular:Heart rate regular rhythm, no murmur [] Lungs & Thorax: Mild end expiratory wheezes appreciated in the bases bilaterally. Nontachypneic. Speaking in full sentences. Normal oxygenation on room air. Abdomen: Bowel sounds normal, soft, no tenderness, no masses, no pulsatile masses. [] Skin: Warm, dry, no erythema, no rash. [] Back: No tenderness, no CVA tenderness. [] Extremities: No tenderness, no cyanosis, no clubbing, ROM intact, no edema. [] Neurologic: Alert and oriented X 3, normal motor function, normal sensory function, no focal deficits noted. [] Psychologic: Affect normal, judgement normal, mood normal. [] Current Patient Data: Labs: Laboratory Tests Test 11/07/21 20:25 11/07/21 21:00 White Blood Count 3.4 x10^3/uL (4.0-11.0) Red Blood Count 4.80 x10^6/uL (4.30-5.70) Hemoglobin 12.3 g/dL (13.0-17.5) Hematocrit 39.3 % (39.0-53.0) Mean Corpuscular Volume 82 fL (79-100) Mean Corpuscular Hemoglobin 26 pg (25-35) Mean Corpuscular Hemoglobin Concent 31 g/dL (31-37) Red Cell Distribution Width 17.9 % (11.5-14.5) Platelet Count 131 x10^3/uL (140-400) Neutrophils (%) (Auto) 51 % (31-73) Lymphocytes (%) (Auto) 32 % (24-48) Monocytes (%) (Auto) 10 % (0-9) Eosinophils (%) (Auto) 6 % (0-3) Basophils (%) (Auto) 1 % (0-3) Neutrophils # (Auto) 1.7 x10^3/uL (1.8-7.7) Lymphocytes # (Auto) 1.1 x10^3/uL (1.0-4.8) Monocytes # (Auto) 0.4 x10^3/uL (0.0-1.1) Eosinophils # (Auto) 0.2 x10^3/uL (0.0-0.7) Basophils # (Auto) 0.0 x10^3/uL (0.0-0.2) Sodium Level 140 mmol/L (136-145) Chloride Level 109 mmol/L (98-107) Carbon Dioxide Level 27 mmol/L (21-32) Anion Gap 4 (6-14) Blood Urea Nitrogen 13 mg/dL (8-26) Estimated GFR (Cockcroft-Gault) 58.6 BUN/Creatinine Ratio 11 (6-20) Glucose Level 149 mg/dL (70-99) Calcium Level 8.9 mg/dL (8.5-10.1) Total Bilirubin 0.7 mg/dL (0.2-1.0) Aspartate Amino Transf (AST/SGOT) 21 U/L (15-37) Alkaline Phosphatase 63 U/L (46-116) Troponin I High Sensitivity 11 ng/L (4-75) Total Protein 7.8 g/dL (6.4-8.2) Albumin 3.7 g/dL (3.4-5.0) Albumin/Globulin Ratio 0.9 (1.0-1.7) Influenza Type A Antigen Negative (NEGATIVE) Influenza Type B Antigen Negative (NEGATIVE) SARS-CoV-2 Antigen (Rapid) Negative (NEGATIVE) Vital Signs: Vital Signs Date Time Temp Pulse Resp B/P (MAP) Pulse Ox O2 Delivery O2 Flow Rate FiO2 11/07/21 19:13 98.6 71 25 164/87 (112) 97 Room Air 98.6 EKG: EKG: [] EKG consistent with sinus rhythm. Significant artifact present however. Left axis deviation noted. No obvious ST elevation appreciated. Radiology/Procedures: Radiology/Procedures: [facility] [address] [place] [address] IMAGING REPORT Signed PATIENT: CAROLIN COLES ACCOUNT: [id number] : 1945 LOCATION: ER AGE: 76 SEX: M EXAM STATUS: PRE ER ORD. PHYSICIAN: NILAM BUCKNER DO REASON: cough, hx COPD PROCEDURE: CHEST PA & LATERAL Exam: Chest 2 views INDICATION: Cough, COPD TECHNIQUE: Frontal and lateral views the chest Comparisons: 08/14/2021 FINDINGS: Sternotomy wires are noted. Heart is mildly enlarged. Pulmonary vessels are within normal limits. Patchy bibasilar airspace disease. No pleural effusion. IMPRESSION: Patchy bibasilar airspace disease. This may relate to edema or developing infectious process. Electronically signed by: Amado Reddy MD (11/07/2021 8:09 PM) [facility] DICTATED and SIGNED BY: AMADO REDDY MD DATE: 11/07/212007 [] Course & Med Decision Making: Course & Med Decision Making Pertinent Labs and Imaging studies reviewed. (See chart for details) [] Patient is a well-appearing 76-year-old male who presents with chief complaint of shortness of breath that began gradually today. Initial vital signs unremarkable including normal oxygenation on room air. Mild wheezes appreciated. Patient was given DuoNeb breathing treatments as well as oral prednisone. Work-up obtained has been reassuring thus far. High sensitive troponin normal. He does have a very mildly elevated proBNP of approximately 300. Chest x-ray does show nonspecific edema versus infiltrates. Clinically patient does not appear hypervolemic. Given his low BNP value and normal oxygenation I have a higher suspicion for COPD exacerbation. Covid and flu negative. On repeat assessment patient states he is feeling much better. Has been able to ambulate with normal oxygenation. Son and patient are both motivated for discharge home. They can follow-up with his primary care physician this week. Overall I do feel discharge is reasonable. Will be discharged home with a short course of steroids and oral antibiotics. Strict return precautions discussed and understood. Stable for discharge home. Antwon Disclaimer: Antwon Disclaimer: This electronic medical record was generated, in whole or in part, using a voice recognition dictation system. Departure Departure Impression: Primary Impression: COPD exacerbation Disposition: HOME / SELF CARE / HOMELESS Condition: GOOD Referrals: JUAN MCCONNELL (PCP) Patient Instructions: Chronic Obstructive Pulmonary Disease, Chronic Obstructive Pulmonary Disease Exacerbation Additional Instructions: Please follow-up with your primary care physician the next 2 to 3 days Scripts Prednisone (PREDNISONE) 20 Mg Tablet 60 MG PO DAILY for 4 Days, #12 TAB Prov: NILAM BUCKNER DO 11/07/21 Doxycycline Hyclate (DOXYCYCLINE HYCLATE) 100 Mg Tablet. 1 TAB PO BID for 7 Days, #14 TAB Prov: NILAM BUCKNER DO 11/07/21 NILAM BUCKNER DO Nov 07, 2021 19:22
[2021-11-07] MEDS ORDERED: IPRATRPIUM/ALBUTEROL 0.5/2.5MG 3 ML NEBU. NEB ONE (19:30)
[2021-11-07] MEDS ORDERED: predniSONE 20 MG TABLET PO ONE (19:30)
--- NOTE | 2021-11-07 20:11 | RAD ---
Exam: Chest 2 views INDICATION: Cough, COPD TECHNIQUE: Frontal and lateral views the chest Comparisons: 08/14/2021 FINDINGS: Sternotomy wires are noted. Heart is mildly enlarged. Pulmonary vessels are within normal limits. Patchy bibasilar airspace disease. No pleural effusion. IMPRESSION: Patchy bibasilar airspace disease. This may relate to edema or developing infectious process. Electronically signed by: Amado Marin MD (11/07/2021 8:09 PM) [facility]
[2021-11-07 20:40] LABS: BASO % 1 % (0-3); EOS # 0.2 x10^3/uL (0.0-0.7); EOS % 6 % (0-3); HEMATOCRIT 39.3 % (39.0-53.0); HEMOGLOBIN 12.3 g/dL (13.0-17.5); LYMPH # 1.1 x10^3/uL (1.0-4.8); LYMPH % 32 % (24-48); MEAN CORPUSCULAR HEMOGLOBIN 26 pg (25-35); MEAN CORPUSCULAR HGB CONC 31 g/dL (31-37); MEAN CORPUSCULAR VOLUME 82 fL (79-100); MONO # 0.4 x10^3/uL (0.0-1.1); MONO % 10 % (0-9); NEUT # 1.7 x10^3/uL (1.8-7.7); NEUT % 51 % (31-73); PLATELET COUNT 131 x10^3/uL (140-400); RED CELL DISTRIBUTION WIDTH 17.9 % (11.5-14.5); WHITE BLOOD COUNT 3.4 x10^3/uL (4.0-11.0)
[2021-11-07 20:47] LABS: CALCIUM 8.9 mg/dL (8.5-10.1); CREATININE 1.2 mg/dL (0.7-1.3); GFR 58.6; POTASSIUM 4.5 mmol/L (3.5-5.1)
[2021-11-07 20:52] LABS: ALBUMIN 3.7 g/dL (3.4-5.0); ALBUMIN/GLOBULIN RATIO 0.9 (1.0-1.7); TOTAL BILIRUBIN 0.7 mg/dL (0.2-1.0); TOTAL PROTEIN 7.8 g/dL (6.4-8.2)
[2021-11-07 21:24] LABS: INFLUENZA A PATIENT NEGATIVE (NEGATIVE); INFLUENZA B PATIENT NEGATIVE (NEGATIVE)
[2021-11-07] MEDS ORDERED: DOXYCYCLINE HYCLATE 100 MG TABLET PO ONE (21:30)
[2021-11-07 21:38] VITALS: BP 145/82
[2021-11-07] MEDS ORDERED: PRED20TA PO (21:49)
[2021-11-07] MEDS ORDERED: DOXY-96 PO (21:49)
== END 2021-11-07 22:06 | disposition home or self-care (01) ==
LOC: ER 18:58
DX: J44.1 Chronic obstructive pulmonary disease with (acute) exacerbation (principal); Z20.822 Contact with and (suspected) exposure to COVID-19; K21.9 Gastro-esophageal reflux disease without esophagitis; I11.0 Hypertensive heart disease with heart failure; I50.9 Heart failure, unspecified; Z91.041 Radiographic dye allergy status
CPT/HCPCS: 36415; 71046; 80053; 83880; 84484; 85025; 87428; 94640; 99285; J7512